=== PATIENT | female | born 1950 | race Caucasian/White ===

== ENCOUNTER 2021-08-02 15:37 | Emergency (ER) | payer MEDICARE, OTHER, SELFPAY ==
[2021-08-02 15:38] VITALS: BP 133/75; PULSE 63; RESP 16; TEMP 36.1; O2SAT 98; BMI 76.3
[2021-08-02 15:41] VITALS: BP 133/75; PULSE 63; RESP 16; TEMP 36.1; O2SAT 98
[2021-08-02 16:13] VITALS: O2SAT 96
[2021-08-02] MEDS: Ondansetron ODT 4 MG Tablet PO (17:34)
[2021-08-02 17:37] VITALS: PULSE 65; RESP 18; O2SAT 98
--- NOTE | 2021-08-02 18:15 | ED.VIS.DYS ---
HPI History of Present Illness Chief Complaint: Shortness of Breath Narrative Narrative: Patient presenting with mild shortness of breath. She is day 4 of COVID-19 symptoms. She states that she noted her pulse ox was 89- 90 at home. She did not feel significantly short of breath. She does express that she is had some nausea. She denies chest pain or palpitations. She denies abdominal pain. She has no urinary complaints. Patient states that she has been trying to get set up for monoclonal antibodies outpatient but this has not been ordered yet. Patient had a COVID-19 test that was positive at the now clinic on the . Symptom onset was the . [facility] Medical History Arthritis Back problem Benign neoplasm of right breast Breast lump Cataracts, bilateral Chronic headaches Gallstones Glaucoma Heart disease History of blood clots Hypertension Neuropathy UTI (urinary tract infection) Home Medications Daniela's wort 300 mg tablet 300 mg PO DAILY 07/12/21 [History Last Taken Unknown] aspirin 81 mg tablet,delayed release 81 mg PO DAILY 07/12/21 [History Last Taken Unknown] lecithin 1,200 mg capsule 1,200 mg PO DAILY 07/12/21 [History Last Taken Unknown] lisinopril 40 mg tablet 40 mg PO DAILY 07/12/21 [History Last Taken Unknown] nmodderqobgh-bvaquiev-hhagvm tablet 1 tab PO DAILY 07/12/21 [History Last Taken Unknown] phentermine 30 mg capsule 30 mg PO DAILY #30 cap 07/12/21 [Rx Last Taken Unknown] propranolol 10 mg tablet 10 mg PO TID 07/12/21 [History Last Taken Unknown] selenium 200 mcg tablet 200 mcg PO DAILY 07/12/21 [History Last Taken Unknown] vit C 250 mg-E 90 mg-zinc 40 mg-copper 1 jf-aszzfe-dtjjed chew tablet 1 tab PO QAM AND QPM 07/12/21 [History Last Taken Unknown] ondansetron 4 mg PO Q8H PRN PRN #14 tab 08/02/21 [Rx Last Taken Unknown] Allergy/AdvReac Type Severity Reaction Status Date / Time iodine Allergy Intermediate rash Verified 07/12/21 14:30 amoxicillin [From Augmentin] AdvReac Vomiting Verified 08/02/21 15:38 clavulanic acid AdvReac Vomiting Verified 08/02/21 15:38 [From Augmentin] Family History Father Angina at rest Hx of blood clots Cancer Myocardial infarction Sister Cancer Brother Thyroid disorder Severe allergy Surgical History H/O repair of right rotator cuff History of cholecystectomy History of phacoemulsification of cataract of both eyes with intraocular lens implantation History of total left knee replacement Social History Smoking Status: Never smoker alcohol intake: never substance use type: does not use what type of physical activity do you participate in: walking ROS ROS ED Constitutional Constitutional ED: Reports chills and fever(s) Eyes Eyes: Denies blurry vision or diplopia ENT ENT ED: Denies rhinorrhea or sore throat Cardiovascular Cardiovascular: Denies chest pain or palpitations Respiratory/Chest Respiratory/Chest: Reports cough and dyspnea Gastrointestinal Gastrointestinal: Denies abdominal pain, nausea or vomiting Genitourinary Genitourinary ED: Denies dysuria or hematuria Musculoskeletal Musculoskeletal: Reports myalgias; Denies arthralgias or neck pain Integumentary Denies Abrasions or rash Neurologic Neurologic: Reports headache(s); Denies paresthesias or weakness EXAM Physical Exam Const Vital Signs: 08/02/21 15:38 08/02/21 15:41 08/02/21 16:13 Temperature 96.9 F L 96.9 F L Temperature Source Temporal Temporal Pulse Rate 63 63 Respiratory Rate 16 16 Respiratory Effort Normal Non-Labored Respiratory Depth Normal Respiratory Pattern Normal Blood Pressure 133/75 H 133/75 H Blood Pressure Mean 94 94 Pulse Ox 98 98 Oxygen Delivery Method Room Air Room Air Room Air 08/02/21 17:37 Temperature Temperature Source Pulse Rate 65 Respiratory Rate 18 Respiratory Effort Respiratory Depth Respiratory Pattern Blood Pressure Blood Pressure Mean Pulse Ox 98 Oxygen Delivery Method Positive well nourished General Appearance ED: NAD; Negative for pallor HEENT Reports moist mucous membranes atraumatic Eyes PERRL and EOMs intact bilaterally General Eye ED: Negative for pale conjunctiva or scleral icterus Neck no lymphadenopathy and supple Resp normal respiratory effort and clear to auscultation bilaterally Cardio regular rate and regular rhythm Extremity normal to inspection General Extremety ED: Negative for edema or tenderness General Extremity: Negative for edema Neuro oriented x3 and CN's II-XII intact bilaterally Sensorium / Orientation: alert Motor Exam: strength 5/5 throughout Psych mental status grossly normal Skin General Skin Exam: Negative for jaundice or pallor Rashes: no rashes MDM MDM MDM Narrative Medical decision making narrative: Patient evaluated for low pulse ox. Her pulse ox here is 98%. I personally ambulated her in the room for about 45 seconds while she was giving her history to me and she never dropped below 98%. I believe her pulse ox may not be accurate. She did not appear dyspneic and states she is not even very short of breath when she is doing this. Based on this I do not believe she needs any blood work or imaging at this time. She does express that she like some nausea medicine for home. She is given Zofran. I did put in the order for monoclonal antibodies so that she can get set up for this. She is counseled to hydrate well at home. She is given return precautions. Impression: 1 COVID-19 Discharge Plan Triage Chief Complaint: Shortness of Breath ED Provider: Artem Lees Dx/Rx/DC Orders Instructions: Coronavirus Disease 2019 (COVID-19): Caring for Yourself or Others, ED - COVID Monoclonal AB Infusion ... Prescriptions: New ondansetron 4 mg tablet,disintegrating 4 mg PO Q8H PRN PRN (Reason: Nausea) Qty: 14 RF: 0 No Action propranolol 10 mg tablet 10 mg PO TID RF: 0 lisinopril 40 mg tablet 40 mg PO DAILY RF: 0 Daniela's wort 300 mg tablet 300 mg PO DAILY RF: 0 selenium 200 mcg tablet 200 mcg PO DAILY RF: 0 PreserVision AREDS-2 250-90-40-1 mg tablet,chewable 1 tab PO QAM AND QPM RF: 0 lecithin 1,200 mg capsule 1,200 mg PO DAILY RF: 0 aspirin 81 mg tablet,delayed release (DR/EC) 81 mg PO DAILY RF: 0 xhaltqzyogho-lxkvyjxt-nyrmhy Tablet 1 tab PO DAILY RF: 0 phentermine 30 mg capsule 30 mg PO DAILY Qty: 30 RF: 2 Primary Care Provider: Brian Martini Referrals: Brian Martini MD [Primary Care Provider] - Disposition Disposition: Home, Self Care Discharge Date/Time: 08/02/21 17:41
== END 2021-08-02 17:41 | disposition home or self-care (01) ==
PROVIDERS: Emergency Provider Student in an Organized Health Care Education/Training Program; PCP Family Medicine
DX: U07.1 COVID-19 (principal); I10 Essential (primary) hypertension; M19.90 Unspecified osteoarthritis, unspecified site; Z79.82 Long term (current) use of aspirin; Z79.899 Other long term (current) drug therapy
CPT/HCPCS: 87426; 99283

== ENCOUNTER 2021-08-05 14:28 | Outpatient (CLI) | payer MEDICARE, OTHER, SELFPAY ==
[2021-08-05 14:58] VITALS: BP 115/68; PULSE 68; RESP 16; TEMP 36.4; O2SAT 100; BMI 34.6
[2021-08-05] MEDS: 0.9% Saline Lock 10 ML Syringe IV (14:58)
[2021-08-05 15:37] VITALS: BP 124/77; PULSE 63; RESP 18; TEMP 36.6; O2SAT 98
[2021-08-05 16:27] VITALS: BP 124/64; PULSE 65; RESP 16; TEMP 36.6; O2SAT 98
== END 2021-08-05 23:59 | disposition home or self-care (01) ==
LOC: MS3OUT 14:28 → MS3 14:29
PROVIDERS: PCP Family Medicine; Referring Provider Student in an Organized Health Care Education/Training Program; Visit Provider Student in an Organized Health Care Education/Training Program
DX: U07.1 COVID-19 (principal)
CPT/HCPCS: J7050; M0243; A4216; Q0244

== ENCOUNTER 2021-09-23 09:36 | Outpatient (CLI) | payer MEDICARE, OTHER, SELFPAY ==
--- NOTE | 2021-09-23 09:47 | EKG12_ITS ---
Test Reason : PREOP Blood Pressure : / mmHG Vent. Rate : 066 BPM Atrial Rate : 066 BPM P-R Int : 178 ms QRS Dur : 080 ms QT Int : 404 ms P-R-T Axes : 044 017 056 degrees QTc Int : 423 ms Normal sinus rhythm Normal ECG Confirmed by ILEANA MONDRAGON, SANDOR ([id number]), editor continuity and script HARISH MALONEY ([id number]) on 09/24/2021 6:42:22 AM Referred By: Kristian Rose Confirmed By:SANDOR TEJEDA MD
[2021-09-23 11:02] LABS: Hematocrit 37.7 % (37-47); Hemoglobin 12.1 g/dL (12.0-15.0); Mean Corp Hgb Conc 32.1 g/dL (32-36); Mean Corpuscular Hgb 32.2 pg (27.0-32.0); Mean Corpuscular Volume 100.3 fL (81-99); Platelet Count 238 K/mm3 (150-450); RBC Distribution Width SD 47.9 fl (35.1-43.9); Red Blood Count 3.76 M/mm3 (4.2-5.4); White Blood Count 8.2 K/mm3 (4.4-11.0)
[2021-09-23 11:26] LABS: Hemoglobin A1c 5.9 % (3.8-5.6)
[2021-09-23 11:38] LABS: Anion Gap 5 (5-15); BUN 19 mg/dL (7-18); BUN/Creat Ratio 22.6 RATIO (10-20); Calcium,Total 8.9 mg/dL (8.5-10.1); Chloride 106 mmol/L (98-107); Creatinine, Serum 0.84 mg/dL (0.55-1.02); EST Glomerular Filtration Rate 70 mL/min (>60); Est Glom Filt Rate - Afr Amer 85 mL/min (>60); Glucose 105 mg/dL (74-106); Potassium 4.2 mmol/L (3.5-5.1); Sodium Level 138 mmol/L (136-145)
== END 2021-09-23 23:59 | disposition home or self-care (01) ==
LOC: PSN 09:40
PROVIDERS: PCP Family Medicine; Referring Provider Physician Assistant; Visit Provider Physician Assistant
DX: Z01.810 Encounter for preprocedural cardiovascular examination (principal); Z20.822 Contact with and (suspected) exposure to COVID-19; R73.09 Other abnormal glucose
CPT/HCPCS: 36415; 80048; 83036; 85027; 87426; 93005; C9803

== ENCOUNTER 2021-12-08 21:25 | Emergency (ER) | payer MEDICARE, OTHER, SELFPAY ==
[2021-12-08 21:26] VITALS: BP 156/106; PULSE 68; RESP 16; TEMP 37.1; O2SAT 98; BMI 42.2
--- NOTE | 2021-12-08 21:55 | RAD_ITS ---
STUDY: X-RAY - RIGHT SHOULDER REASON FOR EXAM: Female, 71 years old. PT. TRIPPED FELL OUTSIDE. LANDED RIGHT SHOULDER. RIGHT CONFUCIANISM HEMATOMA. PT. HAD ROTATOR CUFF 8WKS AGO. EMS STATES CREPITOUS IN RIGHT SHOULDER TECHNIQUE: 2 view(s) of the shoulder. COMPARISON: None. FINDINGS: Normal glenohumeral articulation. There is degenerative arthrosis of the acromioclavicular joint without inferior osseous spur formation. Normal acromion. Operative changes of the humeral head. Comminuted oblique fracture of the proximal humeral diaphysis with approximately one half shaft width displacement and medial apical angulation. The soft tissue structures are unremarkable. Normal visualized pulmonary apex. RAD/Shoulder min 2 Views IMPRESSION: Right proximal humerus fracture. Electronically Signed: Burt Sneed MD ([place]) at 22:10 EDT ,
--- NOTE | 2021-12-08 21:55 | RAD_ITS ---
STUDY: X-RAY - RIGHT HUMERUS REASON FOR EXAM: Female, 71 years old. FALL TECHNIQUE: 2 view(s) of the humerus. COMPARISON: None. FINDINGS: Comminuted oblique fracture of the proximal humeral diaphysis with approximately one half shaft width displacement and medial apical angulation. No additional fracture. Mild soft tissue swelling. RAD/Humerus min 2 Views IMPRESSION: Right proximal humerus fracture. Electronically Signed: Burt Sneed MD ([place]) at 22:11 EDT ,
--- NOTE | 2021-12-08 22:27 | CT_ITS ---
STUDY: CT BRAIN WITHOUT CONTRAST REASON FOR EXAM: Female, 71 years old. head injury RADIATION DOSAGE (If Supplied By Facility): CTDIvol = ( 44.99 ) mGy, DLP = ( 829.85 ) mGycm TECHNIQUE: Transaxial CT imaging of the brain was performed without administration of intravenous contrast material. Individualized dose optimization techniques were used for this CT. COMPARISON: No relevant priors. FINDINGS: Right frontal scalp soft tissue swelling. Normal calvarium. There is mild cerebral atrophy with widening of the extra-axial spaces and ventricular dilatation. Normal white matter tracts of the cerebral hemispheres. Normal basal ganglia and thalami. Normal brainstem. Normal cerebellum. There is no intracranial hemorrhage. There are no findings of an acute ischemic infarction. Normal visualized paranasal sinuses. CT/Brain/Head without Contrast IMPRESSION: 1. No acute intracranial hemorrhage or mass effect. 2. Right frontal scalp soft tissue swelling/contusion. Electronically Signed: Burt Sneed MD ([place]) at 23:02 EDT ,
[2021-12-08] MEDS: HYDROmorphone 1 MG/ML Syringe IV (22:29)
[2021-12-08] MEDS: Ondansetron 4 MG/2 ML Vial IV (22:29)
--- NOTE | 2021-12-08 22:43 | EX.ED.DYSGE1 ---
HPI History of Present Illness Chief Complaint: Fall Narrative Narrative: Patient is a 71-year-old female who is right-hand dominant. She states just prior to arrival she was walking to her driveway when she tripped and fell landing on her right side. She does states she struck her head but denies any loss of consciousness. She states she takes a baby aspirin but [place] any true blood thinner. She states her neighbors saw the event and were able to help her up and she was not on the ground for very long. She reports pain in her right arm/shoulder that worsens with any type of touch or motion. Therefore with concern for an underlying fracture to her right upper arm as well as the fact she had a head trauma she was brought in for evaluation [facility] Medical History Arthritis Back problem Benign neoplasm of right breast Breast lump Cataracts, bilateral Chronic headaches Gallstones Glaucoma Heart disease History of blood clots Hypertension Neuropathy UTI (urinary tract infection) Home Medications Annex's wort 300 mg tablet 300 mg PO DAILY 07/12/21 [History Last Taken Unknown] aspirin 81 mg tablet,delayed release 81 mg PO DAILY 07/12/21 [History Last Taken Unknown] lecithin 1,200 mg capsule 1,200 mg PO DAILY 07/12/21 [History Last Taken Unknown] lisinopril 40 mg tablet 40 mg PO DAILY 07/12/21 [History Last Taken Unknown] kvanvmjydtlt-izjydvkq-pmfehv tablet 1 tab PO DAILY 07/12/21 [History Last Taken Unknown] phentermine 30 mg capsule 30 mg PO DAILY #30 cap 07/12/21 [Rx Last Taken Unknown] propranolol 10 mg tablet 10 mg PO TID 07/12/21 [History Last Taken Unknown] selenium 200 mcg tablet 200 mcg PO DAILY 07/12/21 [History Last Taken Unknown] vit C 250 mg-E 90 mg-zinc 40 mg-copper 1 uw-nxxjvt-fnjdnv chew tablet 1 tab PO QAM AND QPM 07/12/21 [History Last Taken Unknown] ondansetron 4 mg PO Q8H PRN PRN #14 tab 08/02/21 [Rx Last Taken Unknown] oxycodone-acetaminophen [Percocet] 1 tab PO Q6H PRN 3 Days #12 tab 12/08/21 [Rx Last Taken Unknown] Allergy/AdvReac Type Severity Reaction Status Date / Time iodine Allergy Intermediate rash Verified 07/12/21 14:30 amoxicillin [From Augmentin] AdvReac Vomiting Verified 08/02/21 15:38 clavulanic acid AdvReac Vomiting Verified 08/02/21 15:38 [From Augmentin] Family History Father Angina at rest Hx of blood clots Cancer Myocardial infarction Sister Cancer Brother Thyroid disorder Severe allergy Surgical History H/O repair of right rotator cuff History of cholecystectomy History of phacoemulsification of cataract of both eyes with intraocular lens implantation History of total left knee replacement Social History Smoking Status: Never smoker alcohol intake: never substance use type: does not use what type of physical activity do you participate in: walking ROS ROS ED Constitutional Constitutional ED: Denies chills or fever(s) Eyes Eyes: Denies blurry vision or change in vision ENT ENT ED: Denies sore throat Cardiovascular Cardiovascular: Denies chest pain Respiratory/Chest Respiratory/Chest: Denies cough or dyspnea Gastrointestinal Gastrointestinal: Denies abdominal pain, diarrhea, nausea or vomiting Genitourinary Genitourinary ED: Denies dysuria Musculoskeletal Musculoskeletal: Reports arthralgias and other Details: Positive right shoulder pain ; Denies back pain, myalgias or neck pain Integumentary Reports Abrasions; Denies rash Neurologic Neurologic: Denies headache(s) or paresthesias Hematologic/Lymphatic Hematologic/Lymphatic: Denies easy bleeding or easy bruising EXAM Physical Exam Const Vital Signs: 12/08/21 21:26 12/08/21 21:32 12/08/21 23:41 Temperature 98.8 F Temperature Source Temporal Pulse Rate 68 71 Respiratory Rate 16 15 Respiratory Effort Normal Respiratory Depth Normal Respiratory Pattern Normal Blood Pressure 156/106 H 119/74 Blood Pressure Mean 122 Pulse Ox 98 94 Oxygen Delivery Method Room Air Room Air Positive well nourished and well developed General Appearance ED: well developed HEENT HEENT Narrative: Patient has an area of ecchymosis to the right frontal section of the forehead as well as a superficial abrasion around the left orbit. Otherwise no signs of depressed or basilar skull fracture. Eyes PERRL and EOMs intact bilaterally Eyes Narrative: No hyphema Neck supple Neck Narrative: No midline pain with palpation no bony deformity or step-off of the cervical spine. Patient is able to move her neck in all directions without pain. Chest Wall palpation of chest normal Resp normal respiratory effort and clear to auscultation bilaterally Cardio regular rate and regular rhythm GI normal to inspection, nondistended, normoactive bowel sounds, non-tender, non-distended and no masses Auscultation: normoactive bowel sounds Palpation: soft Back/Spine Back/Spine Narrative: No bony deformity or step-off of the thoracic or lumbar spine. No midline pain on palpation Extremity Extremity Narrative: Pelvis is stable there is no shortening or external rotation of either lower extremity. Patient has soft tissue swelling of the right upper arm with pain with palpation at this site and grinding noted with passive motion concerning for underlying fracture. The right upper extremity is neurovascularly intact; AIN/PIN are intact and normal. Active and passive range of motion is severely limited secondary to pain. The compartments are compressible and soft going against compartment syndrome. Remainder the exam is normal Neuro oriented x3 and CN's II-XII intact bilaterally Sensorium / Orientation: alert Psych mental status grossly normal Skin Skin Narrative: Area of ecchymosis and abrasion to the forehead/head as documented above MDM MDM MDM Narrative Medical decision making narrative: Patient reported a mechanical fall so I felt no need for cardiac or syncope work-up. With trauma to the head as well as the right arm/shoulder I elected perform a head CT as well as x-rays. The head CT revealed no acute skull fracture brain. X-rays of the right upper extremity showed a displaced proximal humerus fracture. However the fracture is closed and patient is neurovascularly intact with no signs of compartment syndrome. The case was discussed with orthopedics on-call and they recommend a simple sling at this time with outpatient follow-up. Patient was treated with Dilaudid in the ER and did report improvement of her pain. Therefore at this time as the exam shows a fracture but no signs of neurologic impingement or event and patient does not have any vascular compromise there is no need for further treatment and she can be discharged home with outpatient follow-up Radiography Diagnostic Testing: Clinical Impression(s) from Imaging Studies Humerus X-Ray 12/08/21 21:55 IMPRESSION: Right proximal humerus fracture. Electronically Signed: Burt Sneed MD ([place]) at 22:11 EDT , Shoulder X-Ray 12/08/21 21:55 IMPRESSION: Right proximal humerus fracture. Electronically Signed: Burt Sneed MD (Brooks) at 22:10 EDT , Brain CT 12/08/21 22:27 IMPRESSION: 1. No acute intracranial hemorrhage or mass effect. 2. Right frontal scalp soft tissue swelling/contusion. Electronically Signed: Burt Sneed MD (Brooks) at 23:02 EDT , X-ray of the right shoulder and right humerus as interpreted by the emergency medicine physician reveals a displaced proximal humerus fracture without shoulder dislocation Discharge Plan Triage Chief Complaint: Fall ED Provider: Otilio Cui Dx/Rx/DC Orders Clinical Impression: Closed fracture of proximal end of right humerus, Closed head injury, Accidental fall Instructions: ED Fracture, Upper Extremity, ED Head Injury (Adult) Prescriptions: New oxycodone-acetaminophen [Percocet] 5-325 mg tablet 1 tab PO Q6H PRN (Reason: pain) 3 Days Qty: 12 RF: 0 No Action propranolol 10 mg tablet 10 mg PO TID RF: 0 lisinopril 40 mg tablet 40 mg PO DAILY RF: 0 Annex's wort 300 mg tablet 300 mg PO DAILY RF: 0 selenium 200 mcg tablet 200 mcg PO DAILY RF: 0 PreserVision AREDS-2 250-90-40-1 mg tablet,chewable 1 tab PO QAM AND QPM RF: 0 lecithin 1,200 mg capsule 1,200 mg PO DAILY RF: 0 aspirin 81 mg tablet,delayed release (DR/EC) 81 mg PO DAILY RF: 0 xnwrdvwjxluc-twroxqif-pkjaxl Tablet 1 tab PO DAILY RF: 0 phentermine 30 mg capsule 30 mg PO DAILY Qty: 30 RF: 2 ondansetron 4 mg tablet,disintegrating 4 mg PO Q8H PRN PRN (Reason: Nausea) Qty: 14 RF: 0 Primary Care Provider: Brian Martini Referrals: Brian Martini MD [Primary Care Provider] - Efra Kenny DO [STAFF PHYSICIAN] - 3-5 Days Activity Restrictions/Additional Instructions: Please wear your sling for stabilization and follow-up with orthopedics in the next few days to discuss further treatment options. Please stop taking the Ultram/tramadol and use Percocet for improved pain control and return to the ER should you have any further concerns Disposition Disposition: Home, Self Care Discharge Date/Time: 12/09/21 00:35
[2021-12-08 23:41] VITALS: BP 119/74; PULSE 71; RESP 15; O2SAT 94
[2021-12-08] MEDS: HYDROmorphone 0.5 MG/0.5 ML SYRINGE IV (23:50)
--- NOTE | 2021-12-10 17:50 | CM.ED ---
ER RNWALTER DC F/u Call: ED Visit 12/08/2021 for Trip and Fall, + Rt Humerus Fx with sling and prescribed [place]. Called patient's listed cell phone number. 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 Patient states not doing great, has the sling on and facial bruising in which she has applied ice. States prescribed [place] does help with the pain. Has an appointment with the Ortho doctor tomorrow. No further voiced concerns at this time. RITIKA Beavers
== END 2021-12-09 00:35 | disposition home or self-care (01) ==
PROVIDERS: Emergency Provider Emergency Medicine; PCP Family Medicine; Visit Provider Emergency Medicine
DX: S42.291A Other displaced fracture of upper end of right humerus, initial encounter for closed fracture (principal); S00.83XA Contusion of other part of head, initial encounter; S00.212A Abrasion of left eyelid and periocular area, initial encounter; W01.10XA Fall on same level from slipping, tripping and stumbling with subsequent striking against unspecified object, initial encounter; Y93.01 Activity, walking, marching and hiking; Y99.8 Other external cause status; Y92.008 Other place in unspecified non-institutional (private) residence as the place of occurrence of the external cause; I11.9 Hypertensive heart disease without heart failure; M19.90 Unspecified osteoarthritis, unspecified site; Z79.82 Long term (current) use of aspirin; Z79.899 Other long term (current) drug therapy
CPT/HCPCS: 70450; 73030; 73060; 96374; 96375; 96376; 99284; J2405

== ENCOUNTER → 2021-12-11 | Outpatient (CLI) | payer MEDICARE, OTHER, SELFPAY | END | disposition home or self-care (01) | PROVIDERS: PCP Family Medicine; Referring Provider Student in an Organized Health Care Education/Training Program; Visit Provider Student in an Organized Health Care Education/Training Program | DX: Z01.811 Encounter for preprocedural respiratory examination (principal); Z01.818 Encounter for other preprocedural examination | CPT/HCPCS: 36415; 80048 ==

== ENCOUNTER 2021-12-18 19:31 | Observation (INO) | payer MEDICARE, OTHER, SELFPAY ==
--- NOTE | 2021-12-11 11:25 | RAD_ITS ---
STUDY: X-RAY CHEST REASON FOR EXAM: Female, 71 years old. PRE OP TECHNIQUE: PA and lateral views of the chest. COMPARISON: None. FINDINGS: There are interstitial fibrotic changes of the lungs. No airspace consolidation. There is no demonstrated pleural abnormality. Normal size heart. Normal mediastinum and tina. Normal visualized pulmonary arteries. There is atherosclerotic calcification of the aortic arch with tortuosity. There are diffuse degenerative changes of the visualized thoracic spine. Right proximal humerus fracture partially visualized. There is no demonstrated abnormality of the visualized soft tissue structures of the upper abdomen. RAD/Chest PA and Lateral IMPRESSION: No acute cardiopulmonary process. Right proximal humerus fracture partially visualized. Electronically Signed: Burt Sneed MD ([place]oks) at 17:05 EDT ,
[2021-12-11 12:16] LABS: Absolute Lymphocyte Count 2.29 X10^3/uL (0.83-4.51); Absolute Neutrophil Count 6.4 X10^3/uL (2.0-7.7); Basophil# 0.04 X10^3/uL; Basophil% 0.4 % (0-1); Hematocrit 34.2 % (37-47); Hemoglobin 10.7 g/dL (12.0-15.0); Lymphocyte # 2.29 X10^3/ul (0.83-4.51); Lymphocyte % 22.6 % (19-41); Mean Corp Hgb Conc 31.3 g/dL (32-36); Mean Corpuscular Hgb 31.6 pg (27.0-32.0); Mean Corpuscular Volume 100.9 fL (81-99); Mean Platelet Vol. 12.8 fl (6.2-12.0); Monocyte# 1.01 X10^3/uL; NRBC Flagged by Analyzer 0 % (0-5); Neutrophil # 6.41 X10^3/uL (2.7-7.7); Neutrophil % 63.3 % (47-70); Platelet Count 183 K/mm3 (150-450); RBC Distribution Width CV 13.3 % (11.6-14.6); RBC Distribution Width SD 49.5 fl (35.1-43.9); Red Blood Count 3.39 M/mm3 (4.2-5.4); White Blood Count 10.1 K/mm3 (4.4-11.0)
[2021-12-11 13:09] LABS: Anion Gap 6 (5-15); BUN 24 mg/dL (7-18); BUN/Creat Ratio 30.8 RATIO (10-20); Calcium,Total 8.9 mg/dL (8.5-10.1); Chloride 105 mmol/L (98-107); Creatinine, Serum 0.78 mg/dL (0.55-1.02); EST Glomerular Filtration Rate 77 mL/min (>60); Est Glom Filt Rate - Afr Amer 93 mL/min (>60); Glucose 116 mg/dL (74-106); Potassium 4.2 mmol/L (3.5-5.1); Sodium Level 136 mmol/L (136-145)
[2021-12-18] VITALS (21 sets, daily range): BP systolic 111–181; BP diastolic 69–149; PULSE 48–72; RESP 14–18; TEMP 35.5–36.7; O2SAT 92–100; BMI 39.6; BMI 33.6
[2021-12-18] MEDS: Lactated Ringers 1,000 ML 100 ML IV ×2 (12:10→22:21)
--- NOTE | 2021-12-18 12:13 | EKG12_ITS ---
Test Reason : PRE OP Blood Pressure : / mmHG Vent. Rate : 065 BPM Atrial Rate : 065 BPM P-R Int : 182 ms QRS Dur : 082 ms QT Int : 414 ms P-R-T Axes : 049 002 032 degrees QTc Int : 430 ms Normal sinus rhythm Normal ECG When compared with ECG of 23-SEP-2021 09:53, No significant change was found Confirmed by CHARITO MONDRAGON, ISAI ([id number]), research editor HARISH MALONEY ([id number]) on 12/23/2021 10:14:25 A M Referred By: GABRIELA Confirmed By:ZAIDA MCNEILL MD
[2021-12-18] MEDS: Cefazolin 2 GM in 0.9% Normal Saline 100 ML IV (13:15)
--- NOTE | 2021-12-18 13:50 | RAD_ITS ---
STUDY: INTRAOPERATIVE FLUOROSCOPY TECHNIQUE: The examination was performed with referring physician in attendance. Under fluoroscopic observation, fluoroscopic images were obtained. Radiologist was not present for the study. Radiologist did not perform the procedure. This dictation is for documentation of the radiation dosage only. There is no interpretation of the images. TOTAL NUMBER OF IMAGES: 1 COMPARISON: None RADIATION DOSE: .87 mGy FLUOROSCOPY TIME: 14.5 seconds REASON FOR EXAM: FX Female, 71 years old. FINDINGS: There is a metal sideplate transfixing the proximal femur. There are cortical screws holding the plate in place. RAD/Humerus min 2 Views IMPRESSION: Fluoroscopic assistance images were obtained. Dictation for documentation purposes only. Electronically Signed: Kishore Busch MD at 15:53 EDT ,
--- NOTE | 2021-12-18 15:43 | PCM.OPRPT ---
Report of Operation Description of Surgical Findings:: Preoperative diagnosis: Right displaced spiral proximal third humeral shaft fracture Postoperative diagnosis: Right displaced spiral proximal third humeral shaft fracture Procedure: Open reduction internal fixation right humeral shaft Surgeon: Efra Kenny DO Psychologist Clinical: Sarah José PA-C Anesthesia: General endotracheal Anesthesiologist: Dr. Kaur Complications: Infiltrated IV in the left antecubital fossa during anesthesia induction resulting in extravascular extravasation of 20 cc propofol solution, swelling noted, skin appearing benign postoperatively. Drains: None Estimated blood loss: 300 cc Urinary output: None cc IV fluids: 1200 cc crystalloid Specimens: None Surgical implants: [place] Axsos 10 hole proximal lateral humeral locking plate with three 3.5 mm cortical independent lag screws Surgical indications: This is a 71-year-old female seen in the outpatient setting after a mechanical fall onto her right upper extremity on 12/08/2021. She tripped and fell in her driveway. She was seen in the emergency department [facility] [place] on that day. X-rays revealed a right proximal humeral shaft fracture. She had some facial bruising as well, CT scan of her head was benign. Of note, patient had a right revision rotator cuff surgery performed by my partner Dr. Scott on 10/02/2021. She states she was progressing well with her physical therapy prior to the fall. Due to the amount of displacement, proximal third nature of the fracture with severe deforming forces and difficulty achieving reduction with fracture bracing, as well as her need for mobilization in the setting of recent rotator cuff surgery, surgical intervention was recommended in the form of right humerus open reduction internal fixation. Risks, benefits, alternatives to the procedure reviewed with patient at length and agreed to proceed. The risks included but were not limited to bleeding, infection, loss of life or limb, risk of anesthesia, persistent pain, malunion, nonunion, need for additional surgery, neurovascular injury, stiffness. Patient expressed understanding of these risks and wished to proceed with surgery. Surgical details: Patient arrived to [facility] [place] morning of surgery and was greeted by the same day surgery staff. Prior to her procedure, I greeted the patient in the preoperative holding area. Identified the patient by name, record number, and date of . Informed consent was confirmed. The operative extremity was marked. All questions were answered to patient satisfaction. Patient was also seen by anesthesia staff. At time of her procedure, patient was brought to the operative suite and positioned supine on a standard table with a beachchair attachment. General anesthesia was induced after all bony prominences were well-padded. The IV catheter in the left antecubital fossa did infiltrate with attempted induction resulting in 20 cc of propofol solution infiltrating into the soft tissues of the left elbow. This was examined pre and postop and appeared benign. Swelling had reduced following surgery. A new IV was placed. General anesthesia was successfully induced at this point. Endotracheal tube was placed. After adequate anesthesia and securing the tube, we prepared the patient to be positioned in the beachchair position. A well-padded wet process miller head was applied. The nonoperative extremity was placed in a well arm vazquez. She was then brought into the beachchair position after we confirmed an appropriate blood pressure. We then spun the bed 45 degrees. The operative extremity was then prepared. Then the butterfly wing of the bed was removed and a well-padded torso strap was applied to secure the patient to the bed. The upper extremity was now free. We then prepped and draped the right upper extremity in normal, sterile orthopedic fashion. We then performed a timeout with all parties in attendance in agreement with the side, site, and operation be performed. 2 g Ancef was administered prior to incision by anesthesia staff. No concerns were voiced and we elected to proceed. I first marked a standard deltopectoral incision just lateral to the coracoid process in line with the long axis of the humerus. Skin was sharply incised with 10 blade scalpel. I then dissected bluntly through the subcutaneous layers and found the fat stripe between the deltoid and pectoralis major. The cephalic vein was then identified and protected. It was retracted laterally with the deltoid. I then bluntly dissected underneath the deltoid with a Garvin elevator. This quickly identified the fracture site. The upper third of the pectoralis major was released due to its proximity the fracture and need for access to the fracture site. Fracture reduction forceps were utilized to reduce the deformity after debriding fracture hematoma. I achieved anatomic reduction with a combination of rotation and longitudinal traction. C-arm was brought in to confirm anatomic reduction. There is a small butterfly fragment near the calcar of the proximal humerus that was too small to achieve fixation and was left alone. I then placed 3 separate 3.5 mm cortical screws to act as lag screws in a lag by technique fashion by first over drilling the near cortex and under drilling the far cortex. These achieved excellent fixation. Clamp was removed and fracture appeared stable at this point. I then selected a 10 hole proximal humerus plate to achieve fixation proximal and distal to the fracture site to act as a neutralization plate. This was provisionally placed and secured with K wires. I then placed cortical screws proximal and distal to the fracture site to compress the plate to the bone. Plate placement was confirmed to be appropriate on x-ray. The plate was placed just anterior to the deltoid insertion distally and approximately 5 mm distal to the greater tuberosity. I did examine the rotator cuff repair, rotator cuff appeared to be intact after debriding some remaining subacromial bursa. I then placed locking screws in the proximal cluster of the plate, unicortically. I planned my trajectory of screws to avoid the bio composite anchor used for recent rotator cuff repair. Additional cortical screws were placed distal to the fracture site. The locking screws were finally tightened with a torque limiting screwdriver. Final fluoroscopic images were obtained demonstrated anatomically reduced spiral fracture. Wound was copiously irrigated with normal saline. Hemostasis was excellent at this point. I repaired the pectoralis major to the tendon and plate with a #2 FiberWire. Fascia was closed over the cephalic vein in a running fashion with a 0 Vicryl. Dermis was reapproximated buried 2-0 Vicryl suture. Skin was finally reapproximated with a 3?0 V-Loc suture and Dermabond. A sterile silver Mepilex dressing was then applied. The patient tolerated the procedure well. She was positioned back in the supine position extubated in the operative suite. She was placed in a simple sling. [facility] in stable condition. She will receive a postoperative interscalene block for postoperative analgesia in the PACU. Intraoperative medications: 2 g Ancef IV Sarah José PA-C was critical to the outcome of the case. During the course of the procedure the physician graduate assistant played a vital role. Her intimate knowledge of my steps in the procedure aided in safe and expedient completion of the procedure. The PA played a vital role in positioning particularly in obtaining the appropriate positioning. The PA was also vital in the retraction of soft tissues during the exposure and protecting vital structures. The PA was also vital and protecting soft tissues during times of hardware placement and fracture reduction she also played a vital role in closure with my direct supervision. Post Operative Plan: Weightbearing: Nonweightbearing right upper extremity, okay for pendulums. Range of motion of wrist elbow and hand as tolerated. Antibiotics: 2 g Ancef IV prior to incision DVT Prophylaxis: Aspirin 81 mg twice daily to start tomorrow Marrero: None Dressing: Maintain silver dressing x7 days. Okay to shower dressing on started on day 2 X-Rays: 2 weeks postop in the office Pain Medication: Oxycodone prescribed as an outpatient Follow-up: 2 weeks post-operatively with me in the office
--- NOTE | 2021-12-18 15:48 | DCINST_ITS ---
Discharge Instructions Follow Up Care Test Results: Test results from this visit will be discussed in further detail at your follow-up appointment, if applicable. Discharge Plan Admission Primary Reason for Your Visit: Right humerus surgical fixation Attending Provider: Efra Kenny Primary Care Provider: Brian Martini Instructions Additional Instructions / Restrictions: Follow preprinted instructions from your surgeon's office. Discharge Orders/Prescriptions Prescriptions: No Action propranolol 10 mg tablet 10 mg PO TID RF: 0 lisinopril 40 mg tablet 40 mg PO DAILY RF: 0 [place]'s wort 300 mg tablet 300 mg PO DAILY RF: 0 selenium 200 mcg tablet 200 mcg PO DAILY RF: 0 PreserVision AREDS-2 250-90-40-1 mg tablet,chewable 1 tab PO QAM AND QPM RF: 0 lecithin 1,200 mg capsule 1,200 mg PO DAILY RF: 0 aspirin 81 mg tablet,delayed release (DR/EC) 81 mg PO DAILY RF: 0 uuooraebaiqi-nuaodztw-whirqv Tablet 1 tab PO DAILY RF: 0 ondansetron 4 mg tablet,disintegrating 4 mg PO Q8H PRN PRN (Reason: Nausea) Qty: 14 RF: 0 oxycodone-acetaminophen [Percocet] 5-325 mg tablet 1 tab PO Q6H PRN (Reason: pain) 3 Days Qty: 12 RF: 0 Referrals / Follow Up: Brian Martini MD [Primary Care Provider] - Efra Kenny DO [STAFF PHYSICIAN] - Within 2 Weeks Disposition Discharge Orders: Discharge Patient (Routine); Ordered 12/18/21 Ordered By: Dr. Efra Kenny
--- NOTE | 2021-12-18 18:30 | RAD_ITS ---
STUDY: X-RAY CHEST REASON FOR EXAM: Female, 71 years old. SOB / SOA post op shortness of breath TECHNIQUE: XR Chest 1 View COMPARISON: 12.11.21 FINDINGS: There is no demonstrated pleural abnormality. There is a metal sideplate transfixing the right humerus. There are cortical screws holding the plate in place. Right humeral anchor noted. There is an elevated right hemidiaphragm. Normal size heart. Normal mediastinum and tina. Normal visualized pulmonary arteries. There is atherosclerotic calcification of the aortic arch with tortuosity. There are diffuse degenerative changes of the visualized thoracic spine. There is degenerative osteoarthritis of the bilateral shoulders. There is no demonstrated abnormality of the visualized soft tissue structures of the upper abdomen. RAD/Chest 1 View (Portable) IMPRESSION: There are no acute findings. Electronically Signed: Kishore Busch MD at 18:46 EDT ,
[2021-12-18] MEDS: Propranolol 10 MG Tablet PO (22:21)
[2021-12-18] MEDS: Acetaminophen 500 MG Tablet 1000 MG PO (22:21)
[2021-12-19 03:37] VITALS: BP 136/81; PULSE 68; RESP 16; TEMP 36.5; O2SAT 99
[2021-12-19 06:45] VITALS: BP 127/67; PULSE 74
[2021-12-19] MEDS: Propranolol 10 MG Tablet PO (06:46)
[2021-12-19] MEDS: Acetaminophen 500 MG Tablet 1000 MG PO (06:46)
--- NOTE | 2021-12-19 07:35 | PCM.DC.SUM ---
Providers Date of Admission: 12/18/21 Primary Care Physician: Dr. Brian Martini MD Reason For Visit: rt proximal humerus orif Diagnosis Discharge Diagnosis (1) Fracture of humeral shaft, right, closed: Status: Acute Code(s): S42.301A - Unspecified fracture of shaft of humerus, right arm, initial encounter for closed fracture Plan: POD#1 s/p right humerus open reduction internal fixation - Pain control -adequately controlled with oral oxycodone and Tylenol - DVT PPX -aspirin 81 mg twice daily, SCDs, early mobilization - Dyspnea improving as nerve block wears off. Oxygen saturation excellent overnight on room air. Patient comfortable with discharged home today, as am I. D/c home today. Oxycodone prescription provided as an outpatient. Follow-up in 2 weeks as previously planned. Medications at Discharge Home Medications Daniela's wort 300 mg tablet 300 mg PO DAILY 07/12/21 aspirin 81 mg tablet,delayed release 81 mg PO QHS 07/12/21 lecithin 1,200 mg capsule 1,200 mg PO DAILY 07/12/21 lisinopril 40 mg tablet 40 mg PO DAILY 07/12/21 fvsyiiuixvqc-gpzofeuz-akwerm tablet 1 tab PO DAILY 07/12/21 propranolol 10 mg tablet 10 mg PO TID 07/12/21 selenium 200 mcg tablet 200 mcg PO QHS 07/12/21 vit C 250 mg-E 90 mg-zinc 40 mg-copper 1 nv-athtnk-gzgieo chew tablet 1 tab PO QAM AND QPM 07/12/21 ondansetron 4 mg PO Q8H PRN PRN #14 tab 08/02/21 oxycodone-acetaminophen [Percocet] 1 tab PO Q6H PRN 3 Days #12 tab 12/08/21 Vitamin D3 DAILY 12/18/21 Hospital Course Summary of Care Provided Minutes Spent on Discharge: 15 Hospital Course: Patient underwent uncomplicated right humerus open reduction internal fixation 12/18/2021. She received an interscalene block postoperatively. After the block, patient noted some increased dyspnea. Chest x-ray was obtained and demonstrated no evidence of pneumothorax, but elevated hemidiaphragm was noted on the right. This is suggestive of a phrenic nerve palsy. She had excellent O2 saturation but had some subjective dyspnea. She was placed in observation overnight for further monitoring. As the nerve block wore off postoperative day #1, dyspnea improved. Her O2 saturation was excellent throughout the night on room air. She was able be safely discharged to home on postoperative day #1. Physical Exam Narrative General - A&Ox3, NAD. VSS/AF. Resp -nonlabored breathing, no intercostal retractions CV-pulses regular throughout extremities x4, brisk capillary refill. Right upper Extremity -sensation intact light touch and 5/5 in radial, ulnar, musculocutaneous, axillary, and median nerve distributions. Radial, ulnar pulses 2+. Compartments soft and compressible. BCR in finger tips. Incisional dressing C/D/I. Weight / BMI Weight Weight: 202 lb Body Mass Index (BMI) 33.6 ABG / Lab / Microbiology Data Result Diagrams: 12/11/21 10:58 12/11/21 10:58 Radiography Diagnostic Testing: Radiology Impression Humerus X-Ray 12/18/21 13:50 IMPRESSION: Fluoroscopic assistance images were obtained. Dictation for documentation purposes only. Electronically Signed: Kishore Busch MD at 15:53 EDT , Chest X-Ray 12/18/21 18:30 IMPRESSION: There are no acute findings. Electronically Signed: Kishore Busch MD at 18:46 EDT , Meaningful Use Info Meaningful Use Diagnoses (Choose all that apply): None applicable Discharge Plan Admission Admit Date/Time: 12/18/21 19:31 Primary Reason for Your Visit: Right humerus surgical fixation Attending Provider: Efra Kenny Primary Care Provider: Brian Martini Instructions Additional Instructions / Restrictions: Follow preprinted instructions from your surgeon's office. Discharge Orders/Prescriptions Prescriptions: No Action propranolol 10 mg tablet 10 mg PO TID RF: 0 lisinopril 40 mg tablet 40 mg PO DAILY RF: 0 [place]'s wort 300 mg tablet 300 mg PO DAILY RF: 0 selenium 200 mcg tablet 200 mcg PO QHS RF: 0 PreserVision AREDS-2 250-90-40-1 mg tablet,chewable 1 tab PO QAM AND QPM RF: 0 lecithin 1,200 mg capsule 1,200 mg PO DAILY RF: 0 aspirin 81 mg tablet,delayed release (DR/EC) 81 mg PO QHS RF: 0 bcnfyetqrrsd-ewubbnfe-rihzlj Tablet 1 tab PO DAILY RF: 0 ondansetron 4 mg tablet,disintegrating 4 mg PO Q8H PRN PRN (Reason: Nausea) Qty: 14 RF: 0 oxycodone-acetaminophen [Percocet] 5-325 mg tablet 1 tab PO Q6H PRN (Reason: pain) 3 Days Qty: 12 RF: 0 Vitamin D3 DAILY RF: 0 Referrals / Follow Up: Brian Martini MD [Primary Care Provider] - Efra Kenny DO [STAFF PHYSICIAN] - Within 2 Weeks Disposition Discharge Orders: Discharge Patient (Routine); Ordered 12/18/21 Ordered By: Dr. Efra Kenny
[2021-12-19 07:53] VITALS: O2SAT 94
[2021-12-19 09:00] VITALS: BP 116/60; PULSE 71; RESP 18; TEMP 36.5; O2SAT 95
[2021-12-19] MEDS: Lisinopril 40 MG Tablet PO (09:02)
[2021-12-19] MEDS: Aspirin E.C. 81 MG Tablet PO (09:02)
== END 2021-12-19 07:43 | disposition home or self-care (01) ==
LOC: SDC 21:12 → PCU 21:12
PROVIDERS: Admitting Provider Student in an Organized Health Care Education/Training Program; PCP Family Medicine; Visit Provider Student in an Organized Health Care Education/Training Program
PROC: (CPT 24515; principal; 2021-12-18 12:10)
DX: S42.341A Displaced spiral fracture of shaft of humerus, right arm, initial encounter for closed fracture (principal); R06.00 Dyspnea, unspecified; S00.83XA Contusion of other part of head, initial encounter; Y93.9 Activity, unspecified; Y99.9 Unspecified external cause status; W19.XXXA Unspecified fall, initial encounter; Y92.89 Other specified places as the place of occurrence of the external cause; Z79.899 Other long term (current) drug therapy; M19.90 Unspecified osteoarthritis, unspecified site; I10 Essential (primary) hypertension; E66.8 Other obesity; Z68.34 Body mass index [BMI] 34.0-34.9, adult; Z79.82 Long term (current) use of aspirin; Z86.16 Personal history of COVID-19
CPT/HCPCS: 24515; 01630; 64415; 36415; 71045; 71046; 73060; 76000; 80048; 85025; 93005; 96360; 96361; 99218; C1713; J7120; G0378; J0330; J2405

== ENCOUNTER → 2022-01-03 | Outpatient (CLI) | payer MEDICARE, OTHER, SELFPAY ==
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
== END | disposition home or self-care (01) ==
PROVIDERS: PCP Family Medicine; Referring Provider Student in an Organized Health Care Education/Training Program; Visit Provider Student in an Organized Health Care Education/Training Program
DX: S42.341A Displaced spiral fracture of shaft of humerus, right arm, initial encounter for closed fracture (principal); X58.XXXA Exposure to other specified factors, initial encounter
CPT/HCPCS: 73060

== ENCOUNTER 2023-09-10 09:13 | Emergency (ER) | payer MEDICARE, OTHER, SELFPAY ==
[2023-09-10 09:14] VITALS: BP 157/101; PULSE 58; RESP 16; TEMP 35.7; O2SAT 100; BMI 34.8
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
== END 2023-09-10 11:05 | disposition home or self-care (01) ==
PROVIDERS: Emergency Provider Emergency Medicine; PCP Family Medicine; Visit Provider Emergency Medicine
DX: S20.211A Contusion of right front wall of thorax, initial encounter (principal); S60.222A Contusion of left hand, initial encounter; S60.512A Abrasion of left hand, initial encounter; V49.40XA Driver injured in collision with unspecified motor vehicles in traffic accident, initial encounter; W22.11XA Striking against or struck by driver side automobile airbag, initial encounter; I10 Essential (primary) hypertension; E66.9 Obesity, unspecified; Z68.34 Body mass index [BMI] 34.0-34.9, adult; Z79.82 Long term (current) use of aspirin; Z86.16 Personal history of COVID-19; Z87.891 Personal history of nicotine dependence
CPT/HCPCS: 71101; 73130; 99282

== ENCOUNTER 2023-09-14 13:27 | Emergency (ER) | payer MEDICARE, OTHER, SELFPAY ==
[2023-09-14 13:28] VITALS: BP 156/84; PULSE 70; RESP 16; TEMP 35.8; O2SAT 96; BMI 34.9
[2023-09-14 14:24] VITALS: BP 148/71; PULSE 82; RESP 14; O2SAT 99
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
== END 2023-09-14 14:27 | disposition home or self-care (01) ==
LOC: ED 14:18
PROVIDERS: Emergency Provider Student in an Organized Health Care Education/Training Program; PCP Family Medicine; Visit Provider Student in an Organized Health Care Education/Training Program
DX: S20.211A Contusion of right front wall of thorax, initial encounter (principal); V87.2XXA Person injured in collision between car and pick-up truck or van (traffic), initial encounter; I10 Essential (primary) hypertension; Z79.82 Long term (current) use of aspirin; Z79.899 Other long term (current) drug therapy; Z86.16 Personal history of COVID-19; Z87.891 Personal history of nicotine dependence
CPT/HCPCS: 99282

== ENCOUNTER → 2024-05-05 | Outpatient (CLI) | payer MEDICARE, OTHER, SELFPAY ==
--- NOTE | 2024-05-05 15:40 | CT_ITS ---
STUDY: CT MAXILLOFACIAL SINUSES REASON FOR EXAM: Female, 74 years old. SINUSITIS RADIATION DOSAGE (If Supplied By Facility): CTDIvol = ( 33.06 ) mGy, DLP = ( 676.83 ) mGycm TECHNIQUE: The patient was scanned in a multi detector CT scanner. High resolution axial imaging was performed without the administration of intravenous contrast material. Sagittal and coronal images were reconstructed. Individualized dose optimization techniques were used for this CT. COMPARISON: None. FINDINGS: FRONTAL SINUSES: Normal aeration, without mucosal inflammatory disease. ETHMOIDAL SINUSES: Normal aeration, without mucosal inflammatory disease. MAXILLARY SINUSES: Normal aeration, without mucosal inflammatory disease. SPHENOIDAL SINUSES: Normal aeration, without mucosal inflammatory disease. There is patency of the bilateral maxillary infundibuli with normal uncinate processes, ethmoid bullae, and hiatus semilunaris. Normal bilateral middle turbinates. Normal bilateral inferior turbinates. There is a right sided nasal septal deviation, but without a nasal septal spur. There is patency of the bilateral nasal airways. The visualized osseous structures are normal. The visualized bilateral orbital contents are normal. CT/Sinus/Facial Bone IMPRESSION: Nasal septal deviation towards the right side of midline. No evidence of sinusitis. Electronically Signed: Timi Theodore MD at 14:35 EDT ,
== END | disposition home or self-care (01) ==
LOC: CT 15:38
PROVIDERS: PCP Family Medicine; Referring Provider Otolaryngology; Visit Provider Otolaryngology
DX: J32.8 Other chronic sinusitis (principal)
CPT/HCPCS: 70486

== ENCOUNTER 2025-01-07 10:52 | Emergency (ER) | payer MEDICARE, OTHER, SELFPAY ==
[2025-01-07 10:53] VITALS: BP 169/78; PULSE 97; RESP 15; TEMP 36.2; O2SAT 56; BMI 33.7
--- NOTE | 2025-01-07 11:29 | EKG12_ITS ---
Test Reason : Blood Pressure : */* mmHG Vent. Rate : 55 BPM Atrial Rate : 55 BPM P-R Int : 194 ms QRS Dur : 84 ms QT Int : 448 ms P-R-T Axes : 52 2 33 degrees QTcB Int : 428 ms Sinus bradycardia with Premature atrial complexes Otherwise normal ECG Confirmed by CHARITO MONDRAGON, ISAI ([id number]), website/blog editor HARISH MALONEY ([id number]) on 01/09/2025 6:15:55 AM Referred By: Confirmed By: ISAI MCNEILL MD
--- NOTE | 2025-01-07 11:29 | CT_ITS ---
PROCEDURE: STROKE BRAIN/HEAD WITHOUT CONT 01/07/2025 REASON FOR EXAM: NEURO DEFICIT, ACUTE, STROKE SUSPECTED TECHNIQUE: Head CT without intravenous contrast. Coronal and Sagittal reconstruction series were provided. One or more dose reduction techniques were used (e.g., Automated exposure control, adjustment of the mA and/or kV according to patient size, use of iterative reconstruction technique. COMPARISON: CT brain 12/08/2021 and 05/05/2024 FINDINGS: No acute intracranial hemorrhage, mass, mass effect, midline shift or pathologic extra-axial fluid collection. Mild parenchymal atrophy with commensurate increase in CSF containing spaces. Patchy white matter hypodensities, patient demographics favor chronic microvascular ischemic changes. Paranasal sinuses and mastoid air cells are clear. The calvarium is grossly intact. CT/STROKE Brain/Head without Cont IMPRESSION: No acute intracranial abnormality; no acute infarct, intracranial hemorrhage or extra-axial collection. Chronic microvascular ischemia and involutional changes. Reading Location: [facility]
--- NOTE | 2025-01-07 11:30 | CT_ITS ---
PROCEDURE: STROKE CTA HEAD AND NECK W/CON 01/07/2025 REASON FOR EXAM: NEURO DEFICIT, ACUTE, STROKE SUSPECTED TECHNIQUE: CTA imaging of the head and neck from the aortic arch to the skull vertex with out contrast and with intravenous contrast. Multiplanar and multisequence images were obtained. CONTRAST: Omnipaque 350 VOLUME: 100 mL One or more dose reduction techniques were used (e.g., Automated exposure control, adjustment of the mA and/or kV according to patient size, use of iterative reconstruction technique). COMPARISON: None . FINDINGS: Aortic Arch: Three-vessel arch branch anatomy. No significant atherosclerotic calcification or hemodynamically significant stenosis of the proximal brachiocephalic vessels Brachiocephalic and Subclavians: Unremarkable RIGHT Carotid: Right CCA: Mild calcified and soft plaque. Right ICA: Mild calcified and soft plaque. Maximum stenosis (NASCET): 0 % Right ECA: Unremarkable. LEFT Carotid: Left CCA: Unremarkable. Left ICA: Mild calcified and soft plaque. Maximum stenosis (NASCET): 0 % Left ECA: Unremarkable. Vertebrals: Left dominance. Arise from the subclavians. Both vertebrals form the basilar. 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 RIGHT Vertebral: Unremarkable. LEFT Vertebral: Unremarkable. Anatomy: Peck of Jimenez anatomy is normal. 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 No evidence of an AVM. Anterior cerebral arteries: Unremarkable: Middle cerebral arteries: Unremarkable. 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 Posterior cerebral arteries: Unremarkable. Other major branches of the posterior circulation: Unremarkable. Major venous structures: Unremarkable. Other findings: Neck: No lymphadenopathy. Lungs: Lung apices are clear. Bones: Bones are unremarkable. CT/STROKE CTA Head AND Neck W/Con IMPRESSION: Scattered atherosclerotic calcification, without evidence of acute occlusion, t hrombosis or dissection. 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 Reading Location: [facility]
[2025-01-07] MEDS: 0.9% Normal Saline (1000mL) 1,000 ML 999 ML IV (11:45)
[2025-01-07 12:04] LABS: Absolute Neutrophil Count 3.2 X10^3/uL (2.0-7.7); Basophil# 0.05 X10^3/uL; Basophil% 0.7 % (0-1); Eosinophil# 0.31 X10^3/uL; Eosinophils% 4.5 % (0-5); Hematocrit 42.3 % (37-47); Hemoglobin 13.9 g/dL (12.0-15.0); Mean Corp Hgb Conc 32.9 g/dL (32-36); Mean Corpuscular Hgb 32.3 pg (27.0-32.0); Mean Corpuscular Volume 98.4 fL (81-99); Mean Platelet Vol. 13.1 fl (6.2-12.0); Monocyte# 0.69 X10^3/uL; Monocyte% 10.1 % (0-10); NRBC Flagged by Analyzer 0 % (0-5); Neutrophil # 3.17 X10^3/uL (2.7-7.7); Neutrophil % 46.4 % (47-70); POSITIVE MORPHOLOGY YES; Platelet Count 217 K/mm3 (150-450); RBC Distribution Width CV 12.9 % (11.6-14.6); RBC Distribution Width SD 46.2 fl (35.1-43.9); White Blood Count 6.8 K/mm3 (4.4-11.0)
[2025-01-07 12:06] LABS: International Normalized Ratio 0.9; Prothrombin Time (Protime)PT. 12.7 SECONDS (11.7-14.9)
[2025-01-07 12:07] LABS: Partial Thromboplast Time 24.7 Seconds (24.1-36.2)
--- OUTSIDE RECORDS SUMMARY | 2025-01-07 12:10 | XMS RPT_ITS | CCD ---
Author Organization [facility] Care Team Providers Care Hearing Aid Specialist Name Role Phone Dr. Brian Martini Primary Care Provider Dr. Tristian Singh Attending Provider [phone] NITA Barcaly Referring Provider [phone] Brian Martini Referring Provider Miguel, Dr. Ahn Attending Provider [phone] Napoleon Martini MD Primary Care Provider Napoleon Martini MD Primary Care Provider Napoleon Martini MD Primary Care Provider Gilberto Ramirez Unavailable Unavailable Jonnathan PT, Melissa Unavailable [phone] Napoleon Martini MD Primary Care Provider NAPOLEON MARTINI Primary Care Unavailab INNA Trimble Referring Unavailable JOVON ZEE Referring Unavailable NAPOLEON MARTINI Primary Care Unavailab NAPOLEON Castro Primary Care Unavailab le PROVIDER, UNKNOWN Referring Unavailable NAPOLEON MARTINI Primary Care Unavailab INNA Trimble Attending Unavailable INNA EASON Admitting Unavailable SANJIV GALLOWAY Consulting Unavailable Jonnathan PTMelissa Unavailable [phone] Napoleon Powell Referring UnavailNapoleon Onofre Attending Unavailabl e Brian Martini Primary Care Unavailable Brian Martini Primary Care Unavailable Artem Lees Attending Unavailable Brian Martini Primary Care Unavailable Binh Norman Attending Unavailable Podlogar YARN MERCERIZER OPERATOR.Afia JERNIGAN Unavailable Gladis YARN MERCERIZER OPERATOR.TAPE MAKING MACHINE OPERATOR, Cathy Unavailable NAPOLEON MARTINI Primary Care Unavailab le GRATER, JAGDISH Referring Unavailable GOLIAS, MATHEW Attending Unavailable BURSLEY, CHRISTOPHER B Primary Care Unavailab le GRATER, JAGDISH Referring Unavailable GOLIAS, MATHEW Attending Unavailable RAMÍREZ, JOHNATHONER B Primary Care Unavailab le GRATER, JAGDISH Referring Unavailable GOLIAS, MATHEW Attending Unavailable TREVORLEY, MILANAOPHER B Primary Care Unavailab le BURSLEY, JOHNATHONER B Attending Unavailab le BURSLEY, JOHNATHONER B Primary Care Unavailab INNA Trimble Attending Unavailable NAPOLEON MARTINI B Referring Unavailab le BURSLEY, CHRISTJAQUELINEER B Primary Care Unavailab le BURSLEY, CHRISTOPHER B Referring Unavailab le BURSLEY, CHRISTOPHER B Primary Care Unavailab le HARPSTER, JOVON Referring Unavailable RAMÍREZ, MILANAOPHER B Primary Care Unavailab le HARPSTER, JOVON Attending Unavailable HARPSTER, JOVON Referring Unavailable BURSLEY, CHRISTOPHER B Primary Care Unavailab le BURSLEY, CHRISTOPHER B Primary Care Unavailab le BURSLEY, CHRISTOPHER B Primary Care Unavailab le GRATER, JAGDISH Referring Unavailable BURSLEY, CHRISTOPHER B Primary Care Unavailab le GRATER, JAGDISH Referring Unavailable GOLIAS, MATHEW Attending Unavailable BURSLEY, CHRISTOPHER B Primary Care Unavailab le GRATER, JAGDISH Referring Unavailable GOLIAS, MATHEW Attending Unavailable GRATER, JAGDISH Referring Unavailable GOLIAS, MATHEW Attending Unavailable RAMÍREZ, JOHNATHONER B Primary Care Unavailab le BURSLEY, CHRISTOPHER B Primary Care Unavailab le GRATER, JAGDISH Referring Unavailable GOLIAS, MATHEW Attending Unavailable Allergies Allergy Classification Reported Allergen(s) Allergy Type Date of Onset Reaction(s) Facility (6 sources) Amoxicillin Drug Allergy 08-02-2021 Vomiting [facility] (6 sources) Clavulanate Drug Allergy 08-02-2021 Vomiting [facility] (20 sources) Iodine; Translations: [IODINE] Drug Allergy 05-01-2015 Rash [facility] Work Phone: (20 sources) Amoxicillin / Clavulanate; Translations: [AMOXICILLIN-POT CLAVULANATE] Drug Allergy 05-02-2015 GI Upset [facility] (1 source) Amoxicillin Drug Allergy 09-10-2023 [facility] Repository (1 source) Clavulanate Drug Allergy 09-10-2023 [facility] Rep[facility] (1 source) Iodine Drug Allergy 09-10-2023 [facility] Repository Medications Current Medications Medication Drug Class(es) Dates Sig (Normalized) Sig (Original) acetaminophen 325 mg / oxyCODONE hydrochloride 5 mg oral tablet (7 sources) Opioid Agonist Start: 12-08-2021 take 1 tablet by mouth every six hours Oxycodone-Acetami nophen (Percocet) 5-325 mg tablet Active 1 TABLET PO EVERY 6 HOURS 12 3 September 14, 2023 sensor 200 actuat albuterol 0.09 mg/actuat dry powder inhaler (20 sources) beta2-Adrenergic Agonist Start: 11-11-2023 take 90 ug by inhalation every six hours as needed albuterol sulfate 90 mcg/actuation aebs Inhale 90 mcg as instructed every 6 hours as needed for wheezing/shortnes s of breath. dispense with spacer 1 Each 11/11/2023 Active Comment on above: Inhale 90 mcg as ins tructed every 6 hours as needed for wheezing/shortness of breath. dispense with spacer ascorbic acid 500 mg oral tablet (20 sources) Vitamin C Start: 11-17-2023 End: 12-01-2023 take 1 tablet by mouth twice daily at mealtime ascorbic acid, vitamin C, (VITAMIN C) 500 mg tablet Take 1 tablet by mouth two times a day with meals for 27 doses. 27 tablet 11/17/2023 Active take 1 tablet by mouth once neil y ascorbic acid (VITAMIN C ORAL) Take 1 tablet by mouth once daily. 0 Active ascorbic acid (V ITAMIN C ORAL) Take by mouth. 0 Active Comment on above: Take by mouth. Take 1 tablet by yazan th once daily. Take 1 tablet by yazan th two times a day with meals for 27 doses. aspirin 81 mg delayed release oral tablet (20 sources) Platelet Aggregation Inhibitor, Nonsteroidal Anti-inflammatory Drug Start: 11-17-2023 End: 12-15-2023 take 1 tablet by mouth twice daily aspirin, enteric coated (ASPIRIN, ENTERIC COATED) 81 mg EC tablet Take 1 tablet by mouth two times a day for 28 days. 56 tablet 11/17/2023 Active Start: 05-13-2023 take 1 tablet by yazan th once daily aspirin 81 mg chewable tablet Take 1 tablet by mouth once daily. 0 05/13/2023 Active Start: 07-12-2021 take 81 mg by mouth at bedtime Aspirin Active 81 MG PO AT BEDTIME July 12, 2021 12:00am Comment on above: Take 1 tablet by yazan th once daily. Take 1 tablet by yazan th two times a day for 28 days. atorvastatin 40 mg oral tablet (20 sources) HMG-CoA Reductase Inhibitor Start: 05-15-20 End: 07-04-20 24 take 1 tablet by mouth once daily at bedtime for hyperlipidemia atorvastatin (LIPITOR) 40 mg tablet Take 1 tablet by mouth daily at bedtime. For cholesterol. 90 tablet 2 10/08/2023 07/04/2024 Active Start: 08-02-2020 End: 06-05-2022 take 1 tablet by mouth once daily atorvastatin (LIPITOR) 20 mg tablet Indications: Hyperlipidemia, mixed Take 1 tablet by mouth once daily. 90 tablet 3 08/02/2020 06/05/2022 Discontinued Comment on above: Take 1 tablet by yazan th once daily. Take 1 tablet by yazan th daily at bedtime. For cholesterol. cetirizine hydrochloride 10 mg oral tablet (1 source) Histamine-1 Receptor Antagonist Start: End: take 1 tablet by mouth once daily cetirizine (ZYRTEC) 10 mg tablet Take 1 tablet by mouth once daily for 7 days. 7 tablet 0 01/01/2023 01/08/2023 Active Comment on above: Take 1 tablet by yazan th once daily for 7 days. cholecalciferol 0.05 mg oral tablet (7 sources) Vitamin D take 1 tablet by mouth once daily cholecalciferol (VITAMIN D-3) 50 mcg (2,000 unit) tablet Take 2,000 Units by mouth once daily. Active famotidine 20 mg oral tablet (1 source) Histamine-2 Receptor Antagonist Start: End: take 1 tablet by mouth twice daily famotidine (PEPCID) 20 mg tablet Take 1 tablet by mouth twice daily for 7 days. 14 tablet 0 01/01/2023 01/08/2023 Active Comment on above: Take 1 tablet by yazan th twice daily for 7 days. FLUoxetine 20 mg oral capsule (20 sources) Serotonin Reuptake Inhibitor Start: End: take 1 capsule by mouth once daily FLUoxetine (PROZAC) 20 mg capsule Indications: Anxiety with depression Take 1 capsule by mouth once daily. 90 capsule 1 06/07/2024 Active Comment on above: Take 1 capsule by [facility] once daily. fluticasone propionate 0.05 mg/actuat metered dose nasal spray (20 sources) Corticosteroid Start: 022 End: take 2 spray(s) by mouth once daily fluticasone (FLONASE) 50 mcg/actuation nasal spray Indications: Rhinorrhea Use 2 Sprays in each nostril once daily. Rinse mouth after use. 1 Each 1 10/08/2023 Active Start: 06-04-2021 End: 12-26-2021 take 2 spray(s) by mouth once daily fluticasone (FLONASE) 50 mcg/actuation nasal spray Indications: Rhinorrhea Use 2 Sprays in each nostril once daily. Rinse mouth after use. 1 Each 1 12/26/2021 Active Comment on above: Use 2 Sprays in each nostril once daily. Rinse mouth after use. lecithin 1200 mg oral capsule (20 sources) Start: 1 take 1200 mg by mouth once daily Lecithin Active 1200 MG PO DAILY July 12, 2021 12:00am give with meal/snack Comment on above: Take 1 capsule by [facility] once daily. lidocaine 0.05 mg/mg medicated patch (1 source) Antiarrhythmic, Amide Local Anesthetic Start: 4 apply 1 dose topically once daily Lidocaine (Lidoderm) 5 % adhesive patch,medicated Active 1 PATCH TOPICAL DAILY September 14, 2023 2:16pm leave on most painful area for up to 12 hrs lisinopril 40 mg oral tablet (20 sources) Angiotensin Converting Enzyme Inhibitor Start: 0 End: 5 take 1 tablet by mouth once daily lisinopril (ZESTRIL) 40 mg tablet Indications: Essential hypertension Take 1 tablet by mouth once daily. 90 tablet 1 12/08/2024 Active Comment on above: Take 1 tablet by yazan th once daily. Lysine (20 sources) Start: 4 take 1 tablet by mouth once daily as needed LYSINE ORAL Take 1 tablet by mouth once daily as needed (cold sore). Patient should start on November 18, 2023. 11/18/2023 Active Start: 11-18-2023 take 1 tablet by yazan th once daily as needed LYSINE ORAL Take 1 tablet by mouth once daily as needed (cold sore). Patient should start on November 18, 2023. 0 11/18/2023 Active Start: 11-18-2023 LYSINE ORAL Ta ke 1 tablet by mouth as needed (cold sore). Patient should start on November 18, 2023. 0 11/18/2023 Active LYSINE ORAL Take 1 tablet by mouth as needed. 0 Active LYSINE ORAL Take by mouth. 0 Active Comment on above: Take by mouth. Take 1 tablet by yazan th as needed. Take 1 tablet by yazan th as needed (cold sore). Patient should start on November 18, 2023. magnesium carb,citrate,oxide (MAGNESIUM COMPLEX ORAL) (20 sources) take 1 tablet by mouth once daily magnesium carb,citrate,oxide (MAGNESIUM COMPLEX ORAL) Take 1 tablet by mouth once daily. Active take 1 tablet by mouth once neil y magnesium carb,citrate,oxide (MAGNESIUM COMPLEX ORAL) Take 1 tablet by mouth once daily. 0 Active magnesium carb,c itrate,oxide (MAGNESIUM COMPLEX ORAL) Take by mouth. 0 Active Comment on above: Take by mouth. Take 1 tablet by yazan th once daily. montelukast 10 mg oral tablet (3 sources) Leukotriene Receptor Antagonist Start: 5 take 1 tablet by mouth once daily at bedtime montelukast (SINGULAIR) 10 mg tablet Indications: Cough variant asthma (HCC) Take 1 tablet by mouth daily at bedtime. 90 tablet 3 11/14/2024 Active Multivitamin-Mineral s-Lutein (6 sources) Start: 1 take 1 tablet by mouth once daily Multivitamin-Mineral s-Lutein Active 1 TABLET PO DAILY July 12, 2021 3:36pm Start: 07-12-2021 take 1 tablet by yazan th once daily Pinujsiyhrft-Spmpzsrx-Aaujjd Active 1 TA BLET PO DAILY July 12, 2021 12:00am mupirocin 0.02 mg/mg topical ointment (12 sources) RNA Synthetase Inhibitor Antibacterial Start: 11-11-2023 End: 11-15-2023 mupirocin (BACTROBAN) 2 % ointment Apply 1/2 inch of ointment with a Q-tip to both nostrils in the morning and afternoon for 5 consecutive days before surgery. Patient should start on November 11, 2023. 15 g 0 11/11/2023 11/15/2023 Active Start: 01-20-2022 End: 01-30-2022 mupirocin (BACTROBAN) 2 % oi ntment Apply to affected area three times daily for 10 days. 30 g 0 01/20/2022 01/30/2022 Active Comment on above: Apply to affected ar ea three times daily for 10 days. Apply 1/2 inch of oi ntment with a Q-tip to both nostrils in the morning and afternoon for 5 consecutive days before surgery. Patient should start on November 11, 2023. ondansetron 4 mg disintegrating oral tablet (6 sources) Serotonin-3 Receptor Antagonist Start: 1 take 4 mg by mouth every eight hours as needed Ondansetron Active 4 MG PO EVERY 8 HOURS NEEDED August 02, 2021 12:00am predniSONE 10 mg oral tablet (4 sources) Start: 3 End: 3 predniSONE (DELTASONE) 10 mg tablet Take 4 tabs daily x5 days, then 2 tabs daily for 5 days, then 1 tab daily for 5 days. 35 tablet 1 12/31/2022 01/15/2023 Active Start: 06-04-2021 End: 12-26-2021 take 1 tablet by mouth once daily predniSONE (DELTASONE) 20 mg tablet Indications: Eye swelling, right Take 1 tablet by mouth once daily. 5 tablet 0 06/04/2021 12/26/2021 Discontinued Comment on above: Take 1 tablet by yazan once daily. Take 4 tabs daily x5 days, then 2 tabs daily for 5 days, then 1 tab daily for 5 days. propranolol hydrochloride 10 mg oral tablet (20 sources) beta-Adrenergic Torri Start: 1 End: 5 take 1 tablet by mouth three times daily propranolol (INDERAL) 10 mg tablet Indications: Essential hypertension Take 1 tablet by mouth three times a day. 270 tablet 1 06/07/2024 Active Start: 08-02-2020 End: 06-04-2021 take 1 tablet by mouth three times daily propranolol (INDERAL) 10 mg tablet Indications: Essential hypertension Take 1 tablet by mouth three times daily. 270 tablet 3 08/02/2020 06/04/2021 Discontinued Comment on above: Take 1 tablet by yazan th three times daily. Take 1 tablet by yazan th three times a day. Selenium (6 sources) Start: 07-12-2021 take 200 ug by mouth at bedtime Selenium Active 200 MCG PO AT BEDTIME July 12, 2021 3:35pm Start: 07-12-2021 take 200 ug by mouth once neil y Selenium Active 200 MCG PO DAILY July 12, 2021 3:35pm Start: 07-12-2021 take 200 ug by mouth at bedtim e Selenium Active 200 MCG PO AT BEDTIME July 12, 2021 12:00am selenium 200 mcg tablet (20 sources) take 1 tablet by yazan th once daily selenium 200 mcg tablet Take 1 tablet by mouth once daily. Active take 1 tablet by mouth once neil y selenium 200 mcg tablet Take 1 tablet by mouth once daily. 0 Active Comment on above: Take 1 tablet by yazan th once daily. [place] Wort (6 sources) Start: 07-12-2021 take 300 mg by mouth once daily [place] Active 300 MG PO DAILY July 12, 2021 3:35pm Start: 07-12-2021 take 300 mg by mouth once neil y [place] Active 300 MG PO DAILY July 12, 2021 12:00am Vit C,Y-Rk-Rvkkj-Lutein-Zeax an (Preservision Areds-2) 250-90-40-1 mg tablet,chewable (6 sources) Start: 07-12-2021 Vit C,Z-Nv-Zdrgb-Lutein-Zeax an (Preservision Areds-2) 250-90-40-1 mg tablet,chewable Active 1 TABLET PO every day in the morning and in the evening July 12, 2021 3:36pm Start: 07-12-2021 Vit C,E-Zn-Wood Panel Inspector dh-Zmdfdt-Pcyhtw (Preservision Areds-2) 250-90-40-1 mg tablet,chewable Active 1 TABLET PO every day in the morning and in the evening July 12, 2021 12:00am vit C/E/Zn/coppr/lutein/zeax an (PRESERVISION AREDS-2 ORAL) (20 sources) take 1 tablet by mouth once daily vit C/E/Zn/coppr/lutein/zeaxan (PRESERVISION AREDS-2 ORAL) Take 1 tablet by mouth once daily. Active take 1 tablet by yazan th once daily vit C/E/Zn/coppr/lutein/zeaxan (PRESERVI LUIS AREDS-2 ORAL) Take 1 tablet by mouth once daily. 0 Active vit C/E/Zn/coppr /lutein/zeaxan (PRESERVISION AREDS-2 ORAL) Take by mouth once daily. 0 Active Comment on above: Take by mouth once d aily. Take 1 tablet by yazan th once daily. Vitamin D3 (4 sources) Start: 12-18-2021 Vitamin D3 Act gifty DAILY December 18, 2021 10:00pm Start: 12-18-2021 Vitamin D3 Act gifty DAILY December 17, 2021 11:00pm VITAMIN E ORAL (20 sources) Start: 11-18-2023 VITAMIN E ORAL Take 1,000 Int'l Units by mouth once daily. 11/18/2023 Active Start: 11-18-2023 VITAMIN E ORAL Take 1,000 Int'l Units by mouth once daily. 0 11/18/2023 Active Comment on above: Take 1,000 Int'l Uni ts by mouth once daily. Zinc (20 sources) take 1 tablet by yazan th once daily ZINC ORAL Take 1 tablet by mouth once daily. Takes during winter months Active take 1 tablet by mouth once neil y ZINC ORAL Take 1 tablet by mouth once daily. Takes during winter months 0 Active take 1 tablet by mouth once neil y ZINC ORAL Take 1 tablet by mouth once daily. 0 Active ZINC ORAL Take b y mouth. 0 Active Comment on above: Take by mouth. Take 1 tablet by yazan th once daily. Completed/Discontinued Medications Medication Drug Class(es) Dates Sig (Normalized) Sig (Original) acetaminophen 500 mg oral tablet (20 sources) Start: 11-17-2023 End: 2024 take 2 tablets by mouth every eight hours as needed acetaminophen (TYLENOL) 500 mg tablet Take 2 tablets by mouth every 8 hours as needed for pain. 90 tablet 11/17/2023 2024 Discontinued (Course of therapy completed) Comment on above: Take 2 tablets by mo uth every 8 hours as needed for pain. calcium carbonate/vitamin D2 (CALCIUM + VITAMIN D ORAL) (20 sources) End: 11-06-2023 calcium carbonate/vitamin D2 (CALCIUM + VITAMIN D ORAL) Take by mouth. 0 11/06/2023 Discontinued (Discontinued by Patient) calcium carbonat e/vitamin D2 (CALCIUM + VITAMIN D ORAL) Take by mouth. 0 Active Comment on above: Take by mouth. cholecalciferol, vitamin D3, (VITAMIN D3 ORAL) (20 sources) End: 11-06-2023 cholecalciferol, vitamin D3, (VITAMIN D3 ORAL) Take by mouth. 0 11/06/2023 Discontinued (Discontinued by Patient) cholecalciferol, vitamin D3, (VITAMIN D3 ORAL) Take by mouth. 0 Active Comment on above: Take by mouth. docusate sodium 100 mg oral capsule (19 sources) Start: 11-17-2023 End: 12-17-2023 take 1 capsule by mouth every twelve hours as needed docusate sodium (COLACE) 100 mg capsule Take 1 capsule by mouth two times a day as needed for constipation. 60 capsule 11/17/2023 12/17/2023 Comment on above: Take 1 capsule by mo uth two times a day as needed for constipation. doxycycline hyclate 100 mg oral capsule (20 sources) Tetracycline-clas s Drug Start: 11-17-2023 End: 12-01-2023 take 1 capsule by mouth every twelve hours in the morning, then take 6 capsules by mouth in the evening doxycycline hyclate (VIBRAMYCIN) 100 mg capsule Take 1 capsule by mouth every 12 hours at 6 am and 6 pm for 27 doses. 27 capsule 11/17/2023 12/01/2023 Start: 01-18-2022 End: 06-05-2022 doxycycline (VIBRA-TABS) 100 mg tablet Comment on above: Take 1 capsule by mo uth every 12 hours at 6 am and 6 pm for 27 doses. Magnesium (13 sources) End: 06-05-2022 MAGNESIUM ORAL Take by mouth. 0 06/05/2022 Discontinued MAGNESIUM ORAL T stevenson by mouth. 0 Active Comment on above: Take by mouth. meloxicam 15 mg oral tablet (16 sources) Nonsteroidal Anti-inflammatory Drug Start: 11-17-19 End: 12-01-19 take 1 tablet by mouth once daily meloxicam (MOBIC) 15 mg tablet Take 1 tablet by mouth once daily for 14 days. 14 tablet 11/17/2023 12/01/2023 Comment on above: Take 1 tablet by yazan once daily for 14 days. Multivitamin capsule (3 sources) End: 12-27-19 take 1 capsule by mouth once daily Multivitamin capsule Take 1 capsule by mouth once daily. 12/26/2021 Discontinued End: 12-26-2021 take 1 capsule by mouth once daily Multivitamin capsule Take 1 capsule by mouth once daily. 0 12/26/2021 Discontinued Comment on above: Take 1 capsule by mo [facility] once daily. naproxen 500 mg oral tablet (20 sources) Nonsteroidal Anti-inflammatory Drug Start: 02-01-20 End: 11-17-19 take 1 tablet by mouth every twelve hours as needed naproxen (NAPROSYN) 500 mg tablet Take 1 tablet by mouth twice daily as needed for pain. Take with food. 60 tablet 1 01/31/2021 11/17/2023 Discontinued Comment on above: Take 1 tablet by yazan twice daily as needed for pain. Take with food. oxyCODONE hydrochloride 5 mg oral tablet (19 sources) Opioid Agonist Start: 11-17-19 End: 11-24-19 take 1 tablet by mouth every six hours as needed oxyCODONE IR (ROXICODONE) 5 mg immediate release tablet Indications: S/P total knee arthroplasty, right Take 1-2 tablets by mouth every 6 hours as needed for pain for up to 7 days. 50 tablet 0 11/17/2023 11/20/2023 Discontinued End: 06-05-2022 take 1 tablet by mouth every six hours oxyCODONE IR (ROXICODONE) 10 mg tab Take 1-2 tablets by mouth every 6 hours. 0 06/05/2022 Discontinued Comment on above: Take 1-2 tablets by mouth every 6 hours. Take 1-2 tablets by mouth every 6 hours as needed for pain for up to 7 days. pantoprazole 40 mg delayed release oral tablet (20 sources) Proton Pump Inhibitor Start: End: take 1 tablet by mouth once daily in the morning pantoprazole DR (PROTONIX) 40 mg tablet Take 1 tablet by mouth every morning for 14 days. 14 tablet 11/17/2023 2024 Discontinued (Course of therapy completed) Comment on above: Take 1 tablet by yazan th every morning for 14 days. perflutren lipid microspheres 1.3 mL in NaCl (PF) 0.9% 10 mL injection (DEFINITY) (12 sources) Start: End: perflutren lipid microspheres 1.3 mL in NaCl (PF) 0.9% 10 mL injection (GamingTurfITY) phentermine hydrochloride 30 mg oral capsule (7 sources) Sympathomimetic Amine Anorectic Start: End: take 30 mg by mouth once daily 2 hour(s) after breakfast Phentermine Discontinued 30 MG PO DAILY July 12, 2021 12:00am July 17, 2021 10:01am must administer 2 hours after breakfast polyethylene glycol 3350 99176 mg powder for oral solution (13 sources) Osmotic Laxative Start: End: polyethylene glycol 3350 17 gram packet Take 1 Packet by mouth once daily as needed for constipation for up to 10 days. Dissolve dose in 4 - 8 ounces of liquid and take as directed. 10 Packet 0 11/17/2023 11/27/2023 Comment on above: Take 1 Packet by yazan once daily as needed for constipation for up to 10 days. Dissolve dose in 4 - 8 ounces of liquid and take as directed. 125 ml sodium chloride 9 mg/ml prefilled syringe (12 sources) Start: End: sodium chloride 0.9 % (flush) 10 mL (BD POSIFLUSH) DANIELA'S WORT ORAL (20 sources) End: DANIELA'S WORT ORAL Take by mouth. 11/06/2023 Discontinued (Discontinued by Patient) End: 11-06-2023 DANIELA'S WORT ORAL Take by mouth. 0 11/06/2023 Discontinued (Discontinued by Patient) DANIELA'S WORT ORAL Take by mouth. 0 Active Comment on above: Take by mouth. 24 hr tolterodine tartrate 4 mg extended release oral capsule (2 sources) Cholinergic Muscarinic Antagonist Start: 08-02-20 End: 06-04-20 take 1 capsule by mouth once daily tolterodine ER (DETROL LA) 4 mg 24 hr capsule Indications: Overactive bladder Take 1 capsule by mouth once daily. 90 capsule 3 08/02/2020 06/04/2021 Discontinued (Course of therapy completed) traMADol hydrochloride 50 mg oral tablet (12 sources) Opioid Agonist Start: 11-20-19 End: 11-27-19 take 1 tablet by mouth every six hours as needed for pain traMADol (ULTRAM) 50 mg tablet Indications: Status post right knee replacement Take 1 tablet by mouth every 6 hours as needed for pain for up to 7 days. 28 tablet 0 11/20/2023 11/27/2023 Start: 01-31-2022 End: 06-05-2022 take 1 tablet by mouth once daily traMADol (ULTRAM) 50 mg tablet Take 50 mg by mouth once daily. 0 01/31/2022 06/05/2022 Discontinued Comment on above: Take 50 mg by mouth once daily. Take 1 tablet by yazan th every 6 hours as needed for pain for up to 7 days. vit A/vit C/vit E/zinc/copper (OCUVITE PRESERVISION ORAL) (20 sources) End: 11-06-2023 vit A/vit C/vit E/zinc/copper (OCUVITE PRESERVISION ORAL) Take by mouth twice daily. 11/06/2023 Discontinued (Duplicate Entry) End: 11-06-2023 vit A/vit C/vit E/zinc/coppe r (OCUVITE PRESERVISION ORAL) Take by mouth twice daily. 0 11/06/2023 Discontinued (Duplicate Entry) vit A/vit C/vit E/zinc/copper (OCUVITE PRESERVISION ORAL) Take by mouth twice daily. 0 Active Comment on above: Take by mouth twice daily. Problems Active Problems Problem Classification Problem Date Documented Da te Episodic/Chronic Allergic reactions (1 source) Contact dermatitis due to poison sheela; Translations: [Allergic contact dermatitis due to plants, except food] Episodic Anxiety disorders (20 sources) Mixed anxiety and depressive disorder; Translations: [Other specified anxiety disorders] Chronic Asthma (1 source) Cough variant asthma; Translations: [Cough variant asthma] 11-14-2024 Chronic Blindness and vision defects (1 source) Reduced visual acuity; Translations: [Unspecified visual loss] 01-23-2024 Chronic Cardiac dysrhythmias (20 sources) Palpitations; Translations: [Palpitations] 11-06-2023 Episodic Chronic obstructive pulmonary disease and bronchiectasis (20 sources) Pulmonary emphysema; Translations: [Emphysema, unspecified] 11-06-2023 Chronic Chronic ulcer of skin (4 sources) Ulcer of toe; Translations: [Non-pressure chronic ulcer of other part of right foot limited to breakdown of skin] Chronic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 [facility] Comment on above: Order Comment: Cr castano Type: BLOOD SPECIMENOrdering Facility: [facility] Address: [address] [place] [address] Performed By: #### 2 731-8, 25066-5 ####[facility] LABCLIA [id number] [place] [address] [place] Creatinine and Glomerular filtration rate.predicted panel (S/P/Bld) 80 mL/min/1.73m??? Normal >=60 [facility] Comment on above: Order Comment: Cr castano Type: BLOOD SPECIMENOrdering Facility: [facility] Address: [address] [place] [address] Result Comment: Martha mated Glomerular Filtration Rate (eGFR) is calculated using the 2020 CKD-EPI creatinine equation. This equation utilizes serum creatinine, sex, and age as parameters. The creatinine assay has traceable calibration to isotope dilution-mass spectrometry. Refer to KDIGO guidelines for clinical interpretation. In patients with unstable renal function, e.g. those with acute kidney injury, the eGFR may not accurately reflect actual GFR. Performed By: #### 2 731-8, 79460-5 ####[facility] LABCLIA [id number] [place] [address] [place] Glucose [Mass/Vol] 124 mg/dL High 74-99 [facility] Comment on above: Order Comment: Cr castano Type: BLOOD SPECIMENOrdering Facility: [facility] Address: [address] [place] [address] Result Comment: The [place] Diabetes Association (ADA) provides guidance for cutoff values for fasting glucose and random glucose. The ADA defines fasting as no caloric intake for at least 8 hours. Fasting plasma glucose results between 100 to 125 mg/dL indicate increased risk for diabetes (prediabetes). Fasting plasma glucose results greater than or equal to 126 mg/dL meet the criteria for diagnosis of diabetes. In the absence of unequivocal hyperglycemia, results should be confirmed by repeat testing. In a patient with classic symptoms of hyperglycemia or hyperglycemic crisis, random plasma glucose results greater than or equal to 200 mg/dL meet the criteria for diagnosis of diabetes. Reference: Standards of Medical Care in Diabetes 2016, [place] [employer]. Diabetes Care. 2016.39(Suppl 1). Performed By: #### 2 731-8, 28645-5 ####[facility] LABCLIA [id number] [place] [address] [place] Potassium [Moles/Vol] 4.9 mmol/L Normal 3.7-5.1 [facility] Comment on above: Order Comment: Speci men Type: BLOOD SPECIMENOrdering Facility: [facility] Address: [address] [place] [address] Performed By: #### 2 731-8, 28803-0 ####[facility] LABCLIA [id number] [place] [address] [place] Protein [Mass/Vol] 6.8 g/dL Normal 6.3-8.0 [facility] Comment on above: Order Comment: Speci men Type: BLOOD SPECIMENOrdering Facility: [facility] Address: [address] [place] [address] Performed By: #### 2 731-8, 24273-7 ####[facility] LABCLIA [id number] [place] [address] [place] Sodium [Moles/Vol] 140 mmol/L Normal 136-144 [facility] Comment on above: Order Comment: Speci men Type: BLOOD SPECIMENOrdering Facility: [facility] Address: [address] [place] [address] Performed By: #### 2 731-8, 79919-7 ####[facility] LABCLIA [id number] [place] [id number] [place] Urea nitrogen [Mass/Vol] 18 mg/dL Normal 7-21 [facility] Comment on above: Order Comment: Speci men Type: BLOOD SPECIMENOrdering Facility: [facility] Address: [address] [place] [address] Performed By: #### 2 731-8, 22188-3 ####[facility] LABIA [id number] [place] [address] [place] PTH RELATED PEPTIDEon 2023 PTH RELATED PEPTIDE 3.4 pmol/L Normal 0.0-3.4 [facility] Comment on above: Order Comment: Speci men Type: BLOOD SPECIMENOrdering Facility: [facility] Address: [address] [place] [address] Result Comment: INTE RPRETIVE INFORMATION: Parathyroid Hormone-Related Peptide This test was developed and its performance characteristics determined by [employer]. It has not been cleared or approved by the [place] Food and Drug Administration. This test was performed in a CLIA certified laboratory and is intended for clinical purposes. Performed By: [facility] [employer] [address] [place] [address] [employer] Teacher: Nithin Garcia MD, PhD CLIA Number: [id number] Performed By: #### P THPEP ####[facility] [id number] [place] [address] PTH-Intact SerPl-ncon 02-01 Parathyrin.intact [Mass/Vol] 53 pg/mL Normal 15-65 [facility] Comment on above: Order Comment: Speci men Type: BLOOD SPECIMENOrdering Facility: [facility] Address: [address] [place] [address] Performed By: #### 2 731-8, 17412-6 ####[facility] LABIA [id number] [address] [place] Rhys 01-25-2024 CNPN Telephone [facility] SONNY BIGGS ([id number]) 1950 F Date Time Provider Department 01/25/24 NAPOLEON MARTINIPRODO During your visit today, we recorded the following information about you: Napoleon Martini MD 01/25/2024 10:08 AM Signed Unremarkable labs aside from borderline high calcium level and A1c in prediabetic range. Recommend low carb diet and to stop any calcium containing supplements at this time. Will recheck labs as ordered in 1 month. Mariana Martins LPN 01/25/2024 11:30 AM Signed Phoned patient and advised her of results and recommendations. Patient reports she has been utilizing Tums frequently over last month. ARIEL Toussaint Christopher B, MD 01/25/2024 11:36 AM Signed I would have her stop the Tums and f/u for labs as ordered. Martha Gomse OCCA 01/25/2024 11:51 AM Signed TC to patient who is informed of below. VERITO Christine Allergies As of Date: 01/25/2024 Noted Allergy Reaction AUGMENTIN (AMOXICILLIN-POT CLAVUL*05/02/2015 8 - GI Upset Comments: Vomiting IODINE 05/01/2015 2 - Rash Date Reviewed: 2024 Reviewed by: Mariana Martins LPN - Fully Assessed Reason for Visit: Results [95] Primary Visit Diagnosis:Hypercalcemia [E83.52] Order(s):COMPREHENSIVE METABOLIC PANEL [SQCMP] Order #: [id number] FUTURE CALCIUM, IONIZED [SQICA] Order #: [id number] FUTURE PTH INTACT [SQPTHI] Order #: [id number] FUTURE VITAMIN D 25 HYDROXY [SQVITD] Order #: [id number] FUTURE PTH RELATED PEPTIDE [SQPTHPEP] Order #: [id number] FUTURE Prescriptions as of 01/25/2024 - cholecalciferol (VITAMIN D-3) 50 mcg (2,000 unit) tablet Take 2,000 Units by mouth once daily. - VITAMIN E ORAL Take 1,000 Int'l Units by mouth once daily. - ascorbic acid, vitamin C, (VITAMIN C) 500 mg tablet Take 1 tablet by mouth two times a day with meals for 27 doses. - aspirin, enteric coated (ASPIRIN, ENTERIC COATED) 81 mg EC tablet Take 1 tablet by mouth two times a day for 28 days. - albuterol sulfate 90 mcg/actuation aebs Inhale 90 mcg as instructed every 6 hours as needed for wheezing/shortness of breath. dispense with spacer - Lecithin 1,200 mg cap Take 1 capsule by mouth once daily. - lisinopril (ZESTRIL) 40 mg tablet Take 1 tablet by mouth once daily. - propranolol (INDERAL) 10 mg tablet Take 1 tablet by mouth three times a day. - fluticasone (FLONASE) 50 mcg/actuation nasal spray Use 2 Sprays in each nostril once daily. Rinse mouth after use. - FLUoxetine (PROZAC) 20 mg capsule Take 1 capsule by mouth once daily. - ZINC ORAL Take 1 tablet by mouth once daily. Takes during winter months - magnesium carb,citrate,oxide (MAGNESIUM COMPLEX ORAL) Take 1 tablet by mouth once daily. - LYSINE ORAL Take 1 tablet by mouth once daily as needed (cold sore). Patient should start on November 18, 2023. - vit C/E/Zn/coppr/lutein/derrell mikal (PRESERVISION AREDS-2 ORAL) Take 1 tablet by mouth once daily. - selenium 200 mcg tablet Take 1 tablet by mouth once daily. Problem List As Of Date 01/25/2024 Noted Resolved Hypertension [I10] Obesity (BMI 30-39.9) [E66.9] GODWIN (obstructive sleep apnea) [G47.33] Overactive bladder [N32.81] Acute pain of right knee [M25.561] 03/04/2021 Chronic right-sided low back pain with right-si*03/04/2021 Hyperlipidemia [E78.5] History of DVT (deep vein thrombosis) [Z86.718] Coronary artery calcification seen on CT scan [* Emphysema of lung (HCC) [J43.9] Palpitations [R00.2] Anxiety with depression [F41.8] GERD (gastroesophageal reflux disease) [K21.9] S/P total knee arthroplasty, right [Z96.651] 11/17/2023 Osteoarthritis of right knee [M17.11] 12/07/2023 Encounter Status:Closed by MARIANA MARTINS on 01/25/24 Normal [facility] CBC W Auto Differential pane l (Bld)on 2024 Basophils (Bld) [#/Vol] 0.10 10*3/uL [facility] Basophils/100 WBC (Bld) 1.1 % [facility] Differential cell count method Nom (Bld) Auto [facility] Eosinophils (Bld) [#/Vol] 0.76 10*3/uL High [facility] Eosinophils/100 WBC (Bld) 8.0 % [facility] Erythrocyte distribution width (RBC) [Ratio] 13.1 % 11.5 - 15.0 % [facility] Hematocrit (Bld) [Volume fraction] 40.6 % 36.0 - 46.0 % [facility] Hemoglobin (Bld) [Mass/Vol] 12.6 g/dL 11.5 - 15.5 g/dL [facility] Immature granulocytes (Bld) [#/Vol] 0.04 10*3/uL [facility] Immature granulocytes/100 WBC (Bld) 0.4 % [facility] Interpretation and review of laboratory results Abnormal [facility] Lymphocytes (Bld) [#/Vol] 2.43 10*3/uL [facility] Lymphocytes/100 WBC (Bld) 25.7 % [facility] MCH (RBC) [Entitic mass] 31.2 pg 26.0 - 34.0 pg [facility] MCHC (RBC) [Mass/Vol] 31.0 g/dL 30.5 - 36.0 g/dL [facility] MCV (RBC) [Entitic vol] 100.5 fL High 80.0 - 100.0 fL [facility] Monocytes (Bld) [#/Vol] 0.77 10*3/uL [facility] Monocytes/100 WBC (Bld) 8.1 % [facility] Neutrophils (Bld) [#/Vol] 5.35 10*3/uL [facility] Neutrophils/100 WBC (Bld) 56.7 % [facility] Nucleated RBC (Bld) [#/Vol] [facility] Nucleated RBC/100 WBC (Bld) [Ratio] 0.0 % /100 WBC [facility] Platelet mean volume (Bld) [Entitic vol] 13.1 fL High 9.0 - 12.7 fL [facility] Platelets (Bld) [#/Vol] 243 10*3/uL [facility] RBC (Bld) [#/Vol] 4.04 10*6/uL 3.90 - 5.2 0 m/uL [facility] WBC (Bld) [#/Vol] 9.45 10*3/uL [facility] Basophils (Bld) [#/Vol] 0.10 10*3/uL Normal <0.11 [facility] Comment on above: Order Comment: Speci men Type: BLOOD SPECIMENOrdering Facility: [facility] Address: [address] [place] [address] Performed By: #### 5 7021-8 ####[facility] LABCLIA [id number] [place] [address] [place] Basophils/100 WBC (Bld) 1.1 % Normal [facility] Comment on above: Order Comment: Speci men Type: BLOOD SPECIMENOrdering Facility: [facility] Address: [address] [place] [address] Performed By: #### 5 7021-8 ####[facility] LABCLIA [id number] [place] [address] [place] Differential cell count method Nom (Bld) Auto Normal [facility] Comment on above: Order Comment: Speci men Type: BLOOD SPECIMENOrdering Facility: [facility] Address: [address] [place] [address] Performed By: #### 5 7021-8 ####[facility] LABCLIA [id number] [place] [address] [place] Eosinophils (Bld) [#/Vol] 0.76 10*3/uL High <0.46 [facility] Comment on above: Order Comment: Speci men Type: BLOOD SPECIMENOrdering Facility: [facility] Address: [address] [place] [address] Performed By: #### 5 7021-8 ####[facility] LABCLIA [id number] [place] [address] [place] Eosinophils/100 WBC (Bld) 8.0 % Normal [facility] Comment on above: Order Comment: Speci men Type: BLOOD SPECIMENOrdering Facility: [facility] Address: [address] [place] [address] Performed By: #### 5 7021-8 ####[facility] LABIA [id number] [place] [address] [place] Erythrocyte distribution width (RBC) [Ratio] 13.1 % Normal 11.5-15.0 [facility] Comment on above: Order Comment: Speci men Type: BLOOD SPECIMENOrdering Facility: [facility] Address: [address] [place] [address] Performed By: #### 5 7021-8 ####[facility] LABIA [id number] [place] [address] [place] Hematocrit (Bld) [Volume fraction] 40.6 % Normal 36.0-46.0 [facility] Comment on above: Order Comment: Speci men Type: BLOOD SPECIMENOrdering Facility: [facility] Address: [address] [place] [address] Performed By: #### 5 7021-8 ####[facility] LABIA [id number] [place] [address] [place] Hemoglobin (Bld) [Mass/Vol] 12.6 g/dL Normal 11.5-15.5 [facility] Comment on above: Order Comment: Speci men Type: BLOOD SPECIMENOrdering Facility: [facility] Address: [address] [place] [address] Performed By: #### 5 7021-8 ####[facility] LABIA [id number] [place] [address] [place] Immature granulocytes (Bld) [#/Vol] 0.04 10*3/uL Normal <0.10 [facility] Comment on above: Order Comment: Speci men Type: BLOOD SPECIMENOrdering Facility: [facility] Address: [address] [place] [address] Performed By: #### 5 7021-8 ####[facility] LABCLIA [id number] [place] [address] [place] Immature granulocytes/100 WBC (Bld) 0.4 % Normal [facility] Comment on above: Order Comment: Speci men Type: BLOOD SPECIMENOrdering Facility: [facility] Address: [address] [place] [address] Performed By: #### 5 7021-8 ####[facility] LABCLIA [id number] [place] [address] [place] Lymphocytes (Bld) [#/Vol] 2.43 10*3/uL Normal 1.00-4.00 [facility] Comment on above: Order Comment: Speci men Type: BLOOD SPECIMENOrdering Facility: [facility] Address: [address] [place] [address] Performed By: #### 5 7021-8 ####[facility] LABCLIA [id number] [place] [address] [place] Lymphocytes/100 WBC (Bld) 25.7 % Normal [facility] Comment on above: Order Comment: Speci men Type: BLOOD SPECIMENOrdering Facility: [facility] Address: [address] [place] [address] Performed By: #### 5 7021-8 ####[facility] LABCLIA [id number] [place] [address] [place] MCH (RBC) [Entitic mass] 31.2 pg Normal 26.0-34.0 [facility] Comment on above: Order Comment: Speci men Type: BLOOD SPECIMENOrdering Facility: [facility] Address: [address] [place] [address] Performed By: #### 5 7021-8 ####[facility] LABCLIA [id number] [place] [address] [place] MCHC (RBC) [Mass/Vol] 31.0 g/dL Normal 30.5-36.0 [facility] Comment on above: Order Comment: Speci men Type: BLOOD SPECIMENOrdering Facility: [facility] Address: [facility] [place] [address] Performed By: #### 5 7021-8 ####[facility] LABCLIA [id number] [place] [address] [place] MCV (RBC) [Entitic vol] 100.5 fL High 80.0-100.0 [facility] Comment on above: Order Comment: Speci men Type: BLOOD SPECIMENOrdering Facility: [facility] Address: [address] [place] [address] Performed By: #### 5 7021-8 ####[facility] LABIA [id number] [place] [address] [place] Monocytes (Bld) [#/Vol] 0.77 10*3/uL Normal <0.87 [facility] Comment on above: Order Comment: Speci men Type: BLOOD SPECIMENOrdering Facility: [facility] Address: [address] [place] [address] Performed By: #### 5 7021-8 ####[facility] LABIA [id number] [place] [address] [place] Monocytes/100 WBC (Bld) 8.1 % Normal [facility] Comment on above: Order Comment: Speci men Type: BLOOD SPECIMENOrdering Facility: [facility] Address: [address] [place] [address] Performed By: #### 5 7021-8 ####[facility] LABIA [id number] [place] [address] [place] Neutrophils (Bld) [#/Vol] 5.35 10*3/uL Normal 1.45-7.50 [facility] Comment on above: Order Comment: Speci men Type: BLOOD SPECIMENOrdering Facility: [facility] Address: [address] [place] [address] Performed By: #### 5 7021-8 ####[facility] LABCLIA [id number] [place] [address] [place] Neutrophils/100 WBC (Bld) 56.7 % Normal [facility] Comment on above: Order Comment: Speci men Type: BLOOD SPECIMENOrdering Facility: [facility] Address: [address] [place] [address] Performed By: #### 5 7021-8 ####[facility] LABCLIA [id number] [place] [address] [place] Nucleated RBC (Bld) [#/Vol] 10*3/uL Normal <0.01 [facility] Comment on above: Order Comment: Speci men Type: BLOOD SPECIMENOrdering Facility: [facility] Address: [address] [place] [address] Performed By: #### 5 7021-8 ####[facility] LABIA [id number] [place] [address] [place] Nucleated RBC/100 WBC (Bld) [Ratio] 0.0 /100 WBC Normal [facility] Comment on above: Order Comment: Speci men Type: BLOOD SPECIMENOrdering Facility: [facility] Address: [address] [place] [address] Performed By: #### 5 7021-8 ####[facility] LABIA [id number] [place] [address] [place] Platelet mean volume (Bld) [Entitic vol] 13.1 fL High 9.0-12.7 [facility] Comment on above: Order Comment: Speci men Type: BLOOD SPECIMENOrdering Facility: [facility] Address: [address] [place] [address] Performed By: #### 5 7021-8 ####[facility] LABIA [id number] [place] [address] [place] Platelets (Bld) [#/Vol] 243 10*3/uL Normal 150-400 [facility] Comment on above: Order Comment: Speci men Type: BLOOD SPECIMENOrdering Facility: [facility] Address: [address] [place] [address] Performed By: #### 5 7021-8 ####[facility] LABCLIA [id number] [place] [address] [place] RBC (Bld) [#/Vol] 4.04 10*6/uL Normal 3.90-5.20 [facility] Comment on above: Order Comment: Speci men Type: BLOOD SPECIMENOrdering Facility: [facility] Address: [address] [place] [address] Performed By: #### 5 7021-8 ####[facility] LABCLIA [id number] [place] [address] [place] WBC (Bld) [#/Vol] 9.45 10*3/uL Normal 3.70-11.00 [facility] Comment on above: Order Comment: Speci men Type: BLOOD SPECIMENOrdering Facility: [facility] Address: [address] [place] [address] Performed By: #### 5 7021-8 ####[facility] LABCLIA [id number] [place] [address] [place] CNOV[facility] SONNY BIGGS ([id number]) 1950 F Date Time Provider Department 01/22/24 10:00 AM NAPOLEON MARTINI FAMPWS During your visit today, we recorded the following information about you: Pulse Respiration Blood pressure Weight 68/minute 16/minute 124/72 94.7 kg Napoleon Martini MD 01/23/2024 10:00 AM Signed Sonny Acosta Dutch is a 74 year old female here for a Medicare wellness visit. Patient has been in good health without hospitalizations or ER visits. No recent falls. No concerns today. Depression screening negative today. Still grieving the loss of her about 9 months ago. Has good family support. Taking Prozac without side effects. Not wanting counseling. Patient had hearing testing with audiology in [place] 1 year ago. Discussed hearing aids, but was not ready yet. Thinks may be worsening and would like new referral. Refusing vaccines today. Medicare Health Risk Assessment General Health Very good Exercise: Minutes/Day 0 min Exercise: Days/Week 0 days Alcohol: Daily Use Never Alcohol: Drinks/Day Patient does not drink Alcohol: 6 or more drinks Never Feel off balance No Concerns: Teeth/Dentures No Concerns: Sexual function No Troubled by feelings None of the above Frequency: Eating healthy diet Several days ADLs requiring help None of the above Safety precautions in home/vehicle Yes Smoke, vape, chews tobacco No Difficulty hearing Yes Difficulty seeing Yes Current Providers Specialists: I have reviewed specialist-related care of the patient in the medical record. Current care team: Patient Care Team: Napoleon Martini MD as PCP - General (Family Medicine) Outside specialists seen: [facility] Dr. Matos, ortho Dr. Eason Medical/Family history review Reviewed and updated problem list, medical/surgical/family /social history, medications, and allergies. Opioid use review Opioid Medications (last 90 days) 11/17/2023 11/20/2023 11/27/2023 23:59 Opioid Medications hydromorphone HCl 0.2 mg, INTRAVENOUS, EVERY 3 HOURS NEEDED, Starting on Thu11/16/23 at 2022, Until Thu11/17/23 at 2121, breakthrough pain HIGH RISK MEDICATION Caution: Hydromorphone is 5 - 7 times MORE POTENT than morphine. For example: Hydromorphone 1mg IV = morphine 7mg IV -Discontinued (AUTO DC AT D) No sig oxycodone HCl 5-10 mg, ORAL, EVERY 4 HOURS NEEDED, Starting on Thu11/16/23 at 2022, Until Thu11/17/23 at 2121, Moderate Pain (4-6) - Enteral, Severe Pain (>/=7) - Enteral -Discontinued (AUTO DC AT D) No sig oxycodone HCl Admitted: Nov 15 - Nov 17, 2023 5-10 mg q 6 H PRN ORAL -Discontinued oxycodone HCl Admitted: Nov 15 - Nov 17, 2023 5-10 mg q 6 H PRN ORAL 5-10 mg q 6 H PRN ORAL-Discontinued tramadol HCl 50 mg q 6 H PRN ORAL -Rx End Details Outpatient prescription Hospital medication Anxiety/Depression screening (Lower risk for depression) MITCH-7 Score: 0. Recommendation: no further intervention at this time Cognitive screening Mini Cog Score: 4 Cognitive screening reviewed and No further action needed (score 3-5). Functional Observation Was the patient's Timed Up AND Go test unsteady or ? 12 seconds? No Advance Care Planning Surrogate decision maker and/or advance care plan documented FULL CODE Measurements BP 124/72 Pulse 68 Resp 16 Wt 208 lb 12.8 oz (94.7kg) SpO2 96% Vision Screening: Right: Left: Both: Assessment/Plan ASSESSMENT/PLAN: 1. Medicare annual wellness visit, subsequent - ICD9: V70.0, ICD10: Z00.00 (primary diagnosis) Medicare annual wellness visit, subsequent (Z00.) - Counseled on healthy diet and regular exercise - Fall avoidance information provided - Personalized prevention plan provided - Discussed need for and benefit of weight loss. BMI 34.75 kg/(m2) - COMPLETE BLOOD COUNT AND DIFFERENTIAL - COMPREHENSIVE METABOLIC PANEL - VITAMIN B12 2. Bilateral hearing loss, unspecified hearing loss type - ICD9: 389.9, ICD10: H91.93 Referral for repeat testing and to discuss hearing aids. - HEARING TEST/AUDIOGRAM 3. Essential hypertension - ICD9: 401.9, ICD10: I10 - Controlled - Continue current medications - Recommend home blood pressure monitoring, to bring results to next visit - Encouraged sodium restriction, DASH or Mediterranean diet - Recommend regular aerobic exercise 4. Anxiety with depression - ICD9: 300.4, ICD10: F41.8 Symptoms controlled with Prozac. Discussed she is still grieving the loss of her and that her down days and crying is normal process. Offered referral information for counseling which she is refusing today. Has good family support. Will monitor. 5. Hyperglycemia - ICD9: 790.29, ICD10: R73.9 Recheck - HEMOGLOBIN A1C 6. Decreased visual acuity - ICD9: 369.9, ICD10: H54.7 F/u with optho for repeat vision e (more content not included)... Normal [facility] Cobalamin (Vitamin B12) [Mas s/Vol]on 2024 Interpretation and review of laboratory results Normal [facility] Comprehensive metabolic 2000 panelon 2024 Albumin [Mass/Vol] 4.0 g/dL 3.9 - 4.9 g/dL [facility] ALP [Catalytic activity/Vol] 132 U/L High 34 - 123 U/L [facility] ALT [Catalytic activity/Vol] 17 U/L 7 - 38 U/L [facility] Anion gap [Moles/Vol] 12 mmol/L 8 - 15 mmol/L [facility] AST [Catalytic activity/Vol] 20 U/L 13 - 35 U/L [facility] Bilirubin [Mass/Vol] mg/dL Low 0.2 - 1 .3 mg/dL [facility] Calcium [Mass/Vol] 10.3 mg/dL High 8.5 - 10. 2 mg/dL [facility] Chloride [Moles/Vol] 105 mmol/L 98 - 10 7 mmol/L [facility] CO2 [Moles/Vol] 24 mmol/L 22 - 30 mmol/L [facility] Creatinine [Mass/Vol] 0.91 mg/dL 0.58 - 0.96 mg/dL [facility] GFR/1.73 sq M.predicted among non-blacks MDRD (S/P/Bld) [Vol rate/Area] 66 mL/min/{1.73_m2} - PINF [facility] Comment on above: Estimated Glomerular Filtration Rate (eGFR) is calculated using the 2020 CKD-EPI creatinine equation. This equation utilizes serum creatinine, sex, and age as parameters. The creatinine assay has traceable calibration to isotope dilution-mass spectrometry. Refer to KDIGO guidelines for clinical interpretation. In patients with unstable renal function, e.g. those with acute kidney injury, the eGFR may not accurately reflect actual GFR. Glucose [Mass/Vol] 114 mg/dL High 74 - 99 mg/dL [facility] Comment on above: The [place] Diabete s Association (ADA) provides guidance for cutoff values for fasting glucose and random glucose. The ADA defines fasting as no caloric intake for at least 8 hours. Fasting plasma glucose results between 100 to 125 mg/dL indicate increased risk for diabetes (prediabetes). Fasting plasma glucose results greater than or equal to 126 mg/dL meet the criteria for diagnosis of diabetes. In the absence of unequivocal hyperglycemia, results should be confirmed by repeat testing. In a patient with classic symptoms of hyperglycemia or hyperglycemic crisis, random plasma glucose results greater than or equal to 200 mg/dL meet the criteria for diagnosis of diabetes. Reference: Standards of Medical Care in Diabetes 2016, [place] Diabetes Association. Diabetes Care. 2016.39(Suppl 1). Interpretation and review of laboratory results Abnormal [facility] Potassium [Moles/Vol] 5.1 mmol/L 3.7 - 5.1 mmol/L [facility] Protein [Mass/Vol] 7.4 g/dL 6.3 - 8.0 g/dL [facility] Sodium [Moles/Vol] 141 mmol/L 136 - 144 mmol/L [facility] Urea nitrogen [Mass/Vol] 26 mg/dL High 7 - 21 mg/dL [facility] Albumin [Mass/Vol] 4.0 g/dL Normal 3.9-4.9 [facility] Comment on above: Order Comment: Maikeli men Type: BLOOD SPECIMEN Ordering Facility: [facility] Address: [address] [place] [address] Performed By: #### 2 4323-03, 2132-04 #### [facility] CLIA [id number] [address] [place] [address] [place] ALP [Catalytic activity/Vol] 132 U/L High 34-123 [facility] Comment on above: Order Comment: Speci men Type: BLOOD SPECIMEN Ordering Facility: [facility] Address: [address] [place] [address] Performed By: #### 2 4323, 2132-04 #### [facility] CLIA [id number] [address] [id number] [address] [place] ALT [Catalytic activity/Vol] 17 U/L Normal 7-38 [facility] Comment on above: Order Comment: Speci men Type: BLOOD SPECIMEN Ordering Facility: [facility] Address: [address] [place] [id number] Performed By: #### 2 432-8, 2132-04 #### [facility] CLIA [id number] [address] [place] [address] [place] Anion gap [Moles/Vol] 12 mmol/L Normal 8-15 [facility] Comment on above: Order Comment: Speci men Type: BLOOD SPECIMEN Ordering Facility: [facility] Address: [address] [place] [address] Performed By: #### 2 4328, 2132-04 #### [facility] CLIA [id number] [address] [place] [address] [place] AST [Catalytic activity/Vol] 20 U/L Normal 13-35 [facility] Comment on above: Order Comment: Speci men Type: BLOOD SPECIMEN Ordering Facility: [facility] Address: [address] [place] [id number] Performed By: #### 2 432-8, 2132-04 #### [facility] CLIA [id number] [address] [place] [address] [place] Bilirubin [Mass/Vol] mg/dL Low 0.2-1.3 [facility] Comment on above: Order Comment: Speci men Type: BLOOD SPECIMEN Ordering Facility: [facility] Address: [address] [place] [id number] Performed By: #### 2 4323-8, 2132-04 #### [facility] CLIA [id number] [address] [place] [address] [place] Calcium [Mass/Vol] 10.3 mg/dL High 8.5-10.2 [facility] Comment on above: Order Comment: Speci men Type: BLOOD SPECIMEN Ordering Facility: [facility] Address: [address] [place] [address] Performed By: #### 2 4323-8, 2132-04 #### [facility] CLIA [id number] [address] [place] [address] [place] Chloride [Moles/Vol] 105 mmol/L Normal 98-107 [facility] Comment on above: Order Comment: Speci men Type: BLOOD SPECIMEN Ordering Facility: [facility] Address: [address] [place] [address] Performed By: #### 2 4323-8, 2132-04 #### [facility] CLIA [id number] [address] [place] [address] [place] CO2 [Moles/Vol] 24 mmol/L Normal 22-30 [facility] Comment on above: Order Comment: Speci men Type: BLOOD SPECIMEN Ordering Facility: [facility] Address: [address] [place] [address] Performed By: #### 2 4323-8, 2132-04 #### [facility] CLIA [id number] [address] [place] [address] [place] Creatinine [Mass/Vol] 0.91 mg/dL Normal 0.58-0.96 [facility] Comment on above: Order Comment: Speci men Type: BLOOD SPECIMEN Ordering Facility: [facility] Address: [address] [place] [address] Performed By: #### 2 4323-8, 2132-04 #### [facility] CLIA [id number] [address] [place] [address] [place] Creatinine and Glomerular filtration rate.predicted panel (S/P/Bld) 66 mL/min/1.73m??? Normal >=60 [facility] Comment on above: Order Comment: Speci men Type: BLOOD SPECIMEN Ordering Facility: [facility] Address: [address] [place] [address] Result Comment: Martha mated Glomerular Filtration Rate (eGFR) is calculated using the 2020 CKD-EPI creatinine equation. This equation utilizes serum creatinine, sex, and age as parameters. The creatinine assay has traceable calibration to isotope dilution-mass spectrometry. Refer to KDIGO guidelines for clinical interpretation. In patients with unstable renal function, e.g. those with acute kidney injury, the eGFR may not accurately reflect actual GFR. Performed By: #### 2 432-8, 2132-04 #### [facility] CLIA [id number] [facility] [place] [address] [place] Glucose [Mass/Vol] 114 mg/dL High 74-99 [facility] Comment on above: Order Comment: Cr castano Type: BLOOD SPECIMEN Ordering Facility: [facility] Address: [address] [place] [address] Result Comment: The [place] Diabetes Association (ADA) provides guidance for cutoff values for fasting glucose and random glucose. The ADA defines fasting as no caloric intake for at least 8 hours. Fasting plasma glucose results between 100 to 125 mg/dL indicate increased risk for diabetes (prediabetes). Fasting plasma glucose results greater than or equal to 126 mg/dL meet the criteria for diagnosis of diabetes. In the absence of unequivocal hyperglycemia, results should be confirmed by repeat testing. In a patient with classic symptoms of hyperglycemia or hyperglycemic crisis, random plasma glucose results greater than or equal to 200 mg/dL meet the criteria for diagnosis of diabetes. Reference: Standards of Medical Care in Diabetes 2016, [place] Diabetes Association. Diabetes Care. 2016.39(Suppl 1). Performed By: #### 2 43210-08, 2132-04 #### [facility] CLIA [id number] [address] [place] [address] [place] Potassium [Moles/Vol] 5.1 mmol/L Normal 3.7-5.1 [facility] Comment on above: Order Comment: Cr castano Type: BLOOD SPECIMEN Ordering Facility: [facility] Address: [address] [place] [address] Performed By: #### 2 4328, 2132-04 #### [facility] CLIA [id number] [address] [place] [address] [place] Protein [Mass/Vol] 7.4 g/dL Normal 6.3-8.0 [facility] Comment on above: Order Comment: Speci men Type: BLOOD SPECIMEN Ordering Facility: [facility] Address: [address] [place] [address] Performed By: #### 2 4323-8, 2132-04 #### [facility] CLIA [id number] [address] [place] [address] [place] Sodium [Moles/Vol] 141 mmol/L Normal 136-144 [facility] Comment on above: Order Comment: Speci men Type: BLOOD SPECIMEN Ordering Facility: [facility] Address: [address] [place] [address] Performed By: #### 2 4323-8, 2132-04 #### [facility] CLIA [id number] [address] [place] [address] [place] Urea nitrogen [Mass/Vol] 26 mg/dL High 02-20 [facility] Comment on above: Order Comment: Maikeli men Type: BLOOD SPECIMEN Ordering Facility: [facility] Address: [address] [place] [address] Performed By: #### 2 4323-8, 2132-04 #### [facility] CLIA [id number] [address] [place] [address] [place] HbA1c (Bld)on 2024 Average glucose Estimated from glycated hemoglobin (Bld) [Mass/Vol] 123 mg/dL [facility] Comment on above: eAG: (Estimated aver age glucose) is a calculated value from HgbA1c and is surgical device sales representative of the average blood glucose level in the last 2-3 month period. HbA1c (Bld) [Mass fraction] 5.9 % High 4.3 - 5.6 % [facility] Comment on above: [place] Diabetes As sociation guidelines indicate that patients with HgbA1c in the range 5.7-6.4% are at increased risk for development of diabetes, and intervention by lifestyle modification may be beneficial. HgbA1c greater or equal to 6.5% is considered diagnostic of diabetes. Interpretation and review of laboratory results Abnormal [facility] Average glucose Estimated from glycated hemoglobin (Bld) [Mass/Vol] 123 mg/dL Normal [facility] Comment on above: Order Comment: Cr castano Type: BLOOD SPECIMENOrdering Facility: [facility] Address: [address] [place] [address] Result Comment: eAG: (Estimated average glucose) is a calculated value from HgbA1c and is surgical device sales representative of the average blood glucose level in the last 2-3 month period. Performed By: #### 5 5454-3 ####[facility] [id number] [place] [address] [place] HbA1c (Bld) [Mass fraction] 5.9 % High 4.3-5.6 [facility] Comment on above: Order Comment: Cr castano Type: BLOOD SPECIMENOrdering Facility: [facility] Address: [address] [place] [address] Result Comment: [place] Diabetes Association guidelines indicate that patients with HgbA1c in the range 5.7-6.4% are at increased risk for development of diabetes, and intervention by lifestyle modification may be beneficial. HgbA1c greater or equal to 6.5% is considered diagnostic of diabetes. Performed By: #### 5 5454-3 ####[facility] [id number] [place] [address] [place] VITAMIN B12on 2024 Cobalamin (Vitamin B12) [Mass/Vol] 548 pg/mL 232 - 1245 pg/mL [facility] Vit B12 SerPl-mCncon 01-21- 024 Cobalamin (Vitamin B12) [Mass/Vol] 548 pg/mL Normal 232-1245 [facility] Comment on above: Order Comment: Cr castano Type: BLOOD SPECIMEN Ordering Facility: [facility] Address: [address] [place] [address] Performed By: #### 2 4323-8, 2132-9 #### [facility] CLIA [id number] [facility] [place] [id number] [employer] [place] CNOVon 01-12-2024 CNOV Office Visit (ADONIS ) SONNY BIGGS ([id number]) 1950 F Date Time Provider Department 01/12/24 10:00 AM INNA EASON During your visit today, we recorded the following information about you: Inna Eason MD 01/12/2024 11:14 AM Signed Post-op Office Visit Sonny Biggs 73 year old January 12, 2024 11:14 AM History: Sonny Biggs Is now s/p RIGHT TKA. Post-operative course has been without complication. no readmission/complicatio ns Subjective: Patient reports no pain. Overall is doing well. off ambulatory aid off opioid pain medication Objective: Ambulates with slight limp Incision well-approximated, no drainage, normal rayne-incisional erythema ROM 0 - 120 Distally DP/PT palpable Distally S/S/SP/DP/T intact at baseline Distally DF/EHL/PF intact at baseline Negative kathy/calf tenderness Xrays: No new today Assessment and Plan: Sonny Biggs Is here for a second post-op appointment, overall doing well -continued ice, rest, and use of non-narcotic analgesia as needed -discussed home exercises -WBAT on operative extremity -continue ankle pumps and dvt ppx through 4 weeks -will see back at 1 year post-op for repeat exam and xrays--can see sooner if needed -discussed red flag symptoms of acutely increasing pain, new erythema, new swelling, drainage, shortness of breath Inna Eason MD Orthopaedic Surgery Allergies As of Date: 01/12/2024 Noted Allergy Reaction AUGMENTIN (AMOXICILLIN-POT CLAVUL*05/02/2015 8 - GI Upset Comments: Vomiting IODINE 05/01/2015 2 - Rash Date Reviewed: 01/12/2024 Reviewed by: Carol Whaley OCCA - Fully Assessed Reason for Visit: Post Op [174] Knee Replacement [363] Primary Visit Diagnosis:Status post right knee replacement [Z96.651] Prescriptions as of 01/12/2024 - VITAMIN E ORAL Take 1,000 Int'l Units by mouth once daily. - ascorbic acid, vitamin C, (VITAMIN C) 500 mg tablet Take 1 tablet by mouth two times a day with meals for 27 doses. - aspirin, enteric coated (ASPIRIN, ENTERIC COATED) 81 mg EC tablet Take 1 tablet by mouth two times a day for 28 days. - acetaminophen (TYLENOL) 500 mg tablet Take 2 tablets by mouth every 8 hours as needed for pain. - pantoprazole DR (PROTONIX) 40 mg tablet Take 1 tablet by mouth every morning for 14 days. - albuterol sulfate 90 mcg/actuation aebs Inhale 90 mcg as instructed every 6 hours as needed for wheezing/shortness of breath. dispense with spacer - Lecithin 1,200 mg cap Take 1 capsule by mouth once daily. - lisinopril (ZESTRIL) 40 mg tablet Take 1 tablet by mouth once daily. - propranolol (INDERAL) 10 mg tablet Take 1 tablet by mouth three times a day. - fluticasone (FLONASE) 50 mcg/actuation nasal spray Use 2 Sprays in each nostril once daily. Rinse mouth after use. - FLUoxetine (PROZAC) 20 mg capsule Take 1 capsule by mouth once daily. - ZINC ORAL Take 1 tablet by mouth once daily. - magnesium carb,citrate,oxide (MAGNESIUM COMPLEX ORAL) Take 1 tablet by mouth once daily. - LYSINE ORAL Take 1 tablet by mouth once daily as needed (cold sore). Patient should start on November 18, 2023. - vit C/E/Zn/coppr/lutein/derrell mikal (PRESERVISION AREDS-2 ORAL) Take 1 tablet by mouth once daily. - selenium 200 mcg tablet Take 1 tablet by mouth once daily. Problem List As Of Date 01/12/2024 Noted Resolved Hypertension [I10] Obesity (BMI 30-39.9) [E66.9] GODWIN (obstructive sleep apnea) [G47.33] Overactive bladder [N32.81] Acute pain of right knee [M25.561] 03/04/2021 Chronic right-sided low back pain with right-si*03/04/2021 Hyperlipidemia [E78.5] History of DVT (deep vein thrombosis) [Z86.718] Coronary artery calcification seen on CT scan [* Emphysema of lung (HCC) [J43.9] Palpitations [R00.2] Anxiety with depression [F41.8] GERD (gastroesophageal reflux disease) [K21.9] S/P total knee arthroplasty, right [Z96.651] 11/17/2023 Osteoarthritis of right knee [M17.11] 12/07/2023 Encounter Status:Closed by INNA EASON on 01/12/24 Normal [facility] [id number] 01-08-2024 [id number] HNO ID: [id number] Author: MATHEW HAYS PT Service: ? Author Type: Physical Therapist Type: [id number] Filed: 01/08/2024 15:29 Note Text: [facility] Rehabilitation and Sports Therapy Physical Therapy Plan of Care Certification Patient Name: Sonny Biggs : 1950 [facility] #: [id number] Date: 01/08/2024 To: Jagdish Cesar APRN.C* From Therapist: Mathew Hays PT RE: Patient Certification/ Recertification Your review, approval and electronic signature are required in order to comply with Payor: [employer] MEDICARE / Plan: [employer] MEDICARE PPO / Product Type: PPO / regulations. The identified Physical Therapy PLAN OF CARE for the patient is as follows: M25.561 Acute pain of right knee (primary encounter diagnosis) Z96.651 S/P total knee arthroplasty, right M17.11 Primary osteoarthritis of right knee PLAN OF CARE UPDATE: Assessment: Sonny Biggs demonstrates significant improvement in rising from a chair, standing, walking, and stair negotiation . She has progressed toward goals. Patient continues to present with impairments in ADL's, gait, independence in exercise, overall function, and strength that interfere with walking, stair negotiation, rising from a chair, squatting . Current prognosis is Excellent due to: current objective clinical presentation, good overall health status, positive past response to therapy, within-session changes, acuteness of condition, good support system/ coping skills. She will benefit from continued skilled therapy services to meet the updated goals for this plan of care as noted below. Updated: 01/08/24 Goals for Episode of Care: created on 12/07/23 through 02/01/24 Iron in home exercise program. - MET, will continue and progress to tolerance Patient will decrease pain to 0/10 at rest and with functional activities to allow patient to improve ambulation and transfers. - Mostly MET, will continue Patient will increase active ROM of R knee to WFL, symmetrical and pain-free to allow pt to to improve performance of ADLs and to improve gait mechanics / gait pattern . - MET, will monitor Patient will demonstrate increase in R LE strength to 5/5 during manual muscle testing in order to improve function for prior functional tasks. - Partially MET, will continue secondary to reported functional weakness. Perform rising, stairs, squatting and walking without pain. - Partially MET, will continue Normal gait. - MET, will monitor Reciprocal stair negotiation. - Partially MET, will continue, B rails required Patient Goals: Increase activity level and resume all prior activities without limitations. - Partially MET, will continue Patient Goals: Increase activity level and resume all prior activities without limitations. Planned Interventions, Frequency, and Duration: 1x/week, 4 weeks Total Number of Visits Planned: 4 Patient to be seen for Therapeutic exercise (81529), Neuromuscular re-education (34255), Manual therapy (14595), Therapeutic activities (16835), Self-senior living management (51993), Gait Training (26587), Patient/Family/Caregive r Education, Body Mechanics Training, General Conditioning, Functional training PLAN FOR NEXT VISIT: Continue with RLE strengthening. For further details regarding this patient refer to the Physical Therapy electronically documented visit dated 01/08/2024. Provider Attestation I have reviewed the treatment plan for Sonny Dave Lipscombchandrakant, [facility]# [id number] for the period of 01/08/24 -- 02/05/24, established on 01/08/2024. Signature certifies the need for therapy services. Normal [facility] CNTHERAPYon 01-08-2024 CNTHERAPY OT/PT/Speech Visit (PTWS) JUNIORCHRISTINESONNY Acosta ([id number]) 1950 F Date Time Provider Department 01/08/24 2:00 PM MATHEW HAYS PTWS Date Time Provider Department [place] 01/08/2024 2:00 PM [id number], BRENT PTWS Horacio Abraham Reason for Visit: PT Progress Note [1596] Primary Visit Diagnosis:Acute pain of right knee [M25.561] Other Visit Diagnoses:S/P total knee arthroplasty, right [Z96.651] Primary osteoarthritis of right knee [M17.11] Allergies As of Date: 01/08/2024 Noted Allergy Reaction AUGMENTIN (AMOXICILLIN-POT CLAVUL*05/02/2015 8 - GI Upset Comments: Vomiting IODINE 05/01/2015 2 - Rash Date Reviewed: 12/01/2023 Reviewed by: Lorena Dumas RN - Fully Assessed Prescriptions as of 01/08/2024 - VITAMIN E ORAL Take 1,000 Int'l Units by mouth once daily. - ascorbic acid, vitamin C, (VITAMIN C) 500 mg tablet Take 1 tablet by mouth two times a day with meals for 27 doses. - aspirin, enteric coated (ASPIRIN, ENTERIC COATED) 81 mg EC tablet Take 1 tablet by mouth two times a day for 28 days. - acetaminophen (TYLENOL) 500 mg tablet Take 2 tablets by mouth every 8 hours as needed for pain. - pantoprazole DR (PROTONIX) 40 mg tablet Take 1 tablet by mouth every morning for 14 days. - albuterol sulfate 90 mcg/actuation aebs Inhale 90 mcg as instructed every 6 hours as needed for wheezing/shortness of breath. dispense with spacer - Lecithin 1,200 mg cap Take 1 capsule by mouth once daily. - lisinopril (ZESTRIL) 40 mg tablet Take 1 tablet by mouth once daily. - propranolol (INDERAL) 10 mg tablet Take 1 tablet by mouth three times a day. - fluticasone (FLONASE) 50 mcg/actuation nasal spray Use 2 Sprays in each nostril once daily. Rinse mouth after use. - FLUoxetine (PROZAC) 20 mg capsule Take 1 capsule by mouth once daily. - ZINC ORAL Take 1 tablet by mouth once daily. - magnesium carb,citrate,oxide (MAGNESIUM COMPLEX ORAL) Take 1 tablet by mouth once daily. - LYSINE ORAL Take 1 tablet by mouth once daily as needed (cold sore). Patient should start on November 18, 2023. - vit C/E/Zn/coppr/lutein/derrell mikal (PRESERVISION AREDS-2 ORAL) Take 1 tablet by mouth once daily. - selenium 200 mcg tablet Take 1 tablet by mouth once daily. Normal [facility] CNTHERAPYon 01-04-2024 CNTHERAPY OT/PT/Speech Visit (PTWS) SONNY BIGGS ([id number]) 1950 F Date Time Provider Department 01/04/24 11:00 AM ESTELITA DAILY PTRODO Date Time Provider Department [place] 01/04/2024 11:00 AM [id number], MARIAH PTRODO [place] Reason for Visit: Physical Therapy [503] Primary Visit Diagnosis:Acute pain of right knee [M25.561] Other Visit Diagnoses:S/P total knee arthroplasty, right [Z96.651] Primary osteoarthritis of right knee [M17.11] Allergies As of Date: 01/04/2024 Noted Allergy Reaction AUGMENTIN (AMOXICILLIN-POT CLAVUL*05/02/2015 8 - GI Upset Comments: Vomiting IODINE 05/01/2015 2 - Rash Date Reviewed: 12/01/2023 Reviewed by: Lorena Dumas RN - Fully Assessed Prescriptions as of 01/04/2024 - VITAMIN E ORAL Take 1,000 Int'l Units by mouth once daily. - ascorbic acid, vitamin C, (VITAMIN C) 500 mg tablet Take 1 tablet by mouth two times a day with meals for 27 doses. - aspirin, enteric coated (ASPIRIN, ENTERIC COATED) 81 mg EC tablet Take 1 tablet by mouth two times a day for 28 days. - acetaminophen (TYLENOL) 500 mg tablet Take 2 tablets by mouth every 8 hours as needed for pain. - pantoprazole DR (PROTONIX) 40 mg tablet Take 1 tablet by mouth every morning for 14 days. - albuterol sulfate 90 mcg/actuation aebs Inhale 90 mcg as instructed every 6 hours as needed for wheezing/shortness of breath. dispense with spacer - Lecithin 1,200 mg cap Take 1 capsule by mouth once daily. - lisinopril (ZESTRIL) 40 mg tablet Take 1 tablet by mouth once daily. - propranolol (INDERAL) 10 mg tablet Take 1 tablet by mouth three times a day. - fluticasone (FLONASE) 50 mcg/actuation nasal spray Use 2 Sprays in each nostril once daily. Rinse mouth after use. - FLUoxetine (PROZAC) 20 mg capsule Take 1 capsule by mouth once daily. - ZINC ORAL Take 1 tablet by mouth once daily. - magnesium carb,citrate,oxide (MAGNESIUM COMPLEX ORAL) Take 1 tablet by mouth once daily. - LYSINE ORAL Take 1 tablet by mouth once daily as needed (cold sore). Patient should start on November 18, 2023. - vit C/E/Zn/coppr/lutein/derrell mikal (PRESERVISION AREDS-2 ORAL) Take 1 tablet by mouth once daily. - selenium 200 mcg tablet Take 1 tablet by mouth once daily. Normal [facility] CNTHERAPYon 12-31-2023 CNTHERAPY OT/PT/Speech Visit (PTWS) SONNY BIGGS ([id number]) 1950 F Date Time Provider Department 12/31/23 3:45 PM MATHEW HAYS PTWS Date Time Provider Department Center 12/31/2023 3:45 PM [id number], BRENT PTRODO [place] Reason for Visit: Physical Therapy [503] Primary Visit Diagnosis:Acute pain of right knee [M25.561] Other Visit Diagnoses:S/P total knee arthroplasty, right [Z96.651] Primary osteoarthritis of right knee [M17.11] Allergies As of Date: 12/31/2023 Noted Allergy Reaction AUGMENTIN (AMOXICILLIN-POT CLAVUL*05/02/2015 8 - GI Upset Comments: Vomiting IODINE 05/01/2015 2 - Rash Date Reviewed: 12/01/2023 Reviewed by: Lorena Dumas RN - Fully Assessed Prescriptions as of 12/31/2023 - VITAMIN E ORAL Take 1,000 Int'l Units by mouth once daily. - ascorbic acid, vitamin C, (VITAMIN C) 500 mg tablet Take 1 tablet by mouth two times a day with meals for 27 doses. - aspirin, enteric coated (ASPIRIN, ENTERIC COATED) 81 mg EC tablet Take 1 tablet by mouth two times a day for 28 days. - acetaminophen (TYLENOL) 500 mg tablet Take 2 tablets by mouth every 8 hours as needed for pain. - pantoprazole DR (PROTONIX) 40 mg tablet Take 1 tablet by mouth every morning for 14 days. - albuterol sulfate 90 mcg/actuation aebs Inhale 90 mcg as instructed every 6 hours as needed for wheezing/shortness of breath. dispense with spacer - Lecithin 1,200 mg cap Take 1 capsule by mouth once daily. - lisinopril (ZESTRIL) 40 mg tablet Take 1 tablet by mouth once daily. - propranolol (INDERAL) 10 mg tablet Take 1 tablet by mouth three times a day. - fluticasone (FLONASE) 50 mcg/actuation nasal spray Use 2 Sprays in each nostril once daily. Rinse mouth after use. - FLUoxetine (PROZAC) 20 mg capsule Take 1 capsule by mouth once daily. - ZINC ORAL Take 1 tablet by mouth once daily. - magnesium carb,citrate,oxide (MAGNESIUM COMPLEX ORAL) Take 1 tablet by mouth once daily. - LYSINE ORAL Take 1 tablet by mouth once daily as needed (cold sore). Patient should start on November 18, 2023. - vit C/E/Zn/coppr/lutein/derrell mikal (PRESERVISION AREDS-2 ORAL) Take 1 tablet by mouth once daily. - selenium 200 mcg tablet Take 1 tablet by mouth once daily. Normal [facility] CNTHERAPYon 12-22-2023 CNTHERAPY OT/PT/Speech Visit (PTWS) SONNY BIGGS ([id number]) 1950 F Date Time Provider Department 12/22/23 2:00 PM MATHEW HAYS PTRODO Date Time Provider Department [place] 12/22/2023 2:00 PM [id number], BRENT PTRODO [place] Reason for Visit: Physical Therapy [503] Primary Visit Diagnosis:Acute pain of right knee [M25.561] Other Visit Diagnoses:S/P total knee arthroplasty, right [Z96.651] Primary osteoarthritis of right knee [M17.11] Allergies As of Date: 12/22/2023 Noted Allergy Reaction AUGMENTIN (AMOXICILLIN-POT CLAVUL*05/02/2015 8 - GI Upset Comments: Vomiting IODINE 05/01/2015 2 - Rash Date Reviewed: 12/01/2023 Reviewed by: Lorena Dumas RN - Fully Assessed Prescriptions as of 12/22/2023 - VITAMIN E ORAL Take 1,000 Int'l Units by mouth once daily. - ascorbic acid, vitamin C, (VITAMIN C) 500 mg tablet Take 1 tablet by mouth two times a day with meals for 27 doses. - aspirin, enteric coated (ASPIRIN, ENTERIC COATED) 81 mg EC tablet Take 1 tablet by mouth two times a day for 28 days. - acetaminophen (TYLENOL) 500 mg tablet Take 2 tablets by mouth every 8 hours as needed for pain. - pantoprazole DR (PROTONIX) 40 mg tablet Take 1 tablet by mouth every morning for 14 days. - albuterol sulfate 90 mcg/actuation aebs Inhale 90 mcg as instructed every 6 hours as needed for wheezing/shortness of breath. dispense with spacer - Lecithin 1,200 mg cap Take 1 capsule by mouth once daily. - lisinopril (ZESTRIL) 40 mg tablet Take 1 tablet by mouth once daily. - propranolol (INDERAL) 10 mg tablet Take 1 tablet by mouth three times a day. - fluticasone (FLONASE) 50 mcg/actuation nasal spray Use 2 Sprays in each nostril once daily. Rinse mouth after use. - FLUoxetine (PROZAC) 20 mg capsule Take 1 capsule by mouth once daily. - ZINC ORAL Take 1 tablet by mouth once daily. - magnesium carb,citrate,oxide (MAGNESIUM COMPLEX ORAL) Take 1 tablet by mouth once daily. - LYSINE ORAL Take 1 tablet by mouth once daily as needed (cold sore). Patient should start on November 18, 2023. - vit C/E/Zn/coppr/lutein/derrell mikal (PRESERVISION AREDS-2 ORAL) Take 1 tablet by mouth once daily. - selenium 200 mcg tablet Take 1 tablet by mouth once daily. Normal [facility] CNTHERAPYon 12-18-2023 CNTHERAPY OT/PT/Speech Visit (PTWS) SONNY BIGGS ([id number]) 1950 F Date Time Provider Department 12/18/23 10:30 AM MATHEW HAYS PTWS Date Time Provider Department [place] 12/18/2023 10:30 AM [id number], BRENT PTWS Horacio [place] Reason for Visit: Physical Therapy [503] Primary Visit Diagnosis:Acute pain of right knee [M25.561] Other Visit Diagnoses:S/P total knee arthroplasty, right [Z96.651] Primary osteoarthritis of right knee [M17.11] Allergies As of Date: 12/18/2023 Noted Allergy Reaction AUGMENTIN (AMOXICILLIN-POT CLAVUL*05/02/2015 8 - GI Upset Comments: Vomiting IODINE 05/01/2015 2 - Rash Date Reviewed: 12/01/2023 Reviewed by: Lorena Dumas RN - Fully Assessed Prescriptions as of 12/18/2023 - VITAMIN E ORAL Take 1,000 Int'l Units by mouth once daily. - ascorbic acid, vitamin C, (VITAMIN C) 500 mg tablet Take 1 tablet by mouth two times a day with meals for 27 doses. - aspirin, enteric coated (ASPIRIN, ENTERIC COATED) 81 mg EC tablet Take 1 tablet by mouth two times a day for 28 days. - acetaminophen (TYLENOL) 500 mg tablet Take 2 tablets by mouth every 8 hours as needed for pain. - pantoprazole DR (PROTONIX) 40 mg tablet Take 1 tablet by mouth every morning for 14 days. - albuterol sulfate 90 mcg/actuation aebs Inhale 90 mcg as instructed every 6 hours as needed for wheezing/shortness of breath. dispense with spacer - Lecithin 1,200 mg cap Take 1 capsule by mouth once daily. - lisinopril (ZESTRIL) 40 mg tablet Take 1 tablet by mouth once daily. - propranolol (INDERAL) 10 mg tablet Take 1 tablet by mouth three times a day. - fluticasone (FLONASE) 50 mcg/actuation nasal spray Use 2 Sprays in each nostril once daily. Rinse mouth after use. - FLUoxetine (PROZAC) 20 mg capsule Take 1 capsule by mouth once daily. - ZINC ORAL Take 1 tablet by mouth once daily. - magnesium carb,citrate,oxide (MAGNESIUM COMPLEX ORAL) Take 1 tablet by mouth once daily. - LYSINE ORAL Take 1 tablet by mouth once daily as needed (cold sore). Patient should start on November 18, 2023. - vit C/E/Zn/coppr/lutein/derrell mikal (PRESERVISION AREDS-2 ORAL) Take 1 tablet by mouth once daily. - selenium 200 mcg tablet Take 1 tablet by mouth once daily. Normal [facility] CNTHERAPYon 12-16-2023 CNTHERAPY OT/PT/Speech Visit (PTWS) SONNY BIGGS ([id number]) 1950 F Date Time Provider Department 12/16/23 6:15 PM MATHEW HAYS PTRODO Date Time Provider Department Center 12/16/2023 6:15 PM [id number], BRENT PTRODO [place] Reason for Visit: Physical Therapy [503] Primary Visit Diagnosis:Acute pain of right knee [M25.561] Other Visit Diagnoses:S/P total knee arthroplasty, right [Z96.651] Primary osteoarthritis of right knee [M17.11] Allergies As of Date: 12/16/2023 Noted Allergy Reaction AUGMENTIN (AMOXICILLIN-POT CLAVUL*05/02/2015 8 - GI Upset Comments: Vomiting IODINE 05/01/2015 2 - Rash Date Reviewed: 12/01/2023 Reviewed by: Lorena Dumas RN - Fully Assessed Prescriptions as of 12/16/2023 - VITAMIN E ORAL Take 1,000 Int'l Units by mouth once daily. - ascorbic acid, vitamin C, (VITAMIN C) 500 mg tablet Take 1 tablet by mouth two times a day with meals for 27 doses. - aspirin, enteric coated (ASPIRIN, ENTERIC COATED) 81 mg EC tablet Take 1 tablet by mouth two times a day for 28 days. - acetaminophen (TYLENOL) 500 mg tablet Take 2 tablets by mouth every 8 hours as needed for pain. - docusate sodium (COLACE) 100 mg capsule Take 1 capsule by mouth two times a day as needed for constipation. - pantoprazole DR (PROTONIX) 40 mg tablet Take 1 tablet by mouth every morning for 14 days. - albuterol sulfate 90 mcg/actuation aebs Inhale 90 mcg as instructed every 6 hours as needed for wheezing/shortness of breath. dispense with spacer - Lecithin 1,200 mg cap Take 1 capsule by mouth once daily. - lisinopril (ZESTRIL) 40 mg tablet Take 1 tablet by mouth once daily. - propranolol (INDERAL) 10 mg tablet Take 1 tablet by mouth three times a day. - fluticasone (FLONASE) 50 mcg/actuation nasal spray Use 2 Sprays in each nostril once daily. Rinse mouth after use. - FLUoxetine (PROZAC) 20 mg capsule Take 1 capsule by mouth once daily. - ZINC ORAL Take 1 tablet by mouth once daily. - magnesium carb,citrate,oxide (MAGNESIUM COMPLEX ORAL) Take 1 tablet by mouth once daily. - LYSINE ORAL Take 1 tablet by mouth once daily as needed (cold sore). Patient should start on November 18, 2023. - vit C/E/Zn/coppr/lutein/derrell mikal (PRESERVISION AREDS-2 ORAL) Take 1 tablet by mouth once daily. - selenium 200 mcg tablet Take 1 tablet by mouth once daily. Normal [facility] CNTHERAPYon 12-09-2023 CNTHERAPY OT/PT/Speech Visit (PTWS) SONNY BIGGS ([id number]) 1950 F Date Time Provider Department 12/09/23 10:00 AM MATHEW HAYS PTRODO Date Time Provider Department [place] 12/09/2023 10:00 AM [id number], BRENT PTRODO [place] Reason for Visit: Physical Therapy [503] Primary Visit Diagnosis:Acute pain of right knee [M25.561] Other Visit Diagnoses:S/P total knee arthroplasty, right [Z96.651] Primary osteoarthritis of right knee [M17.11] Allergies As of Date: 12/09/2023 Noted Allergy Reaction AUGMENTIN (AMOXICILLIN-POT CLAVUL*05/02/2015 8 - GI Upset Comments: Vomiting IODINE 05/01/2015 2 - Rash Date Reviewed: 12/01/2023 Reviewed by: Lorena Dumas RN - Fully Assessed Prescriptions as of 12/09/2023 - VITAMIN E ORAL Take 1,000 Int'l Units by mouth once daily. - ascorbic acid, vitamin C, (VITAMIN C) 500 mg tablet Take 1 tablet by mouth two times a day with meals for 27 doses. - aspirin, enteric coated (ASPIRIN, ENTERIC COATED) 81 mg EC tablet Take 1 tablet by mouth two times a day for 28 days. - acetaminophen (TYLENOL) 500 mg tablet Take 2 tablets by mouth every 8 hours as needed for pain. - docusate sodium (COLACE) 100 mg capsule Take 1 capsule by mouth two times a day as needed for constipation. - pantoprazole DR (PROTONIX) 40 mg tablet Take 1 tablet by mouth every morning for 14 days. - albuterol sulfate 90 mcg/actuation aebs Inhale 90 mcg as instructed every 6 hours as needed for wheezing/shortness of breath. dispense with spacer - Lecithin 1,200 mg cap Take 1 capsule by mouth once daily. - lisinopril (ZESTRIL) 40 mg tablet Take 1 tablet by mouth once daily. - propranolol (INDERAL) 10 mg tablet Take 1 tablet by mouth three times a day. - fluticasone (FLONASE) 50 mcg/actuation nasal spray Use 2 Sprays in each nostril once daily. Rinse mouth after use. - FLUoxetine (PROZAC) 20 mg capsule Take 1 capsule by mouth once daily. - ZINC ORAL Take 1 tablet by mouth once daily. - magnesium carb,citrate,oxide (MAGNESIUM COMPLEX ORAL) Take 1 tablet by mouth once daily. - LYSINE ORAL Take 1 tablet by mouth once daily as needed (cold sore). Patient should start on November 18, 2023. - vit C/E/Zn/coppr/lutein/derrell mikal (PRESERVISION AREDS-2 ORAL) Take 1 tablet by mouth once daily. - selenium 200 mcg tablet Take 1 tablet by mouth once daily. Normal [facility] [id number] 12-07-2023 [id number] HNO ID: [id number] Author: MATHEW HAYS PT Service: ? Author Type: Physical Therapist Type: [id number] Filed: 12/07/2023 23:19 Note Text: [facility] Rehabilitation [facility] Sports Therapy Physical Therapy Plan of Care Certification Patient Name: Sonny Biggs : 1950 [facility] #: [id number] Date: 12/07/2023 To: Jagdish Cesar APRN.C* From Therapist: Mathew Hays PT RE: Patient Certification/ Recertification Your review, approval and electronic signature are required in order to comply with Payor: [facility] MEDICARE / Plan: [employer] MEDICARE PPO / Product Type: PPO / regulations. The identified Physical Therapy PLAN OF CARE for the patient is as follows: M17.11 Primary osteoarthritis of right knee PLAN OF CARE: Assessment: Sonny Biggs presents with diagnosis of s/p R TKA that interferes with walking, stair negotiation, rising from a chair, squatting. She presents with impairments in ADL's, balance, coordination, gait, independence in exercise, overall function, range of motion, soft tissue healing, strength, symptom management, and tissue tenderness. PROMIS? (Patient-Reported Outcomes Measurement Information System) scores were reviewed and identified as a rehabilitation concern. Prognosis for therapy is Excellent due to: current objective clinical presentation, good overall health status, positive past response to therapy, within-session changes, acuteness of condition, good support system/ coping skills. She will benefit from skilled therapy services to meet the goals established for this plan of care as noted below. Goals for Episode of Care: created on 12/07/23 through 02/01/24 Iron in home exercise program. Patient will decrease pain to 0/10 at rest and with functional activities to allow patient to improve ambulation and transfers. Patient will increase active ROM of R knee to WFL, symmetrical and pain-free to allow pt to to improve performance of ADLs and to improve gait mechanics / gait pattern . Patient will demonstrate increase in R LE strength to 5/5 during manual muscle testing in order to improve function for prior functional tasks. Perform rising, stairs, squatting and walking without pain. Normal gait. Reciprocal stair negotiation. Patient Goals: Increase activity level and resume all prior activities without limitations. Planned Interventions, Frequency, and Duration: Current Frequency: 2x/week Duration: 8 weeks Total Number of Visits Planned: 16 Planned Treatment Interventions: Therapeutic exercise (70939), Neuromuscular re-education (79570), Manual therapy (59779), Therapeutic activities (14883), Self-senior living management (15474), Gait Training (12123), Patient/Family/Caregive r Education, Body Mechanics Training, General Conditioning, Functional training PLAN FOR NEXT VISIT: Review, correct and progress HEP to tolerance. Begin comprehensive therex to address R knee/LE ROM and strengt. MCC goal is to return to prior functional level without limitations. Gait training. Patient demonstrates good understanding of plan of care and treatment. The above goals and plan of care were discussed and agreed upon by patient/family. For further details regarding this patient refer to the Physical Therapy electronically documented visit dated 12/07/2023. Provider Attestation I have reviewed the treatment plan for Sonny Acosta Julianchristine, [facility]# [id number] for the period of 12/07/23 -- 02/01/24, established on 12/07/2023. Signature certifies the need for therapy services. Normal [facility] CNTHERAPYon 12-07-2023 CNTHERAPY OT/PT/Speech Visit (PTWS) SONNY BIGGS ([id number]) 1950 F Date Time Provider Department 12/07/23 3:45 PM MATHEW HAYS PTRODO Date Time Provider Department Center 12/07/2023 3:45 PM [id number], BRENT PTWS [facility] Reason for Visit: PT Eval [747] Visit Diagnosis:Primary osteoarthritis of right knee [M17.11] Allergies As of Date: 12/07/2023 Noted Allergy Reaction AUGMENTIN (AMOXICILLIN-POT CLAVUL*05/02/2015 8 - GI Upset Comments: Vomiting IODINE 05/01/2015 2 - Rash Date Reviewed: 12/01/2023 Reviewed by: Lorena Dumas, RN - Fully Assessed Prescriptions as of 12/07/2023 - VITAMIN E ORAL Take 1,000 Int'l Units by mouth once daily. - ascorbic acid, vitamin C, (VITAMIN C) 500 mg tablet Take 1 tablet by mouth two times a day with meals for 27 doses. - aspirin, enteric coated (ASPIRIN, ENTERIC COATED) 81 mg EC tablet Take 1 tablet by mouth two times a day for 28 days. - acetaminophen (TYLENOL) 500 mg tablet Take 2 tablets by mouth every 8 hours as needed for pain. - docusate sodium (COLACE) 100 mg capsule Take 1 capsule by mouth two times a day as needed for constipation. - pantoprazole DR (PROTONIX) 40 mg tablet Take 1 tablet by mouth every morning for 14 days. - albuterol sulfate 90 mcg/actuation aebs Inhale 90 mcg as instructed every 6 hours as needed for wheezing/shortness of breath. dispense with spacer - Lecithin 1,200 mg cap Take 1 capsule by mouth once daily. - lisinopril (ZESTRIL) 40 mg tablet Take 1 tablet by mouth once daily. - propranolol (INDERAL) 10 mg tablet Take 1 tablet by mouth three times a day. - fluticasone (FLONASE) 50 mcg/actuation nasal spray Use 2 Sprays in each nostril once daily. Rinse mouth after use. - FLUoxetine (PROZAC) 20 mg capsule Take 1 capsule by mouth once daily. - ZINC ORAL Take 1 tablet by mouth once daily. - magnesium carb,citrate,oxide (MAGNESIUM COMPLEX ORAL) Take 1 tablet by mouth once daily. - LYSINE ORAL Take 1 tablet by mouth once daily as needed (cold sore). Patient should start on November 18, 2023. - vit C/E/Zn/coppr/lutein/derrell mikal (PRESERVISION AREDS-2 ORAL) Take 1 tablet by mouth once daily. - selenium 200 mcg tablet Take 1 tablet by mouth once daily. Stringed Instrument Assembler: Therapy (PT/OT/Speech/Resp) ID: [id number] 12/07/2023 4:36 PM Author: MATHEW HAYS Signed by MATHEW HAYS PT on 12/07/2023 at 4:36 PM Document text: Program_ID:[id number] Access Code: [email or web address] URL: [email or web address] Date: 12-07-2023 Prepared By: Mathew Hays Program Notes Exercises - Supine Ankle Pumps - 2 x daily - 7 x weekly - 2 sets - 10 reps - Supine Heel Slide - 2 x daily - 7 x weekly - 2 sets - 10 reps - Long Sitting Quad Set with Towel Roll Under Heel - 2 x daily - 7 x weekly - 2 sets - 10 reps - Straight Leg Raise - 2 x daily - 7 x weekly - 2 sets - 10 reps Normal [facility] THERAPY NTon 12-07-2023 THERAPY NT HNO ID: [id number] Author: MATHEW HAYS, PT Service: ? Author Type: Physical Therapist Type: Therapy (PT/OT/Speech/Resp) Filed: 12/07/2023 16:36 Note Text: Program_ID:[id number] Access Code: [email or web address] URL: [email or web address] Date: 12-07-2023 Prepared By: Mathew Hays Program Notes Exercises - Supine Ankle Pumps - 2 x daily - 7 x weekly - 2 sets - 10 reps - Supine Heel Slide - 2 x daily - 7 x weekly - 2 sets - 10 reps - Long Sitting Quad Set with Towel Roll Under Heel - 2 x daily - 7 x weekly - 2 sets - 10 reps - Straight Leg Raise - 2 x daily - 7 x weekly - 2 sets - 10 reps Normal [facility] XR Knee AP and Lateral and M erchantson 12-04-2023 IMPRESSION: Interval TKA without radiographic complication Reed Man: VANESA Transcribe Date/Time: Dec 04 2023 9:59A Dictated by : GAURI MURPHY MD This examination was interpreted and the report reviewed and electronically signed by: GAURI MURPHY MD on Dec 04 2023 9:59AM EST [facility] * * *Final Report* * * DATE OF EXAM: Dec 01 2023 11:52AM MDO 5209 - XR KNEE 3V AP/LAT/MERCHANT RT / PROCEDURE REASON: multiple diagnoses * * * * Physician Interpretation * * * * PROCEDURE: Right knee INDICATION: Chronic pain of right knee TECHNIQUE: XR KNEE 3V AP/LAT/MERCHANT RT COMPARISON: 08/13/2023 FINDINGS: There is a new total knee arthroplasty in satisfactory position without evidence for loosening. No periprosthetic fracture or soft tissue emphysema. Left TKA is evident. [facility] Provider, Danii Gaitan - 12/04/2023 * * *Final Report* * * DATE OF EXAM: Dec 01 2023 11:52AM MDO 5209 - XR KNEE 3V AP/LAT/MERCHANT RT / PROCEDURE REASON: multiple diagnoses * * * * Physician Interpretation * * * * PROCEDURE: Right knee INDICATION: Chronic pain of right knee TECHNIQUE: XR KNEE 3V AP/LAT/MERCHANT RT COMPARISON: 08/13/2023 FINDINGS: There is a new total knee arthroplasty in satisfactory position without evidence for loosening. No periprosthetic fracture or soft tissue emphysema. Left TKA is evident. IMPRESSION IMPRESSION: Interval TKA without radiographic complication Reed Man: VANESA Transcribe Date/Time: Dec 04 2023 9:59A Dictated by : GAURI MURPHY MD This examination was interpreted and the report reviewed and electronically signed by: GAURI MURPHY MD on Dec 04 2023 9:59AM EST [facility] XR Knee AP and Lateral and M erchantsOrdered By: [facility] Provider on 12-04-2023 [facility] CNNURSEon 12-01-2023 CNNURSE Nurse Visit (ORMDNA) SONNY BIGGS ([id number]) 1950 F Date Time Provider Department 12/01/23 1:00 PM LORENA DUMAS During your visit today, we recorded the following information about you: Lorena Dumas RN 12/01/2023 1:07 PM Signed Post-op Office Visit Sonny Biggs 73 year old December 01, 2023 12:12 PM Surgery Date: 11/16/23 History: Sonny Biggs is now 2 weeks out from Right TKA. Post-operative course has been without complication. No readmission/complicatio ns Subjective: Patient reports 3/10 pain. Overall is doing well. Walker and cane as ambulatory aid Taking opioid pain medication only as needed. Objective: Ambulates with a walker and cane, may transition to to ambulatory aid Incision well-approximated, no drainage, normal rayne-incisional erythema ROM 0 - 115 Distally DP/PT palpable Distally S/S/SP/DP/T intact at baseline Distally DF/EHL/PF intact at baseline Negative kathy/calf tenderness Xrays: Well-positioned total knee replacement in appropriate alignment with no evidence of loosening Assessment and Plan: Sonny Biggs Is here for a first post-op appointment, overall doing well -continued ice, rest, and use of non-narcotic analgesia as needed -wean off ambulatory aids -discussed home exercises and therapy -WBAT on operative extremity -continue ankle pumps and dvt ppx through 4 weeks -discussed driving requirement: 4 weeks post-op, off narcotic pain medication, adequate brake time -will see back at 6 week appointment for clinical exam -discussed red flag symptoms of acutely increasing pain, new erythema, new swelling, drainage, shortness of breath Lorena Dumas RN Orthopaedic Surgery Allergies As of Date: 12/01/2023 Noted Allergy Reaction AUGMENTIN (AMOXICILLIN-POT CLAVUL*05/02/2015 8 - GI Upset Comments: Vomiting IODINE 05/01/2015 2 - Rash Date Reviewed: 12/01/2023 Reviewed by: Lorena Dumas RN - Fully Assessed Reason for Visit: Post Op [174] Knee Replacement [363] Primary Visit Diagnosis:Status post right knee replacement [Z96.651] Prescriptions as of 12/01/2023 - VITAMIN E ORAL Take 1,000 Int'l Units by mouth once daily. - ascorbic acid, vitamin C, (VITAMIN C) 500 mg tablet Take 1 tablet by mouth two times a day with meals for 27 doses. - aspirin, enteric coated (ASPIRIN, ENTERIC COATED) 81 mg EC tablet Take 1 tablet by mouth two times a day for 28 days. - acetaminophen (TYLENOL) 500 mg tablet Take 2 tablets by mouth every 8 hours as needed for pain. - docusate sodium (COLACE) 100 mg capsule Take 1 capsule by mouth two times a day as needed for constipation. - doxycycline hyclate (VIBRAMYCIN) 100 mg capsule Take 1 capsule by mouth every 12 hours at 6 am and 6 pm for 27 doses. - meloxicam (MOBIC) 15 mg tablet Take 1 tablet by mouth once daily for 14 days. - pantoprazole DR (PROTONIX) 40 mg tablet Take 1 tablet by mouth every morning for 14 days. - albuterol sulfate 90 mcg/actuation aebs Inhale 90 mcg as instructed every 6 hours as needed for wheezing/shortness of breath. dispense with spacer - Lecithin 1,200 mg cap Take 1 capsule by mouth once daily. - lisinopril (ZESTRIL) 40 mg tablet Take 1 tablet by mouth once daily. - propranolol (INDERAL) 10 mg tablet Take 1 tablet by mouth three times a day. - fluticasone (FLONASE) 50 mcg/actuation nasal spray Use 2 Sprays in each nostril once daily. Rinse mouth after use. - FLUoxetine (PROZAC) 20 mg capsule Take 1 capsule by mouth once daily. - ZINC ORAL Take 1 tablet by mouth once daily. - magnesium carb,citrate,oxide (MAGNESIUM COMPLEX ORAL) Take 1 tablet by mouth once daily. - LYSINE ORAL Take 1 tablet by mouth once daily as needed (cold sore). Patient should start on November 18, 2023. - vit C/E/Zn/coppr/lutein/derrell mikal (PRESERVISION AREDS-2 ORAL) Take 1 tablet by mouth once daily. - selenium 200 mcg tablet Take 1 tablet by mouth once daily. Problem List As Of Date 12/01/2023 Noted Resolved Hypertension [I10] Obesity (BMI 30-39.9) [E66.9] GODWIN (obstructive sleep apnea) [G47.33] Overactive bladder [N32.81] Acute pain of right knee [M25.561] 03/04/2021 11/06/2023 Chronic right-sided low back pain with right-si*03/04/2021 Hyperlipidemia [E78.5] History of DVT (deep vein thrombosis) [Z86.718] Coronary artery calcification seen on CT scan [* Emphysema of lung (HCC) [J43.9] Palpitations [R00.2] Anxiety with depression [F41.8] GERD (gastroesophageal reflux disease) [K21.9] S/P total knee arthroplasty, right [Z96.651] 11/17/2023 Disposition: Return in about 5 weeks (around 01/05/2024). Follow-up and Disposition History for Encounter Date Provider Department Center 12/01/2023 [id number], EMILY R [facility] Encounter Status:Closed by LORENA DUMAS on 12/01/23 [facility] XR KNEE 3V AP/LAT/MERCHANT R Ton 12-01-2023 XR KNEE 3V AP/LAT/MERCHANT RT * * *Final Report* * * DATE OF EXAM: Dec 01 2023 11:52AM FREDY 5209 - XR KNEE 3V AP/LAT/MERCHANT RT / PROCEDURE REASON: multiple diagnoses * * * * Physician Interpretation * * * * PROCEDURE: Right knee INDICATION: Chronic pain of right knee TECHNIQUE: XR KNEE 3V AP/LAT/MERCHANT RT COMPARISON: 08/13/2023 FINDINGS: There is a new total knee arthroplasty in satisfactory position without evidence for loosening. No periprosthetic fracture or soft tissue emphysema. Left TKA is evident. IMPRESSION: Interval TKA without radiographic complication Reed Man: VANESA Transcribe Date/Time: Dec 04 2023 9:59A Dictated by : GAURI MURPHY MD This examination was interpreted and the report reviewed and electronically signed by: GAURI MURPHY MD on Dec 04 2023 9:59AM EST [id number] [facility] XR Knee AP and Lateral and M erchantson 12-01-2023 [facility]iology [facility]ative[facility] Tele[facility] (HCSIND) SONNY BIGGS ([id number]) 1950 F Date Time Provider Department 11/25/23 NEHAL WELLINGTON HCSIND During your visit today, we recorded the following information about you: Nehal Wellington PTA 11/25/2023 8:30 AM Signed I would like to get patients OP PT set up for her. Can you please enter those orders? Thanks Cruz Pfeiffer PA-C 11/25/2023 8:52 AM Signed There are PT and OT orders in [facility]. NITA Stroud Robert S, PA-C 11/25/2023 8:52 AM Signed Addended by: CRUZ PFEIFFER on: 11/25/2023 08:52 AM Modules accepted: Orders Allergies As of Date: 11/25/2023 Noted Allergy Reaction AUGMENTIN (AMOXICILLIN-POT CLAVUL*05/02/2015 8 - GI Upset Comments: Vomiting IODINE 05/01/2015 2 - Rash Date Reviewed: 11/23/2023 Reviewed by: Nehal Wellington PTA - Fully Assessed Reason for Visit: Home Care [4073] Cmt: OP PT orders Primary Visit Diagnosis:Aftercare following right knee joint replacement surgery [Z47.1, Z96.651] Other Visit Diagnosis:Abnormality of gait [R26.9] Order(s):CONSULT TO GREEN MARKETER [722325] Order #: [id number]: 1 FUTURE Prescriptions as of 11/25/2023 - traMADol (ULTRAM) 50 mg tablet Take 1 tablet by mouth every 6 hours as needed for pain for up to 7 days. - VITAMIN E ORAL Take 1,000 Int'l Units by mouth once daily. - ascorbic acid, vitamin C, (VITAMIN C) 500 mg tablet Take 1 tablet by mouth two times a day with meals for 27 doses. - aspirin, enteric coated (ASPIRIN, ENTERIC COATED) 81 mg EC tablet Take 1 tablet by mouth two times a day for 28 days. - acetaminophen (TYLENOL) 500 mg tablet Take 2 tablets by mouth every 8 hours as needed for pain. - docusate sodium (COLACE) 100 mg capsule Take 1 capsule by mouth two times a day as needed for constipation. - doxycycline hyclate (VIBRAMYCIN) 100 mg capsule Take 1 capsule by mouth every 12 hours at 6 am and 6 pm for 27 doses. - meloxicam (MOBIC) 15 mg tablet Take 1 tablet by mouth once daily for 14 days. - pantoprazole DR (PROTONIX) 40 mg tablet Take 1 tablet by mouth every morning for 14 days. - polyethylene glycol 3350 17 gram packet Take 1 Packet by mouth once daily as needed for constipation for up to 10 days. Dissolve dose in 4 - 8 ounces of liquid and take as directed. - albuterol sulfate 90 mcg/actuation aebs Inhale 90 mcg as instructed every 6 hours as needed for wheezing/shortness of breath. dispense with spacer - Lecithin 1,200 mg cap Take 1 capsule by mouth once daily. - lisinopril (ZESTRIL) 40 mg tablet Take 1 tablet by mouth once daily. - propranolol (INDERAL) 10 mg tablet Take 1 tablet by mouth three times a day. - fluticasone (FLONASE) 50 mcg/actuation nasal spray Use 2 Sprays in each nostril once daily. Rinse mouth after use. - FLUoxetine (PROZAC) 20 mg capsule Take 1 capsule by mouth once daily. - ZINC ORAL Take 1 tablet by mouth once daily. - magnesium carb,citrate,oxide (MAGNESIUM COMPLEX ORAL) Take 1 tablet by mouth once daily. - LYSINE ORAL Take 1 tablet by mouth as needed (cold sore). Patient should start on November 18, 2023. - vit C/E/Zn/coppr/lutein/derrell mikal (PRESERVISION AREDS-2 ORAL) Take 1 tablet by mouth once daily. - selenium 200 mcg tablet Take 1 tablet by mouth once daily. Problem List As Of Date 11/25/2023 Noted Resolved Hypertension [I10] Obesity (BMI 30-39.9) [E66.9] GODWIN (obstructive sleep apnea) [G47.33] Overactive bladder [N32.81] Acute pain of right knee [M25.561] 03/04/2021 11/06/2023 Chronic right-sided low back pain with right-si*03/04/2021 Hyperlipidemia [E78.5] History of DVT (deep vein thrombosis) [Z86.718] Coronary artery calcification seen on CT scan [* Emphysema of lung (HCC) [J43.9] Palpitations [R00.2] Anxiety with depression [F41.8] GERD (gastroesophageal reflux disease) [K21.9] S/P total knee arthroplasty, right [Z96.651] 11/17/2023 Encounter Status:Closed by NEHAL WELLINGTON on 11/25/23 [facility] CNPMonika 11-24-2023 CNPN Telephone (HCSIND) SONNY BIGGS ([id number]) 1950 F Date Time Provider Department 11/24/23 NEHAL WELLINGTON HCSIND During your visit today, we recorded the following information about you: Nehal Wellington PTA 11/24/2023 8:23 AM Signed Removed wound vac and placed silver dressing on right knee on 11/23/23. Picture obtained and uploaded to chart. No concerns at this time. Allergies As of Date: 11/24/2023 Noted Allergy Reaction AUGMENTIN (AMOXICILLIN-POT CLAVUL*05/02/2015 8 - GI Upset Comments: Vomiting IODINE 05/01/2015 2 - Rash Date Reviewed: 11/23/2023 Reviewed by: Nehal Wellington PTA - Fully Assessed Reason for Visit: Home Care [4073] Cmt: Wound vac removal Prescriptions as of 11/24/2023 - traMADol (ULTRAM) 50 mg tablet Take 1 tablet by mouth every 6 hours as needed for pain for up to 7 days. - VITAMIN E ORAL Take 1,000 Int'l Units by mouth once daily. - ascorbic acid, vitamin C, (VITAMIN C) 500 mg tablet Take 1 tablet by mouth two times a day with meals for 27 doses. - aspirin, enteric coated (ASPIRIN, ENTERIC COATED) 81 mg EC tablet Take 1 tablet by mouth two times a day for 28 days. - acetaminophen (TYLENOL) 500 mg tablet Take 2 tablets by mouth every 8 hours as needed for pain. - docusate sodium (COLACE) 100 mg capsule Take 1 capsule by mouth two times a day as needed for constipation. - doxycycline hyclate (VIBRAMYCIN) 100 mg capsule Take 1 capsule by mouth every 12 hours at 6 am and 6 pm for 27 doses. - meloxicam (MOBIC) 15 mg tablet Take 1 tablet by mouth once daily for 14 days. - pantoprazole DR (PROTONIX) 40 mg tablet Take 1 tablet by mouth every morning for 14 days. - polyethylene glycol 3350 17 gram packet Take 1 Packet by mouth once daily as needed for constipation for up to 10 days. Dissolve dose in 4 - 8 ounces of liquid and take as directed. - albuterol sulfate 90 mcg/actuation aebs Inhale 90 mcg as instructed every 6 hours as needed for wheezing/shortness of breath. dispense with spacer - Lecithin 1,200 mg cap Take 1 capsule by mouth once daily. - lisinopril (ZESTRIL) 40 mg tablet Take 1 tablet by mouth once daily. - propranolol (INDERAL) 10 mg tablet Take 1 tablet by mouth three times a day. - fluticasone (FLONASE) 50 mcg/actuation nasal spray Use 2 Sprays in each nostril once daily. Rinse mouth after use. - FLUoxetine (PROZAC) 20 mg capsule Take 1 capsule by mouth once daily. - ZINC ORAL Take 1 tablet by mouth once daily. - magnesium carb,citrate,oxide (MAGNESIUM COMPLEX ORAL) Take 1 tablet by mouth once daily. - LYSINE ORAL Take 1 tablet by mouth as needed (cold sore). Patient should start on November 18, 2023. - vit C/E/Zn/coppr/lutein/derrell mikal (PRESERVISION AREDS-2 ORAL) Take 1 tablet by mouth once daily. - selenium 200 mcg tablet Take 1 tablet by mouth once daily. Problem List As Of Date 11/24/2023 Noted Resolved Hypertension [I10] Obesity (BMI 30-39.9) [E66.9] GODWIN (obstructive sleep apnea) [G47.33] Overactive bladder [N32.81] Acute pain of right knee [M25.561] 03/04/2021 11/06/2023 Chronic right-sided low back pain with right-si*03/04/2021 Hyperlipidemia [E78.5] History of DVT (deep vein thrombosis) [Z86.718] Coronary artery calcification seen on CT scan [* Emphysema of lung (HCC) [J43.9] Palpitations [R00.2] Anxiety with depression [F41.8] GERD (gastroesophageal reflux disease) [K21.9] S/P total knee arthroplasty, right [Z96.651] 11/17/2023 Encounter Status:Closed by NEHAL WELLINGTON on 11/24/23 [facility] Rhys 11-19-2023 CNPN Telephone (ORMDNA) SONNY BIGGS ([id number]) 1950 F Date Time Provider Department 11/19/23 INNA EASON During your visit today, we recorded the following information about you: Samantha Avalos, RN 11/19/2023 11:39 AM Signed Spoke with Damari, pts daughter Oxycodone is making mom crazy Her pain level is 5/10 with the tylenol but it does wear off sooner than 8 hours Asking if Tramadol could be called in instead (pt has had before and tolerated well) Also, PT called PCP for interaction between vitamin c and doxy and Dr Martini told pt to hold vitamin C Advised , per Lorena RN, ok to continue both meds as directed by Dr Eason Please call back if Tramadol is approved Confirmed Jagdish Layton APRN.TAPE MAKING MACHINE OPERATOR 11/20/2023 12:27 PM Signed Tramadol e-scripted. Jagdish Cesar APRN.TAPE MAKING MACHINE OPERATOR November 20, 2023 12:27 PM Allergies As of Date: 11/19/2023 Noted Allergy Reaction AUGMENTIN (AMOXICILLIN-POT CLAVUL*05/02/2015 8 - GI Upset Comments: Vomiting IODINE 05/01/2015 2 - Rash Date Reviewed: 11/16/2023 Reviewed by: Mady Powers RN - Fully Assessed Reason for Visit: Medication Problem [65] Primary Visit Diagnosis:Status post right knee replacement [Z96.651] Order(s):traMADol (ULTRAM) 50 mg tabletTake 1 tablet by mouth every 6 hours as needed for pain for up to 7 days.Disp: 28 tabletRfl: 0 Prescriptions as of 11/20/2023 - traMADol (ULTRAM) 50 mg tablet Take 1 tablet by mouth every 6 hours as needed for pain for up to 7 days. - VITAMIN E ORAL Take 1,000 Int'l Units by mouth once daily. - ascorbic acid, vitamin C, (VITAMIN C) 500 mg tablet Take 1 tablet by mouth two times a day with meals for 27 doses. - aspirin, enteric coated (ASPIRIN, ENTERIC COATED) 81 mg EC tablet Take 1 tablet by mouth two times a day for 28 days. - acetaminophen (TYLENOL) 500 mg tablet Take 2 tablets by mouth every 8 hours as needed for pain. - docusate sodium (COLACE) 100 mg capsule Take 1 capsule by mouth two times a day as needed for constipation. - doxycycline hyclate (VIBRAMYCIN) 100 mg capsule Take 1 capsule by mouth every 12 hours at 6 am and 6 pm for 27 doses. - meloxicam (MOBIC) 15 mg tablet Take 1 tablet by mouth once daily for 14 days. - pantoprazole DR (PROTONIX) 40 mg tablet Take 1 tablet by mouth every morning for 14 days. - polyethylene glycol 3350 17 gram packet Take 1 Packet by mouth once daily as needed for constipation for up to 10 days. Dissolve dose in 4 - 8 ounces of liquid and take as directed. - albuterol sulfate 90 mcg/actuation aebs Inhale 90 mcg as instructed every 6 hours as needed for wheezing/shortness of breath. dispense with spacer - Lecithin 1,200 mg cap Take 1 capsule by mouth once daily. - lisinopril (ZESTRIL) 40 mg tablet Take 1 tablet by mouth once daily. - propranolol (INDERAL) 10 mg tablet Take 1 tablet by mouth three times a day. - fluticasone (FLONASE) 50 mcg/actuation nasal spray Use 2 Sprays in each nostril once daily. Rinse mouth after use. - FLUoxetine (PROZAC) 20 mg capsule Take 1 capsule by mouth once daily. - ZINC ORAL Take 1 tablet by mouth once daily. - magnesium carb,citrate,oxide (MAGNESIUM COMPLEX ORAL) Take 1 tablet by mouth once daily. - LYSINE ORAL Take 1 tablet by mouth as needed (cold sore). Patient should start on November 18, 2023. - vit C/E/Zn/coppr/lutein/derrell mikal (PRESERVISION AREDS-2 ORAL) Take 1 tablet by mouth once daily. - selenium 200 mcg tablet Take 1 tablet by mouth once daily. Problem List As Of Date 11/19/2023 Noted Resolved Hypertension [I10] Obesity (BMI 30-39.9) [E66.9] GODWIN (obstructive sleep apnea) [G47.33] Overactive bladder [N32.81] Acute pain of right knee [M25.561] 03/04/2021 11/06/2023 Chronic right-sided low back pain with right-si*03/04/2021 Hyperlipidemia [E78.5] History of DVT (deep vein thrombosis) [Z86.718] Coronary artery calcification seen on CT scan [* Emphysema of lung (HCC) [J43.9] Palpitations [R00.2] Anxiety with depression [F41.8] GERD (gastroesophageal reflux disease) [K21.9] S/P total knee arthroplasty, right [Z96.651] 11/17/2023 Prescriptions ordered this encounter Disp Refills Start End TRAMADOL 50 MG TABLET 28 t* 0 11/20/2023 11/27/2023 Cmt: Discontinuing oxycodone due to side effects Route: ORAL Sig: Take 1 tablet by mouth every 6 hours as needed for pain for up to 7 days. Medications Discontinued During This Encounter Prescriptions - oxyCODONE IR (ROXICODONE) 5 mg immediate release tablet (Discontinued) Take 1-2 tablets by mouth every 6 hours as needed for pain for up to 7 days. Encounter Status:Closed by JAGDISH CESAR on 11/20/23 Normal [facility] Basic metabolic 2000 panelon 11-17-2023 Anion gap [Moles/Vol] 10 mmol/L Normal 9-18 [facility] Comment on above: Order Comment: Speci men Type: BLOOD SPECIMENOrdering Facility: [facility] Address: [address] [place] [address] Performed By: #### 2 4321-2 ####LAMBERT LABORATORYCLIA [id number] [place] [address] [place] Calcium [Mass/Vol] 9.1 mg/dL Normal 8.5-10.2 [facility] Comment on above: Order Comment: Speci men Type: BLOOD SPECIMENOrdering Facility: [facility] Address: [address] [place] [address] Performed By: #### 2 4321-2 ####LAMBERT LABORATORYCLIA [id number] [place] [address] [place] Chloride [Moles/Vol] 102 mmol/L Normal 97-105 [facility] Comment on above: Order Comment: Speci men Type: BLOOD SPECIMENOrdering Facility: [facility] Address: [address] [place] [address] Performed By: #### 2 4321-2 ####LAMBERT LABORATORYCLIA [id number] [address] [place] CO2 [Moles/Vol] 25 mmol/L Normal 22-30 [facility] Comment on above: Order Comment: Speci men Type: BLOOD SPECIMENOrdering Facility: [facility] Address: [address] [place] [address] Performed By: #### 2 4321-2 ####LAMBERT LABORATORYCLIA [id number] [address] [place] Creatinine [Mass/Vol] 0.67 mg/dL Normal 0.58-0.96 [facility] Comment on above: Order Comment: Speci men Type: BLOOD SPECIMENOrdering Facility: [facility] Address: [address] [place] [address] Performed By: #### 2 4321-2 ####LAMBERT LABORATORYCLIA [id number] [address] Creatinine and Glomerular filtration rate.predicted panel (S/P/Bld) 91 mL/min/1.73m??? Normal >=60 [facility] Comment on above: Order Comment: Speci men Type: BLOOD SPECIMENOrdering Facility: [facility] Address: [address] [place] [address] Result Comment: Martha mated Glomerular Filtration Rate (eGFR) is calculated using the 2020 CKD-EPI creatinine equation. This equation utilizes serum creatinine, sex, and age as parameters. The creatinine assay has traceable calibration to isotope dilution-mass spectrometry. Refer to KDIGO guidelines for clinical interpretation. In patients with unstable renal function, e.g. those with acute kidney injury, the eGFR may not accurately reflect actual GFR. Performed By: #### 2 4321-2 ####VICTOR LABORATORYCLIA [id number] [place] [address] [place] Glucose [Mass/Vol] 152 mg/dL High 74-99 [facility] Comment on above: Order Comment: Cr men Type: BLOOD SPECIMENOrdering Facility: [facility] Address: [address] [place] [address] Result Comment: The [place] Diabetes Association (ADA) provides guidance for cutoff values for fasting glucose and random glucose. The ADA defines fasting as no caloric intake for at least 8 hours. Fasting plasma glucose results between 100 to 125 mg/dL indicate increased risk for diabetes (prediabetes). Fasting plasma glucose results greater than or equal to 126 mg/dL meet the criteria for diagnosis of diabetes. In the absence of unequivocal hyperglycemia, results should be confirmed by repeat testing. In a patient with classic symptoms of hyperglycemia or hyperglycemic crisis, random plasma glucose results greater than or equal to 200 mg/dL meet the criteria for diagnosis of diabetes. Reference: Standards of Medical Care in Diabetes 2016, [place] [employer]. Diabetes Care. 2016.39(Suppl 1). Performed By: #### 2 4321-2 ####VICTOR LABORATORYCLIA [id number] [place] [id number] [place] Potassium [Moles/Vol] 4.9 mmol/L Normal 3.7-5.1 [facility] Comment on above: Order Comment: Maikeli men Type: BLOOD SPECIMENOrdering Facility: [facility] Address: [address] [place] [id number] Performed By: #### 2 4321-2 ####VICTOR LABORATORYCLIA [id number] [place] [id number] [place] Sodium [Moles/Vol] 137 mmol/L Normal 136-144 [facility] Comment on above: Order Comment: Speci men Type: BLOOD SPECIMENOrdering Facility: [facility] Address: [address] [place], [place] [address] Performed By: #### 2 4321-2 ####LAMBERT LABORATORYCLIA [id number] [address] Urea nitrogen [Mass/Vol] 16 mg/dL Normal 7-21 [facility] Comment on above: Order Comment: Speci men Type: BLOOD SPECIMENOrdering Facility: [facility] Address: [address] [place] [address] Performed By: #### 2 4321-2 ####VICTOR LABORATORYCLIA [id number] [address] CASE MANAGEMon 11-17-2023 CASE MANAGEM HNO ID: [id number] Author: ALISIA CAMARENA RN Service: ? Author Type: Registered Nurse Type: Care Mgt Progress Note Filed: 11/17/2023 14:59 Note Text: CARE MANAGEMENT DISCHARGE NOTE SERVICE DATE: November 17, 2023 SERVICE TIME: 2:57 PM Admission Date: 11/16/2023 LOS: 0 days Discharge Arrangement Discharge Arrangement: Home with Home Health Services Arranged Provider Name: [facility] Caregiver Assessment Caregiver is ready, willing and able to meet the patient's needs as recommended by the inter-professional team: Yes Name of Caregiver: family assist with [facility] Transportation Arrangements Transportation Arrangements: Car Date of Trip: 11/17/23 Destination: Home Handoff Communication: Handoff to: Primary Care Physician Primary Care Physician Name/Phone: Napoleon Martini MD - [phone] Additional Information: Orders received for patient to discharge home with [facility]. [facility] is able to accept. Patient agreeable to discharge plan. Family to transport home. Bedside RN updated. Discharge Time Out Yes Bedside RN present No Does pt have transport home? Yes Did pt use bedside pharmacy? No Discharge Information Row Name Admission (Current) from 11/16/[address] [facility] Start of Care -- 24-48 hours after discharge SIGNATURE: Alisia Camarena RN PATIENT NAME: Sonny Biggs DATE: November 17, 2023 TIME: 2:57 PM CONTACT #: [phone] [facility] CASE MGT INIT Claudia 2023 CASE MGT INIT KARTHIKEYAN HNO ID: [id number] Author: ALISIA CAMARENA RN Service: ? Author Type: Registered Nurse Type: Care Mgt Initial Assessment Filed: 11/17/2023 09:29 Note Text: CARE MANAGEMENT: ASSESSMENT AND DISCHARGE PLAN SERVICE DATE: November 17, 2023 SERVICE TIME: 9:28 AM PCP: Napoleon Martini MD Primary Contact: Extended Emergency Contact Information Primary Emergency Contact: JalilMala Address: [address] [place] [address] Mobile Relation: Daughter Admission Status: Extended Recovery Insurance Provider: [employer] MEDICARE PPO Discharge Planning requested by: Per Department Practice Potential Transition Plans Home Care Advance Directives Current Advance Directive: Health Care Power of Business Intern;Living Will In Chart: No Current Living Arrangements and Support Lives with: Type of Residence: Private Residence (House) Does the patient have to climb stairs at home?: Yes;stairs outside the home;stairs within the home Support: Children How do you manage to accomplish the following: Independent: Ambulation;Transportati on to appointments/community; Bathe/Shower;Dress;Meal s/Meal Prep;Going to the bathroom;Medication Management Current Services/Equipment Current Post-Acute Service(s): None Discharge Planning Patient Goal(s): Be able to go home, General wellness [place] Choice Explained: [place] Given: Yes Level of Care Discussed: Home Care (Patient agreeable to [facility]) Are you interested in bedside delivery of your medications? No Discharge Planning Participant(s): Patient Patient/Family Comments: Caregiver Assessment: Caregiver is ready, willing and able to meet the patient's needs as recommended by the inter-professional team: No Caregiver needed Transport at Discharge: Transportation Arrangements: Car Needs Prior to Discharge: Needs Prior to Discharge: To Be Determined;OT/PT Evaluation Post-Acute Discharge Plan: EMR reviewed. Patient is 73 years old s/p robotic assisted right total knee arthroplasty. Patient is from home and IPTA. No DME. PT/OT pending. Referral to [facility]. Patient will have discharge transportation. CM will follow. SIGNATURE: Alisia Camarena RN PATIENT NAME: Sonny Biggs DATE: November 17, 2023 TIME: 9:27 AM CONTACT #: [phone] Normal [facility] CBC panel Auto (Bld)on 11-16 Erythrocyte distribution width (RBC) [Ratio] 12.5 % Normal 11.5-15.0 [facility] Comment on above: Order Comment: Speci men Type: BLOOD SPECIMENOrdering Facility: [facility] Address: [address] [place] [address] Performed By: #### 5 8410-2 ####[facility] LABORATORYCLIA [id number] [address] Hematocrit (Bld) [Volume fraction] 39.2 % Normal 36.0-46.0 [facility] Comment on above: Order Comment: Speci men Type: BLOOD SPECIMENOrdering Facility: [facility] Address: [address] [place] [address] Performed By: #### 5 8410-2 ####L[facility] LABORATORYCLIA [id number] [address] [place] Hemoglobin (Bld) [Mass/Vol] 12.5 g/dL Normal 11.5-15.5 [facility] Comment on above: Order Comment: Speci men Type: BLOOD SPECIMENOrdering Facility: [facility] Address: [address] [place] [address] Performed By: #### 5 8410-2 ####L[facility] LABORATORYCLIA [id number] [address] MCH (RBC) [Entitic mass] 31.3 pg Normal 26.0-34.0 [facility] Comment on above: Order Comment: Speci men Type: BLOOD SPECIMENOrdering Facility: [facility] Address: [address] [place] [address] Performed By: #### 5 8410-2 ####LAMB[facility] LABORATORYCLIA [id number] [address] [place] MCHC (RBC) [Mass/Vol] 31.9 g/dL Normal 30.5-36.0 [facility] Comment on above: Order Comment: Speci men Type: BLOOD SPECIMENOrdering Facility: [facility] Address: [address] [place] [address] Performed By: #### 5 8410-2 ####LAMBERT LABORATORYCLIA [id number] [place] [address] [place] MCV (RBC) [Entitic vol] 98.2 fL Normal 80.0-100.0 [facility] Comment on above: Order Comment: Speci men Type: BLOOD SPECIMENOrdering Facility: [facility] Address: [address] [place] [address] Performed By: #### 5 8410-2 ####LAMB[facility] LABORATORYCLIA [id number] [address] [place] Nucleated RBC (Bld) [#/Vol] 10*3/uL Normal <0.01 [facility] Comment on above: Order Comment: Speci men Type: BLOOD SPECIMENOrdering Facility: [facility] Address: [address] [place] [address] Performed By: #### 5 8410-2 ####LAMBERT LABORATORYCLIA [id number] [address] [place] Platelet mean volume (Bld) [Entitic vol] 12.6 fL Normal 9.0-12.7 [facility] Comment on above: Order Comment: Speci men Type: BLOOD SPECIMENOrdering Facility: [facility] Address: [address] [place] [address] Performed By: #### 5 8410-2 ####LAMBERT LABORATORYCLIA [id number] [place] [address] [place] Platelets (Bld) [#/Vol] 201 10*3/uL Normal 150-400 [facility] Comment on above: Order Comment: Speci men Type: BLOOD SPECIMENOrdering Facility: [facility] Address: [address] [place] [address] Performed By: #### 5 8410-2 ####LAMBERT LABORATORYCLIA [id number] [place] [address] [place] RBC (Bld) [#/Vol] 3.99 10*6/uL Normal 3.90-5.20 [place] Comment on above: Order Comment: Cr castano Type: BLOOD SPECIMENOrdering Facility: [facility] Address: [address] [place] [address] Performed By: #### 5 8410-2 ####[facility] LABORATORYCLIA [id number] [address] [place] [facility] WBC (Bld) [#/Vol] 13.97 10*3/uL High 3.70-11.00 [facility] Comment on above: Order Comment: Cr eyad Type: BLOOD SPECIMENOrdering Facility: [facility] Address: [address] [place] [address] Performed By: #### 5 8410-2 ####[facility] LABORATORYCLIA [id number] [address] CNCOon 11-17-2023 CNCO Letter Text Normal [facility] CNDSon 11-17-2023 CNDS HNO ID: [id number] Author: INNA EASON MD Service: Orthopaedic Surgery Author Type: Physician Public Information Specialist Type: Discharge Summary Filed: 11/20/2023 13:24 Note Text: Attestation signed by Inna Eason MD at 11/20/2023 1:24 PM I agree with the above discharge summary. Reviewed, authenticated, and electronically signed by Inna Eason MD DISCHARGE SUMMARY PATIENT NAME: Sonny Biggs ADMISSION DATE: 11/16/2023 DISCHARGE DATE: 11/17/2023 PATIENT DISCHARGE SUMMARY C O N F I D E N T I A L I N F O R M A T I O N The following is a brief overview of your hospitalization. Some of the information contained on this summary may be confidential. This information should be kept in your records and should be shared with your regular doctor. These instructions explain what you or your care consultant need to do to continue your care at home or at another healthcare facility Please go over these instructions with your nurse and care consultant. If you are not sure about something, please ask. Highest Readmission Risk Score: 14 The 30 day readmissions risk score is derived from an internally validated risk model which evaluates patient level characteristics, utilization history, medication orders and lab results up until the day of discharge. Patients with a score of 40 or above are considered highest risk for readmission. Specific patient level drivers will be listed at the bottom of the summary. The 30 day readmissions risk score is derived from an internally validated risk model which evaluates patient level characteristics, utilization history, medication orders and lab results up until the day of discharge. Patients with a score of 40 or above are considered highest risk for readmission. Where I Will be Going after Discharge: Home with Home Health My Condition at Discharge: Stable PRINCIPAL DIAGNOSIS: (Reason after study for this admission): Procedure(s): ROBOTIC ASSISTED TOTAL KNEE ARTHROPLASTY OTHER DIAGNOSES: Patient Active Hospital Problem List: S/P total knee arthroplasty, right (11/17/2023) OPERATIONS PERFORMED: Procedure(s): ROBOTIC ASSISTED TOTAL KNEE ARTHROPLASTY My Doctors and Medical Team: My Main Hospital Doctor: Inna Araya MD PHYSICAL EXAM: See daily progress note Vitals: BP 136/72 Pulse 62 Temp 36.3 ?C (97.3 ?F) (Oral) Resp 16 Ht 165.1 cm (5' 5) Wt 100.6 kg (221 lb 12.5 oz) SpO2 97% BMI 36.91 kg/m? SUMMARY OF WHAT HAPPENED WHILE PATIENT WAS IN THE HOSPITAL: The patient was followed by Dr. Eason in clinic for right knee osteoarthritis. It was determined the patient would benefit from right total knee arthroplasty. The procedure, its risks, benefits, and potential complications were discussed in detail prior to surgery. The patient conveyed understanding of all topics and consented to surgery. The patient was admitted to the hospital. Underwent an elective right total knee arthroplasty on 11/16/[address] Eason. The patient tolerated the procedure well and was returned to the Post Anesthesia Care Unit in stable condition. Vital signs per PACU protocol. VTE risk assessment performed. O2 therapy monitored by Respiratory Therapy to include incentive spirometry, ADL, wound and support per physician order set postop protocol. PT and OT to evaluate and treat. IV antibiotics, antiemetics, aspirin for DVT prophylaxis and pain medication were given. The patient progressed with physical therapy. Lab values and vital signs were monitored and remained stable. The incision remained clean, dry and intact. Thigh and calf are not swollen. No signs of DVT or infection. The patient progressed with physical therapy towards goal of safety and independence. Patient was determined safe for discharge to home with home health care on 11/17/2023. TREATMENT / WOUND CARE: If you have any concerns about your wound, please contact the office. Keep wound and incision area clean and dry. You are being sent from the hospital with an incisional wound VAC. This means that the incision has been closed, and a negative pressure suction device has been placed on top of the incision in order to aid with wound healing. This dressing can be taken off 7 days and the entire apparatus, including the suction device, can be thrown away. It is a disposable device, and the battery shuts down after 7 days. It does not need to be saved once it is removed. After the negative pressure suction device is removed, the wound should then be covered with an aquacel or silverlon dressing and be kept on for another 7 days and then thrown away. If then the wound is completely dry, it may be left (more content not included)... Normal [facility] THERAPY NTon 11-17-2023 THERAPY NT HNO ID: [id number] Author: CIERRA RUIZ PT Service: Physical Therapy Author Type: Physical Therapist Type: Therapy (PT/OT/Speech/Resp) Filed: 11/17/2023 15:27 Note Text: Attestation signed by Ana Bundy PT at 11/17/2023 3:33 PM I attest that I was providing supervision of this student and was readily available for questions and concerns. I reviewed and agree with the documentation corresponding to this therapy visit. SIGNATURE: Ana Bundy, PT DATE: November 17, 2023 TIME: 3:33 PM Summary: PT treatment Physical Therapy Treatment Summary SERVICE DATE: 11/17/2023 SERVICE TIME: 1402 to 1446 ROOM: [id number] PT 6 Clicks Score: 20 Total Joint Replacement Discharge Readiness: Cleared from Physical Therapy DISCHARGE RECOMMENDATIONS Home PT Recommended Discharge Disposition Comments: for progression of R TKA functional mobility, ambulation and balance Recommended Discharge Equipment: No equipment needs anticipated ASSESSMENT Response to Therapy Interventions: Good Participation in Activities, Improved Tolerance for Activity, On-Track to Achieve Discharge Goals, Needs Frequent Redirection or Reinstruction, Pain, Requires Additional Time to Complete Activities Pt CGA to SBA with activities, pt progressed with stair negotiation and car transfer. good participation in activities with no adverse effects, follow cues appropriately and safe for discharge home with home PT. PRECAUTIONS Bed/Chair Alarm, Weight Bearing Restrictions AROM only Right Lower Extremity Weight Bearing Status: WBAT CURRENT HOSPITAL COURSE s/p ROBOTIC ASSISTED TOTAL KNEE ARTHROPLASTY (Right: Knee) Relevant Past Medical History: HTN, obesity, emphysema, GERD, anxiety with depression, L TKA, hx DVT, PAD, R ORIF humerus fracture, R breast lumpectomy HOME LIVING Patient Lives With: Self/Alone Assistance Available: PRN (daughter to stay tonight) Entry To Home: With Rail, Stairs Number Of Stairs Into Home: 4 Number Of Stairs To Bed/Bath: first floor Tub/Shower Type: walk in shower with shower chair, and hand held shower Laundry: main level Equipment Owned: Hand Held Shower, Shower Chair, Commode- Raised, Walker- Standard, Cane, Rollator PRIOR FUNCTIONAL LEVEL Within Functional Limits Pt independent with ADLs/IADLs, + driving, sleeps in flat bed, no use of AD priorly, denies any falls within past 6 months. Will have family members that live nearby available to assist PRN. SUBJECTIVE Pt agreeable to PT, ok per nursing to treat THERAPY DIAGNOSIS Difficulty walking-musculoskeletal TREATMENT INTERVENTIONS Therapeutic Activity (62605), Gait Training (09465) Timed Code Treatment (minutes): 40 Skilled Treatment Time (minutes): 40 TRAINING AND EDUCATION PROVIDED Advanced Balance Activities, Anatomy and Impact on Deficits, Assistive Device Use, Benefits of In-Hospital Mobility, Discharge Planning, Disease Specific Education, Edema Management, Energy Conservation, Equipment, Exercise Program, Expected Functional Level, Gait Pattern, Reduction of Deviations, Handout Issued, Modalities, Patient Exercise/Therapy Program Support Needs, Positioning, Precautions/Restriction s, Role of Physical Therapy, Sitting Balance, Standing Balance, Transfers, Stair Navigation THERAPEUTIC SKILLS USED Activity Dosing, Cues for Sequencing/Proper Technique for Activity, Cuing Tactile, Cuing Verbal, Cuing Visual, Physical Assist, Postural Alignment Correction FUNCTIONAL STATUS Bed Mobility Supine To Sit: Stand By Assistance, Additional Information HOB flat, no use of rails, towards R side, increased time to complete Sit to Supine: Stand By Assistance, Additional Information HOB flat, no use of rails, pt able to assist RLE with UE to supine, increase time to complete Scooting: Stand By Assistance, Additional Information forward scooting at EOB, pt able to use bridging technique with LLE to scoot towards HOB Transfers Sit To Stand: Contact Guard Assistance, Additional Information reinforcement of cueing for proper hand placement with good follow through, x4 trials Stand To Sit: Contact Guard Assistance, Additional Information cues for safe approach to surface, proper hand placement and controlled descent to sit, noted poor eccentric control 2/4 trials Bed to Chair Gait Contact Guard Assistance, Additional Information step to pattern with AD, reinforcement of proper sequencing with AD, pt required increased time with turns Gait Device: Wheeled Walker General Deviations/Observations : Olga decreased, Lateral sway increased, Step length decreased Gait Dista (more content not included)... [facility] THERAPY NT HNO ID: [id number] Author: MARKUS LO OTR/Lesa Service: Occupational Therapy Author Type: Occupational Therapist Type: Therapy (PT/OT/Speech/Resp) Filed: 11/17/2023 10:59 Note Text: Summary: OT Evaluation Occupational Therapy Evaluation Summary SERVICE DATE: 11/17/2023 SERVICE TIME: 5393 to 7428 ROOM: [id number] OT 6 Clicks Score: 21 Total Joint Replacement Discharge Readiness: Cleared from Occupational Therapy DISCHARGE RECOMMENDATIONS Home OT Recommended Discharge Disposition Comments: with 24 hr assist initially for optimal safety due to drowsiness. Anticipated Discharge Needs: Physical Assist at Home Physical Assist at Home for: Transfers, Ambulation, Cleaning, Laundry, Meals, Medication Management, Safety, Self Care Supervision at Home due to: (for initial optimal safety) ASSESSMENT Response to Therapy Interventions: Good Participation in Activities, Needs Frequent Redirection or Reinstruction, Pain, Requires Additional Time to Complete Activities Pt willing to participate in all tasks. Patient drowsy throughout session (medication effects?). Anticipate pt is at CGA/Shira for functional mobility and LB self cares. PRECAUTIONS Bed/Chair Alarm, Lines/Tubes/Drains, Weight Bearing Restrictions, Total Knee Replacement AROM only Right Lower Extremity Weight Bearing Status: WBAT CURRENT HOSPITAL COURSE s/p ROBOTIC ASSISTED TOTAL KNEE ARTHROPLASTY (Right: Knee) Relevant Past Medical History: HTN, obesity, emphysema, GERD, anxiety with depression, L TKA, hx DVT, PAD, R ORIF humerus fracture, R breast lumpectomy HOME LIVING Patient Lives With: Self/Alone Assistance Available: PRN (daughter to stay tonight) Entry To Home: With Rail, Stairs Number Of Stairs Into Home: 4 Number Of Stairs To Bed/Bath: first floor Tub/Shower Type: walk in shower with shower chair, and hand held shower Laundry: main level Equipment Owned: Hand Held Shower, Shower Chair, Commode- Raised, Walker- Standard, Cane, Rollator PRIOR FUNCTIONAL LEVEL Within Functional Limits Pt independent with ADLs/IADLs, + driving, sleeps in flat bed, no use of AD priorly, denies any falls within past 6 months. Will have family members that live nearby available to assist PRN. Baseline Cognition: Oriented to self, Oriented to place, Oriented to time, Oriented to situation SUBJECTIVE Hopefully I can walk the stairs normally after this COGNITION Orientation Deficits: (AO x4, forgetful at times) Responsiveness: Drowsy THERAPY DIAGNOSIS Decreased activities of daily living (ADL) TREATMENT INTERVENTIONS Evaluation, Therapeutic Activity (36224), Self Alf Management (97383) Timed Code Treatment (minutes): 40 Skilled Treatment Time (minutes): 55 TRAINING AND EDUCATION PROVIDED Activity Adaptation/Compensatory Strategies, Adaptive Equipment/DME, Assistive Device Use, Bed Mobility, Benefits of In-Hospital Mobility, Discharge Planning, Grooming Tasks, Functional Mobility Involving ADLs, Identification of Systems of Support, Insight into Deficits, Lower Extremity Bathing, Lower Extremity Dressing, IADLs/Home Management, Pain Management, Positioning, Precautions/Restriction s, Role of Occupational Therapy, Sitting Balance to Improve Iron with ADLs/Self-Care, Standing Balance to Improve Iron with ADLs/Self-Care, Safety/Judgment, Transfer - Sit to Stand, Transfer - Shower, Transfer - Toilet/Commode THERAPEUTIC SKILLS USED Assessment of Tolerance Including Vitals Response to Activity, Cues for Sequencing/Proper Technique for Activity, Cuing Tactile, Cuing Verbal, Cuing Visual, Management of Critical Lines, Tubes and/or Drains, Physical Assist, Therapeutic Use of Self FUNCTIONAL STATUS Activities of Daily Living Assist Level Additional Information Feeding Independent Grooming Stand By Assistance Bathing Upper Body Stand By Assistance Bathing Lower Body Minimal Assistance Dressing Upper Body Stand By Assistance Dressing Lower Body Minimal Assistance, Additional Information pt able to don underwear seated edge of chair, safety during standing. Anticipate assist required with socks/shoes. Toileting Contact Guard Assistance Mobility Assist Level Additional Information Bed Mobility Sit To Supine: Contact Guard Assistance Sit to Stand Stand By Assistance Stand to Sit Stand By Assistance Bed to Chair Toilet/Commode Shower Functional Mobility Contact Guard Assistance Functional Mobility Device: Wheeled Walker GOALS Patient will demonstrate progress with self-care, cognitive and/or coping needs identified to allow safe discharge to home with available support and/or physical assistance. Progress Toward Goals: Progressing as expected Rehab Potential: Good PLAN OT Frequency: One Addit (more content not included)... Normal [facility] THERAPY NT HNO ID: [id number] Author: CIERRA RUIZ, PT Service: Physical Therapy Author Type: Physical Therapist Type: Therapy (PT/OT/Speech/Resp) Filed: 11/17/2023 09:41 Note Text: Attestation signed by Ana Bundy, PT at 11/17/2023 10:57 AM I attest that I was present, not working on other tasks, and directing the student during this visit. I reviewed and agree with the documentation corresponding to this therapy visit. SIGNATURE: Ana Bundy, PT DATE: November 17, 2023 TIME: 10:57 AM Summary: PT Evaluation Physical Therapy Evaluation Summary SERVICE DATE: 11/17/2023 SERVICE TIME: 729 to 826 ROOM: [id number] PT 6 Clicks Score: 19 Total Joint Replacement Discharge Readiness: Pending Physical Therapy Clearance DISCHARGE RECOMMENDATIONS Home PT Recommended Discharge Disposition Comments: for progression of R TKA functional mobility, ambulation and balance Recommended Discharge Equipment: Wheeled Walker ASSESSMENT Response to Therapy Interventions: Good Participation in Activities, Improved Tolerance for Activity, On-Track to Achieve Discharge Goals, Needs Frequent Redirection or Reinstruction, Pain, Requires Additional Time to Complete Activities Pt mostly CGA with activites, AANDOx3, good participation in activities with no adverse effects and vitals within safe limits. Pt required increased time to complete tasks and appropriately follows cues. Will provide follow up session to progress stairs as appropriate, recommending home PT pending second session. PRECAUTIONS Bed/Chair Alarm, Lines/Tubes/Drains, Weight Bearing Restrictions, Total Knee Replacement AROM only Right Lower Extremity Weight Bearing Status: WBAT CURRENT HOSPITAL COURSE s/p ROBOTIC ASSISTED TOTAL KNEE ARTHROPLASTY (Right: Knee) Relevant Past Medical History: HTN, obesity, emphysema, GERD, anxiety with depression, L TKA, hx DVT, PAD, R ORIF humerus fracture, R breast lumpectomy HOME LIVING Patient Lives With: Self/Alone Assistance Available: PRN (family) Entry To Home: With Rail, Stairs Number Of Stairs Into Home: 4 Number Of Stairs To Bed/Bath: first floor Tub/Shower Type: walk in Laundry: main floor Equipment Owned: Hand Held Shower, Shower Chair, Commode- Raised, Walker- Standard, Cane, Rollator PRIOR FUNCTIONAL LEVEL Within Functional Limits Pt independent with ADLs/IADLs, + driving, sleeps in flat bed, no use of AD priorly, denies any falls within past 6 months. Will have family members that live nearby available to assist PRN. SUBJECTIVE Pt agreeable to PT, ok per nursing to treat THERAPY DIAGNOSIS Difficulty walking-musculoskeletal TREATMENT INTERVENTIONS Evaluation, Gait Training (29651), Therapeutic Activity (04052) Exercise Ankle Pumps (number of reps): BLE x10 Quad Sets (number of reps): BLE x10 Glut Sets (number of reps): BLE x10 Heel Slides (number of reps): RLE x10, AROM Exercise: Pt instructed on parameters and performance of anti-embolic exercises. Timed Code Treatment (minutes): 30 Skilled Treatment Time (minutes): 45 TRAINING AND EDUCATION PROVIDED Advanced Balance Activities, Anatomy and Impact on Deficits, Assistive Device Use, Bed Mobility, Benefits of In-Hospital Mobility, Discharge Planning, Disease Specific Education, Equipment, Exercise Program, Expected Functional Level, Falls Prevention, Gait Pattern, Reduction of Deviations, Patient Exercise/Therapy Program Support Needs, Positioning, Precautions/Restriction s, Role of Physical Therapy, Sitting Balance, Standing Balance, Transfers, Treatment Protocol THERAPEUTIC SKILLS USED Activity Dosing, Assessment of Tolerance Including Vitals Response to Activity, Cues for Sequencing/Proper Technique for Activity, Cuing Tactile, Cuing Verbal, Cuing Visual, Physical Assist, Postural Alignment Correction FUNCTIONAL STATUS Bed Mobility Supine To Sit: Contact Guard Assistance, Additional Information HOB flat, no use of rails, assist with trunk safety, increased time to complete towards R side. Sit to Supine: Additional Information OOB in chair at end of session, nursing notified Scooting: Stand By Assistance, Additional Information forward scooting at EOB Transfers Sit To Stand: Contact Guard Assistance, Additional Information bed height to simmulate home, visual demonstration provided with cues for proper hand placment, x3 trials. Performed lateral weight shifting in standing x10. Stand To Sit: Contact Guard Assistance, Additional Information cues for safe approach to surface, proper hand placement, RLE placement and controlled descent to sit. Noted poor ecc (more content not included)... [facility] ANES POSTPROC EVALon 024 ANES POSTPROC EVAL HNO ID: [id number] Author: EZRA JOAQUIN MD Service: Anesthesiology Author Type: Anesthesiologist Type: Anesthesia Postprocedure Evaluation Filed: 11/16/2023 17:54 Note Text: POST ANESTHESIA EVALUATION NOTE : 1950 Procedure Summary Date: 11/16/23 Room / Location: [place] [address] / [facility] Anesthesia Start: 1313 Anesthesia Stop: 1610 Procedure: ROBOTIC ASSISTED TOTAL KNEE ARTHROPLASTY (Right: Knee) Diagnosis: Primary osteoarthritis of right knee Chronic pain of right knee (Primary osteoarthritis of right knee [M17.11]) (Chronic pain of right knee [M25.561, G89.29]) Surgeons: Inna Eason MD Responsible Provider: Ezra Joaquin MD Anesthesia Type: general, regional ASA Status: 3 Anesthesia Type: general, regional Airway Type: LMA Last Vitals Vitals Value Taken Time BP 171/82 11/16/23 1745 Temp 36.4 ?C (97.5 ?F) 11/16/23 1606 Pulse 72 11/16/23 1753 Resp 7 11/16/23 1753 SpO2 93 % 11/16/23 1753 Vitals shown include unfiled device data. Post Anesthesia Patient Status Patient Evaluation: PACU. PACU/ICU Patient Condition: stable. Anticipated Disposition: inpatient floor planned admission. Neurological Status: aware and responsive. Pulmonary Status: breathing comfortably on room air Airway Control: returned to baseline unsupported. Cardiovascular Status: stable. Pain Management: clinically adequate - multimodal analgesia pain management approach Postoperative Hydration: acceptable. Intraoperative Events: no significant anesthesia events Post Operative Nausea/Vomiting Status: no significant post operative nausea or vomiting Recommendation: continue current plan of care and further care per PACU/ICU/floor team. Anesthesia Observations No Documentation SIGNATURE: Ezra Joaquin MD PATIENT NAME: Sonny Biggs DATE: November 16, 2023 TIME: 5:54 PM CSN: [id number] [facility] ANES PRE-OPon 11-16-2023 ANES PRE-OP HNO ID: [id number] Author: EZRA JOAQUIN MD Service: Anesthesiology Author Type: Anesthesiologist Type: Anesthesia Preprocedure Evaluation Filed: 11/16/2023 13:10 Note Text: ANESTHESIOLOGY DAY OF SURGERY NOTE : 1950 Procedure Information Date/Time: 11/16/23 1420 Procedure: ROBOTIC ASSISTED TOTAL KNEE ARTHROPLASTY (Right: Knee) Location: [facility] / [facility] Surgeons: Inna Eason MD Estimated body mass index is 35.04 kg/m? as calculated from the following: Height as of 11/06/23: 165.1 cm (5' 5). Weight as of 11/11/23: 95.5 kg (210 lb 8.6 oz). Most recent hematocrit and potassium results: Hematocrit 40.2 11/06/2023 Potassium 4.6 11/06/2023 Relevant Problems ANESTHESIA (+) GODWIN (obstructive sleep apnea) CARDIO (+) Coronary artery calcification seen on CT scan (+) Hypertension GI (+) GERD (gastroesophageal reflux disease) NEURO-PSYCH (+) History of DVT (deep vein thrombosis) PULMONARY (+) Emphysema of lung (HCC) (+) GODWIN (obstructive sleep apnea) I - PHYSICAL EVALUATION AIRWAY Patient intubated: No. Tracheostomy tube not present Mallampati: II. TM distance: >3 FB. Neck ROM: full ROM without neurological symptoms. Mouth opening: adequate. Short neck: no. Thick neck: no DENTAL Dental findings: teeth intact. Additional exam findings: no II - ANESTHESIA PLAN ASA Score: 3 Anesthetic Plan: general and regional Airway type: LMA The patient is not a current smoker. NPO Status: adequate Anesthetic plan additional comments: Previous back surgery and hardware; reports intermittant numbness in hands B/L due to cervical or shoulder problems . Beta Torri Monitoring Plan Monitoring plan: Standard ASA. Post Procedure Analgesic Plan Postoperative analgesic plan: parenteral or oral opioids and multimodal analgesia. Informed Consent Anesthetic risks, benefits, alternatives, personnel and consent discussed: yes. Patient / Responsible Libertarian agrees to proceed: yes Patient / Surrogate agrees to blood products: yes DNR status not reviewed with patient and/or family prior to surgery. Significant changes in the patient condition since the History and Physical, not otherwise documented in primary service progress note: no. Potential Anesthesia issues that may suggest increased risk of complications or contraindication to planned procedure: none. No vitals data found for the desired time range. Facility-Administered Medications as of 11/16/2023 Medication Dose Route Frequency - lidocaine (PF) 10 mg/mL (1 %) 1-2 mg injection (XYLOCAINE) 0.1-0.2 mL INTRADERMAL PRN - lactated ringers iv infusion 5-30 mL/hr INTRAVENOUS CONTINUOUS - NaCl 0.9% iv flush bag 20 mL INTRAVENOUS PRN - ceFAZolin iv piggyback 2 g in D5W (iso-osmotic) 100 mL (ANCEF) 2 g INTRAVENOUS Pre-Op Once - tranexamic acid 1,000 mg in NaCl 0.9% 100 mL (CYKLOKAPRON) 1,000 mg INTRAVENOUS Pre-Op Once - tranexamic acid 1,000 mg in NaCl 0.9% 100 mL (CYKLOKAPRON) 1,000 mg INTRAVENOUS ONCE - acetaminophen 1,000 mg tab(s) (TYLENOL) 1,000 mg ORAL Pre-Op Once - lactated ringers iv infusion 30 mL/hr INTRAVENOUS CONTINUOUS - celecoxib 200 mg cap(s) (CeleBREX) 200 mg ORAL Pre-Op Once - scopolamine 1 mg over 3 days 1 Patch (TRANSDERM-SCOP) 1 Patch TRANSDERMAL ONCE Outpatient Medications as of 11/16/2023 Medication Sig - ZINC ORAL Take 1 tablet by mouth once daily. - magnesium carb,citrate,oxide (MAGNESIUM COMPLEX ORAL) Take 1 tablet by mouth once daily. - LYSINE ORAL Take 1 tablet by mouth as needed. - vit C/E/Zn/coppr/lutein/derrell mikal (PRESERVISION AREDS-2 ORAL) Take 1 tablet by mouth once daily. - selenium 200 mcg tablet Take 1 tablet by mouth once daily. - naproxen (NAPROSYN) 500 mg tablet Take 1 tablet by mouth twice daily as needed for pain. Take with food. - ascorbic acid (VITAMIN C ORAL) Take 1 tablet by mouth once daily. (Patient not taking: Reported on 11/11/2023) - aspirin 81 mg chewable tablet Take 1 tablet by mouth once daily. (Patient not taking: Reported on 11/11/2023) I have interviewed and examined the patient. I have reviewed the medical record and/or the pre-anesthesia evaluation, pertinent labs, and test results. This contains updated information obtained within 48 hours of Surgery/Procedure. SIGNATURE: Ezra Joaquin MD PATIENT NAME: Sonny Biggs DATE: November 16, 2023 TIME: 12:22 PM CSN: [id number] [facility] CONSULTon 11-16-2023 CONSULT HNO ID: [id number] Author: SANJIV GALLOWAY MD Service: General Internal Medicine Author Type: Physician Type: Consults Filed: 11/23/2023 12:51 Note Text: [facility]- Consultation SONNY BIGGS : 1950 AGE: 73 SEX: F ACCTNUM: [id number] [facility] [place]: OR LOCATION: [facility] ATTENDING PHYSICIAN: INNA EASON DATE OF SERVICE: 11/16/2023 TIME OF SERVICE: 05:25 PM REASON FOR CONSULTATION: Postop medical management. HISTORY: This is a 73-year-old female whose significant medical history includes osteoarthritis, hypertension, hyperlipidemia, provoked deep vein thrombosis after last knee replacement, coronary arteries calcification on CT, obstructive sleep apnea, intolerance to the CPAP, emphysema of the lung, anxiety/depression, GERD, overactive bladder, obesity, and palpitation. Patient underwent elective right total knee arthroplasty under general anesthesia. Patient had an uneventful intraoperative course. Estimated blood loss 250 mL. During initial evaluation, patient was alert and somewhat sleepy, however, answering questions appropriately. No nausea. No shortness of breath, palpitation. Continued to have numbness of the lower extremities. PAST MEDICAL HISTORY: As mentioned above. PAST SURGICAL HISTORY: Includes breast lumpectomy, cholecystectomy, cataract surgery, laminectomy, right humerus fracture surgery, rotator cuff repair. FAMILY HISTORY: Father had a cancer. SOCIAL HISTORY: Smoked 1 pack for 49 years, quit in 1960. She does not drink alcohol. MEDICATIONS: Her current home medication list reviewed. ALLERGIES: She is allergic to iodine causes a rash and also Augmentin causes vomiting. REVIEW OF SYSTEMS: HEENT/Neck: Patient denies any history of glaucoma. No TIA, CVA, seizure disorder. No history of chronic cough, wheezing. Does have a history of COPD and obstructive sleep apnea, intolerance to the CPAP. No history of coronary artery disease, congestive heart failure, cardiac arrhythmia, history of hypertension, hyperlipidemia, and history of GERD. GI/: No melenic stool. Claims good appetite. Regular bowel movement. No hepatitis, colitis, and does have urinary incontinence. No CKD, renal calculi. No recent urinary tract infection. Endocrine: No history of diabetes, hypothyroidism. History of provoked deep vein thrombosis, history of anxiety/depression. PHYSICAL EXAM: General: Elderly female. Alert. HEENT: Oral mucosa dry. Sclerae anicteric. Neck: No thyromegaly appreciated. No carotid bruit. No lymphadenopathy of the neck. Lungs: Clear to auscultation bilaterally. Cardiovascular: S1, S2. Regular rhythm. No murmur, gallop, or rub appreciated. Abdomen: Soft, obese, nontender, nondistended. Bowel sounds present. No mass felt. Lower Extremities: No ankle edema noted. IMPRESSION: Assessment/Plan: 1. Osteoarthritis, status post right total knee arthroplasty. Deep venous thrombosis prophylaxis as ordered by Dr. Eason. 2. Hypertension. Continue Zestril. 3. Anxiety/depression. Continue Prozac. 4. Hyperlipidemia. Continue statins. 5. Obstructive sleep apnea, nonadherent with the CPAP. 6. Peripheral neuropathy, etiology not clear. 7. She also takes Inderal for the blood pressure. 8. Hold other medication for now. Thank you very much for kind referral. Continue to follow her while she is in the hospital. Sanjiv Galloway M.D. Internal Medicine EVIN:[id number] /[id number] [facility] NURSING PROGon 11-16-2023 NURSING PROG HNO ID: [id number] Author: CINDY REBOLLAR RN Service: Nursing Author Type: Registered Nurse Type: Nursing Progress Note Filed: 11/16/2023 14:10 Note Text: Dr. Joaquin at bedside for Right adductor nerve block. RN at bedside, pt monitored throughout, BP 140/77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 mm[Hg] Mathew Golias PT Work Phone: [facility] 12-07-2023 15:00-0400 Heart rate 79 /min Mathew Golias PT Work Phone: [facility] 12-07-2023 15:00-0400 Systolic blood pressure 135 mm[Hg] Mathew Golias PT Work Phone: [facility] 11-30-2023 14:43-0400 Body temperature 98.6 [degF] Melissa MoyBaires PT Work Phone: [facility] 11-30-2023 14:43-0400 Diastolic blood pressure 78 mm[Hg] Melissa HalesRichard PT Work Phone: [facility] 11-30-2023 14:43-0400 Heart rate 81 /min Melissa De Santiago PT Work Phone: [facility] 11-30-2023 14:43-0400 Respiratory rate 16 /min Melissa De Santiago PT Work Phone: [facility] 11-30-2023 14:43-0400 SaO2% (BldA) [Mass fraction] 97 % Melissa De Santiago PT Work Phone: [facility] 11-30-2023 14:43-0400 Systolic blood pressure 128 mm[Hg] Melissa De Santiago PT Work Phone: [facility] 11-27-2023 16:00-0400 Body temperature 98.1 [degF] Nehal Molly REPRODUCTION SPECIALIST Work Phone: [facility] 11-27-2023 16:00-0400 Diastolic blood pressure 86 mm[Hg] Nehal Molly REPRODUCTION SPECIALIST Work Phone: [facility] 11-27-2023 16:00-0400 Heart rate 62 /min Nehal Molly REPRODUCTION SPECIALIST Work Phone: [facility] 11-27-2023 16:00-0400 Respiratory rate 18 /min Nehal Molly REPRODUCTION SPECIALIST Work Phone: [facility] 11-27-2023 16:00-0400 SaO2% (BldA) [Mass fraction] 99 % Nehal Molly REPRODUCTION SPECIALIST Work Phone: [facility] 11-27-2023 16:00-0400 Systolic blood pressure 128 mm[Hg] Nehal Molly REPRODUCTION SPECIALIST Work Phone: [facility] 11-25-2023 11:44-0400 Body temperature 98.4 [degF] Nehal Molly REPRODUCTION SPECIALIST Work Phone: [facility] 11-25-2023 11:44-0400 Diastolic blood pressure 84 mm[Hg] Nehal Molly REPRODUCTION SPECIALIST Work Phone: [facility] 11-25-2023 11:44-0400 Heart rate 70 /min Nehal Molly REPRODUCTION SPECIALIST Work Phone: [facility] 11-25-2023 11:44-0400 Respiratory rate 18 /min Nehal Molly REPRODUCTION SPECIALIST Work Phone: [facility] 11-25-2023 11:44-0400 SaO2% (BldA) [Mass fraction] 97 % Nehal Molly REPRODUCTION SPECIALIST Work Phone: [facility] 11-25-2023 11:44-0400 Systolic blood pressure 130 mm[Hg] Nehal Molly REPRODUCTION SPECIALIST Work Phone: [facility] 11-23-2023 14:03-0400 Body temperature 98.2 [degF] Nehal Molly REPRODUCTION SPECIALIST Work Phone: [facility] 11-23-2023 14:03-0400 Diastolic blood pressure 72 mm[Hg] Nehal Molly REPRODUCTION SPECIALIST Work Phone: [facility] 11-23-2023 14:03-0400 Heart rate 76 /min Nehal Molly REPRODUCTION SPECIALIST Work Phone: [facility] 11-23-2023 14:03-0400 Respiratory rate 18 /min Nehal Molly REPRODUCTION SPECIALIST Work Phone: [facility] 11-23-2023 14:03-0400 SaO2% (BldA) [Mass fraction] 96 % Nehal Molly REPRODUCTION SPECIALIST Work Phone: [facility] 11-23-2023 14:03-0400 Systolic blood pressure 126 mm[Hg] Nehal Molly REPRODUCTION SPECIALIST Work Phone: [facility] 11-21-2023 09:34-0400 Body temperature 97.59 [degF] Nehal Molly REPRODUCTION SPECIALIST Work Phone: [facility] 11-21-2023 09:34-0400 Diastolic blood pressure 82 mm[Hg] Nehal Molly REPRODUCTION SPECIALIST Work Phone: [facility] 11-21-2023 09:34-0400 Heart rate 64 /min Nehal Molly REPRODUCTION SPECIALIST Work Phone: [facility] 11-21-2023 09:34-0400 Respiratory rate 18 /min Nehal Molly REPRODUCTION SPECIALIST Work Phone: [facility] 11-21-2023 09:34-0400 SaO2% (BldA) [Mass fraction] 97 % Nehal Molly REPRODUCTION SPECIALIST Work Phone: [facility] 11-21-2023 09:34-0400 Systolic blood pressure 122 mm[Hg] Nehal Molly REPRODUCTION SPECIALIST Work Phone: [facility] 11-20-2023 16:26-0400 Body temperature 98.2 [degF] Melissa De Santiago PT Work Phone: [facility] 11-20-2023 16:26-0400 Diastolic blood pressure 80 mm[Hg] Melissa De Santiago PT Work Phone: [facility] 11-20-2023 16:26-0400 Heart rate 77 /min Melissa De Santiago PT Work Phone: [facility] 11-20-2023 16:26-0400 Respiratory rate 18 /min Melissa De Santiago PT Work Phone: [facility] 11-20-2023 16:26-0400 SaO2% (BldA) [Mass fraction] 97 % Melissa De Santiago PT Work Phone: [facility] 11-20-2023 16:26-0400 Systolic blood pressure 150 mm[Hg] Melissa De Santiago PT Work Phone: [facility] 11-18-2023 15:46-0400 Diastolic blood pressure 72 mm[Hg] Alexander Falcon PT Work Phone: [facility] 11-18-2023 15:46-0400 Heart rate 60 /min Alexander Licking PT Work Phone: [facility] 11-18-2023 15:46-0400 Respiratory rate 18 /min Alexander Licking PT Work Phone: [facility] 11-18-2023 15:46-0400 SaO2% (BldA) [Mass fraction] 96 % Alexander Licking PT Work Phone: [facility] 11-18-2023 15:46-0400 Systolic blood pressure 118 mm[Hg] Alexander Licking PT Work Phone: [facility] 11-18-2023 14:49-0400 Body height 165.1 cm Alexander Licking PT Work Phone: [facility] 11-18-2023 14:49-0400 Body temperature 98.4 [degF] Alexander Licking PT Work Phone: [facility] 11-18-2023 14:49-0400 Body weight 97.52 kg Alexander Licking PT Work Phone: [facility] 11-11-2023 09:20-0400 Body weight 95.5 kg Jovon Zee APRN.TAPE MAKING MACHINE OPERATOR Work Phone: [facility] 11-11-2023 09:20-0400 Diastolic blood pressure 77 mm[Hg] Jovon Zee YARN MERCERIZER OPERATOR.TAPE MAKING MACHINE OPERATOR Work Phone: [facility] 11-11-2023 09:20-0400 Heart rate 62 /min Jovon Zee YARN MERCERIZER OPERATOR.TAPE MAKING MACHINE OPERATOR Work Phone: [facility] 11-11-2023 09:20-0400 SaO2% (BldA) [Mass fraction] 97 % Jovon Zee YARN MERCERIZER OPERATOR.TAPE MAKING MACHINE OPERATOR Work Phone: [facility] 11-11-2023 09:20-0400 Systolic blood pressure 123 mm[Hg] Jovon Zee YARN MERCERIZER OPERATOR.TAPE MAKING MACHINE OPERATOR Work Phone: [facility] 11-06-2023 11:08-0400 Body height 165.1 cm Pacc 1 Work Phone: [facility] 11-06-2023 11:08-0400 Body temperature 97 [degF] Pacc 1 Work Phone: [facility] 11-06-2023 11:08-0400 Body weight 94.8 kg Pacc 1 Work Phone: [facility] 11-06-2023 11:08-0400 Diastolic blood pressure 84 mm[Hg] Pacc 1 Work Phone: [facility] 11-06-2023 11:08-0400 Heart rate 70 /min Pacc 1 Work Phone: [facility] 11-06-2023 11:08-0400 Respiratory rate 14 /min Pacc 1 Work Phone: [facility] 11-06-2023 11:08-0400 SaO2% (BldA) [Mass fraction] 97 % Pacc 1 Work Phone: [facility] [facility] 11-06-2023 11:08-0400 Systolic blood pressure 132 mm[Hg] Pacc 1 Work Phone: [facility] 09-14-2023 14:24-0500 Diastolic blood pressure 71 mm[Hg] [facility] 09-14-2023 14:24-0500 Heart rate 82 /min [facility] 09-14-2023 14:24-0500 Respiratory rate 14 /min [facility] 09-14-2023 14:24-0500 SaO2% (BldA) [Mass fraction] 99 % [facility] 09-14-2023 14:24-0500 Systolic blood pressure 148 mm[Hg] [facility] 09-14-2023 13:28-0500 Body height 165.1 cm [facility] 09-14-2023 13:28-0500 Body mass index (BMI) [Ratio] 34.9 kg/m2 [facility] 09-14-2023 13:28-0500 Body temperature 96.4 [degF] [facility] 09-14-2023 13:28-0500 Body weight 95.43 kg [facility] 09-10-2023 09:14-0500 Body height 165.1 cm [facility] 09-10-2023 09:14-0500 Body mass index (BMI) [Ratio] 34.8 kg/m2 [facility] 09-10-2023 09:14-0500 Body temperature 96.3 [degF] [facility] 09-10-2023 09:14-0500 Body weight 94.9 kg [facility] 09-10-2023 09:14-0500 Diastolic blood pressure 101 mm[Hg] [facility] 09-10-2023 09:14-0500 Heart rate 58 /min [facility] 09-10-2023 09:14-0500 Respiratory rate 16 /min [facility] 09-10-2023 09:14-0500 SaO2% (BldA) [Mass fraction] 100 % [facility] 09-10-2023 09:14-0500 Systolic blood pressure 157 mm[Hg] [facility] 06-10-2023 10:56-0500 Body weight 93.08 kg Afia Podlogar YARN MERCERIZER OPERATOR.TAPE MAKING MACHINE OPERATOR Work Phone: [facility] 06-10-2023 10:56-0500 Diastolic blood pressure 68 mm[Hg] Afia Podlogar YARN MERCERIZER OPERATOR.TAPE MAKING MACHINE OPERATOR Work Phone: [facility] 06-10-2023 10:56-0500 Heart rate 71 /min Afia Podlogar YARN MERCERIZER OPERATOR.TAPE MAKING MACHINE OPERATOR Work Phone: [facility] 06-10-2023 10:56-0500 Respiratory rate 16 /min Afia Podlogar YARN MERCERIZER OPERATOR.TAPE MAKING MACHINE OPERATOR Work Phone: [facility] 06-10-2023 10:56-0500 SaO2% (BldA) [Mass fraction] 96 % Afia Podlogar YARN MERCERIZER OPERATOR.TAPE MAKING MACHINE OPERATOR Work Phone: [facility] 06-10-2023 10:56-0500 Systolic blood pressure 120 mm[Hg] Afia Podlogar YARN MERCERIZER OPERATOR.TAPE MAKING MACHINE OPERATOR Work Phone: [facility] 05-13-2023 09:50-0400 Body height 165.1 cm Napoleon Martini MD Work Phone: [facility] 05-13-2023 09:50-0400 Body weight 92.53 kg Napoleon Martini MD Work Phone: [facility] 05-13-2023 09:50-0400 Diastolic blood pressure 80 mm[Hg] Napoleon Martini MD Work Phone: [facility] 05-13-2023 09:50-0400 Heart rate 64 /min Napoleon Martini MD Work Phone: [facility] 05-13-2023 09:50-0400 Respiratory rate 16 /min Napoleon Martini MD Work Phone: [facility] 05-13-2023 09:50-0400 Systolic blood pressure 132 mm[Hg] Napoleon Martini MD Work Phone: [facility] 01-01-2023 17:12-0400 Body temperature 97.59 [degF] Krislyn Aberegg PA Work Phone: [facility] 01-01-2023 17:12-0400 Body weight 92.63 kg Krislyn Aberegg PA Work Phone: [facility] 01-01-2023 17:12-0400 Diastolic blood pressure 82 mm[Hg] Krislyn Aberegg PA Work Phone: [facility] 01-01-2023 17:12-0400 Heart rate 63 /min Krislyn Aberegg PA Work Phone: [facility] 01-01-2023 17:12-0400 Respiratory rate 18 /min Krislyn Aberegg PA Work Phone: [facility] 01-01-2023 17:12-0400 SaO2% (BldA) [Mass fraction] 96 % Krislyn Aberegg PA Work Phone: [facility] 01-01-2023 17:12-0400 Systolic blood pressure 142 mm[Hg] Liv WARD Work Phone: [facility] 12-31-2022 16:13-0400 Body weight 92.99 kg Napoleon Martini MD Work Phone: [facility] 12-31-2022 16:13-0400 Diastolic blood pressure 66 mm[Hg] Napoleon Martini MD Work Phone: [facility] 12-31-2022 16:13-0400 Heart rate 76 /min Napoleon Martini MD Work Phone: [facility] 12-31-2022 16:13-0400 Respiratory rate 20 /min Napoleon Martini MD Work Phone: [facility] 12-31-2022 16:13-0400 Systolic blood pressure 104 mm[Hg] Napoleon Martini MD Work Phone: [facility] 11-12-2022 13:27-0400 Body weight 94.08 kg Afia Podlogar YARN MERCERIZER OPERATOR.TAPE MAKING MACHINE OPERATOR Work Phone: [facility] 11-12-2022 13:27-0400 Diastolic blood pressure 64 mm[Hg] Afia Podlogar YARN MERCERIZER OPERATOR.TAPE MAKING MACHINE OPERATOR Work Phone: [facility] 11-12-2022 13:27-0400 Heart rate 73 /min Afia Podlogar YARN MERCERIZER OPERATOR.TAPE MAKING MACHINE OPERATOR Work Phone: [facility] 11-12-2022 13:27-0400 Respiratory rate 18 /min Afia Podlogar YARN MERCERIZER OPERATOR.TAPE MAKING MACHINE OPERATOR Work Phone: [facility] 11-12-2022 13:27-0400 SaO2% (BldA) [Mass fraction] 97 % Afia Podlogar YARN MERCERIZER OPERATOR.TAPE MAKING MACHINE OPERATOR Work Phone: [facility] 11-12-2022 13:27-0400 Systolic blood pressure 106 mm[Hg] Afia Podlogar YARN MERCERIZER OPERATOR.TAPE MAKING MACHINE OPERATOR Work Phone: [facility] 10-28-2022 14:58-0400 Body weight 92.53 kg Juani Fallon YARN MERCERIZER OPERATOR.TAPE MAKING MACHINE OPERATOR Work Phone: [facility] 10-28-2022 14:58-0400 Diastolic blood pressure 63 mm[Hg] Juani Fallon APRN.TAPE MAKING MACHINE OPERATOR Work Phone: [facility] 10-28-2022 14:58-0400 Heart rate 60 /min Juani Fallon APRN.TAPE MAKING MACHINE OPERATOR Work Phone: [facility] 10-28-2022 14:58-0400 SaO2% (BldA) [Mass fraction] 98 % Juani Fallon APRN.TAPE MAKING MACHINE OPERATOR Work Phone: [facility] 10-28-2022 14:58-0400 Systolic blood pressure 127 mm[Hg] Juani Fallon APRN.TAPE MAKING MACHINE OPERATOR Work Phone: [facility] 10-13-2022 13:36-0400 Body height 162.6 cm Napoleon Martini MD Work Phone: [facility] 10-13-2022 13:36-0400 Body weight 93.8 kg Napoleon Martini MD Work Phone: [facility] 10-13-2022 13:36-0400 Diastolic blood pressure 70 mm[Hg] Napoleon Martini MD Work Phone: [facility] 10-13-2022 13:36-0400 Heart rate 67 /min Napoleon Maritni MD Work Phone: [facility] 10-13-2022 13:36-0400 Respiratory rate 16 /min Napoleon Martini MD Work Phone: [facility] 10-13-2022 13:36-0400 SaO2% (BldA) [Mass fraction] 98 % Napoleon Martini MD Work Phone: [facility] 10-13-2022 13:36-0400 Systolic blood pressure 122 mm[Hg] Napoleon Martini MD Work Phone: [facility] 09-08-2022 08:36-0500 Body temperature 98.4 [degF] Afia Lama APRN.TAPE MAKING MACHINE OPERATOR Work Phone: [facility] 09-08-2022 08:36-0500 Body weight 91.9 kg Afia Podlogar YARN MERCERIZER OPERATOR.TAPE MAKING MACHINE OPERATOR Work Phone: [facility] 09-08-2022 08:36-0500 Diastolic blood pressure 74 mm[Hg] Afia Podlogar YARN MERCERIZER OPERATOR.TAPE MAKING MACHINE OPERATOR Work Phone: [facility] 09-08-2022 08:36-0500 Heart rate 69 /min Afia Podlogar YARN MERCERIZER OPERATOR.TAPE MAKING MACHINE OPERATOR Work Phone: [facility] 09-08-2022 08:36-0500 Respiratory rate 18 /min Afia Podlogar YARN MERCERIZER OPERATOR.TAPE MAKING MACHINE OPERATOR Work Phone: [facility] 09-08-2022 08:36-0500 SaO2% (BldA) [Mass fraction] 95 % Afia Podlogar YARN MERCERIZER OPERATOR.TAPE MAKING MACHINE OPERATOR Work Phone: [facility] 09-08-2022 08:36-0500 Systolic blood pressure 118 mm[Hg] Afia Podlogar YARN MERCERIZER OPERATOR.TAPE MAKING MACHINE OPERATOR Work Phone: [facility] 06-05-2022 13:51-0400 Body weight 91.63 kg Cathy Griffith YARN MERCERIZER OPERATOR.TAPE MAKING MACHINE OPERATOR Work Phone: [facility] 06-05-2022 13:51-0400 Diastolic blood pressure 76 mm[Hg] Cathy Griffith YARN MERCERIZER OPERATOR.TAPE MAKING MACHINE OPERATOR Work Phone: [facility] 06-05-2022 13:51-0400 Heart rate 76 /min Cathy Griffith YARN MERCERIZER OPERATOR.TAPE MAKING MACHINE OPERATOR Work Phone: [facility] 06-05-2022 13:51-0400 Respiratory rate 14 /min Cathy Griffith YARN MERCERIZER OPERATOR.TAPE MAKING MACHINE OPERATOR Work Phone: [facility] 06-05-2022 13:51-0400 Systolic blood pressure 134 mm[Hg] Cathy Griffith YARN MERCERIZER OPERATOR.TAPE MAKING MACHINE OPERATOR Work Phone: [facility] 01-20-2022 11:17-0400 Body temperature 97.9 [degF] Napoleon Martini MD Work Phone: [facility] 01-20-2022 11:17-0400 Body weight 90.72 kg Napoleon Martini MD Work Phone: [facility] 01-20-2022 11:17-0400 Diastolic blood pressure 72 mm[Hg] Napoleon Martini MD Work Phone: [facility] 01-20-2022 11:17-0400 Heart rate 79 /min Napoleon Martini MD Work Phone: [facility] 01-20-2022 11:17-0400 SaO2% (BldA) [Mass fraction] 98 % Napoleon Martini MD Work Phone: [facility] 01-20-2022 11:17-0400 Systolic blood pressure 140 mm[Hg] Napoleon Martini MD Work Phone: [facility] 12-26-2021 08:39-0400 Body weight 91.35 kg Napoleon Martini MD Work Phone: [facility] 12-26-2021 08:39-0400 Diastolic blood pressure 62 mm[Hg] Napoleon Martini MD Work Phone: [facility] 12-26-2021 08:39-0400 Heart rate 64 /min Napoleon Martini MD Work Phone: [facility] 12-26-2021 08:39-0400 Respiratory rate 16 /min Napoleon Martini MD Work Phone: [facility] 12-26-2021 08:39-0400 SaO2% (BldA) [Mass fraction] 98 % Napoleon Martini MD Work Phone: [facility] 12-26-2021 08:39-0400 Systolic blood pressure 110 mm[Hg] Napoleon Martini MD Work Phone: [facility] 12-19-2021 09:00-0400 Body temperature 97.7 [degF] Dr. Brian Martini Work Phone: [facility] Work Phone: 12-19-2021 09:00-0400 Diastolic blood pressure 60 mm[Hg] Dr. Brian Martini Work Phone: [facility] Work Phone: 12-19-2021 09:00-0400 Heart rate 71 /min Dr. Brian Martini Work Phone: [facility] Work Phone: 12-19-2021 09:00-0400 Respiratory rate 18 /min Dr. Brian Martini Work Phone: [facility] Work Phone: 12-19-2021 09:00-0400 SaO2% (BldA) [Mass fraction] 95 % Dr. Brian Martini Work Phone: [facility] Work Phone: 12-19-2021 09:00-0400 Systolic blood pressure 116 mm[Hg] Dr. Brian Martini Work Phone: [facility] Work Phone: 12-18-2021 21:18-0400 Body height 165.[address] Brian Martini Work Phone: [facility] Work Phone: 12-18-2021 21:18-0400 Body mass index (BMI) [Ratio] 33.6 kg/m2 Dr. Brian Martini Work Phone: [facility] Work Phone: 12-18-2021 21:18-0400 Body weight 91.[address] Brian Martini Work Phone: [facility] Work Phone: 12-08-2021 23:41-0400 Diastolic blood pressure 74 mm[Hg] Dr. Brian Martini Work Phone: [facility] Work Phone: 12-08-2021 23:41-0400 Heart rate 71 /min Dr. Brian Martini Work Phone: [facility] Work Phone: 12-08-2021 23:41-0400 Respiratory rate 15 /min Dr. Brian Martini Work Phone: [facility] Work Phone: 12-08-2021 23:41-0400 SaO2% (BldA) [Mass fraction] 94 % Dr. Brian Martini Work Phone: [facility] Work Phone: 12-08-2021 23:41-0400 Systolic blood pressure 119 mm[Hg] Dr. Brian Martini Work Phone: [facility] Work Phone: 12-08-2021 21:26-0400 Body height 152.[address] Brian Martini Work Phone: [facility] Work Phone: 12-08-2021 21:26-0400 Body mass index (BMI) [Ratio] 42.2 kg/m2 Dr. Brian Martini Work Phone: [facility] Work Phone: 12-08-2021 21:26-0400 Body temperature 98.8 [degF] Dr. Brian Martini Work Phone: [facility] Work Phone: 12-08-2021 21:26-0400 Body weight 98.[address] Brian Martini Work Phone: [facility] Work Phone: Encounters Encounter Date Encounter Type Care Provider Facility Start: 12-07-2024 End: 12-08-2024 Refill Napoleon Martini MD Work Phone: [facility] [place] Comment on above: Refill Request Start: 11-14-2024 End: 11-14-2024 Patient encounter procedure Jovon Zee YARN MERCERIZER OPERATOR.TAPE MAKING MACHINE OPERATOR Work Phone: Pulmonary Medicine Comment on above: Lung nodule (Primary Dx); Encounter for screening for lung cancer; Former cigarette smoker; Cough variant asthma (HCC) Start: 11-14-2024 End: 11-14-[address] [facility] Facility:[facility] Start: 11-14-2024 End: 11-14-2024 Subsequent hospital visit by physician [facility] (I-Stat) Work Phone: Cat Scan Comment on above: Former cigarette smo ker [Z87.891] Start: 06-07-2024 End: 06-07-2024 Refill Napoleon Martini MD Work Phone: [facility] Comment on above: Refill Request Start: 05-05-2024 End: 05-05-2024 [facility] Start: 02-29-2024 Telephone encounter Brian Martini MD Work Phone: [facility] Start: 02-23-2024 End: 02-23-2024 ambulatory NAPOLEON MARTINI Facility:[facility] Start: 01-25-2024 Telephone encounter Brian Martini MD Work Phone: [facility] Comment on above: Results Start: 2024 End: 2024 ambulatory NAPOLEON MARTINI Facility:[facility] Start: 2024 End: 2024 Patient encounter procedure Napoleon Martini MD Work Phone: [facility] Comment on above: Medicare annual well ness visit, subsequent (Primary Dx); Bilateral hearing loss, unspecified hearing loss type; Essential hypertension; Anxiety with depression; Hyperglycemia; Decreased visual acuity Start: 01-12-2024 End: 01-12-2024 ambulatory NAPOLEON MARTINI Facility:[facility] Start: 01-12-2024 End: 01-12-2024 Patient encounter procedure Inna Eason MD Work Phone: Orthopaedics Comment on above: Status post right kn ee replacement (Primary Dx) Start: 01-08-2024 End: 01-08-2024 ambulatory Mathew Hays PT Work Phone: [facility] Comment on above: Acute pain of right knee (Primary Dx); S/P total knee arthroplasty, right; Primary osteoarthritis of right knee Start: 01-04-2024 End: 01-04-2024 ambulatory Estelita Daily REPRODUCTION SPECIALIST Work Phone: [facility] Comment on above: Acute pain of right knee (Primary Dx); S/P total knee arthroplasty, right; Primary osteoarthritis of right knee Start: 12-31-2023 End: 12-31-2023 ambulatory Mathew Golias PT Work Phone: [facility] Comment on above: Acute pain of right knee (Primary Dx); S/P total knee arthroplasty, right; Primary osteoarthritis of right knee Start: 12-22-2023 End: 12-22-2023 ambulatory Mathew Golias PT Work Phone: [facility] Comment on above: Acute pain of right knee (Primary Dx); S/P total knee arthroplasty, right; Primary osteoarthritis of right knee Start: 12-18-2023 End: 12-18-2023 ambulatory Mathew Golias PT Work Phone: [facility] Comment on above: Acute pain of right knee (Primary Dx); S/P total knee arthroplasty, right; Primary osteoarthritis of right knee Start: 12-16-2023 End: 12-16-2023 ambulatory Mathew Golias PT Work Phone: [facility] Comment on above: Acute pain of right knee (Primary Dx); S/P total knee arthroplasty, right; Primary osteoarthritis of right knee Start: 12-09-2023 End: 12-09-2023 ambulatory Mathew Golias PT Work Phone: [facility] Comment on above: Acute pain of right knee (Primary Dx); S/P total knee arthroplasty, right; Primary osteoarthritis of right knee Start: 12-07-2023 End: 12-07-2023 ambulatory Mathew Golias PT Work Phone: [facility] Comment on above: Primary osteoarthrit is of right knee Start: 12-01-2023 End: 12-01-2023 ambulatory NAPOLEON Herrera RAMÍREZ Facility:[facility] Start: 12-01-2023 End: 12-01-2023 Nursing evaluation of patient and report Lorena Dumas RN Orthopaedics Comment on above: Status post right kn ee replacement (Primary Dx) Start: 12-01-2023 End: 12-01-2023 Subsequent hospital visit by physician [facility] Work Phone: Radiology Comment on above: Chronic pain of righ t knee [M25.561, G89.29] Start: 11-30-2023 End: 11-30-2023 Home visit Melissa De Santiago PT Work Phone: [facility] Comment on above: PT AGENCY DC W VISIT Start: 11-27-2023 End: 11-27-2023 Home visit Nehal Wellington REPRODUCTION SPECIALIST Work Phone: [facility] Comment on above: REPRODUCTION SPECIALIST ROUTINE Start: 11-25-2023 Telephone encounter Nehal Hunter on REPRODUCTION SPECIALIST Work Phone: [facility] Comment on above: Home Care (OP PT ord ers ) Start: 11-25-2023 End: 11-25-2023 Home visit Nehal Pembertonion REPRODUCTION SPECIALIST Work Phone: [facility] Comment on above: REPRODUCTION SPECIALIST ROUTINE Start: 11-24-2023 Telephone encounter Nehal Hunter on REPRODUCTION SPECIALIST Work Phone: [facility] Comment on above: Home Care (Wound vac removal) Start: 11-23-2023 End: 11-23-2023 Home visit Nehalmanav Wellington REPRODUCTION SPECIALIST Work Phone: [facility] Comment on above: REPRODUCTION SPECIALIST ROUTINE Start: 11-21-2023 End: 11-21-2023 Home visit Nehalmanav Pembertonion REPRODUCTION SPECIALIST Work Phone: [facility] Comment on above: REPRODUCTION SPECIALIST ROUTINE Start: 11-20-2023 End: 11-20-2023 Home visit Melissa De Santiago PT Work Phone: [facility] Comment on above: PT ROUTINE Start: 11-19-2023 Telephone encounter Inna corona MD Work Phone: Orthopaedics Comment on above: Medication Problem Start: 11-19-2023 End: 11-19-2023 Home visit Tiffani Castaneda RN Work Phone: [facility] Comment on above: CARE COORDINATION Start: 11-18-2023 End: 11-18-2023 Home visit Alexander Falcon PT Work Phone: [facility] Comment on above: PT SOC Start: 11-18-2023 Telephone encounter Alexander Mistry ll PT Work Phone: [facility] Comment on above: Home Care (PT SOC, m ed clarifications requested) Start: 11-17-2023 Telephone encounter Alexander Side ll PT Work Phone: [facility] Comment on above: Home Care (PT confir mation) Home Care (Confirmat ion Call) Start: 11-16-2023 End: 11-17-2023 ambulatory NAPOLEON MARTINI Facility:[facility] Start: 11-11-2023 Telephone encounter Jovon barron APRN.TAPE MAKING MACHINE OPERATOR Work Phone: Pulmonary Medicine Comment on above: Results Start: 11-11-2023 ambulatory JOVON ZEE Facili ty:[facility] Start: 11-11-2023 End: 11-11-2023 Patient encounter procedure Jovon Zee APRN.TAPE MAKING MACHINE OPERATOR Work Phone: Pulmonary Medicine Comment on above: Lung nodule (Primary Dx); Encounter for screening for lung cancer; Former cigarette smoker Start: 11-11-2023 End: 11-11-2023 Subsequent hospital visit by physician [facility] Radiology Comment on above: Former cigarette smo ker [Z87.891] Start: 11-06-2023 End: 11-06-2023 Admission to establishment Pacc [facility] 1 Work Phone: [facility] Start: 11-06-2023 End: 11-06-2023 ambulatory Pacc Horacio 1 Work Phone: Pre Anesthesia Comment on above: Preoperative examina tion (Primary Dx); Primary hypertension; GODWIN (obstructive sleep apnea); Hyperlipidemia, unspecified hyperlipidemia type; History of DVT (deep vein thrombosis); Coronary artery calcification seen on CT scan; Pulmonary emphysema, unspecified emphysema type (HCC); Palpitations; Anxiety with depression; Gastroesophageal reflux disease, unspecified whether esophagitis present; Overactive bladder; Obesity (BMI 30-39.9) Start: 11-06-2023 End: 11-06-2023 Preprocedural examination done [place] [id number] Work Phone: [facility] Work Phone: Start: 11-04-2023 Refill Cathy edwards APRN.TAPE MAKING MACHINE OPERATOR Work Phone: [facility] Comment on above: Refill Request Start: 10-27-2023 Telephone encounter Inna corona MD Work Phone: [address] Comment on above: Pre-Op Teaching Start: 10-26-2023 ambulatory NAPOLEON MARTINI Facility:[facility] Start: 10-26-2023 End: 10-26-2023 Subsequent hospital visit by physician [facility]iology Comment on above: Chronic pain of righ t knee [M25.561, G89.29] Start: 10-08-2023 Telephone encounter Brian Martini MD Work Phone: [facility] Comment on above: Medication Request Refill Request Start: 09-30-2023 Telephone encounter Inna corona MD Work Phone: Orthopaedics Comment on above: Appointment (R/S CT Scan) Start: 09-23-2023 Orders Only Jovon lynn YARN MERCERIZER OPERATOR.TAPE MAKING MACHINE OPERATOR Work Phone: Pulmonary Medicine Comment on above: Former cigarette smo ker (Primary Dx) Start: 09-14-2023 End: 09-14-2023 Emergency department patient visit [facility] Work Phone: Start: 09-14-2023 End: 09-14-2023 Patient encounter procedure France Bear APRN.TAPE MAKING MACHINE OPERATOR Work Phone: [facility] Comment on above: Breast pain (Primary Dx) Start: 09-11-2023 Orders Only Inna Acosta Work Phone: Orthopaedics Comment on above: Primary osteoarthrit is of right knee (Primary Dx); Chronic pain of right knee Start: 09-10-2023 End: 09-10-2023 Emergency department patient visit [facility] Work Phone: Start: 06-26-2023 ambulatory Luann Chavez [facility] Comment on above: [facility] ([facility]) Start: 06-10-2023 End: 06-10-2023 Patient encounter procedure Afia Lama APRN.CNP Work Phone: [facility] [place] Comment on above: Left upper arm pain (Primary Dx); Numbness and tingling in both hands Start: 05-15-2023 Telephone encounter Brian Martini MD Work Phone: [facility] Comment on above: Results Start: 05-13-2023 End: 05-13-2023 Patient encounter procedure Napoleon Martini MD Work Phone: [facility] Comment on above: PAD (peripheral scottie ry disease) (HCC) (Primary Dx); Essential hypertension; Anxiety with depression; Hyperlipidemia, mixed; GODWIN (obstructive sleep apnea); Obesity (BMI 30-39.9) Start: 02-18-2023 Refill Napoleon Martini MD Work Phone: [facility] Comment on above: Refill Request Start: 01-01-2023 End: 01-01-2023 Patient encounter procedure Liv WARD Work Phone: [facility] Comment on above: Rash (Primary Dx) Start: 01-01-2023 Telephone encounter Brian Martini MD Work Phone: [facility] Comment on above: Patient Update (POSS IBLE ALLERGIC REACTION) Start: 12-31-2022 End: 12-31-2022 Patient encounter procedure Napoleon Martini MD Work Phone: [facility] [place] Comment on above: Poison sheela dermatiti s (Primary Dx); Anxiety with depression Start: 11-24-2022 Refill Napoleon Martini MD Work Phone: [facility] [place] Comment on above: Refill Request Start: 11-12-2022 End: 11-12-2022 Patient encounter procedure Afia Lama APRN.TAPE MAKING MACHINE OPERATOR Work Phone: [facility] [place] Comment on above: Anxiety with depress ion Start: 10-28-2022 End: 10-28-2022 Subsequent hospital visit by physician [facility] Comment on above: Encounter for screen ing for malignant neoplasm of lung in current smoker with 30 pack year history or greater [Z12.2, F17.200] Start: 10-28-2022 End: 10-28-2022 Patient encounter procedure Juani Fallon APRN.TAPE MAKING MACHINE OPERATOR Work Phone: Pulmonary Medicine Comment on above: Encounter for screen ing for malignant neoplasm of lung (Primary Dx); Lung nodules; Former cigarette smoker Start: 10-13-2022 End: 10-13-2022 Patient encounter procedure Napoleon Martini MD Work Phone: [facility] [place] Comment on above: Medicare annual well ness visit, subsequent (Primary Dx); Bilateral hearing loss, unspecified hearing loss type; Anxiety with depression; 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) Start: 09-23-2022 ambulatory Luann Chavez MA [facility] Comment on above: [facility] ([facility] [place] [facility]) Start: 09-09-2022 Telephone encounter Afia desouza APRN.TAPE MAKING MACHINE OPERATOR Work Phone: [facility] [place] Comment on above: Results Start: 09-08-2022 End: 09-08-2022 Patient encounter procedure Afia Lama APRN.TAPE MAKING MACHINE OPERATOR Work Phone: [facility] [place] Comment on above: Symptoms of upper re spiratory infection (URI) (Primary Dx); Primary hypertension Start: 08-27-2022 Orders Only Selene Louis APRN.TAPE MAKING MACHINE OPERATOR Work Phone: Pulmonary Medicine Comment on above: Encounter for screen ing for malignant neoplasm of lung in current smoker with 30 pack year history or greater (Primary Dx); Lung nodules; Smoker Start: 06-23-2022 End: 06-23-2022 Patient encounter procedure Afia Lama APRN.TAPE MAKING MACHINE OPERATOR Work Phone: [facility] [place] Comment on above: Need for shingles va ccine (Primary Dx); Need for vaccination Start: 06-10-2022 Telephone encounter Cathy rodas APRN.TAPE MAKING MACHINE OPERATOR Work Phone: [facility] [place] Comment on above: Results Start: 06-06-2022 Documentation procedure Mammog zen Coordinator [facility] Start: 06-06-2022 Letter encounter Mammography Coordinator [facility] Department Start: 06-06-2022 Telephone encounter Cathy rodas APRN.TAPE MAKING MACHINE OPERATOR Work Phone: [facility] [place] Comment on above: Results Start: 06-06-2022 End: 06-06-2022 Subsequent hospital visit by physician Screen Mammo [facility] Comment on above: Encounter for screen ing mammogram for breast cancer [Z12.31] Start: 06-05-2022 End: 06-05-2022 Patient encounter procedure Cathy Griffith APRN.TAPE MAKING MACHINE OPERATOR Work Phone: [facility] [place] Comment on above: Encounter for screen ing mammogram for breast cancer (Primary Dx); Encounter for screening for malignant neoplasm of colon; Essential hypertension; Hyperlipidemia, mixed Start: 06-04-2022 Refill Napoleon Martini MD Work Phone: [facility] [place] Comment on above: Refill Request Start: 04-24-2022 Refill Napoleon Martini MD Work Phone: [facility] [place] Comment on above: Refill Request Start: 02-11-2022 End: 02-11-2022 Patient encounter procedure Luan Lincoln Work Phone: Podiatry Comment on above: Ulcer of toe of righ t foot, limited to breakdown of skin (HCC) (Primary Dx) Start: 02-06-2022 Refill Napoleon Martini MD Work Phone: [facility] Comment on above: Refill Request; Refi ll Request Start: 01-29-2022 End: 01-29-2022 Patient encounter procedure Luan Latonia Work Phone: Podiatry Comment on above: Ulcer of toe of righ t foot, limited to breakdown of skin (HCC) (Primary Dx) Start: 01-23-2022 Telephone encounter Brian Martini MD Work Phone: [facility] Comment on above: Results Start: 01-21-2022 End: 01-21-2022 Patient encounter procedure Luan Latonia Work Phone: Podiatry Comment on above: Ulcer of toe of righ t foot, limited to breakdown of skin (HCC) (Primary Dx); Wound of right foot Start: 01-20-2022 End: 01-20-2022 Orders Only Napoleon Martini MD Work Phone: Radiology Comment on above: Wound of right foot (Primary Dx) Wound of right foot (Primary Dx); Foreign body in right foot, initial encounter; Need for vaccination Wound of right foot [S91.301A] Appointment Start: 01-03-2022 End: 01-03-[address] Brian Martini Work Phone: [facility]-Radiology, [facility] Start: 12-26-2021 End: 12-26-2021 Patient encounter procedure Napoleon Martini MD Work Phone: [facility] Comment on above: Other closed displac ed fracture of proximal end of right humerus with routine healing, subsequent encounter (Primary Dx); At high risk for falls; Rhinorrhea Start: 12-18-2021 End: 12-19-2021 Evaluation and management of inpatient Dr. Brian Martini Work Phone: [facility]-Progressive Care Unit Start: 12-11-2021 End: 12-11-[address] Brian Martini Work Phone: [facility]-Laboratory Start: 12-08-2021 End: 12-09-2021 Emergency department patient visit Dr. Brian Martini Work Phone: [facility]-Emergency Department Start: 10-18-2021 End: 10-18-[address] Brian Martini Work Phone: [facility] Start: 09-23-2021 End: 09-23-[address] Brian Martini Work Phone: [facility]-Pulmonary Services/Neurology Start: 09-23-2021 Non-patient / Non-visit Dr. Lamont Martini Work Phone: [facility] Start: 03-04-2021 End: 03-04-2021 Subsequent hospital visit by physician [facility] Work Phone: Radiology Comment on above: Other chest pain [R0 7.89] Start: 01-31-2021 End: 01-31-2021 Subsequent hospital visit by physician [facility] Work Phone: Radiology Comment on above: Chronic pain of both shoulders [M25.511, G89.29, M25.512] Procedures Date Procedure Procedure Detail Performing Clinician Start: 12-01-2023 Radiologic examinati on knee 3 views Jagdish Cesar APRN.TAPE MAKING MACHINE OPERATOR Work Phone: Start: 11-11-2023 CT LUNG SCREEN JANE Zee APRN.TAPE MAKING MACHINE OPERATOR Work Phone: Start: 11-06-2023 Ecg routine ecg w/le ast 12 lds i&r only [facility] Provider Start: 10-26-2023 Ct lower extremity w /o contrast material Inna Eason MD Work Phone: Start: 09-10-2023 Plain x-ray of hand Start: 09-10-2023 X-ray of chest posteroanterior view Start: 08-15-2023 Lipid 1996 panel - S sal or Plasma Inna Eason MD Work Phone: Start: 05-13-2023 Lipid 1996 panel - S sal or Plasma Napoleon Martini MD Work Phone: Start: 11-12-2022 Urnls dip stick/tabl et rgnt auto w/o microscopy Afia Podlogdolores YARN MERCERIZER OPERATOR.TAPE MAKING MACHINE OPERATOR Work Phone: Start: 06-06-2022 End: 06-06-2022 Mammography Cathy Gladis YARN MERCERIZER OPERATOR.TAPE MAKING MACHINE OPERATOR Work Phone: Start: 01-21-2022 Cul bact xcpt urine blood/stool aerobic isol Luan Lincoln Work Phone: Start: 01-20-2022 Us lmtd joint/oth no nvasc xtr strux r-t w/img Napoleon Martini MD Work Phone: Start: 01-03-2022 Plain x-ray of humerus Dr. Brian Martini Work Phone: Start: 12-26-2021 Lipid 1996 panel - S sal or Plasma Napoleon Martini MD Work Phone: Start: 12-18-2021 Plain chest X-ray Dr. Ananya Martini Work Phone: Start: 12-18-2021 Fluoroscopic guidance Dave Martini Work Phone: Start: 12-18-2021 Plain x-ray of humerus Dr. Brian Martini Work Phone: Start: 12-18-2021 Open reduction of fr acture of humerus with internal fixation Dr. Brian Martini Work Phone: Start: 12-11-2021 Plain chest X-ray Dr. Ananya Martini Work Phone: Start: 12-08-2021 CT of head without contrast Dr. Brian Martini Work Phone: Start: 12-08-2021 Plain x-ray of humerus Dr. Brian Martini Work Phone: Start: 12-08-2021 Plain X-ray of shoulder Dr. Brian Martini Work Phone: Start: 09-23-2021 SARS-CoV-2 Antigen (Rapid) Dr. Brian Martini Work Phone: Start: 06-11-2021 Mammography Brian Martini MD Work Phone: Start: 06-04-2021 Adult depression scr eening assessment Napoleon Martini MD Work Phone: Start: 03-04-2021 Radiologic exam ches t 2 views Napoleon Martini MD Work Phone: Start: 03-04-2021 Radiologic exam knee complete 4/more views Napoleon Martini MD Work Phone: Start: 01-31-2021 Radex shoulder compl ete minimum 2 views Napoleon Martini MD Work Phone: Plan of Treatment Date Care Activity Detail Author Start: 01-21-2032 Urine microalbumin profile [facility] Start: 08-15-2028 Lipid panel Lipid Screening [facility] Start: 05-13-2028 Lipid 1996 panel - S sal or Plasma Lipid Screening [facility] Start: 02-22-2027 [facility] Start: 01-21-2027 [facility] Start: 12-26-2026 Lipid 1996 panel - S sal or Plasma Lipid Screening [facility] Start: 12-26-2026 LIPID SCREEN LIPID SCREEN [facility] Start: 11-16-2026 Diabetes Screening Diabetes [facility] Start: 11-05-2026 Diabetes Screening Diabetes Screenin g [facility] Start: 09-01-2026 Diabetes Screening Diabetes Screenin g [facility] Start: 05-13-2026 Diabetes Screening Diabetes Screenin [facility] Start: 11-16-2025 End: 11-16-2025 Patient encounter procedure Cat Scan Comment on above: yearly LDCT yearly LCS Start: 11-14-2025 Screening for malign ant neoplasm of lung Lung Cancer Screening [facility] Start: 08-02-2025 LIPID SCREEN LIPID SCREEN [facility] Start: 06-16-2025 COLOGUARD (FIT-DNA) COLOGUARD (FIT-D NA) [facility] Start: 06-16-2025 COLORECTAL CANCER SCREENING COLORECTAL CANCER SCREENING [facility] Start: 06-16-2025 Screening for malign ant neoplasm of colon [facility] Start: 06-05-2025 DIABETES SCREEN DIABETES SCREEN [facility] Start: 06-05-2025 Diabetes Screening Diabetes Screenin g [facility] Start: 04-03-2025 Influenza vaccination Influenz a Vaccine (Season Ended) [facility] Start: 01-21-2025 Annual PCP Team Director Of Physical Security aaron Disease Visit Annual PCP Team Chronic Disease Visit [facility] Start: 01-21-2025 BP Controlled (<130/80) BP Controlle d (<130/80) [facility] Start: 01-21-2025 Covid-19 Vaccine () Covid-19 Vaccine () [facility] Comment on above: Postponed from 04/03 (Declined at this time) Start: 01-21-2025 Pneumococcal Vaccine : 50+ (1 of 2 - PCV) Pneumococcal Vaccine: 50+ (1 of 2 - PCV) [facility] Comment on above: Postponed from 01/21 (Declined at this time) Start: 01-21-2025 Pneumococcal Vaccine : 65+ (1 of 2 - PCV) Pneumococcal Vaccine: 65+ (1 of 2 - PCV) [facility] Comment on above: Postponed from 01/21 (Declined at this time) Start: 01-21-2025 RSV Vaccine (1 - 1-d ose 60+ series) RSV Vaccine (1 - 1-dose 60+ series) [facility] Comment on above: Postponed from 01/21 (Declined at this time) Start: 01-21-2025 RSV Vaccine (1 - 1-d ose 75+ series) RSV Vaccine (1 - 1-dose 75+ series) [facility] Comment on above: Postponed from 01/21 (Declined at this time) Start: 01-21-2025 Spirometry Spirometry [facility] Comment on above: Postponed from 01/21 (Declined at this time) Start: 01-07-2025 End: 01-07-2025 Patient encounter procedure 01/07/2025 10:00 AM EDT Office Visit [facility] [place] [address] [facility] [place] [id number] Napoleon Martini MD [address] [place], [place] [id number] wellness [facility] [place] Comment on above: wellness Start: 11-29-2024 BP Controlled (<130/80) BP Controlle d (<130/80) [facility] Start: 11-22-2024 BP Controlled (<130/80) BP Controlle d (<130/80) [facility] Start: 11-17-2024 BP Controlled (<130/80) BP Controlle d (<130/80) [facility] Start: 11-14-2024 End: 11-14-2024 Patient encounter procedure Cat Scan Comment on above: Former cigarette smo ker [Z87.891] Start: 11-10-2024 BP Controlled (<130/80) BP Controlle d (<130/80) [facility] Start: 11-10-2024 Screening for malign ant neoplasm of lung Lung Cancer Screening [facility] Start: 08-15-2024 Hepatitis B surface antibody level LDL Cholesterol [facility] Start: 08-03-2024 Advance Directive Discussion Advance Directive Discussion [facility] Start: 07-22-2024 End: 07-22-2024 Patient encounter procedure 07/22/2024 12:00 PM EST Office Visit Family [place] [address] [place], [place] [id number] PodAfia zeng APRN.TAPE MAKING MACHINE OPERATOR [address] [place] [address] 6 month follow up Family [facility] [place] Comment on above: 6 month follow up Start: 06-10-2024 Annual PCP Team Director Of Physical Security aaron Disease Visit Annual PCP Team Chronic Disease Visit [facility] Start: 06-10-2024 BP Controlled (<130/80) BP Controlle d (<130/80) [facility] Start: 06-10-2024 End: 06-10-2024 Patient encounter procedure 06/10/2024 1:00 PM EST Office Visit Audiology [address] [address] Sanam Lopez, AUD [address] [place] [address] Bilateral hearing loss, unspecified hearing loss type [H91.93] Audiology Comment on above: Bilateral hearing lo ss, unspecified hearing loss type [H91.93] Start: 05-13-2024 Annual PCP Team Director Of Physical Security aaron Disease Visit Annual PCP Team Chronic Disease Visit [facility] Start: 04-05-2024 End: 04-05-2024 Patient encounter procedure 04/05/2024 12:30 PM EDT Office Visit Audiology [address] [address] Vee Sanchez, AUD [address] [place] [address] Bilateral hearing loss, unspecified hearing loss type [H91.93] Audiology Comment on above: Bilateral hearing lo ss, unspecified hearing loss type [H91.93] Start: 04-03-2024 Covid-19 Vaccine ( season) Covid-19 Vaccine ( season) [facility] Start: 04-03-2024 Covid-19 Vaccine ( season) Covid-19 Vaccine ( season) [facility] Start: 04-03-2024 Influenza vaccination [facility] Start: 02-02-2024 End: 02-02-2024 ambulatory 02/02/2024 2:00 PM EDT OT/PT/Speech Visit [facility] [address] [place], [place] [id number] Mathew Hays, PT [address] [place], [place] [id number] M17.11 (ICD-10-CM) - Primary osteoarthritis of right knee [facility] Comment on above: M17.11 (ICD-10-CM) - Primary osteoarthritis of right knee Start: 02-01-2024 DIABETES SCREEN DIABETES SCREEN [facility] Start: 01-31-2024 Influenza vaccination Influenza Vacc ine (#1) [facility] Comment on above: Postponed from 04/03 (Declined at this time) Start: 01-26-2024 End: 01-26-2024 ambulatory 01/26/2024 2:00 PM EDT OT/PT/Speech Visit [facility] [address] [place] [address] Mathew Hays, PT [address] [place] [address] M17.11 (ICD-10-CM) - Primary osteoarthritis of right knee [facility] Comment on above: M17.11 (ICD-10-CM) - Primary osteoarthritis of right knee Start: 01-25-2024 End: 04-25-2024 25-hydroxyvitamin D3 [Mass/volume] in Serum or Plasma VITAMIN D 25 HYDROXY Lab Routine Hypercalcemia Expected: 01/25/2024, Expires: 04/25/2024 [facility] Comment on above: Expected: 01/25/2024 , Expires: 04/25/2024 Start: 01-25-2024 End: 04-25-2024 Calcium.ionized [Moles/volume] in Blood CALCIUM, IONIZED Lab Routine Hypercalcemia Expected: 01/25/2024, Expires: 04/25/2024 [facility] Comment on above: Expected: 01/25/2024 , Expires: 04/25/2024 Start: 01-25-2024 End: 04-25-2024 Comprehensive metabolic 2000 panel - Serum or Plasma COMPREHENSIVE METABOLIC PANEL Lab Routine Hypercalcemia Expected: 01/25/2024, Expires: 04/25/2024 [facility] Work Phone: Comment on above: Expected: 01/25/2024 , Expires: 04/25/2024 Start: 01-25-2024 End: 04-25-2024 Parathyrin related protein [Moles/volume] in Serum or Plasma PTH RELATED PEPTIDE Lab Routine Hypercalcemia Expected: 01/25/2024, Expires: 04/25/2024 [facility] Comment on above: Expected: 01/25/2024 , Expires: 04/25/2024 Start: 01-25-2024 End: 04-25-2024 Parathyrin.intact [Mass/volume] in Serum or Plasma PTH INTACT Lab Routine Hypercalcemia Expected: 01/25/2024, Expires: 04/25/2024 [facility] Comment on above: Expected: 01/25/2024 , Expires: 04/25/2024 Start: 2024 End: 2024 Patient encounter procedure 2024 10:00 AM EDT Office Visit [facility] [place] [address] [place] [address] Napoleon Martini MD [address] [place] [address] medicare wellness [facility] [place] Comment on above: medicare wellness Start: 01-19-2024 End: 01-19-2024 ambulatory 01/19/2024 2:00 PM EDT OT/PT/Speech Visit [facility] [address] [place] [address] Mathew Hays, PT [address] [place] [address] M17.11 (ICD-10-CM) - Primary osteoarthritis of right knee [facility] Comment on above: M17.11 (ICD-10-CM) - Primary osteoarthritis of right knee Start: 01-12-2024 End: 01-12-2024 ambulatory 01/12/2024 2:00 PM EDT OT/PT/Speech Visit [facility] [address] [place] [address] GolGuerda flemingnt, PT [address] [place] [address] M17.11 (ICD-10-CM) - Primary osteoarthritis of right knee [facility] Comment on above: M17.11 (ICD-10-CM) - Primary osteoarthritis of right knee Start: 01-12-2024 End: 01-12-2024 Patient encounter procedure 01/12/2024 10:00 AM EDT Office Visit Orthopaedics [address] [address] Inna Eason MD [address] [address] s/p R TKA 11/15 Orthopaedics Comment on above: s/p R TKA 11/15 Start: 01-08-2024 End: 01-08-2024 ambulatory 01/08/2024 2:00 PM EDT OT/PT/Speech Visit [facility] [address] [place] [address] Mathew Hays, PT [address] [place] [address] RT TKR [facility] 11/30 [facility] Comment on above: RT TKR [facility] DC 11/30 Start: 01-04-2024 End: 01-04-2024 ambulatory 01/04/2024 11:00 AM EDT OT/PT/Speech Visit [facility] [address] [place] [address] Estelita Daily, REPRODUCTION SPECIALIST [address] [place] [address] RT TKR [facility] [place] 11/30 [facility] Comment on above: RT TKR [facility] DC 11/30 Start: 01-01-2024 ANNUAL PCP TEAM SOLAR ELECTRIC PRACTITIONER AARON DISEASE VISIT ANNUAL PCP TEAM CHRONIC DISEASE VISIT [facility] Start: 01-01-2024 BP CONTROLLED (<130/80) BP CONTROLLE D (<130/80) [facility] Start: 12-31-2023 End: 12-31-2023 ambulatory 12/31/2023 3:45 PM EDT OT/PT/Speech Visit [facility] [address] [place] [address] Mathew Hays, PT [address] [place] [address] RT TKR [facility] DC 11/30 [facility] Comment on above: RT TKR C DC 11/30 Start: 12-24-2023 End: 12-24-2023 ambulatory 12/24/2023 11:00 AM EDT OT/PT/Speech Visit [facility] [address] [place] [address] Keith Estelita, REPRODUCTION SPECIALIST [address] [place] [address] RT TKR C DC 11/30 [facility] Comment on above: RT TKR C DC 11/30 Start: 12-22-2023 End: 12-22-2023 ambulatory 12/22/2023 2:00 PM EDT OT/PT/Speech Visit [facility] [address] [place] [address] Mathew Hays, PT [address] [place] [address] RT TKR [facility] DC 11/30 [facility] Comment on above: RT TKR C DC 11/30 Start: 12-18-2023 End: 12-18-2023 ambulatory 12/18/2023 10:30 AM EDT OT/PT/Speech Visit [facility] [address] [place] [address] Guerda Haysnt, PT [address] [place] [address] RT TKR [facility] DC 11/30 [facility] Comment on above: RT TKR C DC 11/30 Start: 12-16-2023 End: 12-16-2023 ambulatory 12/16/2023 6:15 PM EDT OT/PT/Speech Visit [facility] [address] [place] [address] Mathew Hays, PT [address] [place] [address] RT TKR [facility] DC 11/30 [facility] Comment on above: RT TKR [facility] DC 11/30 Start: 12-09-2023 End: 12-09-2023 ambulatory 12/09/2023 10:00 AM EDT OT/PT/Speech Visit [facility] [address] [place] [address] Mathew Hays, PT [address] [place] [address] RT TKR [facility] DC 11/30 [facility] Comment on above: RT TKR [facility] DC 11/30 Start: 12-07-2023 End: 12-07-2023 ambulatory 12/07/2023 3:45 PM EDT OT/PT/Speech Visit [facility] [address] [place] [address] Mathew Hays, PT [address] [place] [address] RT TKR [facility] DC 11/30 [facility] Comment on above: RT TKR [facility] DC 11/30 Start: 12-07-2023 End: 12-07-2023 Patient encounter procedure 12/07/2023 10:20 AM EDT Office Visit Family [facility] [place] [address] [place] [address] Napoleon Martini MD [address] [facility] [place] [address] medicare wellness [facility] [place] Comment on above: medicare wellness Start: 12-01-2023 End: 12-01-2023 Nursing evaluation of patient and report 12/01/2023 1:00 PM EDT Nurse Visit Orthopaedics [address] [address] Lorena Dumas RN S/P R TKA 11-16-2023 Orthopaedics Comment on above: S/P R TKA 11-16-2023 Start: 11-30-2023 End: 11-30-2023 Patient encounter procedure [facility] Comment on above: [id number] TKR- dressi ng removal 11/29 Start: 11-27-2023 End: 11-27-2023 Home visit [facility] Comment on above: [id number] TKR- NOMNC Start: 11-25-2023 End: 11-25-2023 Home visit [facility] Comment on above: [id number] [place] [id number] TKR- Needs OP set up 11:30-12:30 Start: 11-13-2023 ANNUAL PCP TEAM SOLAR ELECTRIC PRACTITIONER AARON DISEASE VISIT ANNUAL PCP TEAM CHRONIC DISEASE VISIT [facility] Start: 11-13-2023 BP CONTROLLED (<130/80) BP CONTROLLE D (<130/80) [facility] Start: 11-06-2023 End: 02-05-2024 Bacteria identified in Urine by Culture [facility] Work Phone: Comment on above: Expected: 11/06/2023 , Expires: 02/05/2024 Start: 11-06-2023 End: 02-05-2024 Ferritin [Mass/volume] in Serum or Plasma [facility] Work Phone: Comment on above: Expected: 11/06/2023 , Expires: 02/05/2024 Start: 11-06-2023 End: 02-05-2024 Iron and Iron binding capacity panel - Serum or Plasma [facility] Work Phone: Comment on above: Expected: 11/06/2023 , Expires: 02/05/2024 Start: 11-06-2023 End: 02-05-2024 Urinalysis complete panel - Urine [facility] Work Phone: Comment on above: Expected: 11/06/2023 , Expires: 02/05/2024 Start: 10-29-2023 BP CONTROLLED (<130/80) BP CONTROLLE D (<130/80) [facility] Start: 03-28-2024 Influenza vaccination LUNG CANCER SC REENING [facility] Start: 10-29-2023 Screening for malign ant neoplasm of lung Lung Cancer Screening [facility] Start: 10-14-2023 ANNUAL PCP TEAM SOLAR ELECTRIC PRACTITIONER AARON DISEASE VISIT ANNUAL PCP TEAM CHRONIC DISEASE VISIT [facility] Start: 10-14-2023 BP CONTROLLED (<130/80) BP CONTROLLE D (<130/80) [facility] Start: 10-14-2023 COVID-19 VACCINE (#1) COVID-19 VACCI NE (#1) [facility] Comment on above: Postponed from 07/23 (Declined at this time) Start: 10-14-2023 Pneumococcal Vaccine : 65+ (1 - PCV) Pneumococcal Vaccine: 65+ (1 - PCV) [facility] Comment on above: Postponed from 01/21 (Declined at this time) Start: 10-14-2023 Pneumococcal Vaccine : 65+ (1 of 1 - PCV) Pneumococcal Vaccine: 65+ (1 of 1 - PCV) [facility] Comment on above: Postponed from 01/21 (Declined at this time) Start: 10-14-2023 PNEUMOCOCCAL: 65+ (1 - PCV) PNEUMOCOCCAL: 65+ (1 - PCV) [facility] Comment on above: Postponed from 01/21 (Declined at this time) Start: 09-14-2023 [facility] Start: 09-10-2023 [facility] Start: 09-08-2023 ANNUAL PCP TEAM SOLAR ELECTRIC PRACTITIONER AARON DISEASE VISIT ANNUAL PCP TEAM CHRONIC DISEASE VISIT [facility] Start: 09-08-2023 BP CONTROLLED (<130/80) BP CONTROLLE D (<130/80) [facility] Start: 08-15-2023 End: 10-15-2023 Comprehensive metabolic 2000 panel - Serum or Plasma COMP METABOLIC PANEL Lab Routine Hyperlipidemia, mixed Expected: 08/15/2023, Expires: 10/15/2023 [facility] Work Phone: Comment on above: Expected: 08/15/2023 , Expires: 10/15/2023 Start: 08-15-2023 End: 10-15-2023 LIPID PANEL, NONFASTING LIPID PANEL, NONFASTING Lab Routine Hyperlipidemia, mixed Expected: 08/15/2023, Expires: 10/15/2023 [facility] Work Phone: Comment on above: Expected: 08/15/2023 , Expires: 10/15/2023 Start: 08-03-2023 Advance Directive Discussion Advance Directive Discussion [facility] Start: 08-03-2023 Behavioral Health Screening Behavioral Health Screening [facility] Start: 08-03-2023 Depression Assessment Depression Ass essment [facility] Start: 06-23-2023 ANNUAL PCP TEAM SOLAR ELECTRIC PRACTITIONER AARON DISEASE VISIT ANNUAL PCP TEAM CHRONIC DISEASE VISIT [facility] Start: 06-06-2023 Mammography MAMMOGRAM [facility] Start: 06-05-2023 ANNUAL PCP TEAM SOLAR ELECTRIC PRACTITIONER AARON DISEASE VISIT ANNUAL PCP TEAM CHRONIC DISEASE VISIT [facility] Start: 05-13-2023 End: 07-13-2023 Comprehensive metabolic 2000 panel - Serum or Plasma [facility] Work Phone: Comment on above: Expected: 05/13/2023 , Expires: 07/13/2023 Start: 05-13-2023 End: 07-13-2023 Lipid 1996 panel - Serum or Plasma [facility] Work Phone: Comment on above: Expected: 05/13/2023 , Expires: 07/13/2023 Start: 04-03-2023 Covid-19 Vaccine ( season) Covid-19 Vaccine ( season) [facility] Start: 04-03-2023 Influenza vaccination C [facility] Start: 01-30-2023 Influenza vaccination INFLUENZA (#1) [facility] Comment on above: Postponed from 04/03 (Declined at this time) Start: 01-20-2023 ANNUAL PCP TEAM SOLAR ELECTRIC PRACTITIONER AARON DISEASE VISIT ANNUAL PCP TEAM CHRONIC DISEASE VISIT [facility] Start: 12-26-2022 ANNUAL PCP TEAM SOLAR ELECTRIC PRACTITIONER AARON DISEASE VISIT ANNUAL PCP TEAM CHRONIC DISEASE VISIT [facility] Start: 12-26-2022 BP CONTROLLED (<130/80) BP CONTROLLE D (<130/80) [facility] Start: 09-18-2022 Influenza vaccination LUNG CANCER SC CIRILONING [facility] Start: 09-08-2022 End: 09-22-2022 Influenza virus A and B RNA and SARS-CoV-2 (COVID-19) N gene panel - Respiratory specimen by EMILY with probe detection COVID WITH FLUA+B, ROUTINE Microbiology Routine Symptoms of upper respiratory infection (URI) Expected: 09/08/2022, Expires: 09/22/2022 [facility] Work Phone: Comment on above: Expected: 09/08/2022 , Expires: 09/22/2022 Start: 08-18-2022 SHINGRIX VACCINE (2 of 2) SHINGRIX VACCINE (2 of 2) [facility] Start: 08-03-2022 ADVANCE DIRECTIVE DISCUSSION ADVANCE DIRECTIVE DISCUSSION [facility] Start: 08-03-2022 DEPRESSION ASSESSMENT DEPRESSION ASS ESSMENT [facility] Start: 06-11-2022 Mammography MAMMOGRAM [facility] Start: 06-05-2022 End: 08-05-2022 CBC W Auto Differential panel - Blood [facility] Work Phone: Comment on above: Expected: 06/05/2022 , Expires: 08/05/2022 Start: 06-05-2022 End: 08-05-2022 Comprehensive metabolic 2000 panel - Serum or Plasma [facility] Work Phone: Comment on above: Expected: 06/05/2022 , Expires: 08/05/2022 Start: 06-04-2022 Adult depression screening assessment DEPRESSION SCREENING [facility] Start: 04-03-2022 Influenza vaccination C [facility] Start: 01-20-2022 End: 03-22-2022 Bacteria identified in Wound by Culture [facility] Work Phone: Comment on above: Expected: 01/20/2022 , Expires: 03/22/2022 Start: 12-18-2021 Anes arthrs humeral h/n strnclav & shoulder nos ANESTH SURGERY OF SHOULDER [facility] Work Phone: Start: 12-18-2021 Injection aa&/strd brachial plexus NJX AA&/STRD BRACH PLEXUS [facility] Work Phone: Start: 12-18-2021 Optx humeral shft fx w/plate/screws w/wocerclage TREAT HUMERUS FRACTURE [facility] Work Phone: Start: 08-09-2021 COLORECTAL CANCER SCREENING COLORECTAL CANCER SCREENING [facility] Start: 08-09-2021 FECAL OCCULT BLOOD FECAL OCCULT BLOO D [facility] Start: 08-09-2021 Screening for malign ant neoplasm of colon Fecal Occult Blood [facility] Start: 08-03-2021 ADVANCE DIRECTIVE DISCUSSION ADVANCE DIRECTIVE DISCUSSION [facility] Start: 08-03-2021 DEPRESSION ASSESSMENT DEPRESSION ASS ESSMENT [facility] Start: 01-21-2013 Pneumococcal Vaccine : 65+ (1 of 1 - PCV) Pneumococcal Vaccine: 65+ (1 of 1 - PCV) [facility] Start: 01-21-2013 PNEUMOCOCCAL: 65+ (1 - PCV) PNEUMOCOCCAL: 65+ (1 - PCV) [facility] Start: 2008 RSV Vaccine (1 - 1-d ose 60+ series) RSV Vaccine (1 - 1-dose 60+ series) [facility] Start: 01-21-1998 SHINGRIX VACCINE (1 of 2) SHINGRIX VACCINE (1 of 2) [facility] Start: 01-21-1993 COLOGUARD (FIT-DNA) COLOGUARD (FIT-D NA) [facility] Start: 01-21-1993 Colonoscopy COLONOSCOPY [facility] Start: 01-21-[address] COLONOGRAPHY [facility] Start: 01-21-1993 Screening for malign ant neoplasm of colon [facility] Start: 01-21-1993 SIGMOIDOSCOPY SIGMOIDOSCOPY [facility] Start: 01-21-1978 Zoledronic acid therapy Alpha- 1 Antitrypsin Deficiency Screening [facility] Start: 01-21-1967 Urine microalbumin profile DTAP,TDAP,TD (1 - Tdap) [facility] Start: 01-21-1966 BP CONTROLLED (<130/80) BP CONTROLLE D (<130/80) [facility] Start: 01-21-1966 Spirometry Spirometry [facility] Start: 01-21-1954 Pneumococcal Vaccine : 65+ (1 of 2 - PCV) Pneumococcal Vaccine: 65+ (1 of 2 - PCV) [facility] Start: 01-21-1953 COVID-19 VACCINE (#1) COVID-19 VACCI NE (#1) [facility] Start: 1948 COVID-19 VACCINE (#1) COVID-19 VACCI NE (#1) [facility] Bacteria identified in Wound by Culture WOUND CULTURE AND GRAM STAIN Microbiology Routine Wound of right foot Ulcer of toe of right foot, limited to breakdown of skin (HCC) 01/21/2022 11:47 AM EDT [facility] Work Phone: COLOGUARD COLOGUARD Lab Ro utine Encounter for screening for malignant neoplasm of colon Ordered: 06/05/2022 [facility] Work Phone: Comment on above: Ordered: 06/05/2022 End: 10-22-2024 CT Chest for screening WO contrast CT LUNG SCREEN WO IVCON Radiology Routine Former cigarette smoker 1 Occurrences starting 09/23/2023 until 10/22/2024 [facility] Work Phone: Comment on above: 1 Occurrences starti ng 09/23/2023 until 10/22/2024 End: 12-10-2024 CT Chest for screening WO contrast CT LUNG SCREEN WO IVCON Radiology Routine Former cigarette smoker 1 Occurrences starting 11/11/2023 until 12/10/2024 [facility] Work Phone: Comment on above: 1 Occurrences starti ng 11/11/2023 until 12/10/2024 End: 12-14-2025 CT Chest for screening WO contrast CT LUNG SCREEN WO IVCON Radiology Routine Encounter for screening for lung cancer Former cigarette smoker 1 Occurrences starting 11/14/2024 until 12/14/2025 [facility] Work Phone: Comment on above: 1 Occurrences starti ng 11/14/2024 until 12/14/2025 CT Chest for screeni ng WO contrast CT LUNG SCREEN WO IVCON Radiology Routine Former cigarette smoker 11/14/2024 10:11 AM EDT [facility] Work Phone: End: 03-26-2023 CT LUNG SCREEN WO IVCON CT LUNG SCREEN WO IVCON Radiology Routine Encounter for screening for malignant neoplasm of lung in current smoker with 30 pack year history or greater Lung nodules Smoker 1 Occurrences starting 08/27/2022 until 03/26/2023 [facility] Work Phone: Comment on above: 1 Occurrences starti ng 08/27/2022 until 03/26/2023 End: 10-28-2022 CT LUNG SCREEN WO IVCON [facility] Work Phone: Comment on above: Ordered: 10/28/2022 1 Occurrences starti ng 10/28/2022 until 10/28/2022 ECG COMPLETE [facility] Work Phone: Comment on above: Ordered: 11/06/2023 End: 2025 HEARING TEST/AUDIOGRAM HEARING TEST/AUDIOGRAM Audiology Routine Bilateral hearing loss, unspecified hearing loss type 1 Occurrences starting 2024 until 2025 [facility] Work Phone: Comment on above: 1 Occurrences starti ng 2024 until 2025 Patient Education [facility] Work Phone: Patient referral [facility] Work Phone: End: 05-13-2024 PVR ANK PRESS [facility] PVR ANK PRESS [facility] Vascular Lab Routine PAD (peripheral artery disease) (HCC) 1 Occurrences starting 05/13/2023 until 05/13/2024 [facility] Work Phone: Comment on above: 1 Occurrences starti ng 05/13/2023 until 05/13/2024 End: 07-05-2023 Screening mammography bi 2-view breast inc cad RENE SCREENING Radiology Routine Encounter for screening mammogram for breast cancer 1 Occurrences starting 06/05/2022 until 07/05/2023 [facility] Work Phone: Comment on above: 1 Occurrences starti ng 06/05/2022 until 07/05/2023 End: 02-19-2023 US FOREIGN BODY RT US FOREIGN BODY RT Radiology Routine Wound of right foot 1 Occurrences starting 01/20/2022 until 02/19/2023 [facility] Work Phone: Comment on above: 1 Occurrences starti ng 01/20/2022 until 02/19/2023 [facility] Immunizations Immunization Date Immunization Notes Care Provider Fa [facility] 10-13-2022 zoster vaccine recombinant Napoleon Martini MD Work Phone: [facility] 06-23-2022 zoster vaccine recombinant Afia Lama YARN MERCERIZER [employer]PERATORTIARRA Work Phone: [facility] 01-20-2022 tetanus toxoid, redu denzel diphtheria toxoid, and acellular pertussis vaccine, adsorbed Napoleon Martini MD Work Phone: [facility] Payers Date Payer Category Payer Department [facility] ( and others) [id number] 2023 Self-pay [id number] 2022 Government (not [facility] or Medicaid) [employer] [id number] 2022 Medicare (Managed Care) FORMERLY [facility] MEDICARE PPO [id number] 2022 [employer] ( and others) [id number] 2022 Unknown [id number] 2013 Medicare MEDICARE MEDICAR E A AND B [id number] 2013-Present [phone] [address] [address] [place] [address] Medicare [id number] 2013 Medicare [id number] 1981 Unknown FOR LIFE [id number] 1981-Present [phone] [address] [place] [address] Indemnity [id number] 1981 Unknown [id number] Medicare [id number] Unknown [id number] Unknown [id number] Unknown [id number] Unknown [id number] Social History Date Type Detail Facility Start: 12-08-2021 End: 09-14-2023 Tobacco smoking status NVIS Unknown if ever smoked [facility] Start: 1950 Sex Assigned At Female [facility] Start: 05-01-2015 End: 11-14-2024 Tobacco smoking status NHIS Ex-smoker [facility] Work Phone: Start: 08-03-1960 End: 04-04-2010 History of tobacco use Current smoker [facility] Work Phone: Start: 08-03-1960 End: 04-04-2010 History of tobacco use Cigarette Smoker [facility] Work Phone: Start: 05-01-2015 End: 12-25-2022 Cigarettes smoked current (pack per day) - Reported 1 [facility] Start: 05-01-2015 End: 11-14-2024 Tobacco use and exposure Smokeless tobacco non-user [facility] Work Phone: Start: 01-31-2021 End: 12-26-2021 Alcohol intake Current drinker of alcohol (finding) [facility] Start: 05-21-2020 End: 02-25-2022 History SDOH Alcohol Frequency 2 [facility] Start: 05-21-2020 End: 02-25-2022 History SDOH Alcohol Std Drinks 1 [facility] Start: 09-13-2020 End: 09-08-2022 Tobacco Comment start age: 11 [facility] Start: 01-01-2021 End: 02-11-2022 Exposure to SARS-CoV-2 (event) Not sure [facility] Start: 02-25-2022 History SDOH Social Connections Phone 5 [facility] Start: 02-25-2022 History SDOH Social Connections Evangel[employer] 3 [facility] Start: 02-25-2022 History SDOH Physical Activity DPW 0 [facility] Start: 02-24-2022 End: 12-25-2022 Social connection and isolation panel [facility] Do you belong to any clubs or organizations such as yazidi groups, unions, fraternal or athletic groups, or school groups? No [facility] Are you now , , , , never or living with a partner? [facility] How often to you hav e a drink containing alcohol? Never [facility] Average Number of Drinks Not on file [facility] Do you feel stress - tense, restless, nervous, or anxious, or unable to sleep at night because your mind is troubled all the time - these days [OSQ] Only a little [facility] (I/We) worried wheth er (my/our) food would run out before (I/we) got money to buy more. Never true [facility] Start: 09-11-2020 Gender identity Identifies as female gender (finding) [facility] Start: 09-11-2020 Sexual orientation Heterosexual (finding) [facility] Start: 11-11-2023 End: 11-14-2024 Alcohol intake Ex-drinker (finding) [facility] Are you now , , , , never or living with a partner? [facility] How often to you hav e a drink containing alcohol? Monthly or less [facility] How many standard dr inks containing alcohol do you have on a typical day? 1 or 2 [facility] Medical Equipment Procedure Code Equipment Code Equipment Origin al Text Equipment Identifier Dates ORIF, fracture, humerus ([id number]) [id number] FDA Start: 12-18-2021 ORIF, fracture, humerus ([id number]) [id number] FDA Start: 12-18-2021 ORIF, fracture, humerus ([id number]) [id number] FDA Start: 12-18-2021 ORIF, fracture, humerus ([id number]) [id number] FDA Start: 12-18-2021 ORIF, fracture, humerus ([id number]) ()[id number] FDA Start: 12-18-2021 ORIF, fracture, humerus ([id number]) ()[id number] FDA Start: 12-18-2021 ORIF, fracture, humerus ([id number]) ()[id number] FDA Start: 12-18-2021 ORIF, fracture, humerus ([id number]) ()[id number] FDA Start: 12-18-2021 ORIF, fracture, humerus ([id number]) ()[id number] FDA Start: 12-18-2021 ORIF, fracture, humerus ([id number]) ()[id number] FDA Start: 12-18-2021 ORIF, fracture, humerus ([id number]) ()[id number] FDA Start: 12-18-2021 Cement Simplex P Bone Radiopaque Full Dose Sterile - [id number] Start: 11-16-2023 Cement Simplex P Bone Radiopaque Full Dose Sterile - [id number] Start: 11-16-2023 Component Triath kamari 4 Femoral Cruciate Retain Cemented Knee Right - [id number] Start: 11-16-2023 Insert Triathlon 3 9mm Tibial Bearing Condylar Stabilize Sterile Knee - [id number] Start: 11-16-2023 Component Triath kamari 32mm 10mm Patellar Asymmetric Knee - [id number] Start: 11-16-2023 Baseplate Triath kamari 3 Tibial Primary Cement Knee - [id number] Start: 11-16-2023 Goals Date Patient Goal Desired Activity /State Personal health goal Functional Status Date Assessment Result Facility 11-17-2023 Are you deaf, or do you have serious difficulty hearing No 11/17/2023 4:53 PM Arlene Figueredo RN No [facility] 11-17-2023 Are you blind, or do you have serious difficulty seeing, even when wearing glasses No 11/17/2023 4:52 PM Arlene Figueredo RN No [facility] 11-17-2023 Do you have serious difficulty walking or climbing stairs No 11/17/2023 4:52 PM Arlene Figueredo RN No [facility] 11-17-2023 Do you have difficul ty dressing or bathing No 11/17/2023 4:52 PM Arlene Figueredo RN No [facility] 11-17-2023 Because of a physica l, mental, or emotional condition, do you have difficulty doing errands alone such as visiting a physician's office or shopping No 11/17/2023 4:52 PM EDT Arlene Murphy RN No [facility] 12-19-2021 Functional status Patient Activity Chair [facility] Work Phone: 12-18-2021 Functional status Activity Abili ty With Assist of 1 [facility] Work Phone: Mental Status Date Assessment Result Facility 09-14-2023 Cognitive function Voice/Name [facility] Work Phone: 12-19-2021 Cognitive function Voice/Name [facility] Work Phone: Clinical Notes 01-31-2021 to 12-07-2024 Telephone Encounter - Luanne Block - 12/07/2024 3:02 PM EDTTelephone Encounter - Luanne Block - 12/07/2024 3:02 PM EDTPatient InstructionsPatient InstructionsPatient Instructions Note Date & Type Note Facility 12-07-2024 Miscellaneous Notes .Prescription Refill Information The patient has been identified by name and date of : Yes Caregiver verified no other encounters exist for this prescription request: Yes Caregiver confirmed with patient/requestor that no other refills are due, in the near future, with this provider at this time: Yes The last office visit in the department: 2024 Does the patient have a future office visit with this provider/department: Yes Requested Prescriptions Pending Prescriptions Disp Refills lisinopril (ZESTRIL) 40 mg tablet 90 tablet 1 Sig: Take 1 tablet by mouth once daily. Please send to [facility] on file Luanne Block December 07, 2024 3:02 PM documented in this encounter [facility] 12-07-2024 Telephone encounter Note .Prescription Refill Information The patient has been identified by name and date of : Yes Caregiver verified no other encounters exist for this prescription request: Yes Caregiver confirmed with patient/requestor that no other refills are due, in the near future, with this provider at this time: Yes The last office visit in the department: 2024 Does the patient have a future office visit with this provider/department: Yes Requested Prescriptions Pending Prescriptions Disp Refills lisinopril (ZESTRIL) 40 mg tablet 90 tablet 1 Sig: Take 1 tablet by mouth once daily. Please send to [facility] on file Luanne Block December 07, 2024 3:02 PM [facility] 11-14-2024 Instructions Jovon Zee APRN.CNP - 11/14/2024 10:32 AM EDT Lung nodule/s: all previously seen nodule/s have not changed in size or characteristic/resolved and there are no new nodules of concern. Please return in one year for the following 2 visits on the same day: Annual low-dose CT chest Lung cancer screening Provider visit. This recommendation is subject to change pending the final report from radiology. I will notify you of the final radiology report recommendations when available by Simbiosist message, letter, or phone call. We will also notify your referring provider/PCP of the results and recommendations. If you didn t schedule this before you left the office or need to reschedule, you can call in to schedule it anytime: [facility] [place] [phone] [facility] [phone] All other [facility] locations [phone] Feel free to reach out for any questions or concerns, Jovon Zee APRN.CNP Lung Cancer Screening [phone] documented in this encounter [facility] 11-14-2024 Note HNO ID: [id number] Author: JOVON ZEE APRN.CNP Service: ? Author Type: Nurse Practitioner Type: Progress Notes Filed: 11/14/2024 14:39 Note Text: LUNG SCREENING ANNUAL VISIT PRIMARY CARE PHYSICIAN: Napoleon Martini MD PULMONARY PROVIDER: none Results will be communicated via letter or electronic record if applicable. Visit Delivery: In Person Patient Visit Type: established Current or Ex-smoker? Ex Exam Type: annual LDCT Number of Pack Years: 49.7 Current smoker (=0) or Number of Years since Quit: 14 The patient's smoking history is similar to prior year shared decision visit. The reason for the discrepancy is NA Chief Complaint: Established patient in lung cancer screening program here for annual follow-up. Impression / Recommendations Sonny Biggs presents for annual lung cancer screening annual exam and nodule evaluation. Plan: Indeterminate pulmonary nodules: Previously identified nodules appear stable and no new nodules of concern were seen on the exam. Low dose CT Scan to be repeated in one year. Plan subject to change pending final radiology report and recommendations. Nature of the lung nodule(s) and the options for further evaluation discussed in detail with patient. Sonny Biggs expressed understanding and is in agreement with plan. 2. Encounter for screening for malignant neoplasm of respiratory organs I have determined that the patient is eligible for continued low dose CT screening based on age, absence of signs or symptoms of lung cancer, smoking history and total pack years. The patient was counseled on the importance of adherence to annual LDCT lung cancer screening, impact of comorbidities and ability or willingness to undergo diagnosis and treatment. The patient understands and feels comfortable with it: Yes. 3. Nicotine Dependence The patient was counseled on the importance of maintaining cigarette smoking abstinence - The patient is committed to remaining abstinent from tobacco. 4. Cough variant asthma (HCC) Patient has increased cough with allergies like perfumes and seasonally. Elevated eosinophils noted. Pt has not had PFT. Will trial singulair. If no improvement in symptoms she may discontinue using it. She is on anti histamines as needed. Taking cough syrup nightly due to the cough. - montelukast (SINGULAIR) 10 mg tablet; Take 1 tablet by mouth daily at bedtime. Dispense: 90 tablet; Refill: 3 Jovon Zee APRN.[facility] November 14, 2024 10:26 AM History of Present Illness: Sonny Biggs is a 74 year old female who is presenting today for annual lung cancer screening LDCT and nodule surveillance/management. Patient has right fissural lung nodule found on previous lung cancer screening LDCT. Last LDCT was performed on 11/11/2023 and was LUNG RADS Category 2. Previous potentially significant incidental findings on imaging: None. Patient is a former smoker with a 49.7 pack year history. Patient quit smoking 14 years ago at age 60 . Patient will continue to be eligible for lung cancer screening until age 75. The patient does not have any symptoms or signs of lung cancer. Patient denies SOB with their daily activity. No wheezing or dyspnea. Patient denies feeling of chest tightness/congestion in the chest. Patient does not have a new or concerning cough, and denies hemoptysis. Patient does have a chronic daily cough-dry, associated with allergies. Denies regular or recent fevers/chills. Patient does not have any significant unintentional weight loss. Patient denies having any respiratory infections or COVID-19 in the past few months. Does not use any maintenance inhaler for COPD. Has albuterol and uses it rarely. Right sided postnasal drainage. Modified Medical Research [place] Dyspnea Scale (MMRC) I only get breathless with strenous exercise 0 Last 12 Encounter Wt Readings: Date: Wt: 11/14/2024 93 kg (205 lb) 2024 94.7 kg (208 lb 12.8 oz) 11/18/2023 97.5 kg (215 lb) 11/11/2023 95.5 kg (210 lb 8.6 oz) 11/06/2023 94.8 kg (209 lb) 09/11/2023 100.6 kg (221 lb 12.5 oz) 06/10/2023 93.1 kg (205 lb 3.2 oz) 05/13/2023 92.5 kg (204 lb) 01/01/2023 92.6 kg (204 lb 3.2 oz) 12/31/2022 93 kg (205 lb) 11/12/2022 94.1 kg (207 lb 6.4 oz) 10/28/2022 92.5 kg (204 lb) Social History Tobacco Use: Types: Cigarettes Past Medical History: PAST MEDICAL HISTORY Diagnosis Date Anxiety with depression Bilateral hearing loss Emphysema of lung (HCC) GERD (gastroesophageal reflux disease) History of DVT (deep vein thrombosis) Humerus fracture 12/08/2021 right Hyperlipidemia Hypertension Obesity (BMI 30-39.9) GODWIN (obstructive sleep apnea) Overactive bladder PAD (peripheral artery disease) 06/06/2023 abnormal toe brachial index Prediabetes 09/02/2023 Tear (more content not included)... [facility] 11-14-2024 History of Presen t illness Narrative Images from the original note were not included. LUNG SCREENING ANNUAL VISIT PRIMARY CARE PHYSICIAN: Napoleon Martini MD PULMONARY PROVIDER: none Results will be communicated via letter or electronic record if applicable. Visit Delivery: In Person Patient Visit Type: established Current or Ex-smoker? Ex Exam Type: annual LDCT Number of Pack Years: 49.7 Current smoker (=0) or Number of Years since Quit: 14 The patient's smoking history is similar to prior year shared decision visit. The reason for the discrepancy is NA Chief Complaint: Established patient in lung cancer screening program here for annual follow-up. Impression / Recommendations Sonny Biggs presents for annual lung cancer screening annual exam and nodule evaluation. Plan: Indeterminate pulmonary nodules: Previously identified nodules appear stable and no new nodules of concern were seen on the exam. Low dose CT Scan to be repeated in one year. Plan subject to change pending final radiology report and recommendations. Nature of the lung nodule(s) and the options for further evaluation discussed in detail with patient. Sonny Biggs expressed understanding and is in agreement with plan. 2. Encounter for screening for malignant neoplasm of respiratory organs I have determined that the patient is eligible for continued low dose CT screening based on age, absence of signs or symptoms of lung cancer, smoking history and total pack years. The patient was counseled on the importance of adherence to annual LDCT lung cancer screening, impact of comorbidities and ability or willingness to undergo diagnosis and treatment. The patient understands and feels comfortable with it: Yes. 3. Nicotine Dependence The patient was counseled on the importance of maintaining cigarette smoking abstinence - The patient is committed to remaining abstinent from tobacco. 4. Cough variant asthma (HCC) Patient has increased cough with allergies like perfumes and seasonally. Elevated eosinophils noted. Pt has not had PFT. Will trial singulair. If no improvement in symptoms she may discontinue using it. She is on anti histamines as needed. Taking cough syrup nightly due to the cough. - montelukast (SINGULAIR) 10 mg tablet; Take 1 tablet by mouth daily at bedtime. Dispense: 90 tablet; Refill: 3 Jovon Zee APRN.[facility] November 14, 2024 10:26 AM History of Present Illness: Sonny Biggs is a 74 year old female who is presenting today for annual lung cancer screening LDCT and nodule surveillance/management. Patient has right fissural lung nodule found on previous lung cancer screening LDCT. Last LDCT was performed on 11/11/2023 and was LUNG RADS Category 2. Previous potentially significant incidental findings on imaging: None. Patient is a former smoker with a 49.7 pack year history. Patient quit smoking 14 years ago at age 60 . Patient will continue to be eligible for lung cancer screening until age 75. The patient does not have any symptoms or signs of lung cancer. Patient denies SOB with their daily activity. No wheezing or dyspnea. Patient denies feeling of chest tightness/congestion in the chest. Patient does not have a new or concerning cough, and denies hemoptysis. Patient does have a chronic daily cough-dry, associated with allergies. Denies regular or recent fevers/chills. Patient does not have any significant unintentional weight loss. Patient denies having any respiratory infections or COVID-19 in the past few months. Does not use any maintenance inhaler for COPD. Has albuterol and uses it rarely. Right sided postnasal drainage. Modified Medical Research [place] Dyspnea Scale (MMRC) I only get breathless with strenous exercise 0 Last 12 Encounter Wt Readings: Date: Wt: 11/14/2024 93 kg (205 lb) 2024 94.7 kg (208 lb 12.8 oz) 11/18/2023 97.5 kg (215 lb) 11/11/2023 95.5 kg (210 lb 8.6 oz) 11/06/2023 94.8 kg (209 lb) 09/11/2023 100.6 kg (221 lb 12.5 oz) 06/10/2023 93.1 kg (205 lb 3.2 oz) 05/13/2023 92.5 kg (204 lb) 01/01/2023 92.6 kg (204 lb 3.2 oz) 12/31/2022 93 kg (205 lb) 11/12/2022 94.1 kg (207 lb 6.4 oz) 10/28/2022 92.5 kg (204 lb) Social History Tobacco Use: Types: Cigarettes Past Medical History: PAST MEDICAL HISTORY Diagnosis Date Anxiety with depression Bilateral hearing loss Emphysema of lung (HCC) GERD (gastroesophageal reflux disease) History of DVT (deep vein thrombosis) Humerus fracture 12/08/2021 right Hyperlipidemia Hypertension Obesity (BMI 30-39.9) GODWIN (obstructive sleep apnea) Overactive bladder PAD (peripheral artery disease) 06/06/2023 abnormal toe brachial index Prediabetes 09/02/2023 Tear of right rotator cuff Family Hx: FAMILY HISTORY Problem Relation Age of Onset Accidental Mother 39 MVA Cancer Father other (throat cancer) Father other (bone cancer) Sister Diabetes Maternal Grandmother Anesthesia Problems No Family History Surgical Hx: PAST SURGICAL HISTORY Procedure Laterality Date ARTHRP KNE CONDYLE&PLATU MEDIAL&LAT COMPARTMENTS Left 2016 BREAST LUMPECTOMY HX Right x2, benign CATARACT EXTRACTION HX Bilateral CHOLECYSTECTOMY lap vinayak PAST SURGICAL HISTORY OF Bilateral multifocal lenses PAST SURGICAL HISTORY OF 2015 laminectomy and possible microdiscectomy-in [place] PAST SURGICAL HISTORY OF Right 12/18/2021 ORIF of uncomplicated open right humerus fracture ROTATOR CUFF REPAIR Right TOTAL KNEE REPLACEMENT Right 11/16/2023 TUBAL LIGATION Allergies: ALLERGIES Allergen Reactions Augmentin [Amoxicil* GI Upset Vomiting Iodine Rash Review Of Systems: See HPI for ROS All of the remainder systems were reviewed and negative. PHYSICAL EXAMINATION: BP 126/82 Pulse 60 Resp 17 Wt 205 lb (93.0kg) SpO2 99% General appearance: well appearing, in no acute distress, and alert Skin: skin color, texture, turgor normal, no rashes or lesions Neck: Supple, no adenopathy; thyroid symmetric, normal size Respiratory: lungs clear to auscultation no wheezing or rhonchi Cardiovascular: Negative. RRR without murmur, gallop, or rubs. No ectopy Musculoskeletal: Extremities normal. No deformities, edema, or skin discoloration. Good capillary refill. Neuro: Oriented X 3 Data Review I have visually reviewed imaging and testing below CT imaging done today was reviewed and analyzed independently and compared to prior CT chest imaging by practitioner and awaiting radiology review. All previously noted lung nodules are stable. No new nodules noted. Imaging * * *Final Report* * * DATE OF EXAM: Nov 11 2023 10:03AM [facility] [place] [facility] - CT LUNG SCREEN WO IVCON / PROCEDURE REASON: Z87.891-Former cigarette smoker * * * * Physician Interpretation * * * * EXAMINATION: CHEST CT WITHOUT CONTRAST (LOW-DOSE CT LUNG CANCER SCREENING PROTOCOL) CLINICAL HISTORY: Lung cancer LDCT screening ? absence of signs or symptoms of lung cancer. Personal history of nicotine dependence. Subsequent (annual) Technique: Spiral CT acquisition of the chest from the thoracic inlet to the upper abdomen without contrast. MQ: [id number]_6 Patient characteristics: * Bzkm-wn-Fkerg: 1950; Age at exam: 73 years * Gender: Female * Lung Disease: Asymptomatic (no signs or symptoms of lung disease) * Number of Pack Years: 49 * Current smoker (=0) or Number of Years since Quit: 13 * Ordering provider and NPI: JOVON ZEE [id number] * Interpreting radiologist and NPI: Ezequiel [id number] Exam acquisition parameters: * Exam Date: 11/11/2023 10:03 AM * Site: [facility] * * CT System Special Officer Automat: [email or web address] * CT System Model: Fare Motion * Tube Current-Time (mA-sec): 100 * Peak Voltage (kV): 120V * Scan Time (sec): 4.70 * Scan Volume (z-length, cm): 32.40 * Pitch: 0.984 * Slice Thickness (mm): 1.25 * CT Dose-Length Product: 150 mGy*cm * CT Dose Index: 4.19mGy * CT Dose Reduction Method: Automated exposure control(AEC) and iterative recon COMPARISON: 10/28/2022 RESULT: Are nodules present? Yes, 1-5 nodules, stable Nodule 1: This Perifissural nodule is located in the Right Lower Lobe on slice number 258 with an average diameter of 6.8 mm (9.6 mm x 3.9 mm). Nodule 2: This Calcified nodule is located in the Right Lower Lobe on slice number 340 with an average diameter of 7.7 mm (10.7 mm x 4.6 mm). Nodule 3: This Calcified nodule is located in the Right Upper Lobe on slice number 205 with an average diameter of 4.1 mm (4.1 mm x 4.1 mm). Other lung nodule comments: No new lung nodule has developed Other findings: Trivial centrilobular emphysema with minimal bronchial wall thickening. Mild bronchial wall thickening. Mild biapical pleural-parenchymal thickening/scarring, stable in appearance. Mild subsegmental atelectasis within the inferior lingula and left lower lobe. Calcifications within the right hilar lymph nodes consistent with prior granulomatous disease exposure. No enlarging thoracic lymph nodes. The thoracic aorta is normal in caliber. Main pulmonary artery is normal in caliber. However, the RIGHT and LEFT pulmonary arteries are borderline ectatic. This can be seen in the setting of pulmonary hypertension. Mild degenerative disc and endplate changes present within the thoracic spine. Multiple healing fractures of right-sided ribs, new since the prior exam. Coarse calcifications within the left breast, unchanged. Low-attenuation focus at the hepatic dome (295) too small to adequately characterize but most likely a small hepatic cyst. Status post cholecystectomy. Scattered colonic diverticuli. No acute abnormality in the imaged upper abdomen. Mild height loss of few thoracic vertebral bodies. Emphysema: Trivial (<5%), Centrilobular, Upper lobe Coronary Artery Calcifications: Circumflex Mild; Left Anterior Descending Mild; Right Coronary Minimum Last CT Chest - Impression Only No resulted procedures found. Last XR Chest - Impression Only XR CHEST 2V FRONTAL/LAT Exam End: 03/04/2021 1:00 PM (Final result) Impression: IMPRESSION: Stable chest. No acute cardiopulmonary process. Reed Man: VANESA Transcribe Date/Time: Mar 04 2021 3:29P ... Pulmonary Function Testing: No textual results found for the specified procedure(s). documented in this encounter [facility] 11-14-2024 History of Presen t illness Narrative Radiology Service Progress Note PATIENT NAME: Sonny Biggs DATE OF SERVICE: November 14, 2024 TIME: 3:07 PM PATIENT IDENTITY VERIFICATION COMPLETED USING TWO (2) IDENTIFIERS: Name and Date of confirmed by patient verbally. FALL SCREENING: Has the patient had 2 falls in the last year or 1 fall with injury or currently using an Ambulatory Assistive Device (Walker, Cane, Wheelchair, Crutches, etc.)? No PATIENT GENDER DATA: Assigned female at . status: : No status: NO. PATIENT RELEVANT IMPLANT DATA REVIEWED: Yes PATIENT PRESENTS WITH AN IMPLANTABLE OR ATTACHED FIELD TECH: No RADIOLOGY DEPARTMENT: CT; Exam(s) Completed: Lung Screening PERIPHERAL IV DATA: Not applicable SIGNED BY: RT Erika(Elizabeth) November 14, 2024 3:07 PM documented in this encounter [facility] 11-14-2024 Note HNO ID: [id number] Author: JEANIE VILLARREAL RT(Elizabeth) Service: ? Author Type: Chief Lending Officer Type: Progress Notes Filed: 11/14/2024 15:08 Note Text: Radiology Service Progress Note PATIENT NAME: Sonny Biggs DATE OF SERVICE: November 14, 2024 TIME: 3:07 PM PATIENT IDENTITY VERIFICATION COMPLETED USING TWO (2) IDENTIFIERS: Name and Date of confirmed by patient verbally. FALL SCREENING: Has the patient had 2 falls in the last year or 1 fall with injury or currently using an Ambulatory Assistive Device (Walker, Cane, Wheelchair, Crutches, etc.)? No PATIENT GENDER DATA: Assigned female at . status: : No status: NO. PATIENT RELEVANT IMPLANT DATA REVIEWED: Yes PATIENT PRESENTS WITH AN IMPLANTABLE OR ATTACHED FIELD TECH: No RADIOLOGY DEPARTMENT: CT; Exam(s) Completed: Lung Screening PERIPHERAL IV DATA: Not applicable SIGNED BY: RT Erika(R) November 14, 2024 3:07 PM [facility] 06-07-2024 Telephone encounter Note Prescription Refill Information The patient has been identified by name and date of : Yes Caregiver verified no other encounters exist for this prescription request: Yes Caregiver confirmed with patient/requestor that no other refills are due, in the near future, with this provider at this time: Yes The last office visit in the department: 01/22/24 Does the patient have a future office visit with this provider/department: Yes 07/04/24 Requested Prescriptions Pending Prescriptions Disp Refills FLUoxetine (PROZAC) 20 mg capsule 90 capsule 1 Sig: Take 1 capsule by mouth once daily. lisinopril (ZESTRIL) 40 mg tablet 90 tablet 1 Sig: Take 1 tablet by mouth once daily. propranolol (INDERAL) 10 mg tablet 270 tablet 1 Sig: Take 1 tablet by mouth three times a day. Yvonne Mayers LPN June 07, 2024 12:42 PM [facility] 06-07-2024 Miscellaneous Notes Prescription Refill Information The patient has been identified by name and date of : Yes Caregiver verified no other encounters exist for this prescription request: Yes Caregiver confirmed with patient/requestor that no other refills are due, in the near future, with this provider at this time: Yes The last office visit in the department: 01/22/24 Does the patient have a future office visit with this provider/department: Yes 07/04/24 Requested Prescriptions Pending Prescriptions Disp Refills FLUoxetine (PROZAC) 20 mg capsule 90 capsule 1 Sig: Take 1 capsule by mouth once daily. lisinopril (ZESTRIL) 40 mg tablet 90 tablet 1 Sig: Take 1 tablet by mouth once daily. propranolol (INDERAL) 10 mg tablet 270 tablet 1 Sig: Take 1 tablet by mouth three times a day. Yvonne Mayers LPN June 07, 2024 12:42 PM documented in this encounter [facility] 02-29-2024 Telephone encounter Note Octavianhart message sent to pt notifying her of results and recommendation below from Provider. Labs seen by pt on mychart. Zari Leon MA [facility] 02-29-2024 Miscellaneous Notes Mychart message sent to pt notifying her of results and recommendation below from Provider. Labs seen by pt on mychart. Zari Leon MA ----- Message from Napoleon Martini MD sent at 02/29/2024 8:19 AM EDT ----- Repeat workup for high calcium level is normal. No further workup needed at this time. documented in this encounter [facility] 02-29-2024 Telephone encounter Note ----- Message from Napoleon Martini MD sent at 02/29/2024 8:19 AM EDT ----- Repeat workup for high calcium level is normal. No further workup needed at this time. [facility] 01-25-2024 Telephone encounter Note TC to patient who is informed of below. VERITO Christine [facility] 01-25-2024 Miscellaneous Notes TC to patient who is informed of below. VERITO Christine I would have her stop the Tums and f/u for labs as ordered. Phoned patient and advised her of results and recommendations. Patient reports she has been utilizing Tums frequently over last month. Mariana Martins LPN Unremarkable labs aside from borderline high calcium level and A1c in prediabetic range. Recommend low carb diet and to stop any calcium containing supplements at this time. Will recheck labs as ordered in 1 month. documented in this encounter [facility] 01-25-2024 Telephone encounter Note I would have her stop the Tums and f/u for labs as ordered. [facility] 01-25-2024 Telephone encounter Note Phoned patient and advised her of results and recommendations. Patient reports she has been utilizing Tums frequently over last month. Mariana Martins LPN [facility] 01-25-2024 Telephone encounter Note Unremarkable labs aside from borderline high calcium level and A1c in prediabetic range. Recommend low carb diet and to stop any calcium containing supplements at this time. Will recheck labs as ordered in 1 month. [facility] 2024 Instructions Mariana Martins LPN - 2024 10:14 AM EDT Screening schedule The following prevention plan is recommended: Pneumococcal Vaccine: 65+(1 of 2 - PCV) Never done Spirometry Never done BP Controlled (<130/80) Never done RSV Vaccine(1 - 1-dose 60+ series) Never done Covid-19 Vaccine(2022- season) Never done Advance Directive Discussion Never done WHAT YOU CAN DO TO PREVENT FALLS Many falls can be prevented. By making some changes, you can lower your chances of falling. Four things YOU can do to prevent falls for you* and your caregiver 1. Begin a regular exercise program Exercise is one of the most important ways to lower your chances of falling. It makes you stronger and helps you feel better. Exercises that improve balance and coordination (like Mauricio Chi) are the most helpful. Lack of exercise leads to weakness and increases your chances of falling. Ask your doctor or health care provider about the best type of exercise program for you. 2. Have your health care provider review your medicines Have your doctor or pharmacist review all the medicines you take, even [id number] medicines. As you get older, the way medicines work in your body can change. Some medicines, or combinations of medicines, can make you sleepy or dizzy and can cause you to fall. 3. Have your vision checked Have your eyes checked by an eye doctor at least once a year. You may be wearing the wrong glasses or have a condition like glaucoma or cataracts that limits your vision. Poor vision can increase your chances of falling. 4. Make your home safer About half of all falls happen at home. To make your home safer: Remove things you can trip over (like papers, books, clothes, and shoes) from stairs and places where you walk. Remove small throw rugs or use double-sided tape to keep the rugs from slipping. Keep items you use often in cabinets you can reach easily without using a step stool. Have grab bars put in next to your toilet and in the tub or shower. Use non-slip mats in the bathtub and on shower floors. Improve the lighting in your home. As you get older, you need brighter lights to see well. Hang light-weight curtains or shades to reduce glare. Have handrails and lights put in on all staircases. Wear shoes both inside and outside the house. Avoid going barefoot or wearing slippers. For more information, contact: Centers for Disease Control and Prevention www.cdc.gov/injury * This information may not apply if you have certain medical conditions. documented in this encounter [facility] 2024 Note HNO ID: [id number] Author: NAPOLEON MARTINI MD Service: ? Author Type: Physician Type: Progress Notes Filed: 01/23/2024 10:00 Note Text: Sonny Biggs is a 74 year old female here for a Medicare wellness visit. Patient has been in good health without hospitalizations or ER visits. No recent falls. No concerns today. Depression screening negative today. Still grieving the loss of her about 9 months ago. Has good family support. Taking Prozac without side effects. Not wanting counseling. Patient had hearing testing with audiology in [place] 1 year ago. Discussed hearing aids, but was not ready yet. Thinks may be worsening and would like new referral. Refusing vaccines today. Medicare Health Risk Assessment General Health Very good Exercise: Minutes/Day 0 min Exercise: Days/Week 0 days Alcohol: Daily Use Never Alcohol: Drinks/Day Patient does not drink Alcohol: 6 or more drinks Never Feel off balance No Concerns: Teeth/Dentures No Concerns: Sexual function No Troubled by feelings None of the above Frequency: Eating healthy diet Several days ADLs requiring help None of the above Safety precautions in home/vehicle Yes Smoke, vape, chews tobacco No Difficulty hearing Yes Difficulty seeing Yes Current Providers Specialists: I have reviewed specialist-related care of the patient in the medical record. Current care team: Patient Care Team: Napoleon Martini MD as PCP - General (Family Medicine) Outside specialists seen: [facility] [place] Dr. Matos, ortho Dr. Eason Medical/Family history review Reviewed and updated problem list, medical/surgical/family/social history, medications, and allergies. Opioid use review Opioid Medications (last 90 days) 11/17/2023 11/20/2023 11/27/2023 23:59 Opioid Medications hydromorphone HCl 0.2 mg, INTRAVENOUS, EVERY 3 HOURS NEEDED, Starting on Thu11/16/23 at 2022, Until Thu11/17/23 at 2121, breakthrough pain HIGH RISK MEDICATION Caution: Hydromorphone is 5 - 7 times MORE POTENT than morphine. For example: Hydromorphone 1mg IV = morphine 7mg IV -Discontinued (AUTO DC AT D) No sig oxycodone HCl 5-10 mg, ORAL, EVERY 4 HOURS NEEDED, Starting on 11/16/23 at 2022, Until Tu11/17/23 at 2121, Moderate Pain (4-6) - Enteral, Severe Pain (>/=7) - Enteral -Discontinued (AUTO DC AT D) No sig oxycodone HCl Admitted: Nov 15 - Nov 17, 2023 5-10 mg q 6 H PRN ORAL -Discontinued oxycodone HCl Admitted: Nov 15 - Nov 17, 2023 5-10 mg q 6 H PRN ORAL 5-10 mg q 6 H PRN ORAL-Discontinued tramadol HCl 50 mg q 6 H PRN ORAL -Rx End Details Outpatient prescription Hospital medication Anxiety/Depression screening (Lower risk for depression) MITCH-7 Score: 0. Recommendation: no further intervention at this time Cognitive screening Mini Cog Score: 4 Cognitive screening reviewed and No further action needed (score 3-5). Functional Observation Was the patient's Timed Up AND Go test unsteady or ? 12 seconds? No Advance Care Planning Surrogate decision maker and/or advance care plan documented FULL CODE Measurements BP 124/72 Pulse 68 Resp 16 Wt 208 lb 12.8 oz (94.7kg) SpO2 96% Vision Screening: Right: 20/50 Left: 20/ 40 Both: 20/25 Assessment/Plan ASSESSMENT/PLAN: 1. Medicare annual wellness visit, subsequent - ICD9: V70.0, ICD10: Z00.00 (primary diagnosis) Medicare annual wellness visit, subsequent (Z) - Counseled on healthy diet and regular exercise - Fall avoidance information provided - Personalized prevention plan provided - Discussed need for and benefit of weight loss. BMI 34.75 kg/(m2) - COMPLETE BLOOD COUNT AND DIFFERENTIAL - COMPREHENSIVE METABOLIC PANEL - VITAMIN B12 2. Bilateral hearing loss, unspecified hearing loss type - ICD9: 389.9, ICD10: H91.93 Referral for repeat testing and to discuss hearing aids. - HEARING TEST/AUDIOGRAM 3. Essential hypertension - ICD9: 401.9, ICD10: I10 - Controlled - Continue current medications - Recommend home blood pressure monitoring, to bring results to next visit - Encouraged sodium restriction, DASH or Mediterranean diet - Recommend regular aerobic exercise 4. Anxiety with depression - ICD9: 300.4, ICD10: F41.8 Symptoms controlled with Prozac. Discussed she is still grieving the loss of her and that her down days and crying is normal process. Offered referral information for counseling which she is refusing today. Has good family support. Will monitor. 5. Hyperglycemia - ICD9: 790.29, ICD10: R73.9 Recheck - HEMOGLOBIN A1C 6. Decreased visual acuity - ICD9: 369.9, ICD10: H54.7 F/u with optho for repeat vision exam and glasses rx update. Napoleon Martini MD [facility] 2024 History of Presen t illness Narrative Images from the original note were not included. Sonny Biggs is a 74 year old female here for a Medicare wellness visit. Patient has been in good health without hospitalizations or ER visits. No recent falls. No concerns today. Depression screening negative today. Still grieving the loss of her about 9 months ago. Has good family support. Taking Prozac without side effects. Not wanting counseling. Patient had hearing testing with audiology in [place] 1 year ago. Discussed hearing aids, but was not ready yet. Thinks may be worsening and would like new referral. Refusing vaccines today. Medicare Health Risk Assessment General Health Very good Exercise: Minutes/Day 0 min Exercise: Days/Week 0 days Alcohol: Daily Use Never Alcohol: Drinks/Day Patient does not drink Alcohol: 6 or more drinks Never Feel off balance No Concerns: Teeth/Dentures No Concerns: Sexual function No Troubled by feelings None of the above Frequency: Eating healthy diet Several days ADLs requiring help None of the above Safety precautions in home/vehicle Yes Smoke, vape, chews tobacco No Difficulty hearing Yes Difficulty seeing Yes Current Providers Specialists: I have reviewed specialist-related care of the patient in the medical record. Current care team: Patient Care Team: Napoleon Martini MD as PCP - General (Family Medicine) Outside specialists seen: [facility] Dr. Matos, ortho Dr. Eason Medical/Family history review Reviewed and updated problem list, medical/surgical/family/social history, medications, and allergies. Opioid use review Opioid Medications (last 90 days) 11/17/2023 11/20/2023 11/27/2023 23:59 Opioid Medications hydromorphone HCl 0.2 mg, INTRAVENOUS, EVERY 3 HOURS NEEDED, Starting on Thu11/16/23 at 2022, Until Thu11/17/23 at 2121, breakthrough pain HIGH RISK MEDICATION Caution: Hydromorphone is 5 - 7 times MORE POTENT than morphine. For example: Hydromorphone 1mg IV = morphine 7mg IV -Discontinued (AUTO DC AT D) No sig oxycodone HCl 5-10 mg, ORAL, EVERY 4 HOURS NEEDED, Starting on Thu11/16/23 at 2022, Until Thu11/17/23 at 2121, Moderate Pain (4-6) - Enteral, Severe Pain (>/=7) - Enteral -Discontinued (AUTO DC AT D) No sig oxycodone HCl Admitted: Nov 15 - Nov 17, 2023 5-10 mg q 6 H PRN ORAL -Discontinued oxycodone HCl Admitted: Nov 15 - Nov 17, 2023 5-10 mg q 6 H PRN ORAL 5-10 mg q 6 H PRN ORAL-Discontinued tramadol HCl 50 mg q 6 H PRN ORAL -Rx End Details Outpatient prescription Hospital medication Anxiety/Depression screening (Lower risk for depression) MITCH-7 Score: 0. Recommendation: no further intervention at this time Cognitive screening Mini Cog Score: 4 Cognitive screening reviewed and No further action needed (score 3-5). Functional Observation Was the patient's Timed Up & Go test unsteady or ? 12 seconds? No Advance Care Planning Surrogate decision maker and/or advance care plan documented FULL CODE Measurements BP 124/72 Pulse 68 Resp 16 Wt 208 lb 12.8 oz (94.7kg) SpO2 96% Vision Screening: Right: 2050 Left: 20/ 40 Both: Assessment/Plan ASSESSMENT/PLAN: 1. Medicare annual wellness visit, subsequent - ICD9: V70.0, ICD10: Z00.00 (primary diagnosis) Medicare annual wellness visit, subsequent (Z00.00) - Counseled on healthy diet and regular exercise - Fall avoidance information provided - Personalized prevention plan provided - Discussed need for and benefit of weight loss. BMI 34.75 kg/(m^2) - COMPLETE BLOOD COUNT AND DIFFERENTIAL - COMPREHENSIVE METABOLIC PANEL - VITAMIN B12 2. Bilateral hearing loss, unspecified hearing loss type - ICD9: 389.9, ICD10: H91.93 Referral for repeat testing and to discuss hearing aids. - HEARING TEST/AUDIOGRAM 3. Essential hypertension - ICD9: 401.9, ICD10: I10 - Controlled - Continue current medications - Recommend home blood pressure monitoring, to bring results to next visit - Encouraged sodium restriction, DASH or Mediterranean diet - Recommend regular aerobic exercise 4. Anxiety with depression - ICD9: 300.4, ICD10: F41.8 Symptoms controlled with Prozac. Discussed she is still grieving the loss of her and that her down days and crying is normal process. Offered referral information for counseling which she is refusing today. Has good family support. Will monitor. 5. Hyperglycemia - ICD9: 790.29, ICD10: R73.9 Recheck - HEMOGLOBIN A1C 6. Decreased visual acuity - ICD9: 369.9, ICD10: H54.7 F/u with optho for repeat vision exam and glasses rx update. Napoleon Martini MD documented in this encounter [facility] 01-12-2024 Note HNO ID: [id number] Author: INNA EASON MD Service: ? Author Type: Physician Type: Progress Notes Filed: 01/12/2024 11:14 Note Text: Post-op Office Visit Sonny Biggs 73 year old January 12, 2024 11:14 AM History: Sonny Biggs Is now s/p RIGHT TKA. Post-operative course has been without complication. no readmission/complications Subjective: Patient reports no pain. Overall is doing well. off ambulatory aid off opioid pain medication Objective: Ambulates with slight limp Incision well-approximated, no drainage, normal rayne-incisional erythema ROM 0 - 120 Distally DP/PT palpable Distally S/S/SP/DP/T intact at baseline Distally DF/EHL/PF intact at baseline Negative kathy/calf tenderness Xrays: No new today Assessment and Plan: Sonny Biggs Is here for a second post-op appointment, overall doing well -continued ice, rest, and use of non-narcotic analgesia as needed -discussed home exercises -WBAT on operative extremity -continue ankle pumps and dvt ppx through 4 weeks -will see back at 1 year post-op for repeat exam and xrays--can see sooner if needed -discussed red flag symptoms of acutely increasing pain, new erythema, new swelling, drainage, shortness of breath Inna Easno MD Orthopaedic Surgery [facility] 01-12-2024 History of Presen t illness Narrative Post-op Office Visit Sonny Biggs 73 year old January 12, 2024 11:14 AM History: Sonny Biggs Is now s/p RIGHT TKA. Post-operative course has been without complication. no readmission/complications Subjective: Patient reports no pain. Overall is doing well. off ambulatory aid off opioid pain medication Objective: Ambulates with slight limp Incision well-approximated, no drainage, normal rayne-incisional erythema ROM 0 - 120 Distally DP/PT palpable Distally S/S/SP/DP/T intact at baseline Distally DF/EHL/PF intact at baseline Negative kathy/calf tenderness Xrays: No new today Assessment and Plan: Sonny Biggs Is here for a second post-op appointment, overall doing well -continued ice, rest, and use of non-narcotic analgesia as needed -discussed home exercises -WBAT on operative extremity -continue ankle pumps and dvt ppx through 4 weeks -will see back at 1 year post-op for repeat exam and xrays--can see sooner if needed -discussed red flag symptoms of acutely increasing pain, new erythema, new swelling, drainage, shortness of breath Inna Eaosn MD Orthopaedic Surgery documented in this encounter [facility] 01-08-2024 Note HNO ID: [id number] Author: MATHEW HAYS PT Service: ? Author Type: Physical Therapist Type: Progress Notes Filed: 01/08/2024 15:29 Note Text: Episode Visit Count: 8 Therapist That Will Accept/Oversee The Plan Of Care: Mathew Hays PT Start of Care Date: 12/07/23 Onset Date: 12/06/13 Plan of Care Certification Date: 01/08/24 Next Certification Due Date: 02/05/24 Patient Identified by Name and Date of : Yes REHABILITATION AND SPORTS THERAPY PHYSICAL THERAPY PROGRESS REPORT PLAN OF CARE UPDATE: Assessment: Sonny Biggs demonstrates significant improvement in rising from a chair, standing, walking, and stair negotiation . She has progressed toward goals. Patient continues to present with impairments in ADL's, gait, independence in exercise, overall function, and strength that interfere with walking, stair negotiation, rising from a chair, squatting . Current prognosis is Excellent due to: current objective clinical presentation, good overall health status, positive past response to therapy, within-session changes, acuteness of condition, good support system/ coping skills. She will benefit from continued skilled therapy services to meet the updated goals for this plan of care as noted below. Updated: 01/08/24 Goals for Episode of Care: created on 12/07/23 through 02/01/24 Iron in home exercise program. - MET, will continue and progress to tolerance Patient will decrease pain to 0/10 at rest and with functional activities to allow patient to improve ambulation and transfers. - Mostly MET, will continue Patient will increase active ROM of R knee to WFL, symmetrical and pain-free to allow pt to to improve performance of ADLs and to improve gait mechanics / gait pattern . - MET, will monitor Patient will demonstrate increase in R LE strength to 5/5 during manual muscle testing in order to improve function for prior functional tasks. - Partially MET, will continue secondary to reported functional weakness. Perform rising, stairs, squatting and walking without pain. - Partially MET, will continue Normal gait. - MET, will monitor Reciprocal stair negotiation. - Partially MET, will continue, B rails required Patient Goals: Increase activity level and resume all prior activities without limitations. - Partially MET, will continue Patient Goals: Increase activity level and resume all prior activities without limitations. Planned Interventions, Frequency, and Duration: 1x/week, 4 weeks Total Number of Visits Planned: 4 Patient to be seen for Therapeutic exercise (01969), Neuromuscular re-education (05958), Manual therapy (04981), Therapeutic activities (47384), Self-senior living management (39141), Gait Training (08894), Patient/Family/Caregiver Education, Body Mechanics Training, General Conditioning, Functional training PLAN FOR NEXT VISIT: Continue with RLE strengthening. SUBJECTIVE: Pt reports continued progressive improvements. She reports that pain is nearly abolished. She reports discomfort but no pain. She also denies any significant functional limitations except for stepping up. She states, I am feeling more stable. She reports compliance with HEP 2x day most days. She reports that she is walking more and doing better with step ups. She rates her overall recovery at 80-85% of her PFL. Patient Goals: Increase activity level and resume all prior activities without limitations. Functional Limitations: walking, stair negotiation, rising from a chair, squatting Prior Level of Function: Independent without limitations Pain: Pain Pain Level: 0 Pain Location: Knee - Right Description: (no pain to start today) Frequency: Intermittent Post Treatment Pain Post Treatment Pain Level: Better Post Treatment Pain Location: Knee - Right Post Treatment Symptoms: Tired but no pain PROMIS Scales 01/03/2024 12/06/2023 Higher is Better Phys Func - Score 45 (within normal limits) 24 (severe dysfunction) Phys Func - Percentile 31 0 Self-Eff Symptom - Score 44 (Average) 49 (Average) Self-Eff Symptom - Percentile 27 46 T-scores: mean of general population = 50. 5 points is clinically meaningfully difference Percentiles provide an indication of how the patient's score ranks in relation to the general population. Higher percentile rankings indicate better function/quality of life. 50th percentile is the average of the general population and indicates half of respondents had a worse score. OBJECTIVE MEASURES WITH LEVEL OF FUNCTION: LE AROM R Knee Extension: 0 Degrees R Knee Flexion: 127 Degrees Functional Strength Functional Strength: Pt reports that her R LE feels weak on stairs, with curb steps and with prolonged walking. Gait Gait Observation: Pt gait is normal at this time Stairs: Pt is able to ascend and descend a full flight wiht B rails reciprocally. This is labored though and improvement is expected after strength inc (more content not included)... [facility] 01-08-2024 History of Presen t illness Narrative Images from the original note were not included. Episode Visit Count: 8 Therapist That Will Accept/Oversee The Plan Of Care: Mathew Hays PT Start of Care Date: 12/07/23 Onset Date: 12/06/13 Plan of Care Certification Date: 01/08/24 Next Certification Due Date: 02/05/24 Patient Identified by Name and Date of : Yes REHABILITATION AND SPORTS THERAPY PHYSICAL THERAPY PROGRESS REPORT PLAN OF CARE UPDATE: Assessment: Sonny Biggs demonstrates significant improvement in rising from a chair, standing, walking, and stair negotiation . She has progressed toward goals. Patient continues to present with impairments in ADL's, gait, independence in exercise, overall function, and strength that interfere with walking, stair negotiation, rising from a chair, squatting . Current prognosis is Excellent due to: current objective clinical presentation, good overall health status, positive past response to therapy, within-session changes, acuteness of condition, good support system/ coping skills. She will benefit from continued skilled therapy services to meet the updated goals for this plan of care as noted below. Updated: 01/08/24 Goals for Episode of Care: created on 12/07/23 through 02/01/24 Iron in home exercise program. - MET, will continue and progress to tolerance Patient will decrease pain to 0/10 at rest and with functional activities to allow patient to improve ambulation and transfers. - Mostly MET, will continue Patient will increase active ROM of R knee to WFL, symmetrical and pain-free to allow pt to to improve performance of ADLs and to improve gait mechanics / gait pattern . - MET, will monitor Patient will demonstrate increase in R LE strength to 5/5 during manual muscle testing in order to improve function for prior functional tasks. - Partially MET, will continue secondary to reported functional weakness. Perform rising, stairs, squatting and walking without pain. - Partially MET, will continue Normal gait. - MET, will monitor Reciprocal stair negotiation. - Partially MET, will continue, B rails required Patient Goals: Increase activity level and resume all prior activities without limitations. - Partially MET, will continue Patient Goals: Increase activity level and resume all prior activities without limitations. Planned Interventions, Frequency, and Duration: 1x/week, 4 weeks Total Number of Visits Planned: 4 Patient to be seen for Therapeutic exercise (87601), Neuromuscular re-education (06108), Manual therapy (44846), Therapeutic activities (88811), Self-senior living management (57038), Gait Training (22779), Patient/Family/Caregiver Education, Body Mechanics Training, General Conditioning, Functional training PLAN FOR NEXT VISIT: Continue with RLE strengthening. SUBJECTIVE: Pt reports continued progressive improvements. She reports that pain is nearly abolished. She reports discomfort but no pain. She also denies any significant functional limitations except for stepping up. She states, I am feeling more stable. She reports compliance with HEP 2x day most days. She reports that she is walking more and doing better with step ups. She rates her overall recovery at 80-85% of her PFL. Patient Goals: Increase activity level and resume all prior activities without limitations. Functional Limitations: walking, stair negotiation, rising from a chair, squatting Prior Level of Function: Independent without limitations Pain: Pain Pain Level: 0 Pain Location: Knee - Right Description: (no pain to start today) Frequency: Intermittent Post Treatment Pain Post Treatment Pain Level: Better Post Treatment Pain Location: Knee - Right Post Treatment Symptoms: Tired but no pain PROMIS Scales 01/03/2024 12/06/2023 Higher is Better Phys Func - Score 45 (within normal limits) 24 (severe dysfunction) Phys Func - Percentile 31 0 Self-Eff Symptom - Score 44 (Average) 49 (Average) Self-Eff Symptom - Percentile 27 46 T-scores: mean of general population = 50. 5 points is clinically meaningfully difference Percentiles provide an indication of how the patient's score ranks in relation to the general population. Higher percentile rankings indicate better function/quality of life. 50th percentile is the average of the general population and indicates half of respondents had a worse score. OBJECTIVE MEASURES WITH LEVEL OF FUNCTION: LE AROM R Knee Extension: 0 Degrees R Knee Flexion: 127 Degrees Functional Strength Functional Strength: Pt reports that her R LE feels weak on stairs, with curb steps and with prolonged walking. Gait Gait Observation: Pt gait is normal at this time Stairs: Pt is able to ascend and descend a full flight wiht B rails reciprocally. This is labored though and improvement is expected after strength increases TREATMENT: Therapeutic Exercise: 1: [employer] StepOne seat #12 x6 minutes (Pt provided an update on her condition and plan of care reviewed. Recommendations) 2: supine quad sets with ankle propped to facilitate quad activation and knee ext ROM 3x10 3: supine gravity stretch for ext with heel propped and 4# weight on anterior R knee x3 minutes 4: supine heel slides to facilitate flexion ROM 3x10 with green strap 5: supine gravity stretch for flexion with 4# weight on ankle therapist arm behind distal R thigh and in front of distal L thigh. 6: repeated sit to stand from chair 2x10 without UE assist 7: R forward step ups on 7 step(2 green) in // bars 2x10 8: R lateral step ups on 7 step(2 green) in // bars 2x10 9: purple t-band R TKE 3x10 in front of mirror for feedback Skilled Intervention: Patient was educated in proper exercise technique and purpose for exercises. Skilled judgment was used in selection of appropriate interventions. Correct performance of therapeutic exercises was facilitated with verbal, visual, and tactile cuing. Patient education as noted. Gait Trainin: Gait training done without cane to try to fully normalize. Stair training reviewed as she negotiated steps (full flight) with B rail and no device with reciprocal pattern. Stair training and assessment Skilled Intervention: Facilitated proper gait cycle with the use of verbal and visual cues for correction of gait deviations identified in the objective section above. Education provided to patient regarding the proper sequence for stair negotiation. Billing Therapeutic Exercise Treatment Minutes: 36 Gait Training Treatment Minutes: 10 Skilled Treatment Time Minutes (timed and untimed codes): 46 Total Session Time (minutes): 46 Session Start Time : 1402 Session Stop Time : 1448 Mathew Hays PT documented in this encounter [facility] 01-04-2024 Note HNO ID: [id number] Author: MATHEW HAYS PT Service: ? Author Type: Physical Therapist Type: Progress Notes Filed: 01/04/2024 12:36 Note Text: Episode Visit Count: 7 Therapist That Will Accept/Oversee The Plan Of Care: Mathew Hays PT Start of Care Date: 12/07/23 Onset Date: 12/06/13 Plan of Care Certification Date: 12/07/23 Next Certification Due Date: 02/01/24 Patient Identified by Name and Date of : Yes REHABILITATION AND SPORTS THERAPY PHYSICAL THERAPY TREATMENT NOTE ASSESSMENT: Sonny Biggs tolerated the session with fatigue. She demonstrated improvements in R knee extension AROM. The patient will continue to benefit from ongoing skilled physical therapy to progress toward set goals. PLAN FOR NEXT VISIT: Continue with RLE strengthening. SUBJECTIVE: Pt reports that her back isn't too bad today. took some Aleve. Pt states that her knee is doing good, a little stiffness and tenderness. Pain: Pain Pain Location: Knee - Right (medial joint line) Description: (tender) Frequency: Intermittent Post Treatment Pain Post Treatment Pain Level: 0 Post Treatment Pain Location: Knee - Right OBJECTIVE MEASURES WITH LEVEL OF FUNCTION: LE AROM R Knee Extension: 0 Degrees R Knee Flexion: 124 Degrees TREATMENT: Therapeutic Exercise: 1: [employer] StepOne seat #12 x6 minutes (Pt provided an update on her condition and plan of care reviewed. Recommendations) 2: blue t-band R TKE 2x10 in front of mirror for feedback 3: R lateral step ups on 6 step in // bars 2x10 4: R forward step ups on 6 step in // bars 2x10 5: supine heel slides to facilitate flexion ROM 2x10 with green strap 6: Squats at // bars 2x10 7: Supine quad sets 2x10 8: supine R SLR 2x10 with 3# ankle weight 9: L sidelying R hip clam shells 2x10 with 3# weight 10: supine R SKTC 3x30 seconds to start 11: seated R LAQ with 3# weight 2x10 Skilled Intervention: Patient was educated in proper exercise technique and purpose for exercises. Skilled judgment was used in selection of appropriate interventions. Correct performance of therapeutic exercises was facilitated with verbal and visual cuing. Billing Therapeutic Exercise Treatment Minutes: 42 Skilled Treatment Time Minutes (timed and untimed codes): 42 Total Session Time (minutes): 42 Session Start Time : 1058 Session Stop Time : 1140 Estelita Daily, REPRODUCTION SPECIALIST Mathew Hays PT [facility] 01-04-2024 History of Presen t illness Narrative Episode Visit Count: 7 Therapist That Will Accept/Oversee The Plan Of Care: Mathew Hays PT Start of Care Date: 12/07/23 Onset Date: 12/06/13 Plan of Care Certification Date: 12/07/23 Next Certification Due Date: 02/01/24 Patient Identified by Name and Date of : Yes REHABILITATION AND SPORTS THERAPY PHYSICAL THERAPY TREATMENT NOTE ASSESSMENT: Sonny Biggs tolerated the session with fatigue. She demonstrated improvements in R knee extension AROM. The patient will continue to benefit from ongoing skilled physical therapy to progress toward set goals. PLAN FOR NEXT VISIT: Continue with RLE strengthening. SUBJECTIVE: Pt reports that her back isn't too bad today. took some Aleve. Pt states that her knee is doing good, a little stiffness and tenderness. Pain: Pain Pain Location: Knee - Right (medial joint line) Description: (tender) Frequency: Intermittent Post Treatment Pain Post Treatment Pain Level: 0 Post Treatment Pain Location: Knee - Right OBJECTIVE MEASURES WITH LEVEL OF FUNCTION: LE AROM R Knee Extension: 0 Degrees R Knee Flexion: 124 Degrees TREATMENT: Therapeutic Exercise: 1: [employer] StepOne seat #12 x6 minutes (Pt provided an update on her condition and plan of care reviewed. Recommendations) 2: blue t-band R TKE 2x10 in front of mirror for feedback 3: R lateral step ups on 6 step in // bars 2x10 4: R forward step ups on 6 step in // bars 2x10 5: supine heel slides to facilitate flexion ROM 2x10 with green strap 6: Squats at // bars 2x10 7: Supine quad sets 2x10 8: supine R SLR 2x10 with 3# ankle weight 9: L sidelying R hip clam shells 2x10 with 3# weight 10: supine R SKTC 3x30 seconds to start 11: seated R LAQ with 3# weight 2x10 Skilled Intervention: Patient was educated in proper exercise technique and purpose for exercises. Skilled judgment was used in selection of appropriate interventions. Correct performance of therapeutic exercises was facilitated with verbal and visual cuing. Billing Therapeutic Exercise Treatment Minutes: 42 Skilled Treatment Time Minutes (timed and untimed codes): 42 Total Session Time (minutes): 42 Session Start Time : 1058 Session Stop Time : 1140 LIBERTAD Hackett PT documented in this encounter [facility] 12-31-2023 Note HNO ID: [id number] Author: MATHEW HAYS PT Service: ? Author Type: Physical Therapist Type: Progress Notes Filed: 12/31/2023 17:35 Note Text: Episode Visit Count: 6 Therapist That Will Accept/Oversee The Plan Of Care: Mathew Hays PT Start of Care Date: 12/07/23 Onset Date: 12/06/13 Plan of Care Certification Date: 12/07/23 Next Certification Due Date: 02/01/24 Patient Identified by Name and Date of : Yes REHABILITATION AND SPORTS THERAPY PHYSICAL THERAPY TREATMENT NOTE ASSESSMENT: Sonny Biggs tolerated the session with decreased symptoms. She demonstrated improvements in ROM, gait and activity tolerance. The patient will continue to benefit from ongoing skilled physical therapy to progress toward set goals. PLAN FOR NEXT VISIT: Review, correct and progress HEP to tolerance. Continue comprehensive therex to address R knee/LE ROM and strength. MCC goal is to return to prior functional level without limitations. Gait training prn. SUBJECTIVE: Pt reports that overall she is getting progressively better. She reports that she is feeling stronger and walking better. She reports little to no use of cane because she has not needed it as much. Pt reports that she had 7 guests at her house for 5 days and this exhausting but not painful. One of the guests was 18 months old and she spent the entire time chasing him around. She reports that the pain at posterior lateral R knee is significantly improved since last session. Her chief complaint at this time is medial joint line pain. Pain: Pain Pain Level: 2 Pain Location: Knee - Right (medial joint line) Description: Pressure (tender) Frequency: Intermittent Post Treatment Pain Post Treatment Pain Level: 1 Post Treatment Pain Location: Knee - Right Post Treatment Pain Description: (better) Post Treatment Symptoms: After session and as she was leaving, pt reported feeling better with pain decreased. OBJECTIVE MEASURES WITH LEVEL OF FUNCTION: LE AROM R LE AROM: supine R Knee Extension: -2 Degrees R Knee Flexion: 124 Degrees Gait Gait Observation: Pt arrives with cane and has nearly normal gait. Without the cane she antalgic pattern but not unsteady pattern. TREATMENT: Therapeutic Exercise: 1: [employer] StepOne seat #12 x6 minutes (Pt provided an update on her condition and plan of care reviewed. Recommendations) 2: supine ankle pumps reviewed for HEP and continuation encouraged. 3: supine quad sets with ankle propped to facilitate quad activation and knee ext ROM 3x10 4: supine heel slides to facilitate flexion ROM 2x10 with green strap 5: supine R SLR 2x10 with 3# ankle weight 6: L sidelying R hip abduction with 3# weight 2x10 7: L sidelying R hip clam shells 2x10 with 3# weight 8: seated R LAQ with 3# weight 2x10 9: repeated sit to stand from chair 2x10 (intermittent use of UE assist but improved) 10: R forward step ups on 6 step in // bars 2x10 11: R lateral step ups on 6 step in // bars 2x10 12: supine R SKTC 3x30 seconds to start 13: blue t-band R TKE 2x10 in front of mirror for feedback Skilled Intervention: Patient was educated in proper exercise technique and purpose for exercises. Skilled judgment was used in selection of appropriate interventions. Correct performance of therapeutic exercises was facilitated with verbal, visual, and tactile cuing. Patient education as noted. Gait Trainin: Gait training done with and without cane to try to fully normalize. She was advised to continue using cane. She does not need the cane but the quality of her gait is much improved with the cane. Skilled Intervention: Facilitated proper gait cycle with the use of verbal and visual cues for correction of gait deviations identified in the objective section above. Skilled judgment used to assess proper use of assistive device. Billing Therapeutic Exercise Treatment Minutes: 51 Gait Training Treatment Minutes: 5 Skilled Treatment Time Minutes (timed and untimed codes): 56 Total Session Time (minutes): 56 Session Start Time : 1550 Session Stop Time : 1646 Mathew Hays PT [facility] 12-31-2023 History of Presen t illness Narrative Episode Visit Count: 6 Therapist That Will Accept/Oversee The Plan Of Care: Mathew Hays PT Start of Care Date: 12/07/23 Onset Date: 12/06/13 Plan of Care Certification Date: 12/07/23 Next Certification Due Date: 02/01/24 Patient Identified by Name and Date of : Yes REHABILITATION AND SPORTS THERAPY PHYSICAL THERAPY TREATMENT NOTE ASSESSMENT: Sonny Biggs tolerated the session with decreased symptoms. She demonstrated improvements in ROM, gait and activity tolerance. The patient will continue to benefit from ongoing skilled physical therapy to progress toward set goals. PLAN FOR NEXT VISIT: Review, correct and progress HEP to tolerance. Continue comprehensive therex to address R knee/LE ROM and strength. MCC goal is to return to prior functional level without limitations. Gait training prn. SUBJECTIVE: Pt reports that overall she is getting progressively better. She reports that she is feeling stronger and walking better. She reports little to no use of cane because she has not needed it as much. Pt reports that she had 7 guests at her house for 5 days and this exhausting but not painful. One of the guests was 18 months old and she spent the entire time chasing him around. She reports that the pain at posterior lateral R knee is significantly improved since last session. Her chief complaint at this time is medial joint line pain. Pain: Pain Pain Level: 2 Pain Location: Knee - Right (medial joint line) Description: Pressure (tender) Frequency: Intermittent Post Treatment Pain Post Treatment Pain Level: 1 Post Treatment Pain Location: Knee - Right Post Treatment Pain Description: (better) Post Treatment Symptoms: After session and as she was leaving, pt reported feeling better with pain decreased. OBJECTIVE MEASURES WITH LEVEL OF FUNCTION: LE AROM R LE AROM: supine R Knee Extension: -2 Degrees R Knee Flexion: 124 Degrees Gait Gait Observation: Pt arrives with cane and has nearly normal gait. Without the cane she antalgic pattern but not unsteady pattern. TREATMENT: Therapeutic Exercise: 1: [employer] StepOne seat #12 x6 minutes (Pt provided an update on her condition and plan of care reviewed. Recommendations) 2: supine ankle pumps reviewed for HEP and continuation encouraged. 3: supine quad sets with ankle propped to facilitate quad activation and knee ext ROM 3x10 4: supine heel slides to facilitate flexion ROM 2x10 with green strap 5: supine R SLR 2x10 with 3# ankle weight 6: L sidelying R hip abduction with 3# weight 2x10 7: L sidelying R hip clam shells 2x10 with 3# weight 8: seated R LAQ with 3# weight 2x10 9: repeated sit to stand from chair 2x10 (intermittent use of UE assist but improved) 10: R forward step ups on 6 step in // bars 2x10 11: R lateral step ups on 6 step in // bars 2x10 12: supine R SKTC 3x30 seconds to start 13: blue t-band R TKE 2x10 in front of mirror for feedback Skilled Intervention: Patient was educated in proper exercise technique and purpose for exercises. Skilled judgment was used in selection of appropriate interventions. Correct performance of therapeutic exercises was facilitated with verbal, visual, and tactile cuing. Patient education as noted. Gait Trainin: Gait training done with and without cane to try to fully normalize. She was advised to continue using cane. She does not need the cane but the quality of her gait is much improved with the cane. Skilled Intervention: Facilitated proper gait cycle with the use of verbal and visual cues for correction of gait deviations identified in the objective section above. Skilled judgment used to assess proper use of assistive device. Billing Therapeutic Exercise Treatment Minutes: 51 Gait Training Treatment Minutes: 5 Skilled Treatment Time Minutes (timed and untimed codes): 56 Total Session Time (minutes): 56 Session Start Time : 1550 Session Stop Time : 1646 Mathew Hays PT documented in this encounter [facility] 12-22-2023 Note HNO ID: [id number] Author: MATHEW HAYS PT Service: ? Author Type: Physical Therapist Type: Progress Notes Filed: 12/22/2023 14:58 Note Text: Episode Visit Count: 5 Therapist That Will Accept/Oversee The Plan Of Care: Mathew Hays PT Start of Care Date: 12/07/23 Onset Date: 12/06/13 Plan of Care Certification Date: 12/07/23 Next Certification Due Date: 02/01/24 Patient Identified by Name and Date of : Yes REHABILITATION AND SPORTS THERAPY PHYSICAL THERAPY TREATMENT NOTE ASSESSMENT: Sonny Biggs tolerated the session with fatigue, decreased symptoms, expected muscle soreness, and no issues. She demonstrated improvements in ROM, gait and exercise tolerance. The patient will continue to benefit from ongoing skilled physical therapy to progress toward set goals. PLAN FOR NEXT VISIT: Review, correct and progress HEP to tolerance. Continue comprehensive therex to address R knee/LE ROM and strength. MCC goal is to return to prior functional level without limitations. Gait training prn. SUBJECTIVE: Pt reports that overall she is feeling better. Specifically she reports being very active yesterday and tolerated this well. She reports feeling stronger and more confident yesterday. She does report feeling a pop in posterior lateral L knee this morning during HEP completion. She reports that this caused soreness and the sensation that something sprung loose. Currently she denies any increased pain or problems that are the result of the incident this morning. She reports that she is walking more and more without cane at home. Pain: Pain Pain Level: 2 Pain Location: Knee - Right (posterior lateral aspect) Frequency: Intermittent Post Treatment Pain Post Treatment Pain Level: 0 Post Treatment Pain Location: Knee - Right Post Treatment Pain Description: (no increased pain after session) Post Treatment Symptoms: After session, pt reported that her pain was abolished after therex completion. OBJECTIVE MEASURES WITH LEVEL OF FUNCTION: LE AROM R LE AROM: supine R Knee Extension: -3 Degrees R Knee Flexion: 122 Degrees Gait Gait Observation: Pt arrives with cane but reports that she is using this progressively less at home. Gait is normalizing with iimproving step symmetry and heel to toe pattern. TREATMENT: Therapeutic Exercise: 1: [employer] StepOne seat #12 x6 minutes (Pt provided an update on her condition and plan of care reviewed. Recommendations) 2: supine ankle pumps reviewed for HEP and continuation encouraged. 3: supine quad sets with ankle propped to facilitate quad activation and knee ext ROM 3x10 4: supine heel slides to facilitate flexion ROM 2x10 with green strap 5: supine R SLR 2x12 with 1.5# ankle weight 6: L sidelying R hip abduction with 1.5# weight 2x12 7: L sidelying R hip clam shells 2x12 with 1.5# weight 8: seated R LAQ with 2# weight 2x15 9: repeated sit to stand from chair 3x10 10: R forward step ups on 4 step in // bars 2x12 11: R lateral step ups on 4 step in // bars 2x12 12: supine R SKTC 3x30 seconds to start 13: green t-band R TKE 3x10 in front of mirror for feedback Skilled Intervention: Patient was educated in proper exercise technique and purpose for exercises. Skilled judgment was used in selection of appropriate interventions. Correct performance of therapeutic exercises was facilitated with verbal, visual, and tactile cuing. Patient education as noted. Gait Trainin: Gait training was done with cane with verbal cues and demonstration. Pt was encouraged to continue with heel to toe pattern and symmetrical step lengths. Skilled Intervention: Facilitated proper gait cycle with the use of verbal and visual cues for correction of gait deviations identified in the objective section above. Skilled judgment used to assess selection and proper use of assistive device. Billing Therapeutic Exercise Treatment Minutes: 40 Gait Training Treatment Minutes: 5 Skilled Treatment Time Minutes (timed and untimed codes): 45 Total Session Time (minutes): 45 Session Start Time : 1400 Session Stop Time : 1445 Mathew Hays PT [facility] 05-21-2024 History of Presen t illness Narrative Episode Visit Count: 5 Therapist That Will Accept/Oversee The Plan Of Care: Mathew Hays PT Start of Care Date: 12/07/23 Onset Date: 12/06/13 Plan of Care Certification Date: 12/07/23 Next Certification Due Date: 02/01/24 Patient Identified by Name and Date of : Yes REHABILITATION AND SPORTS THERAPY PHYSICAL THERAPY TREATMENT NOTE ASSESSMENT: Sonny Biggs tolerated the session with fatigue, decreased symptoms, expected muscle soreness, and no issues. She demonstrated improvements in ROM, gait and exercise tolerance. The patient will continue to benefit from ongoing skilled physical therapy to progress toward set goals. PLAN FOR NEXT VISIT: Review, correct and progress HEP to tolerance. Continue comprehensive therex to address R knee/LE ROM and strength. 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 Gait training prn. SUBJECTIVE: Pt reports that overall she is feeling better. Specifically she reports being very active yesterday and tolerated this well. She reports feeling stronger and more confident yesterday. She does report feeling a pop in posterior lateral L knee this morning during HEP completion. She reports that this caused soreness and the sensation that something sprung loose. Currently she denies any increased pain or problems that are the result of the incident this morning. She reports that she is walking more and more without cane at home. Pain: Pain Pain Level: 2 Pain Location: Knee - Right (posterior lateral aspect) Frequency: Intermittent Post Treatment Pain Post Treatment Pain Level: 0 Post Treatment Pain Location: Knee - Right Post Treatment Pain Description: (no increased pain after session) Post Treatment Symptoms: After session, pt reported that her pain was abolished after therex completion. OBJECTIVE MEASURES WITH LEVEL OF FUNCTION: LE AROM R LE AROM: supine R Knee Extension: -3 Degrees R Knee Flexion: 122 Degrees Gait Gait Observation: Pt arrives with cane but reports that she is using this progressively less at home. Gait is normalizing with iimproving step symmetry and heel to toe pattern. TREATMENT: Therapeutic Exercise: 1: [employer] StepOne seat #12 x6 minutes (Pt provided an update on her condition and plan of care reviewed. Recommendations) 2: supine ankle pumps reviewed for HEP and continuation encouraged. 3: supine quad sets with ankle propped to facilitate quad activation and knee ext ROM 3x10 4: supine heel slides to facilitate flexion ROM 2x10 with green strap 5: supine R SLR 2x12 with 1.5# ankle weight 6: L sidelying R hip abduction with 1.5# weight 2x12 7: L sidelying R hip clam shells 2x12 with 1.5# weight 8: seated R LAQ with 2# weight 2x15 9: repeated sit to stand from chair 3x10 10: R forward step ups on 4 step in // bars 2x12 11: R lateral step ups on 4 step in // bars 2x12 12: supine R SKTC 3x30 seconds to start 13: green t-band R TKE 3x10 in front of mirror for feedback Skilled Intervention: Patient was educated in proper exercise technique and purpose for exercises. Skilled judgment was used in selection of appropriate interventions. Correct performance of therapeutic exercises was facilitated with verbal, visual, and tactile cuing. Patient education as noted. Gait Trainin: Gait training was done with cane with verbal cues and demonstration. Pt was encouraged to continue with heel to toe pattern and symmetrical step lengths. Skilled Intervention: Facilitated proper gait cycle with the use of verbal and visual cues for correction of gait deviations identified in the objective section above. Skilled judgment used to assess selection and proper use of assistive device. Billing Therapeutic Exercise Treatment Minutes: 40 Gait Training Treatment Minutes: 5 Skilled Treatment Time Minutes (timed and untimed codes): 45 Total Session Time (minutes): 45 Session Start Time : 1400 Session Stop Time : 1445 Mathew Hays PT documented in this encounter [facility] 12-18-2023 Note HNO ID: [id number] Author: MATHEW HAYS PT Service: ? Author Type: Physical Therapist Type: Progress Notes Filed: 12/18/2023 12:33 Note Text: Episode Visit Count: 4 Therapist That Will Accept/Oversee The Plan Of Care: Mathew Hays PT Start of Care Date: 12/07/23 Onset Date: 12/06/13 Plan of Care Certification Date: 12/07/23 Next Certification Due Date: 02/01/24 Patient Identified by Name and Date of : Yes REHABILITATION AND SPORTS THERAPY PHYSICAL THERAPY TREATMENT NOTE ASSESSMENT: Sonny Dave Lipscombchandrakant tolerated the session with fatigue, decreased symptoms, expected muscle soreness, and no issues. She demonstrated improvements in ROM, gait and exercise tolerance. The patient will continue to benefit from ongoing skilled physical therapy to progress toward set goals. PLAN FOR NEXT VISIT: Review, correct and progress HEP to tolerance. Continue comprehensive therex to address R knee/LE ROM and strength. 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 Gait training prn. SUBJECTIVE: Pt reports that overall she is getting progressively better. She reports considerable pain and soreness following last session but that this eased. She reports doing a lot of walking yesterday at [place] and tolerated this better than expected. She also reports that she did not need pain medication to sleep through the night. She reports compliance with HEP and that radicular symptoms in posterior lateral R knee are becoming less. Pain: Pain Pain Level: 3 Pain Location: Knee - Right Description: (very little) Frequency: Intermittent Post Treatment Pain Post Treatment Pain Level: 0 Post Treatment Pain Location: Knee - Right Post Treatment Pain Description: (better) Post Treatment Symptoms: After session pt reported considerable fatigue but she denied any increase in pain. She actually reported a decrease in pain to 0/10 as she was leaving. OBJECTIVE MEASURES WITH LEVEL OF FUNCTION: LE AROM R LE AROM: supine R Knee Extension: -4 Degrees R Knee Flexion: 120 Degrees DVT Screening/Testing Screening/Testing: Rose Marie Cravenn's Sign: Right Negative, Left Negative Gait Gait Observation: Pt arrives with new cane with improving quality of gait. TREATMENT: Therapeutic Exercise: 1: [employer] StepOne seat #12 x6 minutes (Pt provided an update on her condition and plan of care reviewed. Recommendations) 2: supine ankle pumps reviewed for HEP 3: supine quad sets to facilitate quad activation and knee ext ROM 2x10 4: supine heel slides to facilitate flexion ROM 2x10 with green strap 5: supine R SLR 2x12 with 1.5# ankle weight 6: L sidelying R hip abduction with 1.5# weight 2x12 7: L sidelying R hip clam shells 2x12 with 1.5# weight 8: seated R LAQ with 1.5# weight 2x15 9: repeated sit to stand from chair 3x10 12: supine R SKTC 3x30 seconds to start Skilled Intervention: Patient was educated in proper exercise technique and purpose for exercises. Skilled judgment was used in selection of appropriate interventions. Correct performance of therapeutic exercises was facilitated with verbal, visual, and tactile cuing. Patient education as noted. Gait Trainin: Gait training was done with cane with verbal cues and demonstration. Pt was encouraged to continue with heel to toe pattern. Cane options were discussed and recommendations made. Her new cane was asseessed and her use of this also assessed with recommendations made. Skilled Intervention: Facilitated proper gait cycle with the use of verbal and visual cues for correction of gait deviations identified in the objective section above. Skilled judgment used to assess selection, proper sizing, and proper use of assistive device. Billing Therapeutic Exercise Treatment Minutes: 35 Gait Training Treatment Minutes: 5 Skilled Treatment Time Minutes (timed and untimed codes): 40 Total Session Time (minutes): 40 Session Start Time : 1040 Session Stop Time : 1120 Mathew Hays PT [facility] 12-18-2023 History of Presen t illness Narrative Episode Visit Count: 4 Therapist That Will Accept/Oversee The Plan Of Care: Mathew Hays PT Start of Care Date: 12/07/23 Onset Date: 12/06/13 Plan of Care Certification Date: 12/07/23 Next Certification Due Date: 02/01/24 Patient Identified by Name and Date of : Yes REHABILITATION AND SPORTS THERAPY PHYSICAL THERAPY TREATMENT NOTE ASSESSMENT: Sonny Biggs tolerated the session with fatigue, decreased symptoms, expected muscle soreness, and no issues. She demonstrated improvements in ROM, gait and exercise tolerance. The patient will continue to benefit from ongoing skilled physical therapy to progress toward set goals. PLAN FOR NEXT VISIT: Review, correct and progress HEP to tolerance. Continue comprehensive therex to address R knee/LE ROM and strength. MCC goal is to return to prior functional level without limitations. Gait training prn. SUBJECTIVE: Pt reports that overall she is getting progressively better. She reports considerable pain and soreness following last session but that this eased. She reports doing a lot of walking yesterday at [place] and tolerated this better than expected. She also reports that she did not need pain medication to sleep through the night. She reports compliance with HEP and that radicular symptoms in posterior lateral R knee are becoming less. Pain: Pain Pain Level: 3 Pain Location: Knee - Right Description: (very little) Frequency: Intermittent Post Treatment Pain Post Treatment Pain Level: 0 Post Treatment Pain Location: Knee - Right Post Treatment Pain Description: (better) Post Treatment Symptoms: After session pt reported considerable fatigue but she denied any increase in pain. She actually reported a decrease in pain to 0/10 as she was leaving. OBJECTIVE MEASURES WITH LEVEL OF FUNCTION: LE AROM R LE AROM: supine R Knee Extension: -4 Degrees R Knee Flexion: 120 Degrees DVT Screening/Testing Screening/Testing: Homans Kathy's Sign: Right Negative, Left Negative Gait Gait Observation: Pt arrives with new cane with improving quality of gait. TREATMENT: Therapeutic Exercise: 1: [employer] StepOne seat #12 x6 minutes (Pt provided an update on her condition and plan of care reviewed. Recommendations) 2: supine ankle pumps reviewed for HEP 3: supine quad sets to facilitate quad activation and knee ext ROM 2x10 4: supine heel slides to facilitate flexion ROM 2x10 with green strap 5: supine R SLR 2x12 with 1.5# ankle weight 6: L sidelying R hip abduction with 1.5# weight 2x12 7: L sidelying R hip clam shells 2x12 with 1.5# weight 8: seated R LAQ with 1.5# weight 2x15 9: repeated sit to stand from chair 3x10 12: supine R SKTC 3x30 seconds to start Skilled Intervention: Patient was educated in proper exercise technique and purpose for exercises. Skilled judgment was used in selection of appropriate interventions. Correct performance of therapeutic exercises was facilitated with verbal, visual, and tactile cuing. Patient education as noted. Gait Trainin: Gait training was done with cane with verbal cues and demonstration. Pt was encouraged to continue with heel to toe pattern. Cane options were discussed and recommendations made. Her new cane was asseessed and her use of this also assessed with recommendations made. Skilled Intervention: Facilitated proper gait cycle with the use of verbal and visual cues for correction of gait deviations identified in the objective section above. Skilled judgment used to assess selection, proper sizing, and proper use of assistive device. Billing Therapeutic Exercise Treatment Minutes: 35 Gait Training Treatment Minutes: 5 Skilled Treatment Time Minutes (timed and untimed codes): 40 Total Session Time (minutes): 40 Session Start Time : 1040 Session Stop Time : 1120 Mathew Hays PT documented in this encounter [facility] 12-16-2023 Note HNO ID: [id number] Author: MATHEW HAYS PT Service: ? Author Type: Physical Therapist Type: Progress Notes Filed: 12/16/2023 19:11 Note Text: Episode Visit Count: 3 Therapist That Will Accept/Oversee The Plan Of Care: Mathew Hays PT Start of Care Date: 12/07/23 Onset Date: 12/06/13 Plan of Care Certification Date: 12/07/23 Next Certification Due Date: 02/01/24 Patient Identified by Name and Date of : Yes REHABILITATION AND SPORTS THERAPY PHYSICAL THERAPY TREATMENT NOTE ASSESSMENT: Sonny Biggs tolerated the session with fatigue, decreased symptoms, and expected muscle soreness. She demonstrated improvements in gait, ROM and exercise tolerance. The patient will continue to benefit from ongoing skilled physical therapy to progress toward set goals. PLAN FOR NEXT VISIT: Review, correct and progress HEP to tolerance. Continue comprehensive therex to address R knee/LE ROM and strength. 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 Gait training prn. SUBJECTIVE: Pt reports that her R knee is getting progressively better and that she is getting progressively more confident in her ability to walk. She reports progressively less use of FWW at home. She reports compliance with HEP 2x day. She reports that radicular symptoms in R LE persist, especially posterior lateral corner of R knee. Pain: Pain Pain Level: 0 Pain Location: Knee - Right Description: (no pain in R knee to start today.) Frequency: Intermittent Post Treatment Pain Post Treatment Pain Level: Better Post Treatment Pain Location: Knee - Right Post Treatment Symptoms: As pt was leaving, she reported feeling better and that the therex loosened things up. OBJECTIVE MEASURES WITH LEVEL OF FUNCTION: LE AROM R LE AROM: supine R Knee Extension: -5 Degrees R Knee Flexion: 118 Degrees DVT Screening/Testing Screening/Testing: Homamichael Kathy's Sign: Right Negative, Left Negative Gait Gait Observation: Pt arrives with cane with nearly normalized pattern that is only intermittently lacking heel to toe. Step asymmetry is also improved.with only intermittent short L step length. TREATMENT: Therapeutic Exercise: 1: [employer] StepOne seat #12 x6 minutes (Pt provided an update on her condition and plan of care reviewed. Pt was educated on the etiology of lumbar radicular symptoms. A model of the spine was used to clarify education.) 2: supine ankle pumps 2x20 3: supine quad sets with heel propped to facilitate quad activation and knee ext ROM 2x10 4: supine heel slides to facilitate flexion ROM 2x10 with green strap 5: supine R SLR 2x10 with 1.5# ankle weight 6: L sidelying R hip abduction without weight 2x10 7: L sidelying R hip clam shells 2x10 without weight 8: seated R LAQ with 1.5# weight 2x10 9: repeated sit to stand from chair 2x10 10: R forward step ups on 4 step in // bars 2x10 11: R lateral step ups on 4 step in // bars 2x10 12: supine R SKTC 3x30 seconds Skilled Intervention: Patient was educated in proper exercise technique and purpose for exercises. Skilled judgment was used in selection of appropriate interventions. Correct performance of therapeutic exercises was facilitated with verbal, visual, and tactile cuing. Patient education as noted. Gait Trainin: Gait training was done with cane with verbal cues and demonstration. Pt was encouraged to continue with heel to toe pattern. Cane options were discussed and recommendations made. Skilled Intervention: Facilitated proper gait cycle with the use of verbal and visual cues for correction of gait deviations identified in the objective section above. Skilled judgment used to assess selection, proper sizing, and proper use of assistive device. Billing Therapeutic Exercise Treatment Minutes: 43 Gait Training Treatment Minutes: 5 Skilled Treatment Time Minutes (timed and untimed codes): 48 Total Session Time (minutes): 48 Session Start Time : 1813 Session Stop Time : 1901 Mathew Hays PT [facility] 12-16-2023 History of Presen t illness Narrative Episode Visit Count: 3 Therapist That Will Accept/Oversee The Plan Of Care: Mathew Hays PT Start of Care Date: 12/07/23 Onset Date: 12/06/13 Plan of Care Certification Date: 12/07/23 Next Certification Due Date: 02/01/24 Patient Identified by Name and Date of : Yes REHABILITATION AND SPORTS THERAPY PHYSICAL THERAPY TREATMENT NOTE ASSESSMENT: Sonny Biggs tolerated the session with fatigue, decreased symptoms, and expected muscle soreness. She demonstrated improvements in gait, ROM and exercise tolerance. The patient will continue to benefit from ongoing skilled physical therapy to progress toward set goals. PLAN FOR NEXT VISIT: Review, correct and progress HEP to tolerance. Continue comprehensive therex to address R knee/LE ROM and strength. 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 Gait training prn. SUBJECTIVE: Pt reports that her R knee is getting progressively better and that she is getting progressively more confident in her ability to walk. She reports progressively less use of FWW at home. She reports compliance with HEP 2x day. She reports that radicular symptoms in R LE persist, especially posterior lateral corner of R knee. Pain: Pain Pain Level: 0 Pain Location: Knee - Right Description: (no pain in R knee to start today.) Frequency: Intermittent Post Treatment Pain Post Treatment Pain Level: Better Post Treatment Pain Location: Knee - Right Post Treatment Symptoms: As pt was leaving, she reported feeling better and that the therex loosened things up. OBJECTIVE MEASURES WITH LEVEL OF FUNCTION: LE AROM R LE AROM: supine R Knee Extension: -5 Degrees R Knee Flexion: 118 Degrees DVT Screening/Testing Screening/Testing: Rose Marie Cravenn's Sign: Right Negative, Left Negative Gait Gait Observation: Pt arrives with cane with nearly normalized pattern that is only intermittently lacking heel to toe. Step asymmetry is also improved.with only intermittent short L step length. TREATMENT: Therapeutic Exercise: 1: [employer] StepOne seat #12 x6 minutes (Pt provided an update on her condition and plan of care reviewed. Pt was educated on the etiology of lumbar radicular symptoms. A model of the spine was used to clarify education.) 2: supine ankle pumps 2x20 3: supine quad sets with heel propped to facilitate quad activation and knee ext ROM 2x10 4: supine heel slides to facilitate flexion ROM 2x10 with green strap 5: supine R SLR 2x10 with 1.5# ankle weight 6: L sidelying R hip abduction without weight 2x10 7: L sidelying R hip clam shells 2x10 without weight 8: seated R LAQ with 1.5# weight 2x10 9: repeated sit to stand from chair 2x10 10: R forward step ups on 4 step in // bars 2x10 11: R lateral step ups on 4 step in // bars 2x10 12: supine R SKTC 3x30 seconds Skilled Intervention: Patient was educated in proper exercise technique and purpose for exercises. Skilled judgment was used in selection of appropriate interventions. Correct performance of therapeutic exercises was facilitated with verbal, visual, and tactile cuing. Patient education as noted. Gait Trainin: Gait training was done with cane with verbal cues and demonstration. Pt was encouraged to continue with heel to toe pattern. Cane options were discussed and recommendations made. Skilled Intervention: Facilitated proper gait cycle with the use of verbal and visual cues for correction of gait deviations identified in the objective section above. Skilled judgment used to assess selection, proper sizing, and proper use of assistive device. Billing Therapeutic Exercise Treatment Minutes: 43 Gait Training Treatment Minutes: 5 Skilled Treatment Time Minutes (timed and untimed codes): 48 Total Session Time (minutes): 48 Session Start Time : 1813 Session Stop Time : 1901 Mathew Hays PT documented in this encounter [facility] 12-09-2023 Note HNO ID: [id number] Author: MATHEW HAYS PT Service: ? Author Type: Physical Therapist Type: Progress Notes Filed: 12/09/2023 15:50 Note Text: Episode Visit Count: 2 Therapist That Will Accept/Oversee The Plan Of Care: Mathew Hays PT Start of Care Date: 12/07/23 Onset Date: 12/06/13 Plan of Care Certification Date: 12/07/23 Next Certification Due Date: 02/01/24 Patient Identified by Name and Date of : Yes REHABILITATION AND SPORTS THERAPY PHYSICAL THERAPY TREATMENT NOTE ASSESSMENT: Sonny Biggs tolerated the session with fatigue, decreased symptoms, and no issues. She demonstrated improvements in ROM, gait and exercise tolerance. The patient will continue to benefit from ongoing skilled physical therapy to progress toward set goals. PLAN FOR NEXT VISIT: Review, correct and progress HEP to tolerance. Continue comprehensive therex to address R knee/LE ROM and strength. MCC goal is to return to prior functional level without limitations. Gait training prn. SUBJECTIVE: Pt reports that since last session, she is better in some ways and worse in some ways. She reports that the pain at posterior lateral R knee and wraps around to front of wilson is worse since evaluation. She feels that the R knee itself is improving. She reports compliance with HEP 2x day. She reports that she has gone back to using the FWW because of the increased radicular pain at posterior lateral R knee. Pt reports that medial L calf is much less tender today than Thursday. Pain: Pain Pain Level: 5 Pain Location: Knee - Right (posterior lateral R knee and proximal lower leg) Description: Aching Frequency: Continuous Post Treatment Pain Post Treatment Pain Level: Better Post Treatment Pain Location: Knee - Right Post Treatment Symptoms: After session pt reported that her posterior lateral R knee pain was noticeably less. OBJECTIVE MEASURES WITH LEVEL OF FUNCTION: Knee Observations R Knee Palpation Tenderness: (much less tenderness at medial calf) LE AROM R LE AROM: supine after stretching R Knee Extension: -3 Degrees R Knee Flexion: 114 Degrees Special Tests - Hip and Spine Hip and Spine Special Tests: SLR Test SLR Test: Right Positive (R SLR reproduced her familiar pain at posterior lateral R knee) DVT Screening/Testing Screening/Testing: Rose Marie Cravenn's Sign: Right Negative, Left Negative (medial R calf is matrix drier tender but much less than it was 12/07/23 and still no redness, heat or swelling.) Gait Gait Observation: Pt arrives with FWW with normal gait pattern TREATMENT: Therapeutic Exercise: 1: [employer] StepOne seat #12 x6 minutes (Pt provided an update on her condition and plan of care reviewed.) 2: supine ankle pumps 2x20 3: supine quad sets with heel propped to facilitate quad activation and knee ext ROM 2x10 4: supine heel slides to facilitate flexion ROM 2x10 5: supine R SLR 2x10 6: supine gravity stretch for R knee extension x2 minutes with 3# weight 7: supine gravity stretch for R knee flexion without weight x3 minutes (therapist arm behind distal R thigh and in front of distal L thigh) 8: R heel slides with assistance of green strap 2x10 9: L sidelying R hip abd SLR 2x10 Skilled Intervention: Patient was educated in proper exercise technique and purpose for exercises. Skilled judgment was used in selection of appropriate interventions. Correct performance of therapeutic exercises was facilitated with verbal, visual, and tactile cuing. Patient education as noted. Gait Trainin: Gait training was done with FWW with verbal cues and demonstration. Pt was educated on proper transfer technique sit to stand and stand to sit. Proper hand placement was emphasized for both directions. Walker height raised one notch. Skilled Intervention: Facilitated proper gait cycle with the use of verbal and visual cues for correction of gait deviations identified in the objective section above. Skilled judgment used to assess selection, proper sizing, and proper use of assistive device. Billing Therapeutic Exercise Treatment Minutes: 40 Gait Training Treatment Minutes: 5 Skilled Treatment Time Minutes (timed and untimed codes): 45 Total Session Time (minutes): 45 Session Start Time : 1000 Session Stop Time : 1045 Mathew Hays PT [facility] 12-09-2023 History of Presen t illness Narrative Episode Visit Count: 2 Therapist That Will Accept/Oversee The Plan Of Care: Mathew Hays PT Start of Care Date: 12/07/23 Onset Date: 12/06/13 Plan of Care Certification Date: 12/07/23 Next Certification Due Date: 02/01/24 Patient Identified by Name and Date of : Yes REHABILITATION AND SPORTS THERAPY PHYSICAL THERAPY TREATMENT NOTE ASSESSMENT: Sonny Biggs tolerated the session with fatigue, decreased symptoms, and no issues. She demonstrated improvements in ROM, gait and exercise tolerance. The patient will continue to benefit from ongoing skilled physical therapy to progress toward set goals. PLAN FOR NEXT VISIT: Review, correct and progress HEP to tolerance. Continue comprehensive therex to address R knee/LE ROM and strength. MCC goal is to return to prior functional level without limitations. Gait training prn. SUBJECTIVE: Pt reports that since last session, she is better in some ways and worse in some ways. She reports that the pain at posterior lateral R knee and wraps around to front of wilson is worse since evaluation. She feels that the R knee itself is improving. She reports compliance with HEP 2x day. She reports that she has gone back to using the FWW because of the increased radicular pain at posterior lateral R knee. Pt reports that medial L calf is much less tender today than Thursday. Pain: Pain Pain Level: 5 Pain Location: Knee - Right (posterior lateral R knee and proximal lower leg) Description: Aching Frequency: Continuous Post Treatment Pain Post Treatment Pain Level: Better Post Treatment Pain Location: Knee - Right Post Treatment Symptoms: After session pt reported that her posterior lateral R knee pain was noticeably less. OBJECTIVE MEASURES WITH LEVEL OF FUNCTION: Knee Observations R Knee Palpation Tenderness: (much less tenderness at medial calf) LE AROM R LE AROM: supine after stretching R Knee Extension: -3 Degrees R Knee Flexion: 114 Degrees Special Tests - Hip and Spine Hip and Spine Special Tests: SLR Test SLR Test: Right Positive (R SLR reproduced her familiar pain at posterior lateral R knee) DVT Screening/Testing Screening/Testing: Homans Kathy's Sign: Right Negative, Left Negative (medial R calf is matrix drier tender but much less than it was 12/07/23 and still no redness, heat or swelling.) Gait Gait Observation: Pt arrives with FWW with normal gait pattern TREATMENT: Therapeutic Exercise: 1: [employer] StepOne seat #12 x6 minutes (Pt provided an update on her condition and plan of care reviewed.) 2: supine ankle pumps 2x20 3: supine quad sets with heel propped to facilitate quad activation and knee ext ROM 2x10 4: supine heel slides to facilitate flexion ROM 2x10 5: supine R SLR 2x10 6: supine gravity stretch for R knee extension x2 minutes with 3# weight 7: supine gravity stretch for R knee flexion without weight x3 minutes (therapist arm behind distal R thigh and in front of distal L thigh) 8: R heel slides with assistance of green strap 2x10 9: L sidelying R hip abd SLR 2x10 Skilled Intervention: Patient was educated in proper exercise technique and purpose for exercises. Skilled judgment was used in selection of appropriate interventions. Correct performance of therapeutic exercises was facilitated with verbal, visual, and tactile cuing. Patient education as noted. Gait Trainin: Gait training was done with FWW with verbal cues and demonstration. Pt was educated on proper transfer technique sit to stand and stand to sit. Proper hand placement was emphasized for both directions. Walker height raised one notch. Skilled Intervention: Facilitated proper gait cycle with the use of verbal and visual cues for correction of gait deviations identified in the objective section above. Skilled judgment used to assess selection, proper sizing, and proper use of assistive device. Billing Therapeutic Exercise Treatment Minutes: 40 Gait Training Treatment Minutes: 5 Skilled Treatment Time Minutes (timed and untimed codes): 45 Total Session Time (minutes): 45 Session Start Time : 1000 Session Stop Time : 104 Mathew Hays PT documented in this encounter [facility] 12-07-2023 Note HNO ID: [id number] Author: MATHEW HAYS PT Service: ? Author Type: Physical Therapist Type: Progress Notes Filed: 12/07/2023 23:19 Note Text: Episode Visit Count: 1 Therapist That Will Accept/Oversee The Plan Of Care: Mathew Hays PT Start of Care Date: 12/07/23 Onset Date: 12/06/13 Plan of Care Certification Date: 12/07/23 Next Certification Due Date: 02/01/24 Patient Identified by Name and Date of : Yes REHABILITATION AND SPORTS THERAPY PHYSICAL THERAPY EVALUATION PLAN OF CARE: Assessment: Sonny Biggs presents with diagnosis of s/p R TKA that interferes with walking, stair negotiation, rising from a chair, squatting. She presents with impairments in ADL's, balance, coordination, gait, independence in exercise, overall function, range of motion, soft tissue healing, strength, symptom management, and tissue tenderness. PROMIS? (Patient-Reported Outcomes Measurement Information System) scores were reviewed and identified as a rehabilitation concern. Prognosis for therapy is Excellent due to: current objective clinical presentation, good overall health status, positive past response to therapy, within-session changes, acuteness of condition, good support system/ coping skills. She will benefit from skilled therapy services to meet the goals established for this plan of care as noted below. Goals for Episode of Care: created on 12/07/23 through 02/01/24 Iron in home exercise program. Patient will decrease pain to 0/10 at rest and with functional activities to allow patient to improve ambulation and transfers. Patient will increase active ROM of R knee to WFL, symmetrical and pain-free to allow pt to to improve performance of ADLs and to improve gait mechanics / gait pattern . Patient will demonstrate increase in R LE strength to 5/5 during manual muscle testing in order to improve function for prior functional tasks. Perform rising, stairs, squatting and walking without pain. Normal gait. Reciprocal stair negotiation. Patient Goals: Increase activity level and resume all prior activities without limitations. Planned Interventions, Frequency, and Duration: Current Frequency: 2x/week Duration: 8 weeks Total Number of Visits Planned: 16 Planned Treatment Interventions: Therapeutic exercise (85708), Neuromuscular re-education (39431), Manual therapy (87656), Therapeutic activities (18664), Self-senior living management (50104), Gait Training ([id number]), Patient/Family/Caregiver Education, Body Mechanics Training, General Conditioning, Functional training PLAN FOR NEXT VISIT: Review, correct and progress HEP to tolerance. Begin comprehensive therex to address R knee/LE ROM and strengt. 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 Gait training. Patient demonstrates good understanding of plan of care and treatment. The above goals and plan of care were discussed and agreed upon by patient/family. SUBJECTIVE: Pt is here for post-op rehab following R TKA 3 weeks ago. She had L TKA 8 years ago. She reports intermittent pain in R knee that is aggravated at night. She reports one night in hospital as inpatient but she was discharged home the day after surgery. She received home care PT for 2 weeks and overall is very pleased with her progress. She reports using cane, rollator, FWW and standard walker. She has not been using assistive device at home because she is furniture walking. Patient Goals: Increase activity level and resume all prior activities without limitations. Functional Limitations: walking, stair negotiation, rising from a chair, squatting Prior Level of Function: Independent without limitations Relevant History Past Relevant Surgical Conditions: Total Knee Replacement-Left, Rotator Cuff Repair-Right (L TKA 8 years ago, R shoulder RTC repair and fracture with surgery 2 years ago) Employment: Retired Home Environment Patient Lives With: Self/Alone Assistance Available: PRN Home Type: Ranch Entry To Home: Stairs, With Rail Number Of Stairs Into Home: 3 Tub/Shower Type: walk in shower with shower chair, and hand held shower Laundry: main level Equipment Owned: Hand Held Shower, Shower Chair, Commode- Raised, Walker- Standard, Cane, Rollator, Walker- Wheeled (bicycle) Intake Information: Prescription present Previous Treatment: Surgery , Physical Therapy , Home Therapy Pain: Pain Pain Level: 4 (4/10 currently) Pain Location: Knee - Right Description: Aching, Shooting Frequency: Intermittent Post Treatment Pain Post Treatment Pain Level: Better Post Treatment Pain Location: Knee - Right Post Treatment Symptoms: After session and as she was leaving, pt reported that her R knee felt noticeably better. She attributes the improvements to movement and use. PROMIS Scales 12/06/2023 Higher is Better Phys Func - Score 24 (severe dysfunction) Phys Func - Percentile 0 Self-Eff (more content not included)... [facility] 12-07-2023 History of Presen t illness Narrative Images from the original note were not included. Episode Visit Count: 1 Therapist That Will Accept/Oversee The Plan Of Care: Mathew Hays PT Start of Care Date: 12/07/23 Onset Date: 12/06/13 Plan of Care Certification Date: 12/07/23 Next Certification Due Date: 02/01/24 Patient Identified by Name and Date of : Yes REHABILITATION AND SPORTS THERAPY PHYSICAL THERAPY EVALUATION PLAN OF CARE: Assessment: Sonny Biggs presents with diagnosis of s/p R TKA that interferes with walking, stair negotiation, rising from a chair, squatting. She presents with impairments in ADL's, balance, coordination, gait, independence in exercise, overall function, range of motion, soft tissue healing, strength, symptom management, and tissue tenderness. PROMIS (Patient-Reported Outcomes Measurement Information System) scores were reviewed and identified as a rehabilitation concern. Prognosis for therapy is Excellent due to: current objective clinical presentation, good overall health status, positive past response to therapy, within-session changes, acuteness of condition, good support system/ coping skills. She will benefit from skilled therapy services to meet the goals established for this plan of care as noted below. Goals for Episode of Care: created on 12/07/23 through 02/01/24 Iron in home exercise program. Patient will decrease pain to 0/10 at rest and with functional activities to allow patient to improve ambulation and transfers. Patient will increase active ROM of R knee to WFL, symmetrical and pain-free to allow pt to to improve performance of ADLs and to improve gait mechanics / gait pattern . Patient will demonstrate increase in R LE strength to 5/5 during manual muscle testing in order to improve function for prior functional tasks. Perform rising, stairs, squatting and walking without pain. Normal gait. Reciprocal stair negotiation. Patient Goals: Increase activity level and resume all prior activities without limitations. Planned Interventions, Frequency, and Duration: Current Frequency: 2x/week Duration: 8 weeks Total Number of Visits Planned: 16 Planned Treatment Interventions: Therapeutic exercise (10210), Neuromuscular re-education (87666), Manual therapy (21636), Therapeutic activities (33084), Self-senior living management (04816), Gait Training (78896), Patient/Family/Caregiver Education, Body Mechanics Training, General Conditioning, Functional training PLAN FOR NEXT VISIT: Review, correct and progress HEP to tolerance. Begin comprehensive therex to address R knee/LE ROM and strengt. MCC goal is to return to prior functional level without limitations. Gait training. Patient demonstrates good understanding of plan of care and treatment. The above goals and plan of care were discussed and agreed upon by patient/family. SUBJECTIVE: Pt is here for post-op rehab following R TKA 3 weeks ago. She had L TKA 8 years ago. She reports intermittent pain in R knee that is aggravated at night. She reports one night in hospital as inpatient but she was discharged home the day after surgery. She received home care PT for 2 weeks and overall is very pleased with her progress. She reports using cane, rollator, FWW and standard walker. She has not been using assistive device at home because she is furniture walking. Patient Goals: Increase activity level and resume all prior activities without limitations. Functional Limitations: walking, stair negotiation, rising from a chair, squatting Prior Level of Function: Independent without limitations Relevant History Past Relevant Surgical Conditions: Total Knee Replacement-Left, Rotator Cuff Repair-Right (L TKA 8 years ago, R shoulder RTC repair and fracture with surgery 2 years ago) Employment: Retired Home Environment Patient Lives With: Self/Alone Assistance Available: PRN Home Type: Ranch Entry To Home: Stairs, With Rail Number Of Stairs Into Home: 3 Tub/Shower Type: walk in shower with shower chair, and hand held shower Laundry: main level Equipment Owned: Hand Held Shower, Shower Chair, Commode- Raised, Walker- Standard, Cane, Rollator, Walker- Wheeled (bicycle) Intake Information: Prescription present Previous Treatment: Surgery , Physical Therapy , Home Therapy Pain: Pain Pain Level: 4 (10 currently) Pain Location: Knee - Right Description: Aching, Shooting Frequency: Intermittent Post Treatment Pain Post Treatment Pain Level: Better Post Treatment Pain Location: Knee - Right Post Treatment Symptoms: After session and as she was leaving, pt reported that her R knee felt noticeably better. She attributes the improvements to movement and use. PROMIS Scales 12/06/2023 Higher is Better Phys Func - Score 24 (severe dysfunction) Phys Func - Percentile 0 Self-Eff Symptom - Score 49 (Average) Self-Eff Symptom - Percentile 46 T-scores: mean of general population = 50. 5 points is clinically meaningfully difference Percentiles provide an indication of how the patient's score ranks in relation to the general population. Higher percentile rankings indicate better function/quality of life. 50th percentile is the average of the general population and indicates half of respondents had a worse score. OBJECTIVE MEASURES WITH LEVEL OF FUNCTION: Knee Observations R Knee Presents with: Incision, Swelling R Swelling: expected swelling is present R Incision: well healed surgical incision at anterior midline of R knee R Knee Palpation Tenderness: (medial calf) Knee Brace: None LE AROM R LE AROM: supine L LE AROM: supine R Knee Extension: -5 Degrees R Knee Flexion: 104 Degrees L Knee Extension: 4 Degrees L Knee Flexion: 122 Degrees LE Strength R LE Strength: MMT deferred but pt post-op status, reported functional difficulties and her plans to return to a high level of function indicate that she will benefit from increased strength of R knee and LE DVT Screening/Testing Screening/Testing: Homans Kathy's Sign: Left Negative, Right Negative (Pt reported considerable tenderness at medial right calf but no redness, heat or swelling of calf. This finding was reported to referring provider.) Gait Gait Observation: Pt ambulates with standard cane in L hand but cane is too tall and is not adjustable. An order was requested for a new cane. She has slightly asymmetrical step lengths with L shorter. Heel to toe pattern is sufficient. Stairs: Not tested but pt reports an inability to do correctly. Vitals BP: 135/82 Pulse: 79 Education: Education Learning Preferences: Demonstration, Explanation, Performance, Printed Materials Barriers: None Learning/educational needs: Safety, Gait Training, Plan of Care, Home exercise program, Procedure / Surgery Education Provided: Yes, see treatment interventions for education provided Education Provided To: Patient Education Mode/Type: Demonstration, Explanation/Discussion, Literature/Printed Materials, Performance Response to Education/Teach Back: States/Identifies, Return Demonstration, Requires Review/Additional Education TREATMENT: PT Treatment Interventions: Therapeutic Exercise, Gait Training Evaluation Therapeutic Exercise: 1: Pt was educated on the anatomy of her R knee, surgical procedure and all of her questions were answered and recommendations made. She was advised to use cane at all times and walker on uneven terrain. She was advised not to drive until approved by surgeon. 2: *supine ankle pumps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 Dose Route Frequency scopolamine - VERIFY patch OTHER q 8 H scopolamine - REMOVE PATCH OTHER ONCE NaCl 0.9% iv flush bag 20 mL INTRAVENOUS PRN lactated ringers iv infusion 75 mL/hr INTRAVENOUS CONTINUOUS oxyCODONE IR 5-10 mg tab(s) (ROXICODONE) 5-10 mg ORAL q 4 H PRN HYDROmorphone 0.2 mg injection (DILAUDID) 0.2 mg INTRAVENOUS q 3 H PRN acetaminophen 1,000 mg tab(s) (TYLENOL) 1,000 mg ORAL q 8 H keTORolac 15 mg injection (Toradol) 15 mg INTRAVENOUS q 6 H ondansetron orally disintegrating 4 mg tab(s) (ZOFRAN ODT) 4 mg ORAL q 6 H PRN Or ondansetron (PF) 4 mg injection (ZOFRAN) 4 mg INTRAVENOUS q 6 H PRN polyethylene glycol 3350 17 g packet 17 g ORAL DAILY PRN [START ON 11/18/2023] bisacodyl EC 10 mg tab(s) (DULCOLAX) 10 mg ORAL DAILY ascorbic acid (vitamin C) 500 mg tab(s) (VITAMIN C) 500 mg ORAL BID w MEALS docusate sodium 100 mg cap(s) (COLACE) 100 mg ORAL BID senna 17.2 mg tab(s) (SENOKOT) 17.2 mg ORAL AT BEDTIME aspirin, enteric coated 81 mg tab(s) 81 mg ORAL BID lisinopril 40 mg tab(s) (ZESTRIL) 40 mg ORAL DAILY albuterol 2.5 mg /3 mL (0.083 %) 2.5 mg (PROVENTIL) 2.5 mg INHALATION q 6 H PRN propranolol 10 mg tab(s) (INDERAL) 10 mg ORAL TID FLUoxetine 20 mg cap(s) (PROzac) 20 mg ORAL DAILY doxycycline hyclate 100 mg cap(s) (VIBRAMYCIN) 100 mg ORAL q 12 H 6a/6p PHYSICAL EXAM: Patient Vitals for the past 24 hrs: BP Temp Temp src Pulse Resp SpO2 Height Weight 11/17/23 0904 -- -- -- 62 -- -- -- -- 11/17/23 0821 136/72 -- -- (!) 54 -- 97 % -- -- 11/17/23 0813 129/64 -- -- (!) 58 -- 98 % -- -- 11/17/23 0811 139/96 -- -- (!) 55 -- 97 % -- -- 11/17/23 0349 144/74 -- Oral (!) 59 16 93 % -- -- 11/17/23 0053 152/82 -- -- -- -- -- -- -- 11/17/23 0022 163/79 -- Oral (!) 56 16 95 % -- -- 11/16/232052 155/90 36.3 ?C (97.3 ?F) Oral 61 16 97 % -- -- 11/16/232023 151/94 36.4 ?C (97.5 ?F) Oral 61 16 96 % -- -- 11/16/231958 -- -- -- -- -- -- 165.1 cm (5' 5) 100.6 kg (221 lb 12.5 oz) 11/16/23 1950 177/96 (!) 35.7 ?C (96.3 ?F) -- 66 -- 98 % -- -- 11/16/231933 -- 36.3 ?C (97.3 ?F) Temporal 67 10 96 % -- -- 11/16/231929 171/88 -- -- 67 10 95 % -- -- 11/16/23 1915 170/97 -- -- 73 18 96 % -- -- 11/16/23 1900 167/84 -- -- 70 8 95 % -- -- 11/16/23 1845 172/91 -- -- 73 9 94 % -- -- 11/16/23 1830 171/89 -- -- 73 8 92 % -- -- 11/16/23 1815 170/86 -- -- 77 9 94 % -- -- 11/16/23 1800 171/82 -- -- 73 8 92 % -- -- 11/16/23 1745 171/82 -- -- 73 7 93 % -- -- 11/16/23 1730 170/83 -- -- 75 7 94 % -- -- 11/16/23 1716 173/81 -- -- 76 7 94 % -- -- 11/16/23 1715 181/84 -- -- 76 7 94 % -- -- 11/16/23 1700 158/87 -- -- 78 8 93 % -- -- 11/16/23 1645 152/82 -- -- 79 7 94 % -- -- 11/16/23 1630 151/85 -- -- 81 9 98 % -- -- 11/16/23 1615 143/83 -- -- 82 8 97 % -- -- 11/16/23 1606 134/63 36.4 ?C (97.5 ?F) Temporal 87 8 98 % -- -- 11/16/23 1310 140/77 -- -- (!) 56 19 96 % -- -- 11/16/23 1305 174/75 -- -- (!) 56 14 96 % -- -- 11/16/23 1300 174/77 -- -- (!) 57 22 95 % -- -- 11/16/23 1255 185/78 -- -- (!) 59 22 96 % -- -- 11/16/23 1250 (!) 224/90 -- -- (!) 58 (!) 33 98 % -- -- 11/16/23 1221 147/80 36.1 ?C (97 ?F) Temporal 62 20 97 % -- -- Body mass index is 36.91 kg/m?. GENERAL: Alert, no distress, cooperative NECK: No jugulovenous distention LUNGS: Lungs clear to auscultation, CARDIAC: Normal S1 and S2; no rubs, murmurs, or gallops ABDOMEN: Abdomen soft, non-tender, BS normal, No masses or organomegaly EXTREMITIES: no edema, no calf tenderness CBC: Recent Labs 11/17/23 0711 WBC 13.97* RBC 3.99 HB 12.5 HCT 39.2 PLT 201 MCV 98.2 MCH 31.3 MPV 12.6 Coags: CMP: Recent Labs 11/17/23 0711 NA 137 K 4.9 CHLOR 102 CO2 25 BUN 16 CREAT 0.67 GLUC 152* CA 9.1 ANION 10 SIGNATURE: Sanjiv Galloway MD [facility] 11-17-2023 Miscellaneous Notes Date/Time: 11/17/2023 10:26 AM Spoke with Patient @ phone #: [phone] - Preferred # for contact: [phone] Have you received help from a home care company in the last 60 days? No Are you agreeable to [facility] services? Yes What address will we be seeing you at? [address] [place] [address] Do you have any upcoming appointments or things we need to schedule around? No Do you have a teachable CG or can you manage your care independently? Yes documented in this encounter [facility] 11-17-2023 Note HNO ID: [id number] Author: BRYSON WHITE PA-C Service: Orthopaedic Surgery Author Type: Physician Public Information Specialist Type: Progress Notes Filed: 11/17/2023 08:20 Note Text: POSTOP NOTE ORTHOPAEDIC SURGERY SERVICE DATE: 11/17/2023 SERVICE TIME: 8:18 AM IMPRESSION/PLAN: S/P Procedure(s) (LRB): ROBOTIC ASSISTED TOTAL KNEE ARTHROPLASTY (Right) on 11/16/2023 Physical Therapy evaluation WBAT RLE DVT prophylaxis: Intermittent pneumatic compression device (IPCD) and ASA 81 BID Pain control Dressing: prevena x 1 week then silverlon x 1 week Antibiotics: doxy 100 mg BID x 2 weeks Case Management for discharge planning Plan of care discussed with: Provider, RN, Patient. Patient Active Hospital Problem List: No active hospital problems. POST OPERATIVE COMPLICATIONS: Complicated by uneventful/none SUBJECTIVE: Patient states that they are comfortable Well Controlled knee pain. Denies incisional pain. OBJECTIVE: VITAL SIGNS: BP 139/96 Pulse (!) 55 Temp 36.3 ?C (97.3 ?F) (Oral) Resp 16 Ht 165.1 cm (5' 5) Wt 100.6 kg (221 lb 12.5 oz) SpO2 97% BMI 36.91 kg/m? INTAKE AND OUTPUT: Intake/Output Summary (Last 24 hours) at 11/17/2023 0818 Last data filed at 11/17/2023 0554 Gross per 24 hour Intake 2664 ml Output 800 ml Net 1864 ml LABS: Hemoglobin Date Value Ref Range Status 11/17/2023 12.5 11.5 - 15.5 g/dL Final 11/06/2023 12.7 11.5 - 15.5 g/dL Final Hematocrit Date Value Ref Range Status 11/17/2023 39.2 36.0 - 46.0 % Final 11/06/2023 40.2 36.0 - 46.0 % Final Platelet Count Date Value Ref Range Status 11/17/2023 201 150 - 400 k/uL Final 11/06/2023 233 150 - 400 k/uL Final WBC Date Value Ref Range Status 11/17/2023 13.97 (H) 3.70 - 11.00 k/uL Final 11/06/2023 8.27 3.70 - 11.00 k/uL Final Creatinine Date Value Ref Range Status 11/06/2023 0.81 0.58 - 0.96 mg/dL Final 08/15/2023 0.80 0.58 - 0.96 mg/dL Final Potassium Date Value Ref Range Status 11/06/2023 4.6 3.7 - 5.1 mmol/L Final 08/15/2023 5.1 3.7 - 5.1 mmol/L Final VTE Prophylaxis: Active VTE Risk Category Order: 11/16/232029 VTE RISK CATEGORY: SURGICAL HIGH RISK ([place], [place]) Active VTE Medication Orders: Anticoagulant AND Antiplatelet Medications (From admission, onward) Start Dose Route Frequency Last Action Ordered Stop 11/17/23 0900 aspirin, enteric coated 81 mg tab(s) (Surgical Risk Categories) 81 mg ORAL 2 TIMES DAILY Ordered 11/16/232022 -- Active VTE Prophylaxis Orders: 11/16/232029 PNEUMATIC COMPRESSION STOCKINGS ([place], [place]) 11/16/232029 ACTIVITY - MOBILIZE PATIENT ([place], [place]) PHYSICAL EXAMINATION: Right Lower Extremity: Dorsalis pedis pulses palpable. Posterior tibial pulses palpable. Dorsi flexion 5/5. Plantar flexion 5/5. Extensor hallucis extension: 5/5. Sensory intact to light touch L4-S1. Prevena wound vac functioning; dressing clean, dry, and intact. Surgical site no drainage. Problem Review and Assessment: Skin and Abdominal Wall: Patient monitored, no new events overnight Cardiovascular and Vascular: Patient monitored, no new events overnight Respiratory: Patient monitored, no new events overnight Endocrine and Metabolic: Patient monitored, no new events overnight Gastrointestinal: Patient monitored, no new events overnight Genitourinary and Nephrology: Patient monitored, no new events overnight Behavioral, Cerebrovascular and Nervous: Patient monitored, no new events overnight Infectious: Patient monitored, no new events overnight DATA: Diagnostic tests reviewed for today's visit: Most recent labs and imaging results. SIGNATURE: Bryson White PA-C PATIENT NAME: Sonny Biggs DATE: November 17, 2023 TIME: 8:18 AM The patient has undergone major orthopedic surgery and participating in therapy. Pain cannot be managed within an average of 30 MED per day. Patient requiring average of higher than 30 MED per day in order to control pain and allow patient to actively and safely participate in therapy and this is the lowest dose consistent with patient's medical condition. Non-narcotic medication options have been discussed. In addition, the patient has been advised of the benefits and risks of the opioid (including the potential for addiction). Patient demonstrated understanding of risks versus benefits. [facility] 11-16-2023 Note HNO ID: [id number] Author: AVANI MONTOYA SRNA Service: Anesthesiology Author Type: Student Type: Anesthesia Procedure Notes Filed: 11/16/2023 13:48 Note Text: ANESTHESIOLOGY PROCEDURE NOTE Airway General Information Procedure Start Time/Medication Administration: 11/16/2023 1:25 PM Procedure End Time: 11/16/2023 1:26 PM Patient location during procedure: OR Patient identity confirmed: arm band and patient sedated or unresponsive Staffing Anesthesiologist: Ezra Joaquin MD SRNA: Avani Montoya SRNA Performed by: SMITH Indications and Patient Condition Indications for airway management: anesthesia Preoxygenated: yes anesthesia circuit Patient position: sniffing Method: asleep Difficult Mask: No Final Airway Details Final airway type: supraglottic airway Number of attempts at approach: 1 Final Supraglottic Airway: i-gel Size 4 Seal Adequate: yes Airway trauma: none. Airway not difficult SIGNATURE: SMITH Bocanegra PATIENT NAME: Sonny Biggs DATE: November 16, 2023 TIME: 1:47 PM CSN: [id number] [facility] 11-16-2023 Note HNO ID: [id number] Author: EZRA JOAQUIN MD Service: Anesthesiology Author Type: Anesthesiologist Type: Anesthesia Procedure Notes Filed: 11/16/2023 13:09 Note Text: ANESTHESIOLOGY PROCEDURE NOTE Peripheral Nerve Block General Information Procedure Start Time/Medication Administration: 11/16/2023 1:02 PM Procedure End time: 11/16/2023 1:07 PM Patient location during procedure: induction room Timeout Performed Pre-procedure: timeout performed Consent Obtained: Yes Patient identity confirmed: arm band and patient Reason for block: post-op pain management/at surgeon's request Staffing Anesthesiologist: Ezra Joaquin MD Performed by: anesthesiologist Preparation Sterility Preparation: hand hygiene performed prior to procedure, sterile gloves, drapes, and procedure tray, surgical cap used, mask used, sterile drape used during line insertion, skin prep agent completely dried prior to procedure Site Prep: Chloraprep Pre-Procedure Neuro Exam Location: RLE Sensory: intact Motor: intact Procedure Details Patient Position: supine Monitoring: Pulse OX, EKG and NIBP Block Type Lower Extremity: distal femoral (adductor canal) Laterality: right Injection Technique: single-shot Ultrasound Guided: Yes Image in Chart: yes Local Infiltration: Yes Needle Needle Type: echogenic Needle Gauge: 22 G Needle Length: 100 mm Needle Localization: ultrasound Assessment Injection assessment: negative aspiration, no paresthesia on injection, incremental injection and local visualized surrounding nerve on ultrasound Post-Procedure Neuro Exam Expected Regional Anesthesia: Yes Medications Administered dexamethasone sodium phosphate injection (DECADRON) - peripheral nerve block 4 mg - 11/16/2023 1:02:00 PM ropivacaine (PF) 5 mg/mL (0.5 %) injection (NAROPIN) - peripheral nerve block 20 mL - 11/16/2023 1:02:00 PM SIGNATURE: Ezra Joaquin MD PATIENT NAME: Sonny Biggs DATE: November 16, 2023 TIME: 1:09 PM CSN: [id number] [facility] 11-11-2023 Miscellaneous Notes Spoke with patient and the following results were discussed: LDCT Lung Screen Results LungRADS category: 2 Incidentals: multiple healing right rib fractures Recommendations: Continue annual screening with LDCT in 12 months Patient verbalized understanding of the results and had no other questions or concerns at this time. Jovon Zee APRN.CNP November 11, 2023 4:42 PM documented in this encounter [facility] 11-11-2023 Instructions Jovon Zee APRN.CNP - 11/11/2023 11:20 AM EDT Lung nodule/s: all previously seen nodule/s have not changed in size or characteristic/resolved and there are no new nodules of concern. Please return in one year for the following 2 visits on the same day: Annual low-dose CT chest Lung cancer screening Provider visit. This recommendation is subject to change pending the final report from radiology. I will notify you of the final radiology report recommendations when available by [employer] message, letter, or phone call. We will also notify your referring provider/PCP of the results and recommendations. If you didn t schedule this before you left the office or need to reschedule, you can call in to schedule it anytime: [facility] [place] [phone] [facility] [phone] All other [facility] locations [phone] Feel free to reach out for any questions or concerns, Jovon Zee APRN.CNP Lung Cancer Screening [phone] documented in this encounter [facility] 11-11-2023 Note HNO ID: [id number] Author: SANGEETA GASPAR, CT Service: Radiology Author Type: Technologist Type: Progress Notes Filed: 11/11/2023 10:02 Note Text: Radiology Service Progress Note PATIENT NAME: Sonny Biggs DATE OF SERVICE: November 11, 2023 TIME: 10:02 AM PATIENT IDENTITY VERIFICATION COMPLETED USING TWO (2) IDENTIFIERS: Name and Date of confirmed by patient verbally and Name and Date of confirmed by identification band. FALL SCREENING: Has the patient had 2 falls in the last year or 1 fall with injury or currently using an Ambulatory Assistive Device (Walker, Cane, Wheelchair, Crutches, etc.)? No PATIENT GENDER DATA: Female. status: : No status: NO. PATIENT RELEVANT IMPLANT DATA REVIEWED: Not Applicable PATIENT PRESENTS WITH AN IMPLANTABLE OR ATTACHED FIELD TECH: No RADIOLOGY DEPARTMENT: CT; Exam(s) Completed: Lung Screening PERIPHERAL IV DATA: Not applicable SIGNED BY: Sangeeta Renee, CT November 11, 2023 10:02 AM [facility] 11-11-2023 History of Presen t illness Narrative Images from the original note were not included. LUNG SCREENING ANNUAL VISIT PRIMARY CARE PHYSICIAN: Napoleon Martini MD PULMONARY PROVIDER: none Results will be communicated via letter or electronic record if applicable. Visit Delivery: In Person Patient Visit Type: established Current or Ex-smoker? ex Exam Type: annual LDCT Number of Pack Years: 49 Current smoker (=0) or Number of Years since Quit: 13 The patient's smoking history is similar to prior year shared decision visit. The reason for the discrepancy is NA Chief Complaint: Established patient in lung cancer screening program here for annual follow-up. Impression / Recommendations Sonny Biggs presents for annual lung cancer screening annual exam and nodule evaluation. Plan: Indeterminate pulmonary nodules: Previously identified nodules appear stable and no new nodules of concern were seen on the exam. Low dose CT Scan to be repeated in one year. Plan subject to change pending final radiology report and recommendations. Nature of the lung nodule(s) and the options for further evaluation discussed in detail with patient. Sonny Biggs expressed understanding and is in agreement with plan. 2. Encounter for screening for malignant neoplasm of respiratory organs I have determined that the patient is eligible for continued low dose CT screening based on age, absence of signs or symptoms of lung cancer, smoking history and total pack years. The patient was counseled on the importance of adherence to annual LDCT lung cancer screening, impact of comorbidities and ability or willingness to undergo diagnosis and treatment. The patient understands and feels comfortable with it: Yes. 3. Nicotine Dependence The patient was counseled on the importance of maintaining cigarette smoking abstinence - The patient is committed to remaining abstinent from tobacco. I spent a total of 30 minutes on the date of the service which included preparing to see the patient, [id number] patient care, completing clinical documentation, performing a medically appropriate examination, counseling and educating the patient/family/caregiver, ordering medications, tests, or procedures, communicating with other HCPs (not separately reported), independently interpreting results (not separately reported), communicating results to the patient/family/caregiver, and care coordination (not separately reported). Jovon Zee APRN.[facility] November 11, 2023 8:23 AM History of Present Illness: Sonny Biggs is a 73 year old female who is presenting today for annual lung cancer screening LDCT and nodule surveillance/management. Patient has RLL lung nodule found on previous lung cancer screening LDCT. Last LDCT was performed on 10/28/2022 and was LUNG RADS Category 2. Previous potentially significant incidental findings on imaging: None. Patient is a former smoker with a 31 pack year history. Patient quit smoking 13 years ago at age 60. Patient will continue to be eligible for lung cancer screening until age 75. The patient does not have any symptoms or signs of lung cancer. Patient denies SOB with their daily activity. Night time a little SOB. Not been very active, needs surgery. No wheezing or dyspnea. Patient denies feeling of chest tightness/congestion in the chest. Patient does not have a new or concerning cough, and denies hemoptysis. Patient does not have a chronic daily cough. Allergy cough about a year ago. taking cough drops, feels dry. Not productive. Sinus drainage clear. Benadryl helps with the cough. Denies regular or recent fevers/chills. Patient does not have any significant unintentional weight loss. Patient denies having any respiratory infections or COVID-19 in the past few months. Does not use any maintenance inhaler for COPD. Modified Medical Research [place] Dyspnea Scale (MMRC) I only get breathless with strenous exercise 0 Last 12 Encounter Wt Readings: Date: Wt: 11/06/2023 94.8 kg (209 lb) 06/10/2023 93.1 kg (205 lb 3.2 oz) 05/13/2023 92.5 kg (204 lb) 01/01/2023 92.6 kg (204 lb 3.2 oz) 12/31/2022 93 kg (205 lb) 11/12/2022 94.1 kg (207 lb 6.4 oz) 10/28/2022 92.5 kg (204 lb) 10/13/2022 93.8 kg (206 lb 12.8 oz) 09/08/2022 91.9 kg (202 lb 9.6 oz) 06/05/2022 91.6 kg (202 lb) 01/20/2022 90.7 kg (200 lb) 12/26/2021 91.4 kg (201 lb 6.4 oz) Social History Tobacco Use: 1 packs/day, for 49 years. Quit 04/04/2010. Types: Cigarettes Past Medical History: PAST MEDICAL HISTORY Diagnosis Date Anxiety with depression Emphysema of lung (HCC) GERD (gastroesophageal reflux disease) History of DVT (deep vein thrombosis) Humerus fracture 12/08/2021 right Hyperlipidemia Hypertension Obesity (BMI 30-39.9) GODWIN (obstructive sleep apnea) Overactive bladder PAD (peripheral artery disease) ([facility]) 06/06/2023 abnormal toe brachial index Prediabetes 09/02/2023 Tear of right rotator cuff Family Hx: FAMILY HISTORY Problem Relation Age of Onset Accidental Mother 39 MVA Cancer Father other (throat cancer) Father other (bone cancer) Sister Diabetes Maternal Grandmother Anesthesia Problems No Family History Surgical Hx: PAST SURGICAL HISTORY Procedure Laterality Date ARTHRP KNE CONDYLE&PLATU MEDIAL&LAT COMPARTMENTS Left 2016 BREAST LUMPECTOMY HX Right x2, benign CATARACT EXTRACTION HX Bilateral CHOLECYSTECTOMY lap vinayak PAST SURGICAL HISTORY OF Bilateral multifocal lenses PAST SURGICAL HISTORY OF 2015 laminectomy and possible microdiscectomy-in [place] PAST SURGICAL HISTORY OF Right 12/18/2021 ORIF of uncomplicated open right humerus fracture ROTATOR CUFF REPAIR Right TUBAL LIGATION Allergies: ALLERGIES Allergen Reactions Augmentin [Amoxicil* GI Upset Vomiting Iodine Rash Review Of Systems: See HPI for ROS All of the remainder systems were reviewed and negative. PHYSICAL EXAMINATION: BP 123/77 Pulse 62 Wt 210 lb 8.6 oz (95.5kg) SpO2 97% General appearance: well appearing, in no acute distress, and alert Skin: skin color, texture, turgor normal, no rashes or lesions Nose/Sinuses: Negative Oropharynx: Lips, mucosa, and tongue normal, teeth and gums normal, oropharynx normal Neck: Supple, no adenopathy; thyroid symmetric, normal size Respiratory: lungs clear to auscultation no wheezing or rhonchi Cardiovascular: Negative. RRR without murmur, gallop, or rubs. No ectopy Musculoskeletal: Extremities normal. No deformities, edema, or skin discoloration. Neuro: Oriented X 3 Data Review I have visually reviewed imaging and testing below CT imaging done today was reviewed independently and compared to prior CT chest imaging by practitioner and awaiting radiology review. RLL nodule is stable and no new nodules of concern were seen. Imaging Last CT/CTA Chest/Lungs CT LUNG SCREEN WO IVCON Exam End: 10/28/2022 3:53 PM (Final result) Narrative: * * *Final Report* * * DATE OF EXAM: Oct 28 2022 3:53PM [facility] [id number] - CT LUNG SCREEN WO IVCON / PROCEDURE REASON: multiple diagnoses * * * * Physician Interpretation * * * * EXAMINATION: CHEST CT WITHOUT CONTRAST (LOW-DOSE CT LUNG CANCER SCREENING PROTOCOL) CLINICAL HISTORY: Lung cancer LDCT screening ? absence of signs or symptoms of lung cancer. Personal history of nicotine dependence. Subsequent (annual) Technique: Spiral CT acquisition of the chest from the thoracic inlet to the upper abdomen without contrast. MQ: [id number]_6 Patient characteristics: * Ofaf-eg-Zmfbn: 1950; Age at exam: 72 years * Gender: Female * Lung Disease: Asymptomatic (no signs or symptoms of lung disease) * Number of Pack Years: 49 * Current smoker (=0) or Number of Years since Quit: 12 * Ordering provider and NPI: SELENE LOUIS [id number] * Interpreting radiologist and NPI: Yoli [id number] Exam acquisition parameters: * Exam Date: 10/28/2022 3:53 PM * Site: [facility] * * CT System Special Officer Automat: [email or web address] * CT System Model: MobileRQ * Tube Current-Time (mA-sec): 40 * Peak Voltage (kV): 120V * Scan Time (sec): 4.70 * Scan Volume (z-length, cm): 32.40 * Pitch: .984 * Slice Thickness (mm): 1.25 * CT Dose-Length Product: 2.65 mGy*cm * CT Dose Index: 95.44mGy * CT Dose Reduction Method: Iterative recon and mAs-kVp adjusted using patient size-age COMPARISON: Prior lung screening CTs including most recent dated 09/18/2021 RESULT: Are nodules present? Yes, 1-5 nodules Nodule 1: This Perifissural nodule is located in the Right Lower Lobe on slice number 183 with an average diameter of 6.3 mm (8.9 mm x 3.6 mm). Stable Nodule 2: This Calcified nodule is located in the Right Lower Lobe on slice number 232 with an average diameter of 8.5 mm (11.3 mm x 5.7 mm). Nodule 3: This Calcified nodule is located in the Right Upper Lobe on slice number 153 with an average diameter of 4.2 mm (4.5 mm x 3.8 mm). Other findings: Mild bronchial wall thickening. Mild biapical pleural-parenchymal thickening/scarring, stable in appearance. Mild subsegmental atelectasis within the inferior lingula and left lower lobe. Calcifications within the right hilar lymph nodes consistent with prior granulomatous disease exposure. No enlarging thoracic lymph nodes. The thoracic aorta and central pulmonary arteries are normal in caliber. Mild left atrial enlargement. Mild degenerative disc and endplate changes present within the thoracic spine. Coarse calcifications within the left breast, unchanged. Low-attenuation focus at the hepatic dome (2:253) too small to adequately characterize but most likely a small hepatic cyst. Status post cholecystectomy. Scattered colonic diverticuli. No acute abnormality in the imaged upper abdomen. Emphysema: Trivial (<5%), Centrilobular, Upper lobe Coronary Artery Calcifications: Circumflex Mild; Left Anterior Descending Mild; Right Coronary Minimum Rim Turning Finisher (topogram) images: Mild scoliotic curvature of the thoracic spine, levoconvex. Screw-plate fixation of the proximal right humerus. Impression: IMPRESSION: LungRADS category: 2 LungRADS modifier: None LungRADS 0 reason: n/a Recommendations: Continue annual screening with LDCT in 12 months. Reference: [employer]. Lung CT Screening Reporting and Data System (Lung-RADS). Available at: http://www.acr.org/Quality-Safet y/Resources/LungRADS Reed Man: VANESA Transcribe Date/Time: Oct 29 2022 10:53A Dictated by : SHAY HOLT MD This examination was interpreted and the report reviewed and electronically signed by: SHAY HOLT MD on Oct 29 2022 11:16AM EST Last CT Chest - Impression Only No resulted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 Take 1 tablet by mouth daily at bedtime. For cholesterol. propranolol (INDERAL) 10 mg tablet Take 1 tablet by mouth three times a day. lisinopril (ZESTRIL) 40 mg tablet Take 1 tablet by mouth once daily. FLUoxetine (PROZAC) 20 mg capsule Take 1 capsule by mouth once daily. aspirin 81 mg chewable tablet Take 1 tablet by mouth once daily. fluticasone (FLONASE) 50 mcg/actuation nasal spray Use 2 Sprays in each nostril once daily. Rinse mouth after use. FLUoxetine (PROZAC) 20 mg capsule Take 1 capsule by mouth once daily. vit C/E/Zn/coppr/lutein/zeaxan (PRESERVISION AREDS-2 ORAL) Take by mouth once daily. selenium 200 mcg tablet Take 1 tablet by mouth once daily. calcium carbonate/vitamin D2 (CALCIUM + VITAMIN D ORAL) Take by mouth. cholecalciferol, vitamin D3, (VITAMIN D3 ORAL) Take by mouth. vit A/vit C/vit E/zinc/copper (OCUVITE PRESERVISION ORAL) Take by mouth twice daily. naproxen (NAPROSYN) 500 mg tablet Take 1 tablet by mouth twice daily as needed for pain. Take with food. DANIELA'S WORT ORAL Take by mouth. No current facility-administered medications for this visit. Medications and allergies reviewed by this provider. SOCIAL HISTORY Social History Tobacco Use Smoking status: Former Packs/day: 1.00 Years: 49.00 Additional pack years: 0.00 Total pack years: 49.00 Types: Cigarettes Start date: 08/03/1960 Quit date: 04/04/2010 Years since quittin.1 Smokeless tobacco: Never Tobacco comments: start age: 11 Vaping Use Vaping Use: Never used Substance Use Topics Alcohol use: Yes Drug use: Never REVIEW OF SYSTEMS All other reviewed and negative other than HPI. OBJECTIVE: BP 120/68 Pulse 71 Resp 16 Wt 93.1 kg (205 lb 3.2 oz) SpO2 96% BMI 34.15 kg/m . Vital signs reviewed by this provider. APPEARANCE Well appearing, alert, in no acute distress, well-hydrated, well nourished. Neck: No obvious deformity or swelling. FROM without pain. Negative Spurling LEFT SHOULDER/UPPER ARM: No obvious deformity, swelling, erythema or muscle wasting. FROM. Reports discomfort to humeral head and into bicep with adduction and internal rotation. Negative Empty can, Barrios and Neer's HANDS/WRISTS: No obvious deformity, erythema or swelling. FROM without difficulty or pain. Negative Phalen's and Tinel's BP Controlled (<130/80) Never done RSV Vaccine(1 - 1-dose 60+ series) Never done Advance Directive Discussion Never done Depression Assessment due on 08/03/2022 Covid-19 Vaccine(1) due on 10/14/2023 Pneumococcal Vaccine: 65+(1 - PCV) due on 10/14/2023 Influenza Vaccine(1) due on 01/31/2024 Lung Cancer Screening due on 10/29/2023 Annual PCP Team Chronic Disease Visit due on 05/13/2024 Colorectal Cancer Screening due on 06/16/2025 Diabetes Screening due on 05/13/2026 Lipid Screening due on 05/13/2028 DTaP,Tdap,Td Vaccine(2 - Td or Tdap) due on 01/21/2032 Bone Density Screening Completed Hepatitis C Screening Completed Shingrix Vaccine Completed Mammogram Screening Discontinued ASSESSMENT/PLAN: 1. Left upper arm pain - ICD9: 729.5, ICD10: M79.622 (primary diagnosis) - consider tendonitis vs bursitis - no red flag symptoms or exam findings - red flag symptoms discussed, verbalizes understanding - may continue with OTC oral pain reliever as directed on packaging. May also try heat or ice for 15 minutes at a time and OTC topical pain relievers as directed on packaging - declined PT referral - follow-up if symptoms fail to improve, to ER with red flag symptoms 2. Numbness and tingling in both hands - ICD9: 782.0, ICD10: R20.0, R20.2 - consider carpal tunnel - no red flag symptoms or exam findings - red flag symptoms discussed, verbalizes understanding - handout on stretches provided - declines EMG testing at this time - follow-up as needed Afia Lama APRN.TAPE MAKING MACHINE OPERATOR Prescription instructions reviewed with patient as applicable. Patient advised if symptoms do not improve or if symptoms worsen sooner, to contact their primary care physician. Potential red flag symptoms discussed with the patient. Reviewed appropriate action plan to take if red flag symptoms occur. Patient agreeable to treatment plan. I spent a total of 30 minutes on the date of the service which included preparing to see the patient, [id number] patient care, completing clinical documentation, obtaining and/or reviewing separately obtained history, performing a medically appropriate examination, and counseling and educating the patient/family/caregiver. documented in this encounter [facility] 05-15-2023 Miscellaneous Notes Pt notified of same, verbalizes understanding. Idris Portillo LPN Rx sent. Recheck labs in 3 months Reviewed results and recommendations with pt. Pt is agreeable to trial medication. Pt would like rx sent to [facility] then if tolerated will have additional refills go to [facility]. Idris Portillo LPN ----- Message from Napoleon Martiin MD sent at 05/14/2023 1:38 PM EDT ----- Normal labs aside from high cholesterol. Based on age and risk factors, patient is high risk for heart attack or stroke in the next 10 years. Recommend high intensity statin daily and recheck labs in 3 months. Most common side effect: muscle aches. If agreeable, will send rx to requested pharmacy. The 10-year ASCVD risk score (Yvan WINTERS, et al., 2019) is: 22.4% Values used to calculate the score: Age: 73 years Sex: Female Is Non- : No Diabetic: No Tobacco smoker: No Systolic Blood Pressure: 132 mmHg Is BP treated: Yes HDL Cholesterol: 70 mg/dL Total Cholesterol: 207 mg/dL documented in this encounter [facility] 05-13-2023 History of Presen t illness Narrative Chief Complaint Patient presents with: 6 Month Exam HPI Sonny Biggs is a 73 year old female who presents here today for Above Complaints. Patient notes that her 7 weeks ago. Has good support system at home. Not seeing counseling. Prozac working well for anxiety and depression. BP controlled on current regimen. Reported history of sleep apnea, but at OV in 2020 she stated she had been tested in [place] and was negative. Denies snoring or daytime somnolence. States she has screening done at home and was told she had PAD. No records available today. Admits to pain when she walks due to her knees without claudication. Past medical history, appointments, medications, allergies reviewed. Previous Medical History PAST MEDICAL HISTORY Diagnosis Date Humerus fracture 12/08/2021 right Hyperlipidemia Hypertension Obesity (BMI 30-39.9) GODWIN (obstructive sleep apnea) Overactive bladder Tear of right rotator cuff Previous Surgical History PAST SURGICAL HISTORY Procedure Laterality Date ARTHRP KNE CONDYLE&PLATU MEDIAL&LAT COMPARTMENTS Left BREAST LUMPECTOMY HX Right x2, benign CATARACT EXTRACTION HX Bilateral CHOLECYSTECTOMY lap vinayak PAST SURGICAL HISTORY OF Bilateral multifocal lenses PAST SURGICAL HISTORY OF 2014 laminectomy and possible microdiscectomy-in [place] PAST SURGICAL HISTORY OF Right 12/18/2021 ORIF of uncomplicated open right humerus fracture ROTATOR CUFF REPAIR Right TUBAL LIGATION Family History FAMILY HISTORY Problem Relation Age of Onset Accidental Mother 39 MVA Cancer Father other (throat cancer) Father other (bone cancer) Sister Diabetes Maternal Grandmother Patient Allergies ALLERGIES Allergen Reactions Augmentin [Amoxicil* GI Upset Vomiting Iodine Rash Current Medications Current Outpatient Medications on File Prior to Visit Medication Sig calcium carbonate/vitamin D2 (CALCIUM + VITAMIN D ORAL) Take by mouth. cholecalciferol, vitamin D3, (VITAMIN D3 ORAL) Take by mouth. FLUoxetine (PROZAC) 20 mg capsule Take 1 capsule by mouth once daily. FLUoxetine (PROZAC) 20 mg capsule Take 1 capsule by mouth once daily. fluticasone (FLONASE) 50 mcg/actuation nasal spray Use 2 Sprays in each nostril once daily. Rinse mouth after use. lisinopril (ZESTRIL, PRINIVIL) 40 mg tablet Take 1 tablet by mouth once daily. naproxen (NAPROSYN) 500 mg tablet Take 1 tablet by mouth twice daily as needed for pain. Take with food. propranolol (INDERAL) 10 mg tablet Take 1 tablet by mouth three times daily. selenium 200 mcg tablet Take 1 tablet by mouth once daily. DANIELA'S WORT ORAL Take by mouth. vit A/vit C/vit E/zinc/copper (OCUVITE PRESERVISION ORAL) Take by mouth twice daily. vit C/E/Zn/coppr/lutein/zeaxan (PRESERVISION AREDS-2 ORAL) Take by mouth once daily. No current facility-administered medications on file prior to visit. Social History Social History Tobacco Use Smoking status: Former Packs/day: 1.00 Years: 49.00 Additional pack years: 0.00 Total pack years: 49.00 Types: Cigarettes Start date: 08/03/1960 Quit date: 04/04/2010 Years since quittin.1 Smokeless tobacco: Never Tobacco comments: start age: 11 Vaping Use Vaping Use: Never used Substance Use Topics Alcohol use: Yes Drug use: Never Review of Symptoms REVIEW OF SYSTEMS GENERAL: No weight loss, malaise or fevers RESPIRATORY: Negative for cough, hemoptysis, wheezing, COPD, dyspnea or shortness of breath CARDIOVASCULAR: Negative for chest pain, leg swelling, hypertension, CHF or palpitations GI: No nausea, vomiting, or diarrhea SKIN: Negative for lesions, rash, and itching EXAM: BP 132/80 Pulse 64 Resp 16 Ht 165.1 cm (5' 5) Wt 92.5 kg (204 lb) BMI 33.95 kg/m General Appearance: Well appearing, alert, in no acute distress, well-hydrated, well nourished.. Skin: Skin color, texture, turgor normal, no suspicious rashes or lesions. Lungs: Lungs clear to auscultation. No wheezing, rhonchi, rales.. Heart: RRR without murmur, gallop, or rubs. No ectopy. Abdomen: Normal abdominal exam, Abdomen soft, non-tender. Bowel sounds normal. No masses, organomegaly. Extremities: No cyanosis. Spider veins noted around ankles. Good cap reflex. No edema. Warm extremities. Peripheral Pulses: 2+ DP bilaterally. Trace PT bilaterally. Health Maintenance List BP Controlled (<130/80) Never done Advance Directive Discussion Never done Depression Assessment due on 08/03/2022 Influenza Vaccine(1) Never done Covid-19 Vaccine(1) due on 10/14/2023 Pneumococcal Vaccine: 65+(1 - PCV) due on 10/14/2023 Lung Cancer Screening due on 10/29/2023 Annual PCP Team Chronic Disease Visit due on 05/13/2024 Diabetes Screening due on 06/05/2025 Colorectal Cancer Screening due on 06/16/2025 Lipid Screening due on 12/26/2026 DTaP,Tdap,Td Vaccine(2 - Td or Tdap) due on 01/21/2032 Bone Density Screening Completed Hepatitis C Screening Completed Shingrix Vaccine Completed Mammogram Screening Discontinued Data reviewed Component Latest Ref Rng & Units 12/26/2021 06/05/2022 06/16/2022 WBC 3.70 - 11.00 k/uL 9.80 RBC 3.90 - 5.20 m/uL 4.22 Hemoglobin 11.5 - 15.5 g/dL 13.1 Hematocrit 36.0 - 46.0 % 41.9 MCV 80.0 - 100.0 fL 99.3 MCH 26.0 - 34.0 pg 31.0 MCHC 30.5 - 36.0 g/dL 31.3 RDW-CV 11.5 - 15.0 % 13.7 Platelet Count 150 - 400 k/uL 238 MPV 9.0 - 12.7 fL 13.2 (H) Neut% % 45.2 Abs Neut (ANC) 1.45 - 7.50 k/uL 4.43 Lymph% % 38.1 Abs Lymph 1.00 - 4.00 k/uL 3.73 Alger% % 8.1 Abs Alger <0.87 k/uL 0.79 Eosin% % 7.2 Abs Eosin <0.46 k/uL 0.71 (H) Baso% % 0.9 Abs Baso <0.11 k/uL 0.09 Immature Gran % % 0.5 IMMATURE GRANS (ABS) <0.10 k/uL 0.05 NRBC /100 WBC 0.0 Absolute nRBC <0.01 k/uL <0.01 DTYPE Auto Protein, Total 6.3 - 8.0 g/dL 7.4 Albumin 3.9 - 4.9 g/dL 4.1 Calcium 8.5 - 10.2 mg/dL 10.2 Bilirubin, Total 0.2 - 1.3 mg/dL <0.2 (L) Alkaline Phosphatase 34 - 123 U/L 123 AST 13 - 35 U/L 18 ALT 7 - 38 U/L 14 Glucose 74 - 99 mg/dL 86 BUN 7 - 21 mg/dL 20 Creatinine 0.58 - 0.96 mg/dL 0.78 Sodium 136 - 144 mmol/L 140 Potassium 3.7 - 5.1 mmol/L 5.1 Chloride 97 - 105 mmol/L 106 (H) CO2 22 - 30 mmol/L 24 Anion Gap 9 - 18 mmol/L 10 eGFR >=60 mL/min/1.73m 80 Cholesterol, Total <200 mg/dL 172 Triglyceride <150 mg/dL 119 HDL Cholesterol >39 mg/dL 63 Non HDL Cholesterol <130 mg/dL 109 Fasting Time hrs 12 VLDL Cholesterol <30 mg/dL 24 TC:HDL Ratio <5.10 2.73 LDL Cholesterol <100 mg/dL 85 LDL:HDL Ratio <2.54 1.35 Stool DNA Negative Negative ASSESSMENT/PLAN: 1. PAD (peripheral artery disease) (HCC) - ICD9: 443.9, ICD10: I73.9 (primary diagnosis) Patient with abnormal screening testing done at home. Records not available today. Will check ALEXX due to weak PT pulse. Continue ASA. Will check lipid panel and discuss statin if eligible. - PVR ANK PRESS [facility] 2. Essential hypertension - ICD9: 401.9, ICD10: I10 - Controlled - Continue current medications - Recommend home blood pressure monitoring, to bring results to next visit - Encouraged sodium restriction, DASH or Mediterranean diet - Recommend regular aerobic exercise - PROPRANOLOL 10 MG TABLET - LISINOPRIL 40 MG TABLET - CBC + DIFF - COMP METABOLIC PANEL - LIPID PANEL BASIC 3. Anxiety with depression - ICD9: 300.4, ICD10: F41.8 Controlled on SSRI. Refusing counseling. - FLUOXETINE 20 MG CAPSULE 4. Hyperlipidemia, mixed - ICD9: 272.2, ICD10: E78.2 - Control undetermined, due for labs - Counseled on healthy diet and regular exercise - LIPID PANEL BASIC 5. GODWIN (obstructive sleep apnea) - ICD9: 327.23, ICD10: G47.33 Refusing repeat testing. Denies symptoms at this time. 6. Obesity (BMI 30-39.9) - ICD9: 278.00, ICD10: E66.9 Stable - Behavioral intervention Napoleon Martini MD documented in this encounter [facility] 02-18-2023 Miscellaneous Notes Patient has been identified by name and date of : Yes Last office visit in this department: 12/31/2022 Labs-06/05/22 NOV-05/15/23 RX INSTRUCTIONS: Patient aware RX will be sent to pharmacy. No need to notify patient. Patient phones requesting refills as follows: Requested Prescriptions Pending Prescriptions Disp Refills propranolol (INDERAL) 10 mg tablet 270 tablet 0 Sig: Take 1 tablet by mouth three times daily. Please review and advise. Mya Brown documented in this encounter [facility] 01-02-2023 Miscellaneous Notes Pt evaluated in [facility] Care. Chandler Alvarado LPN Agree with UC evaluation. Could be having reaction to the prednisone. Can take benadryl and OTC anthistamines for itching. Could try pepcid 1-2 times daily as well. Pt calls office with c/o rash. She states she was into the office to see PCP yesterday for poison sheela rash. She was given prednisone burst. She took 4 pills yesterday and again today as rx'd. She noticed increase in rash around her knees/legs this morning around 10:30am. She took 2 doses of Benadryl and rash continues to spread and is more itchy. Pt denies shortness of breath, no difficulty breathing. Pt did not sound breathless on phone and was able to talk in full sentences. Advised pt there were no openings this evening in dept. Advised pt to come in to [facility] [facility] for evaluation. Pt agreeable to this. She states she only has a mud analysis well logging operator at home for her until 5pm but would try to find someone to stay with him so that she can be seen. Also advised pt not to take any more prednisone until she is evaluated and told otherwise. Chandler Alvarado LPN documented in this encounter [facility] 01-01-2023 History of Presen t illness Narrative Images from the original note were not included. This note was created using NoteWriter. Subjective Sonny Biggs is a 72 year old female. HPI 72-year-old female presents for rash on arms and legs. Patient states that she started getting a poison sheela rash a few days ago. She was seen by her PCP yesterday and started on a prednisone taper. Patient states she has taken 2 doses-8 tabs of the prednisone and has now broken out in a new rash. She does not have any new poison lesions, but has hives on her arms and legs. States they are very pruritic. She has been taking Benadryl. She has not tried anything else for the rash. She denies any new lotions, detergents, body washes. She has not been putting any new creams on the poison rash. States the poison rash is improving, but she now has these hives and is concerned she is allergic to the prednisone. She has taken prednisone in the past with no difficulty. No difficulty breathing, sore throat, swollen throat or difficulty swallowing. PAST MEDICAL HISTORY Diagnosis Date Humerus fracture 12/08/2021 right Hyperlipidemia Hypertension Obesity (BMI 30-39.9) GODWIN (obstructive sleep apnea) Overactive bladder Tear of right rotator cuff PAST SURGICAL HISTORY Procedure Laterality Date ARTHRP KNE CONDYLE&PLATU MEDIAL&LAT COMPARTMENTS Left BREAST LUMPECTOMY HX Right x2, benign CATARACT EXTRACTION HX Bilateral CHOLECYSTECTOMY lap vinayak PAST SURGICAL HISTORY OF Bilateral multifocal lenses PAST SURGICAL HISTORY OF 2014 laminectomy and possible microdiscectomy-in [place] PAST SURGICAL HISTORY OF Right 12/18/2021 ORIF of uncomplicated open right humerus fracture ROTATOR CUFF REPAIR Right TUBAL LIGATION ALLERGIES Augmentin [Amoxicillin-Pot Clavulanate] and Iodine MEDICATIONS FLUoxetine (PROZAC) 20 mg capsule Take 1 capsule by mouth once daily. predniSONE (DELTASONE) 10 mg tablet Take 4 tabs daily x5 days, then 2 tabs daily for 5 days, then 1 tab daily for 5 days. fluticasone (FLONASE) 50 mcg/actuation nasal spray Use 2 Sprays in each nostril once daily. Rinse mouth after use. FLUoxetine (PROZAC) 20 mg capsule Take 1 capsule by mouth once daily. propranolol (INDERAL) 10 mg tablet Take 1 tablet by mouth three times daily. vit C/E/Zn/coppr/lutein/zeaxan (PRESERVISION AREDS-2 ORAL) Take by mouth once daily. lisinopril (ZESTRIL, PRINIVIL) 40 mg tablet Take 1 tablet by mouth once daily. selenium 200 mcg tablet Take 1 tablet by mouth once daily. calcium carbonate/vitamin D2 (CALCIUM + VITAMIN D ORAL) Take by mouth. cholecalciferol, vitamin D3, (VITAMIN D3 ORAL) Take by mouth. vit A/vit C/vit E/zinc/copper (OCUVITE PRESERVISION ORAL) Take by mouth twice daily. naproxen (NAPROSYN) 500 mg tablet Take 1 tablet by mouth twice daily as needed for pain. Take with food. DANIELA'S WORT ORAL Take by mouth. famotidine (PEPCID) 20 mg tablet Take 1 tablet by mouth twice daily for 7 days. cetirizine (ZYRTEC) 10 mg tablet Take 1 tablet by mouth once daily for 7 days. FAMILY HISTORY Problem Relation Age of Onset Accidental Mother 39 MVA Cancer Father other (throat cancer) Father other (bone cancer) Sister Diabetes Maternal Grandmother Social History Tobacco Use Smoking status: Former Packs/day: 1.00 Years: 49.00 Pack years: 49.00 Types: Cigarettes Start date: 08/03/1960 Quit date: 04/04/2010 Years since quittin.7 Smokeless tobacco: Never Tobacco comments: start age: 11 Vaping Use Vaping Use: Never used Substance Use Topics Alcohol use: Yes Drug use: Never Review of Systems Constitutional: Negative for chills and fever. HENT: Negative for congestion, ear pain and sore throat. Respiratory: Negative for cough and shortness of breath. Cardiovascular: Negative for chest pain. Gastrointestinal: Negative for diarrhea and vomiting. Skin: Positive for rash. Objective BP 142/82 Pulse 63 Temp 36.4 C (97.6 F) (Tympanic) Resp 18 Wt 92.6 kg (204 lb 3.2 oz) SpO2 96% BMI 35.05 kg/m Physical Exam Vitals and nursing note reviewed. Constitutional: General: She is not in acute distress. Appearance: Normal appearance. She is not toxic-appearing. HENT: Mouth/Throat: Mouth: Mucous membranes are moist. Pharynx: Uvula midline. No oropharyngeal exudate or posterior oropharyngeal erythema. Comments: No swelling. No rash. Eyes: Conjunctiva/sclera: Conjunctivae normal. Cardiovascular: Rate and Rhythm: Normal rate and regular rhythm. Pulmonary: Effort: Pulmonary effort is normal. Breath sounds: Normal breath sounds. Skin: Findings: Rash present. Rash is urticarial. Comments: Patient has contact dermatitis rash on her chest with some scabbing and vesicular lesions. She has urticarial rash on arms and legs. No vesicular or contact dermatitis lesions on the arms or legs noted. No drainage. Neurological: Mental Status: She is alert. Assessment and Plan ASSESSMENT/PLAN: 1. Rash - ICD9: 782.1, ICD10: R21 -Patient has contact dermatitis/poison sheela rash on the chest. -Urticarial rash on arms and legs. Patient concerned that this is an allergic reaction from the prednisone she started yesterday. No other new agents that would cause rash that she can recall. -Recommend she may stop prednisone. -Continue Benadryl. Rx for Zyrtec and Pepcid. Diagnosis and treatment plan were discussed and questions were answered to the patient's satisfaction. Pt acknowledged understanding of concepts and follow up plan. Specific signs and symptoms that would indicate the need for higher level of care were discussed in detail warranting prompt ER evaluation. SYLVIA Cardenas documented in this encounter [facility] 12-31-2022 History of Presen t illness Narrative Chief Complaint Patient presents with: Rash HPI Sonny Biggs is a 72 year old female who presents here today for Above Complaints.. Patient states she came into contact with poison sheela about a week ago when picking up limbs in her [place]. Has had itchy red rash with blistering on her face, arms, abdomen, buttock, ears, and legs. Treating with Technu scrub OTC, benadryl, hydrocortisone cream, Sheela Dry, rubbing alcohol without improvement. Denies fever/chills, pain, purulent drainage, sick contacts. Past medical history, appointments, medications, allergies reviewed. Previous Medical History PAST MEDICAL HISTORY Diagnosis Date Humerus fracture 12/08/2021 right Hyperlipidemia Hypertension Obesity (BMI 30-39.9) GODWIN (obstructive sleep apnea) Overactive bladder Tear of right rotator cuff Previous Surgical History PAST SURGICAL HISTORY Procedure Laterality Date ARTHRP KNE CONDYLE&PLATU MEDIAL&LAT COMPARTMENTS Left BREAST LUMPECTOMY HX Right x2, benign CATARACT EXTRACTION HX Bilateral CHOLECYSTECTOMY lap vinayak PAST SURGICAL HISTORY OF Bilateral multifocal lenses PAST SURGICAL HISTORY OF 2015 laminectomy and possible microdiscectomy-in [place] PAST SURGICAL HISTORY OF Right 12/18/2021 ORIF of uncomplicated open right humerus fracture ROTATOR CUFF REPAIR Right TUBAL LIGATION Family History FAMILY HISTORY Problem Relation Age of Onset Accidental Mother 39 MVA Cancer Father other (throat cancer) Father other (bone cancer) Sister Diabetes Maternal Grandmother Patient Allergies ALLERGIES Allergen Reactions Augmentin [Amoxicil* GI Upset Vomiting Iodine Rash Current Medications Current Outpatient Medications on File Prior to Visit Medication Sig fluticasone (FLONASE) 50 mcg/actuation nasal spray Use 2 Sprays in each nostril once daily. Rinse mouth after use. FLUoxetine (PROZAC) 20 mg capsule Take 1 capsule by mouth once daily. propranolol (INDERAL) 10 mg tablet Take 1 tablet by mouth three times daily. vit C/E/Zn/coppr/lutein/zeaxan (PRESERVISION AREDS-2 ORAL) Take by mouth once daily. lisinopril (ZESTRIL, PRINIVIL) 40 mg tablet Take 1 tablet by mouth once daily. selenium 200 mcg tablet Take 1 tablet by mouth once daily. calcium carbonate/vitamin D2 (CALCIUM + VITAMIN D ORAL) Take by mouth. cholecalciferol, vitamin D3, (VITAMIN D3 ORAL) Take by mouth. naproxen (NAPROSYN) 500 mg tablet Take 1 tablet by mouth twice daily as needed for pain. Take with food. FLUoxetine (PROZAC) 20 mg capsule Take 1 capsule by mouth once daily. vit A/vit C/vit E/zinc/copper (OCUVITE PRESERVISION ORAL) Take by mouth twice daily. (Patient not taking: No sig reported) DANIELA'S WORT ORAL Take by mouth. (Patient not taking: Reported on 12/31/2022) No current facility-administered medications on file prior to visit. Social History Social History Tobacco Use Smoking status: Former Packs/day: 1.00 Years: 49.00 Pack years: 49.00 Types: Cigarettes Start date: 08/03/1960 Quit date: 04/04/2010 Years since quittin.7 Smokeless tobacco: Never Tobacco comments: start age: 11 Vaping Use Vaping Use: Never used Substance Use Topics Alcohol use: Yes Drug use: Never Review of Symptoms REVIEW OF SYSTEMS See HPI EXAM: BP 104/66 (BP Site: Right Arm, BP Position: Sitting, BP Cuff Size: Large Adult) Pulse 76 Resp 20 Wt 93 kg (205 lb) BMI 35.19 kg/m General Appearance: Well appearing, alert, in no acute distress, well-hydrated, well nourished.. Skin: scattered poison sheela rash on face, arms, legs, abdomen, and buttocks without vesicles or pustules. No cellulitis. . Health Maintenance List ADVANCE DIRECTIVE DISCUSSION Never done DEPRESSION ASSESSMENT due on 08/03/2022 COVID-19 VACCINE(1) due on 10/14/2023 PNEUMOCOCCAL: 65+(1 - PCV) due on 10/14/2023 INFLUENZA(Season Ended) due on 04/03/2023 MAMMOGRAM due on 06/06/2023 LUNG CANCER SCREENING due on 10/29/2023 ANNUAL PCP TEAM CHRONIC DISEASE VISIT due on 11/13/2023 BP CONTROLLED (<130/80) due on 11/13/2023 DIABETES SCREEN due on 06/05/2025 COLORECTAL CANCER SCREENING due on 06/16/2025 LIPID SCREEN due on 12/26/2026 DTAP,TDAP,TD(2 - Td or Tdap) due on 01/21/2032 BONE DENSITY Completed HEPATITIS C SCREENING Completed SHINGRIX VACCINE Completed ASSESSMENT/PLAN: 1. Poison sheela dermatitis - ICD9: 692.6, ICD10: L23.7 (primary diagnosis) - Oral Steriod tx -Prednisone taper - discussed skin care of rash - follow up if symptoms persist or worsen. 2. Anxiety with depression - ICD9: 300.4, ICD10: F41.8 Requesting refill on Prozac today. - FLUOXETINE 20 MG CAPSULE Napoleon Martini MD documented in this encounter [facility] 11-24-2022 Miscellaneous Notes Patient has been identified by name and date of : Yes Requested Prescriptions Pending Prescriptions Disp Refills fluticasone (FLONASE) 50 mcg/actuation nasal spray 1 Each 1 Sig: Use 2 Sprays in each nostril once daily. Rinse mouth after use. RX INSTRUCTIONS: Patient aware RX will be sent to pharmacy. No need to notify patient. Flora Banuelos Pss documented in this encounter [facility] 04-12-2023 History of Presen t illness Narrative 11/12/2022 Patient presents with: Recheck: Depression/anxiety SUBJECTIVE: This is a 72 year old that is here today for Above Complaints. Started on Prozac at last appointment. Feels mood has improved. Feels much more happy. Sleeping better. Not attending counseling. Denies SI, HI or insomnia MITCH: 1 PHQ9: 1 PAST MEDICAL HISTORY Diagnosis Date Humerus fracture 12/08/2021 right Hyperlipidemia Hypertension Obesity (BMI 30-39.9) GODWIN (obstructive sleep apnea) Overactive bladder Tear of right rotator cuff ALLERGIES Augmentin [Amoxicillin-Pot Clavulanate] and Iodine MEDICATIONS Current Outpatient Medications Medication Sig FLUoxetine (PROZAC) 20 mg capsule Take 1 capsule by mouth once daily. propranolol (INDERAL) 10 mg tablet Take 1 tablet by mouth three times daily. vit C/E/Zn/coppr/lutein/zeaxan (PRESERVISION AREDS-2 ORAL) Take by mouth once daily. lisinopril (ZESTRIL, PRINIVIL) 40 mg tablet Take 1 tablet by mouth once daily. fluticasone (FLONASE) 50 mcg/actuation nasal spray Use 2 Sprays in each nostril once daily. Rinse mouth after use. selenium 200 mcg tablet Take 1 tablet by mouth once daily. calcium carbonate/vitamin D2 (CALCIUM + VITAMIN D ORAL) Take by mouth. cholecalciferol, vitamin D3, (VITAMIN D3 ORAL) Take by mouth. DANIELA'S WORT ORAL Take by mouth. vit A/vit C/vit E/zinc/copper (OCUVITE PRESERVISION ORAL) Take by mouth twice daily. (Patient not taking: Reported on 09/08/2022) naproxen (NAPROSYN) 500 mg tablet Take 1 tablet by mouth twice daily as needed for pain. Take with food. (Patient not taking: Reported on 10/28/2022) No current facility-administered medications for this visit. Medications and allergies reviewed by this provider. SOCIAL HISTORY Social History Tobacco Use Smoking status: Former Packs/day: 1.00 Years: 49.00 Pack years: 49.00 Types: Cigarettes Start date: 08/03/1960 Quit date: 04/04/2010 Years since quittin.6 Smokeless tobacco: Never Tobacco comments: start age: 11 Vaping Use Vaping Use: Never used Substance Use Topics Alcohol use: Yes Drug use: Never REVIEW OF SYSTEMS All other reviewed and negative other than HPI. OBJECTIVE: BP 106/64 Pulse 73 Resp 18 Wt 94.1 kg (207 lb 6.4 oz) SpO2 97% BMI 35.60 kg/m . Vital signs reviewed by this provider. APPEARANCE Well appearing, alert, in no acute distress, well-hydrated, well nourished. PSYCH: Posture and motor behavior: normal posture and motor behavior Dress, grooming, personal hygiene: normal dress and grooming Facial expression: good eye contact Speech: normal speech Mood: cheerful Coherency and relevance of thought: normal thought processes Memory: normal memory ADVANCE DIRECTIVE DISCUSSION Never done DEPRESSION ASSESSMENT due on 08/03/2022 COVID-19 VACCINE(1) due on 10/14/2023 PNEUMOCOCCAL: 65+(1 - PCV) due on 10/14/2023 INFLUENZA(Season Ended) due on 04/03/2023 MAMMOGRAM due on 06/06/2023 ANNUAL PCP TEAM CHRONIC DISEASE VISIT due on 10/14/2023 LUNG CANCER SCREENING due on 10/29/2023 BP CONTROLLED (<130/80) due on 10/29/2023 DIABETES SCREEN due on 06/05/2025 COLORECTAL CANCER SCREENING due on 06/16/2025 LIPID SCREEN due on 12/26/2026 DTAP,TDAP,TD(2 - Td or Tdap) due on 01/21/2032 BONE DENSITY Completed HEPATITIS C SCREENING Completed SHINGRIX VACCINE Completed ASSESSMENT/PLAN: 1. Anxiety with depression - ICD9: 300.4, ICD10: F41.8 - improved - FLUOXETINE 20 MG CAPSULE - FLUOXETINE 20 MG CAPSULE - counseling encouraged - continue medication, follow-up as needed Afia Podlogar, YARN MERCERIZER OPERATOR.TAPE MAKING MACHINE OPERATOR Prescription instructions reviewed with patient as applicable. Patient advised if symptoms do not improve or if symptoms worsen sooner, to contact their primary care physician. Potential red flag symptoms discussed with the patient. Reviewed appropriate action plan to take if red flag symptoms occur. Patient agreeable to treatment plan. I spent a total of 20 minutes on the date of the service which included preparing to see the patient, [id number] patient care, completing clinical documentation, obtaining and/or reviewing separately obtained history, performing a medically appropriate examination, counseling and educating the patient/family/caregiver, and ordering medications, tests, or procedures. documented in this encounter [facility] 10-28-2022 History of Presen t illness Narrative Radiology Service Progress Note PATIENT NAME: Sonny Biggs DATE OF SERVICE: October 28, 2022 TIME: 3:50 PM PATIENT IDENTITY VERIFICATION COMPLETED USING TWO (2) IDENTIFIERS: Name and Date of confirmed by patient verbally and Name and Date of confirmed by identification band. FALL SCREENING: Has the patient had 2 falls in the last year or 1 fall with injury or currently using an Ambulatory Assistive Device (Walker, Cane, Wheelchair, Crutches, etc.)? No PATIENT GENDER DATA: Female. status: : No status: NO. PATIENT RELEVANT IMPLANT DATA REVIEWED: Not Applicable RADIOLOGY DEPARTMENT: CT; Exam(s) Completed: lung screening PERIPHERAL IV DATA: Not applicable SIGNED BY: RT Buddy(Elizabeth) October 28, 2022 3:50 PM documented in this encounter [facility] 10-28-2022 Instructions Juani Fallon APRN.CNP - 10/28/2022 3:21 PM EDT Images from the original note were not included. CT Lung Screen Results The CT scan that you will have done today will show if you have any nodules (small spots) in your lungs that are suspicious for cancer. Around 90% of the patients who have this scan done are found to have at least one nodule. Most nodules are benign (not cancer) and of no harm to you at all. A specialist will make a scientific evaluation about whether or not a nodule is worrisome based on its size and shape. The radiologist who will read your scan will put it into one of four categories: LUNG-RADS Category Description Overall Probability of Malignancy Recommended Follow-Up 1 Negative No nodules and definitely benign (non-cancerous nodules) Essentially 0. 1 Year - Follow-up Low dose CT 2 Benign Appearance or Behavior Nodules with a very low likelihood of becoming cancer due to size or lack of growth Less than 1% 1 Year - Follow-up Low dose CT 3 Probably Benign (new 4mm to 6mm nodule) Probably benign finding, short term follow-up recommended 1 to 2% 6 Months - Follow-up Low dose CT 4 Suspicious (new nodule >6mm, or a nodule that has grown by 1.5mm) Findings for which additional diagnostic testing and/or biopsy is recommended Will be calculated based on nodule characteristics. Dependent on what is seen on the exam. At times, we may see something outside of the lungs on the scan that could be a health concern. These will be indicated on the radiology report with an S modifier. S Clinically Significant or Potentially Clinically Significant Findings (non lung cancer) Referral or additional imaging/labs depending on result. Approximately 10% of people receive this result. Lung Cancer Screening Scheduling: [place] [phone], [place] [phone]. And Other locations Billing Questions: or [email or web address] Specialist Providers: (Sarah Beth Lewis CNP; Juani Fallon CNP; Jeanie Perez CNP; Selene Louis CNP; Radha Mcclelland PA-C; Leeanna Ortega PA-C; Suki Rossi CNP, Marietta Zheng TAPE MAKING MACHINE OPERATOR, Sherly Berg TAPE MAKING MACHINE OPERATOR & Zeynep Perez PA-C): [phone] documented in this encounter [facility] 10-28-2022 History of Presen t illness Narrative Images from the original note were not included. LUNG SCREENING VISIT PRIMARY CARE PHYSICIAN: Napoleon Martini MD PULMONARY PROVIDER: None Results will be communicated via letter or electronic record if applicable. Visit Delivery: In Person Patient Visit Type: Established Ex-smoker Exam Type:annual LDCT Number of Pack Years:49 Number of Years since Quit: 12 The patient's smoking history is similar to prior year shared decision visit. Results will be communicated via letter or electronic record. REQUESTER: The referring provider advised the patient to have screening. HISTORY OF PRESENT ILLNESS: Sonny Biggs is a 72 year old former smoker who presents for lung screening. Respiratory symptoms include: Denies any B signs or symptoms SOB: Yes with climbing < 1 flight of stairs ongoing, limited due to b/l knee pain. Chest tightness: Yes, occasional. Reports she is under stress since her was diagnosed with bladder cancer. Coughing: No Hemoptysis: No Wheezing: No Fever/Chills: No Recent Respiratory Infection: No, last tested COVID 19 09/2022, denies hospitalization, reported she had mild flu like symptoms for 3 days. Admits resolution of symptoms. Unintentional weight loss: No Last 6 Encounter Wt Readings: Date: Wt: 10/28/2022 92.5 kg (204 lb) 10/13/2022 93.8 kg (206 lb 12.8 oz) 09/08/2022 91.9 kg (202 lb 9.6 oz) 06/05/2022 91.6 kg (202 lb) 01/20/2022 90.7 kg (200 lb) 12/26/2021 91.4 kg (201 lb 6.4 oz) ECOG PERFORMANCE STATUS: 1- Restricted in physically strenuous activity. Carries out light duty. Modified Medical Research [place] Dyspnea Scale (MMRC) I get short of breath when hurrying on level ground or walking up a slight hill 1 Lung Cancer Risk Factors: 1.Tobacco Use: Start Age 11, Quit Age 60 , Average packs per day 1, Pack Years 47. 2. Passive Smoke Exposure: Yes as a child and as an adult. 3. Personal hx of malignancy: No. 4. Significant exposures (1 year or more of exposure): None. 5. Race: White. 6. Education:Some college 7. BMI:Body mass index is 35.02 kg/m . 8. COPD: No 9. Pneumonia in the past 5 years: No 10. Is there a history of lung cancer in a first degree relative? No. 11. Is there a history of lung cancer in a non first degree relative? No 12. Is there a history of any other cancer in a first degree relative? Yes.father throat cancer, sister bone cancer PAST MEDICAL HISTORY Diagnosis Date Humerus fracture 12/08/2021 right Hyperlipidemia Hypertension Obesity (BMI 30-39.9) GODWIN (obstructive sleep apnea) Overactive bladder Tear of right rotator cuff PAST SURGICAL HISTORY Procedure Laterality Date ARTHRP KNE CONDYLE&PLATU MEDIAL&LAT COMPARTMENTS Left BREAST LUMPECTOMY HX Right x2, benign CATARACT EXTRACTION HX Bilateral CHOLECYSTECTOMY lap vinayak PAST SURGICAL HISTORY OF Bilateral multifocal lenses PAST SURGICAL HISTORY OF 2015 laminectomy and possible microdiscectomy-in [place] PAST SURGICAL HISTORY OF Right 12/18/2021 ORIF of uncomplicated open right humerus fracture ROTATOR CUFF REPAIR Right TUBAL LIGATION FAMILY HISTORY Problem Relation Age of Onset Accidental Mother 39 MVA Cancer Father other (throat cancer) Father other (bone cancer) Sister Diabetes Maternal Grandmother FLUoxetine (PROZAC) 20 mg capsule Take 1 capsule by mouth once daily. propranolol (INDERAL) 10 mg tablet Take 1 tablet by mouth three times daily. vit C/E/Zn/coppr/lutein/zeaxan (PRESERVISION AREDS-2 ORAL) Take by mouth once daily. lisinopril (ZESTRIL, PRINIVIL) 40 mg tablet Take 1 tablet by mouth once daily. fluticasone (FLONASE) 50 mcg/actuation nasal spray Use 2 Sprays in each nostril once daily. Rinse mouth after use. selenium 200 mcg tablet Take 1 tablet by mouth once daily. calcium carbonate/vitamin D2 (CALCIUM + VITAMIN D ORAL) Take by mouth. cholecalciferol, vitamin D3, (VITAMIN D3 ORAL) Take by mouth. DANIELA'S WORT ORAL Take by mouth. vit A/vit C/vit E/zinc/copper (OCUVITE PRESERVISION ORAL) Take by mouth twice daily. (Patient not taking: Reported on 09/08/2022) naproxen (NAPROSYN) 500 mg tablet Take 1 tablet by mouth twice daily as needed for pain. Take with food. (Patient not taking: Reported on 10/28/2022) ALLERGIES Allergen Reactions Augmentin [Amoxicil* GI Upset Vomiting Iodine Rash The medications and allergies were reviewed and reconciled for this patient and deemed current. Health Maintenance Immunization History Administered Date(s) Administered tetanus diphtheria pertussis (Tdap) vaccine, age 7+ yr (ADACEL, BOOSTRIX) 01/20/2022 zoster (RZV) vaccine, recombinant (SHINGRIX) 06/23/2022 10/13/2022 Colonoscopy: 08/15/2020 Mammogram: 06/09/2022 DATA REVIEW I have directly visualized the testing documented: Prior Imaging: Last CT/CTA Chest/Lungs CT LUNG SCREEN WO IVCON Exam End: 09/18/2021 11:31 AM (Final result) Narrative: * * *Final Report* * * DATE OF EXAM: Sep 18 2021 11:31AM [facility] [id number] - CT LUNG SCREEN WO IVCON / PROCEDURE REASON: Z12.2-Encounter for screening for lung cancer * * * * Physician Interpretation * * * * EXAMINATION: CHEST CT WITHOUT CONTRAST (LOW-DOSE CT LUNG CANCER SCREENING PROTOCOL) CLINICAL HISTORY: Lung cancer LDCT screening ? absence of signs or symptoms of lung cancer. Personal history of nicotine dependence. Subsequent (annual) Technique: Spiral CT acquisition of the chest from the thoracic inlet to the upper abdomen without contrast. MQ: [id number] Patient characteristics: * Jgjg-[id number]-Irllh: 1950; Age at exam: 71 years * Gender: Female * Lung Disease: Asymptomatic (no signs or symptoms of lung disease) * Number of Pack Years: 49 * Current smoker (=0) or Number of Years since Quit: 11 * Ordering provider and NPI: SARAH BETH LEWIS [id number] * Interpreting radiologist and NPI: Theodore [id number] Exam acquisition parameters: * Exam Date: 09/18/2021 11:31 AM * Site: [facility] * * CT System Special Officer Automat: [place] * CT System Model: Dual Source * Tube Current-Time (mA-sec): 40 * Peak Voltage (kV): 120V * Scan Time (sec): 5.93 * Scan Volume (z-length, cm): 29.80 * Pitch: 1.0 * Slice Thickness (mm): 1.5 * CT Dose-Length Product: 105.7 mGy*cm * CT Dose Index: 3.07mGy * CT Dose Reduction Method: mAs-kVp adjusted based on patient size-age COMPARISON: CT chest dated 09/13/2020 RESULT: Are nodules present? Yes, 1-5 nodules If No, go to IMPRESSION. If yes, proceed with characterization of the FIVE largest nodules. Nodule 1: This Solid nodule is located in the Right Lower Lobe on slice number 157 with an average diameter of 5.7 mm (7.5 mm x 3.9 mm). Stable Nodule 2: This Solid nodule is located in the Right Upper Lobe on slice number 130 with an average diameter of 4.5 mm (4.5 mm x 4.5 mm). Stable Nodule 3: This Solid nodule is located in the Left Lower Lobe on slice number 198 with an average diameter of 1.4 mm (1.9 mm x 0.9 mm). Nodule 4: This Calcified nodule is located in the Right Lower Lobe on slice number 210 with an average diameter of 8.9 mm (11.2 mm x 6.6 mm). If this is an ANNUAL LDCT for LCS, please ensure nodule number is the same as in the prior evaluation. Other lung nodule comments: None Other findings: The central airways are patent without evidence of endobronchial lesion. Mild diffuse bronchial wall thickening is seen. Biapical scarring is likely post inflammatory. No acute focal lung consolidation is seen. There is no pleural effusion or pneumothorax. Subcentimeter mediastinal and hilar lymph nodes are seen. No enlarged supraclavicular, axillary, mediastinal or hilar lymph nodes are visible. Calcified right hilar lymph nodes represent remote granulomatous disease. The aorta and main pulmonary artery are normal in course and caliber. The heart size is normal. There is no pericardial effusion. The thyroid gland is unremarkable. The esophagus is nondilated. Calcifications are seen in the left breast (image 118), unchanged. The gallbladder is surgically absent. Scattered diverticuli are seen in the partially imaged colon. Subcentimeter low-attenuation hepatic lesion (image 233) is too small to characterize, stable. Calcification in the left adrenal gland is unchanged. Emphysema: Trivial (<5%), Centrilobular, Upper lobe Coronary Artery Calcifications: Circumflex Mild; Left Anterior Descending Mild; Right Coronary None Rim Turning Finisher (topogram) images: No additional findings. Impression: IMPRESSION: LungRADS category: 2 LungRADS modifier: None LungRADS 0 reason: n/a Recommendations: Continue annual screening with LDCT in 12 months. Other actionable findings: Reference: [employer]. Lung CT Screening Reporting and Data System (Lung-RADS). Available at: http://www.acr.org/Quality-Safet y/Resources/LungRADS Reed Man: VANESA Transcribe Date/Time: Sep 18 2021 1:05P Dictated by : VICKY MILLER MD This examination was interpreted and the report reviewed and electronically signed by: VICKY MILLER MD on Sep 18 2021 3:17PM EST Last CT Chest - Impression Only No resulted procedures found. Last XR Chest - Impression Only XR CHEST 2V FRONTAL/LAT Exam End: 03/04/2021 1:00 PM (Final result) Impression: IMPRESSION: Stable chest. No acute cardiopulmonary process. Reed Man: VANESA Transcribe Date/Time: Mar 04 2021 3:29P ... Pulmonary Function Testing: No textual results found for the specified procedure(s). PHYSICAL EXAM: BP 127/63 (BP Site: Left Arm, BP Position: Sitting, BP Cuff Size: Large Adult) Pulse 60 Wt 92.5 kg (204 lb) SpO2 98% BMI 35.02 kg/m Deferred ASSESSMENT and RECOMMENDATIONS: 1. Screening for lung cancer: Encounter for screening for malignant neoplasm of lung - ICD9: V76.0, ICD10: Z12.2 (primary diagnosis) Six year risk for lung cancer: 3.4% Source: [employer] [email or web address] I have determined that the patient is eligible for a low dose CT based on age, absence of signs or symptoms of lung cancer, and total pack years: Yes. The patient and I engaged in shared decision making, including the use of one or more decision aids, to include benefits, harms, follow-up diagnostic testing, over-diagnosis, false positive rate, and total radiation exposure. The patient understands and feels comfortable with it: Yes. The patient was counseled on the importance of adherence to annual LDCT lung cancer screening, impact of comorbidities and ability or willingness to undergo diagnosis and treatment. The patient understands and feels comfortable with it:Yes. 2. Former cigarette smoker - ICD9: V15.82, ICD10: Z87.891 Nicotine dependence: The patient was counseled on the importance of maintaining cigarette smoking abstinence - The patient is committed to remaining abstinent from tobacco. 3. Lung nodules - ICD9: 793.19, ICD10: R91.8 RLL 5.7 mm, RUL , LLL < 5 mm nodules noted on last CT 09/2021, will continue to reassess on annual ldct. I spent a total of 30 minutes on the date of the service which included preparing to see the patient, [id number] patient care, completing clinical documentation, obtaining and/or reviewing separately obtained history, counseling and educating the patient/family/caregiver, ordering medications, tests, or procedures, communicating with other HCPs (not separately reported), and communicating results to the patient/family/caregiver. Juani Fallon APRN.DELON NPI #: October 28, 2022 3:08 PM documented in this encounter [facility] 10-13-2022 History of Presen t illness Narrative Medicare Yearly Visit [facility] date 01/21/2013 Patient here today for her medicare wellness exam. Has been in good health without hospitalizations or ER visits. Does have new complaint today of increased stress with brother passing away recently and recently diagnosed with stage IV cancer and is going into hospice. Has been feeling more anxious and depressed off and on for the last 3 years, but has been worse for the last 6 months. Not seeing counseling now. Would like to try medication to help with symptoms. 10/13/2022 1358 Last Filed Value MITCH-7 - over the last 2 weeks... Feeling nervous, anxious, or on edge Nearly Everyday Nearly Everyday Not being able to stop or control worrying Nearly Everyday Nearly Everyday Worrying too much about different things Nearly Everyday Nearly Everyday Trouble relaxing Nearly Everyday Nearly Everyday Being so restless that it is hard to sit still Nearly Everyday Nearly Everyday Becoming easily annoyed or irritable Nearly Everyday Nearly Everyday Feeling afraid, as if something awful might happen Nearly Everyday Nearly Everyday How difficult to do work, care for home, get along with people -- -- MITCH-2 Total Score 6 6 MITCH-7 Total Score 21 21 MITCH-7 Score 21 21 10/13/2022 1400 Last Filed Value PHQ-9 Little interest or pleasure in doing things Not at all Not at allLittle interest or pleasure in doing things. Not at all. Last Filed Value Feeling down, depressed, or hopeless Nearly every day Nearly every dayFeeling down, depressed, or hopeless. Nearly every day. Last Filed Value Trouble falling or staying asleep, or sleeping too much Nearly every day Nearly every day Feeling tired or having little energy Nearly every day Nearly every day Poor appetite or overeating Several days Several days Feeling bad about yourself - or that you are a failure or have let yourself or your family down Not at all Not at all Trouble concentrating on things, such as reading the newspaper or watching television Nearly every day Nearly every day Moving or speaking so slowly that other people could have noticed. Or the opposite - being so fidgety or restless that you have been moving around a lot more than usual Nearly every day Nearly every day Thoughts that you would be better off , or of hurting yourself in some way Not at all Not at all If you checked off any problems, how difficult have these problems made it for you to do your work, take care of things at home, or get along with other people? -- -- PHQ-9 score 16 16 PHQ-9 Score 16 16 PHQ-2 score 3 3 PHQ-2 Score 3 3 Patient did have a fall on Mother's day last year and is following up with Dr. Kenny for ORIF right humerus fracture. Not using cane or walker for ambulation. States that she has a bad knee and does not feel steady on her feet. Refusing cane or walker rx today despite discussing risks of falls. BP well controlled on current regimen. Requesting Shingrix vaccine. Refusing other vaccinations today. PAST MEDICAL HISTORY Diagnosis Date Humerus fracture 12/08/2021 right Hyperlipidemia Hypertension Obesity (BMI 30-39.9) GODWIN (obstructive sleep apnea) Overactive bladder Tear of right rotator cuff PAST SURGICAL HISTORY Procedure Laterality Date ARTHRP KNE CONDYLE&PLATU MEDIAL&LAT COMPARTMENTS Left BREAST LUMPECTOMY HX Right x2, benign CATARACT EXTRACTION HX Bilateral CHOLECYSTECTOMY lap vinayak PAST SURGICAL HISTORY OF Bilateral multifocal lenses PAST SURGICAL HISTORY OF 2014 laminectomy and possible microdiscectomy-in [place] PAST SURGICAL HISTORY OF Right 12/18/2021 ORIF of uncomplicated open right humerus fracture ROTATOR CUFF REPAIR Right TUBAL LIGATION ALLERGIES: Augmentin [Amoxicillin-Pot Clavulanate] and Iodine Medications reviewed: Yes FAMILY HISTORY Problem Relation Age of Onset Accidental Mother 39 MVA Cancer Father other (throat cancer) Father other (bone cancer) Sister Diabetes Maternal Grandmother SOCIAL HISTORY: Social History Tobacco Use Smoking status: Former Packs/day: 1.00 Years: 49.00 Pack years: 49.00 Types: Cigarettes Start date: 08/03/1960 Quit date: 04/04/2010 Years since quittin.5 Smokeless tobacco: Never Tobacco comments: start age: 11 Vaping Use Vaping Use: Never used Substance Use Topics Alcohol use: Yes Drug use: Never Sonny gets minimal exercise. She watches her diet for sodium, low fat and low cholesterol -I eat what I want when I want. List of current specialists seen: Pain management-Dr. De Paz [facility] Planning discussed including patients advanced directive wishes: Yes I am willing to follow Sonny's advanced directives. FULL CODE. PHQ-2 / Depression screen She in the past two weeks denies, admits to having felt down, depressed, or hopeless. Functional Ability/Safety Screen 1. Was the patient's timed Up and Go test unsteady or longer than 30 seconds? No 2. Does the patient need help with the phone, transportation, shopping,preparing meals, housework, laundry, medications or managing money? No 3. Does your home have rugs in the hallway-yes, lack of grab bars in the bathroom-yes, lack of handrails on the stairs or have poor lighting? No Hearing Evaluation: hard of hearing PHYSICAL EXAM BP 122/70 Pulse 67 Resp 16 Ht 162.6 cm (5' 4) Wt 93.8 kg (206 lb 12.8 oz) SpO2 98% BMI 35.50 kg/m Alert and oriented X 3: YES Mini Co/5 Body mass index is 35.5 kg/m . Visual acuity: OD: 20/25 OS: 20/ 25 OU: 20/40 with corrected vision. General Appearance: Well appearing, alert, in no acute distress, well-hydrated, well nourished.. PSYCH: Posture and motor behavior: normal posture and motor behavior Dress, grooming, personal hygiene: normal dress and grooming Facial expression: crying Speech: mumbles Mood: sad Coherency and relevance of thought: normal thought processes Memory: normal memory Component Latest Ref Rng & Units 06/05/2022 WBC 3.70 - 11.00 k/uL 9.80 RBC 3.90 - 5.20 m/uL 4.22 Hemoglobin 11.5 - 15.5 g/dL 13.1 Hematocrit 36.0 - 46.0 % 41.9 MCV 80.0 - 100.0 fL 99.3 MCH 26.0 - 34.0 pg 31.0 MCHC 30.5 - 36.0 g/dL 31.3 RDW-CV 11.5 - 15.0 % 13.7 Platelet Count 150 - 400 k/uL 238 MPV 9.0 - 12.7 fL 13.2 (H) Neut% % 45.2 Abs Neut (ANC) 1.45 - 7.50 k/uL 4.43 Lymph% % 38.1 Abs Lymph 1.00 - 4.00 k/uL 3.73 Alger% % 8.1 Abs Alger <0.87 k/uL 0.79 Eosin% % 7.2 Abs Eosin <0.46 k/uL 0.71 (H) Baso% % 0.9 Abs Baso <0.11 k/uL 0.09 Immature Gran % % 0.5 IMMATURE GRANS (ABS) <0.10 k/uL 0.05 NRBC /100 WBC 0.0 Absolute nRBC <0.01 k/uL <0.01 DTYPE Auto Protein, Total 6.3 - 8.0 g/dL 7.4 Albumin 3.9 - 4.9 g/dL 4.1 Calcium 8.5 - 10.2 mg/dL 10.2 Bilirubin, Total 0.2 - 1.3 mg/dL <0.2 (L) Alkaline Phosphatase 34 - 123 U/L 123 AST 13 - 35 U/L 18 ALT 7 - 38 U/L 14 Glucose 74 - 99 mg/dL 86 BUN 7 - 21 mg/dL 20 Creatinine 0.58 - 0.96 mg/dL 0.78 Sodium 136 - 144 mmol/L 140 Potassium 3.7 - 5.1 mmol/L 5.1 Chloride 97 - 105 mmol/L 106 (H) CO2 22 - 30 mmol/L 24 Anion Gap 9 - 18 mmol/L 10 eGFR >=60 mL/min/1.73m 80 Component Latest Ref Rng & Units 12/26/2021 Cholesterol, Total <200 mg/dL 172 Triglyceride <150 mg/dL 119 HDL Cholesterol >39 mg/dL 63 Non HDL Cholesterol <130 mg/dL 109 Fasting Time hrs 12 VLDL Cholesterol <30 mg/dL 24 TC:HDL Ratio <5.10 2.73 LDL Cholesterol <100 mg/dL 85 LDL:HDL Ratio <2.54 1.35 ASSESSMENT/PLAN: 1. Medicare annual wellness visit, subsequent - ICD9: V70.0, ICD10: Z00.00 (primary diagnosis) 72 year old female The following prevention plan was discussed during the office visit and provided to the patient: - Counseled on healthy diet and regular exercise - Discussed need for and benefit of weight loss. BMI 35.50 kg/(m^2) - Fall avoidance - Vaccines recommended COVID-19, Pneumococcal, and Influenza, Shingrix. - Depression screening - ZOSTER VACCINE, RECOMBINANT (SHINGRIX) 2. Bilateral hearing loss, unspecified hearing loss type - ICD9: 389.9, ICD10: H91.93 Referral for hearing test and possibly hearing aids. - HEARING TEST/AUDIOGRAM 3. Anxiety with depression - ICD9: 300.4, ICD10: F41.8 New diagnosis today related to increased stressors and recent in the family. Will start SSRI and recheck in 1 month. Patient refusing counseling. Red flags for re-assessment reviewed with patient in detail. - FLUOXETINE 20 MG CAPSULE Napoleon Martini MD documented in this encounter [facility] 09-23-2022 History of Presen t illness Narrative POPULATION HEALTH NAVIGATION OUTREACH Action/ Spoke to Xochitl. Scheduled medicare wellness exam and 2nd shingles vaccine ANNUAL MEDICARE WELLNESS EXAM Patient Identified by Name and : YES, via phone Outreach Outcome/Action Spoke to patient / parent / legal guardian: Patient scheduled Did you use a PCP flex slot to schedule this appointment? N/A Reason for Outreach Care Gap or Scheduling/Wellness visits Payer: Payor: [employer] A[employer] MEDICARE / Plan: [employer] A[employer] MEDICARE PPO / Product Type: PPO / Care Gap Reviewed:: Annual Wellness visit Reminder: Reminder note to check Health Maintenance for items below Health Maintenance items due: COVID-19 VACCINE(1) Never done PNEUMOCOCCAL: 65+(1 - PCV) Never done ADVANCE DIRECTIVE DISCUSSION Never done DEPRESSION ASSESSMENT due on 08/03/2022 SHINGRIX VACCINE(2 of 2) due on 08/18/2022 LUNG CANCER SCREENING due on 09/18/2022 Navigation Signature: Luann Chavez MA September 23, 2022 10:34 AM documented in this encounter [facility] 09-09-2022 Miscellaneous Notes Patient notified or results and recommendations below. Angelica Baez LPN Please call patient and let her know she is positive for COVID-19. Continue care as discussed in office yesterday. Afia Lama APRN.DELON documented in this encounter [facility] 09-08-2022 History of Presen t illness Narrative 09/08/2022 Patient presents with: Blood Pressure Nasal Congestion: Since 09/05/2022; coughing with some blood, headache SUBJECTIVE: This is a 72 year old that is here today for Above Complaints. Reports for a couple of days BP 160's/90-105. Started taking because she was getting some headaches. Developed cold symptoms about three days ago. No sick contacts. Taking aleve for symptoms. Did not get COVID-19 booster or influenza. Symptoms include: cough ( sometimes with streaks of blood) body aches, chills, nasal congestion, rhinorrhea, sinus pain, loss of smell, nausea, and SOB. Denies visual changes, slurred speech, facial drooping, confusion, extremity numbness, tingling, weakness, loss of taste, dyspnea, wheezing, chest pain, vomiting or diarrhea PAST MEDICAL HISTORY Diagnosis Date Humerus fracture 12/08/2021 right Hyperlipidemia Hypertension Obesity (BMI 30-39.9) GODWIN (obstructive sleep apnea) Overactive bladder Tear of right rotator cuff ALLERGIES Augmentin [Amoxicillin-Pot Clavulanate] and Iodine MEDICATIONS Current Outpatient Medications Medication Sig vit C/E/Zn/coppr/lutein/zeaxan (PRESERVISION AREDS-2 ORAL) Take by mouth once daily. lisinopril (ZESTRIL, PRINIVIL) 40 mg tablet Take 1 tablet by mouth once daily. propranolol (INDERAL) 10 mg tablet Take 1 tablet by mouth three times daily. fluticasone (FLONASE) 50 mcg/actuation nasal spray Use 2 Sprays in each nostril once daily. Rinse mouth after use. selenium 200 mcg tablet Take 1 tablet by mouth once daily. calcium carbonate/vitamin D2 (CALCIUM + VITAMIN D ORAL) Take by mouth. cholecalciferol, vitamin D3, (VITAMIN D3 ORAL) Take by mouth. naproxen (NAPROSYN) 500 mg tablet Take 1 tablet by mouth twice daily as needed for pain. Take with food. DANIELA'S WORT ORAL Take by mouth. vit A/vit C/vit E/zinc/copper (OCUVITE PRESERVISION ORAL) Take by mouth twice daily. (Patient not taking: Reported on 09/08/2022) No current facility-administered medications for this visit. Medications and allergies reviewed by this provider. SOCIAL HISTORY Social History Tobacco Use Smoking status: Former Packs/day: 1.00 Years: 49.00 Pack years: 49.00 Types: Cigarettes Start date: 08/03/1960 Quit date: 04/04/2010 Years since quittin.4 Smokeless tobacco: Never Tobacco comments: start age: 11 Vaping Use Vaping Use: Never used Substance Use Topics Alcohol use: Yes Drug use: Never REVIEW OF SYSTEMS All other reviewed and negative other than HPI. OBJECTIVE: BP 118/74 Pulse 69 Temp 36.9 C (98.4 F) Resp 18 Wt 91.9 kg (202 lb 9.6 oz) SpO2 95% BMI 34.78 kg/m . Vital signs reviewed by this provider. APPEARANCE Well appearing, alert, in no acute distress, well-hydrated, well nourished. EYES PERRLA, conjunctiva and sclera normal. EARS External ears normal, canals clear THROAT mild erythema NECK Supple, no adenopathy; thyroid symmetric, normal size, no bruits HEART RRR with normal S1 and S2, no murmurs, no gallops, no JVD appreciated LUNG clear to auscultation. No wheezes, rhonchi or rales SKIN Skin color, texture, turgor normal, no suspicious rashes or lesions to exposed skin COVID-19 VACCINE(1) Never done PNEUMOCOCCAL: 65+(1 - PCV) Never done ADVANCE DIRECTIVE DISCUSSION Never done DEPRESSION ASSESSMENT due on 08/03/2022 SHINGRIX VACCINE(2 of 2) due on 08/18/2022 INFLUENZA(1) due on 01/30/2023 LUNG CANCER SCREENING due on 09/18/2022 MAMMOGRAM due on 06/06/2023 ANNUAL PCP TEAM CHRONIC DISEASE VISIT due on 09/08/2023 BP CONTROLLED (<130/80) due on 09/08/2023 DIABETES SCREEN due on 06/05/2025 COLORECTAL CANCER SCREENING due on 06/16/2025 LIPID SCREEN due on 12/26/2026 DTAP,TDAP,TD(2 - Td or Tdap) due on 01/21/2032 BONE DENSITY Completed HEPATITIS C SCREENING Completed ASSESSMENT/PLAN: 1. Symptoms of upper respiratory infection (URI) - ICD9: 786.09, ICD10: R09.89 (primary diagnosis) - no red flag symptoms or exam findings - red flag symptoms discussed, verbalizes understanding - discussed staring paxlovid if positive. Discussed possible side effects, benefits and EUA status declines - discussed current CDC guidelines for home isolation, verbalizes understanding - discussed OTC medications for symptom control - follow-up if symptoms fail to improve, to ER with red flag symptoms - COVID WITH FLUA+B, ROUTINE - 2019 CORONAVIRUS 2. Primary hypertension - ICD9: 401.9, ICD10: I10 - good control - Continue current medication(s) - Encouraged dietary sodium restriction/DASH diet - Recommended regular aerobic exercise. - Recommend home blood pressure monitoring, to bring results in on next visit - Discussed need and benefit for weight loss. - Recheck in 6 months, sooner should new symptoms or problems arise. - Goal of BP <140/90 - Recommended no refined sugar, low refined starch, healthy oil intake (olive oil), healthy protein (fish) along the lines of the Mediterranean diet. - if home readings continue to be elevated schedule office appointment and bring home BP cuff to validate Afia Lama APRN.TAPE MAKING MACHINE OPERATOR Prescription instructions reviewed with patient as applicable. Patient advised if symptoms do not improve or if symptoms worsen sooner, to contact their primary care physician. Potential red flag symptoms discussed with the patient. Reviewed appropriate action plan to take if red flag symptoms occur. Patient agreeable to treatment plan. I spent a total of 30 minutes on the date of the service which included preparing to see the patient, [id number] patient care, completing clinical documentation, obtaining and/or reviewing separately obtained history, performing a medically appropriate examination, counseling and educating the patient/family/caregiver, and ordering medications, tests, or procedures. documented in this encounter [facility] 06-10-2022 Miscellaneous Notes Pleas let patient know that her mammogram is normal and that she should continue annual screenings. documented in this encounter [facility] 06-06-2022 Miscellaneous Notes June 09, 2022 PID: [id number] Sonny Jolly Julianchandrakant [address] [place] [address] Dear Lisa Dutch, We are pleased to inform you that the results of your recent breast imaging exam on 06/06/2022 are normal. Early detection of cancer is very important. We also understand recommendations regarding breast cancer screening are controversial. Please discuss with your primary care provider which strategy is best for you and whether a mammogram is right for you. Your imaging studies and report will be kept on file at [facility] as part of your permanent medical record and are available for your continuing care. Thank you for allowing us to help in meeting your health care needs. Sincerely, Dr. Zuleta Interpreting Radiologist [facility] (Normal over 40) documented in this encounter [facility] 06-06-2022 History of Presen t illness Narrative Radiology Service Progress Note PATIENT NAME: Sonny Biggs DATE OF SERVICE: June 06, 2022 TIME: 9:33 AM PATIENT IDENTITY VERIFICATION COMPLETED USING TWO (2) IDENTIFIERS: Name and Date of confirmed by patient verbally. FALL SCREENING: Has the patient had 2 falls in the last year or 1 fall with injury or currently using an Ambulatory Assistive Device (Walker, Cane, Wheelchair, Crutches, etc.)? No PATIENT GENDER DATA: Female. status: : No status: NO. PATIENT RELEVANT IMPLANT DATA REVIEWED: Not Applicable RADIOLOGY DEPARTMENT: Mammography PERIPHERAL IV DATA: Not applicable SIGNED BY: RT Elias(R) June 06, 2022 9:33 AM documented in this encounter [facility] 06-06-2022 Miscellaneous Notes Patient notified and verbalized understanding Laurel Pereira Cma Please let patient know that her labs are within normal range. documented in this encounter [facility] 06-05-2022 Instructions Cathy Griffith APRN.CNP - 06/05/2022 2:25 PM EDT Continue BP and Lipid medications Get labs done Schedule mammogram Complete Cologard documented in this encounter [facility] 06-05-2022 History of Presen t illness Narrative 06/05/2022 Patient presents with: Recheck SUBJECTIVE: This is a 72 year old that is here today for Chronic Medical Conditions.. Patient is here for routine follow up. Reports needing mammogram and cologard screening ordered. Patient reports occasional anxiety due to her husbands declining physical and mental state. Patient states that she is not alwasy PAST MEDICAL HISTORY Diagnosis Date Humerus fracture 12/08/2021 right Hyperlipidemia Hypertension Obesity (BMI 30-39.9) GODWIN (obstructive sleep apnea) Overactive bladder Tear of right rotator cuff ALLERGIES Augmentin [Amoxicillin-Pot Clavulanate] and Iodine MEDICATIONS Current Outpatient Medications Medication Sig propranolol (INDERAL) 10 mg tablet Take 1 tablet by mouth three times daily. fluticasone (FLONASE) 50 mcg/actuation nasal spray Use 2 Sprays in each nostril once daily. Rinse mouth after use. traMADol (ULTRAM) 50 mg tablet Take 50 mg by mouth once daily. doxycycline (VIBRA-TABS) 100 mg tablet (Patient not taking: Reported on 02/11/2022 ) selenium 200 mcg tablet Take 1 tablet by mouth once daily. oxyCODONE IR (ROXICODONE) 10 mg tab Take 1-2 tablets by mouth every 6 hours. (Patient not taking: Reported on 02/11/2022) calcium carbonate/vitamin D2 (CALCIUM + VITAMIN D ORAL) Take by mouth. cholecalciferol, vitamin D3, (VITAMIN D3 ORAL) Take by mouth. MAGNESIUM ORAL Take by mouth. (Patient not taking: Reported on 12/26/2021 ) lisinopril (ZESTRIL, PRINIVIL) 40 mg tablet Take 1 tablet by mouth once daily. vit A/vit C/vit E/zinc/copper (OCUVITE PRESERVISION ORAL) Take by mouth twice daily. naproxen (NAPROSYN) 500 mg tablet Take 1 tablet by mouth twice daily as needed for pain. Take with food. atorvastatin (LIPITOR) 20 mg tablet Take 1 tablet by mouth once daily. DANIELA'S WORT ORAL Take by mouth. No current facility-administered medications for this visit. Medications and allergies reviewed by this provider. SOCIAL HISTORY Social History Tobacco Use Smoking status: Former Packs/day: 1.00 Years: 49.00 Pack years: 49.00 Types: Cigarettes Start date: 08/03/1960 Quit date: 04/04/2010 Years since quittin.1 Smokeless tobacco: Never Tobacco comments: start age: 11 Vaping Use Vaping Use: Never used Substance Use Topics Alcohol use: Yes Drug use: Never REVIEW OF SYSTEMS GENERAL: No weight loss, malaise or fevers HEENT: Negative for frequent or significant headaches, No changes in hearing or vision, no nose bleeds or other nasal problems NECK: Negative for lumps, goiter, pain and significant neck swelling RESPIRATORY: Negative for cough, hemoptysis, wheezing, COPD, dyspnea or shortness of breath CARDIOVASCULAR: Negative for chest pain, leg swelling, hypertension. Reports occasional palpitations especially if she misses dose of propanolol. GI: No nausea, vomiting, or diarrhea : No history of dysuria, frequency or incontinence MUSCULOSKELETAL: joint pain or swelling and back pain SKIN: Negative for lesions, rash, and itching NEURO: No history of headaches, syncope, paralysis, seizures or tremors All other reviewed and negative other than HPI. PSYCH: Reports anxiety, denies depression. OBJECTIVE: BP 134/76 Pulse 76 Resp 14 Wt 91.6 kg (202 lb) BMI 34.67 kg/m . Vital signs reviewed by this provider. APPEARANCE Well appearing, alert, in no acute distress, well-hydrated, well nourished. EYES PERRLA, conjunctiva and sclera normal. EARS External ears normal, canals clear NOSE/SINUS Nares normal. Septum midline. Mucosa normal. No drainage or sinus tenderness. THROAT normal, no erythema NECK Supple, no adenopathy; thyroid symmetric, normal size, no bruits HEART RRR with normal S1 and S2, no murmurs, no gallops, no JVD appreciated LUNG clear to auscultation BREAST FEMALE Symmetrical, normal consistency without masses., No dimpling or skin changes, Normal nipples without discharge, and no axillary lymphadenopathy ABDOMEN bowel sounds normoactive, no bruits, soft, non-tender, non-distended, without organomegaly or palpable masses, no tenderness to palpation BACK: slight dec extension, slight dec. flexion EXTREMITIES Extremities normal, No deformities, No skin discoloration, No edema, and Normal pulses bilaterally. NEURO Awake, alert and oriented x 3, Reflexes symmetrical, Normal gait, and No involuntary motions. SKIN Skin color, texture, turgor normal, no suspicious rashes or lesions ASSESSMENT/PLAN: 1. Encounter for screening mammogram for breast cancer - ICD9: V76.12, ICD10: Z12.31 (primary diagnosis) - Set up for mammogram, yearly mammogram recommended - Encouraged monthly BSE - Follow up for annual exam in one year. - RENE SCREENING 2. Encounter for screening for malignant neoplasm of colon - ICD9: V76.51, ICD10: Z12.11 - COLOGUARD 3. Essential hypertension - ICD9: 401.9, ICD10: I10 - good control - Continue current medication(s) - Recommended regular aerobic exercise. - Recommend home blood pressure monitoring, to bring results in on next visit - Goal of BP <130/80 - LISINOPRIL 40 MG TABLET - CBC + DIFF - COMP METABOLIC PANEL 4. Hyperlipidemia, mixed - ICD9: 272.2, ICD10: E78.2 - good control - Continue current medication. - Encouraged following a low fat, low cholesterol diet. Cathy Griffith APRN.DELON documented in this encounter [facility] 06-04-2022 Miscellaneous Notes Patient is due for routine follow-up. Please assist in scheduling. Afia Lama APRN.DELON Maci from [facility] calling to request a refill for mail order. This was confirmed with pt, pt wants to use [facility]. RENU: 01/20/22 NOV: None scheduled Last Refill: 04/25/22 #270 1 refill Mariana Grant LPN documented in this encounter [facility] 04-24-2022 Miscellaneous Notes Patient needs rx switched to [facility]. Patient has been identified by name and date of : Yes Requested Prescriptions Pending Prescriptions Disp Refills propranolol (INDERAL) 10 mg tablet 270 tablet 1 Sig: Take 1 tablet by mouth three times daily. RX INSTRUCTIONS: Patient aware RX will be sent to pharmacy. No need to notify patient. Shay Lee documented in this encounter [facility] 02-11-2022 Instructions Luan Lincoln - 02/11/2022 8:49 AM EDT Your ulceration is now healed Continue with moisturizing lotion daily If you have any issues, give us a call documented in this encounter [facility] 02-11-2022 History of Presen t illness Narrative FOLLOW UP PODIATRIC OFFICE VISIT Chief Complaint: This 72 year old who presents for follow up:right foot ulceration. Patient presents to clinic for follow-up right foot ulceration Patient states the wound is doing excellent. She has no pain. She does not have any drainage. She is no longer applying any band aide to the foot. PAIN EVALUATION No data found in the last 1 encounters. No results found for: HBA1C PCP: Napoleon Martini MD PAST MEDICAL HISTORY Diagnosis Date Humerus fracture 12/08/2021 right Hyperlipidemia Hypertension Obesity (BMI 30-39.9) GODWIN (obstructive sleep apnea) Overactive bladder Tear of right rotator cuff Current Outpatient Medications Medication Sig traMADol (ULTRAM) 50 mg tablet Take 50 mg by mouth once daily. propranolol (INDERAL) 10 mg tablet Take 1 tablet by mouth three times daily. selenium 200 mcg tablet Take 1 tablet by mouth once daily. fluticasone (FLONASE) 50 mcg/actuation nasal spray Use 2 Sprays in each nostril once daily. Rinse mouth after use. calcium carbonate/vitamin D2 (CALCIUM + VITAMIN D ORAL) Take by mouth. cholecalciferol, vitamin D3, (VITAMIN D3 ORAL) Take by mouth. lisinopril (ZESTRIL, PRINIVIL) 40 mg tablet Take 1 tablet by mouth once daily. vit A/vit C/vit E/zinc/copper (OCUVITE PRESERVISION ORAL) Take by mouth twice daily. naproxen (NAPROSYN) 500 mg tablet Take 1 tablet by mouth twice daily as needed for pain. Take with food. atorvastatin (LIPITOR) 20 mg tablet Take 1 tablet by mouth once daily. DANIELA'S WORT ORAL Take by mouth. doxycycline (VIBRA-TABS) 100 mg tablet (Patient not taking: Reported on 02/11/2022 ) oxyCODONE IR (ROXICODONE) 10 mg tab Take 1-2 tablets by mouth every 6 hours. (Patient not taking: Reported on 02/11/2022) MAGNESIUM ORAL Take by mouth. (Patient not taking: Reported on 12/26/2021 ) Current Facility-Administered Medications Medication Dose Route Frequency perflutren lipid microspheres 1.3 mL in NaCl (PF) 0.9% 10 mL injection (DEFINITY) INTRAVENOUS DIRECTED PRN sodium chloride 0.9 % (flush) 10 mL (BD POSIFLUSH) 10 mL INTRAVENOUS DIRECTED PRN ALLERGIES Allergen Reactions Augmentin [Amoxicil* GI Upset Vomiting Iodine Rash PAST SURGICAL HISTORY Procedure Laterality Date ARTHRP KNE CONDYLE&PLATU MEDIAL&LAT COMPARTMENTS Left BREAST LUMPECTOMY HX Right x2, benign CATARACT EXTRACTION HX Bilateral CHOLECYSTECTOMY lap vinayak PAST SURGICAL HISTORY OF Bilateral multifocal lenses PAST SURGICAL HISTORY OF 2014 laminectomy and possible microdiscectomy-in [place] PAST SURGICAL HISTORY OF Right 12/18/2021 ORIF of uncomplicated open right humerus fracture ROTATOR CUFF REPAIR Right TUBAL LIGATION Physical Exam: OBJECTIVE: Constitutional: Pt is a well developed 72 year old female who is alert, oriented, cooperative and in no apparent distress. Eyes: Following during examination. No redness or drainage. Respiratory: RR normal and nonlabored. Even breathing. No evidence of distress. Psychology: Patient is engaged during conversation. Normal affect and mood. Does not appear depressed or anxious. NVSI unchanged from previous visit. Dermatological: Right foot has dry eschar to central arch. This was carefully debrided and the ulceration is now completely healed without infection. Musculoskeletal/Orthopaedic: Patient has no pain to palpation of b/l feet ASSESSMENT: (L97.056) Ulcer of toe of right foot, limited to breakdown of skin (HCC) (primary encounter diagnosis) PLAN: Ulceration of right foot is now healed. Today, a small eschar was debrided with tissue nippers. In order to perform a complete physical exam, limited shaving of eschar area was performed. This incidental service is integral to the evaluation and management visit in order to appropriately manage and treat the patient (for their complaint or for this visit). The ulceraiton is now healed. No signs of infection. She no longer requires any wound care. She did mention as she was leaving occasional pain to midfoot of left lower extremity. Suspect arthritis. Offered xrays. She elected to monitor. Luan Lincoln DPM AMB ROOMING INTAKE FLOWSHEET DATA Risk Screening Do you have concerns about personal safety or safety in the home?: No Patient presents with: Right Foot - Follow Up, Ulcer Patient states ulcer is healed and has scabbed over. documented in this encounter [facility] 02-06-2022 Miscellaneous Notes Patient has been identified by name and date of : Yes Patient phones for refill(s): Pending Prescriptions Disp Refills PROPRANOLOL 10 MG TABLET 210 tablet Sig: Take 1 tablet by mouth three times daily. TU: No Date of last office visit in primary care: 01/20/2022, has appt 02/26/2022 Last 2 Encounter Wt Readings: Date: Wt: 01/20/2022 90.7 kg (200 lb) 12/26/2021 91.4 kg (201 lb 6.4 oz) Previous labs/tests for medication: Blood Pressure: BUN (mg/dL) Date Value 01/31/2021 22 Sodium (mmol/L) Date Value 01/31/2021 140 Last 1 Encounter BP Readings: Date: BP: 01/20/2022 140/72 Please advise. Thank you. Evette Davis LPN Patient said she is having difficulty getting her mail away rx having problems for seferal months now, asking for new rx. documented in this encounter [facility] 01-29-2022 Instructions Luan Lincoln - 01/29/2022 8:15 AM EDT Your ulceration is healing as evident by reduction in size of overall wound. Continue with aquacel and offloading Offloading of ulceration is manrique to help with healling. Apply aquacel to wound daily. Use surgical shoe with offloading insert or sandal with donut hole pad to offload documented in this encounter [facility] 01-29-2022 History of Presen t illness Narrative FOLLOW UP PODIATRIC OFFICE VISIT Chief Complaint: This 72 year old who presents for follow up:ulceraiton of right foot Patient presents to clinic for follow-up ulceration Patient is using aquacel to the wound. Patient feels the wound is improving. She has finished the antibiotic Patient was using the surgical shoe but stopped today because she feels the surgical shoe is throwing out her back. PAIN EVALUATION 01/29/2022 0801 Pain Level: 2 Pain Location: Foot-Right Description: Burning Duration Amount of Time: 10 Duration Units: Days Frequency: Continuous Intervention/Comfort measure: Other: See comment Comments: bandage No results found for: HBA1C PCP: Napoleon Martini MD PAST MEDICAL HISTORY Diagnosis Date Humerus fracture 12/08/2021 right Hyperlipidemia Hypertension Obesity (BMI 30-39.9) GODWIN (obstructive sleep apnea) Overactive bladder Tear of right rotator cuff Current Outpatient Medications Medication Sig doxycycline (VIBRA-TABS) 100 mg tablet mupirocin (BACTROBAN) 2 % ointment Apply to affected area three times daily for 10 days. selenium 200 mcg tablet Take 1 tablet by mouth once daily. oxyCODONE IR (ROXICODONE) 10 mg tab Take 1-2 tablets by mouth every 6 hours. fluticasone (FLONASE) 50 mcg/actuation nasal spray Use 2 Sprays in each nostril once daily. Rinse mouth after use. calcium carbonate/vitamin D2 (CALCIUM + VITAMIN D ORAL) Take by mouth. cholecalciferol, vitamin D3, (VITAMIN D3 ORAL) Take by mouth. MAGNESIUM ORAL Take by mouth. (Patient not taking: Reported on 12/26/2021 ) propranolol (INDERAL) 10 mg tablet Take 1 tablet by mouth three times daily. lisinopril (ZESTRIL, PRINIVIL) 40 mg tablet Take 1 tablet by mouth once daily. vit A/vit C/vit E/zinc/copper (OCUVITE PRESERVISION ORAL) Take by mouth twice daily. naproxen (NAPROSYN) 500 mg tablet Take 1 tablet by mouth twice daily as needed for pain. Take with food. atorvastatin (LIPITOR) 20 mg tablet Take 1 tablet by mouth once daily. (Patient not taking: Reported on 06/04/2021 ) DANIELA'S WORT ORAL Take by mouth. Current Facility-Administered Medications Medication Dose Route Frequency perflutren lipid microspheres 1.3 mL in NaCl (PF) 0.9% 10 mL injection (DEFINITY) INTRAVENOUS DIRECTED PRN sodium chloride 0.9 % (flush) 10 mL (BD POSIFLUSH) 10 mL INTRAVENOUS DIRECTED PRN ALLERGIES Allergen Reactions Augmentin [Amoxicil* GI Upset Vomiting Iodine Rash PAST SURGICAL HISTORY Procedure Laterality Date ARTHRP KNE CONDYLE&PLATU MEDIAL&LAT COMPARTMENTS Left BREAST LUMPECTOMY HX Right x2, benign CATARACT EXTRACTION HX Bilateral CHOLECYSTECTOMY lap vinayak PAST SURGICAL HISTORY OF Bilateral multifocal lenses PAST SURGICAL HISTORY OF 2015 laminectomy and possible microdiscectomy-in [place] PAST SURGICAL HISTORY OF Right 12/18/2021 ORIF of uncomplicated open right humerus fracture ROTATOR CUFF REPAIR Right TUBAL LIGATION Physical Exam: OBJECTIVE: Constitutional: Pt is a well developed 72 year old female who is alert, oriented, cooperative and in no apparent distress. Eyes: Following during examination. No redness or drainage. Respiratory: RR normal and nonlabored. Even breathing. No evidence of distress. Psychology: Patient is engaged during conversation. Normal affect and mood. Does not appear depressed or anxious. NVSI unchanged from previous visit. Dermatological: Ulceration of right foot. Wound meausres 5 mm x 4 mm x 1 mm. There is mild periwound hyperkertosis. No signs of infection Culture from right foot shows no growth. Musculoskeletal/Orthopaedic: Patient has no pain to palpation of right foot ASSESSMENT: (L97.511) Ulcer of toe of right foot, limited to breakdown of skin (HCC) PLAN: Your ulceration is healing as evident by reduction in size of overall wound. Continue with aquacel and offloading Offloading of ulceration is manrique to help with healling. Apply aquacel to wound daily. Use surgical shoe with offloading insert or sandal with donut hole pad to offload Wound was sharply debrided thru dermis today with 15 blade. Total debridement was 4 mm x 5 mm x 1 mm. F/u in 2 weeks Luan Lincoln DPM Patient presents with: Right Foot - Follow Up, Ulcer AMB ROOMING INTAKE FLOWSHEET DATA Pain Pain Level: 2 Pain Location: Foot-Right Description: Burning Duration Amount of Time: 10 Duration Units: Days Frequency: Continuous Intervention/Comfort measure: Other: See comment Comments: bandage documented in this encounter [facility] 01-23-2022 Miscellaneous Notes Spoke with pt gave information provided. Pt voices understanding. ----- Message from Napoleon Martini MD sent at 01/23/2022 8:10 AM EDT ----- Wound culture negative infection. Follow up with recommendations per Dr. Lincoln. documented in this encounter [facility] 01-21-2022 History of Presen t illness Narrative Aquacel applied to ulcer of R plantar foot. Per Dr. Lincoln, Sonny was provided with a post op shoe and peg assisted offloading insert, size M, and instructed/educated in its application, wear, and care. All questions were answered, and patient was able to demonstrate competence with the necessary skills to utilize the above equipment. Latisha Demarco RN Consultation requested by Dr. Martini for an opinion regarding ulceration of right foot. My final recommendations will be communicated back to the requesting physician by way of shared Medical record or letter to requesting physician via US mail. Initial Podiatric Office Visit: Chief Complaint: This 72 year old female who presents with chief complaint:right foot wound HPI Patient presents to clinic for evaluation of right foot. Patient has wound to the plantar aspect of irght foot that has been present for about one week. She states the wound was the result of stepping on something. She has been treating with soaking in epsom salts and was prescribed doxycycline. She is also applying topical antibiotic to the right foot. Patient had wound culture performed by her PCP yesterday and had ultrasound to r/o foreign body. PAIN EVALUATION 01/21/2022 1053 Pain Level: 3 Description: Pressure Ulcer/Injury Duration Amount of Time: 6 Duration Units: Days Frequency: Continuous Comments: soaking in epson salt and applying antibiotic cream with mild relief No results found for: HBA1C PCP: Napoleon Martini MD PAST MEDICAL HISTORY Diagnosis Date Humerus fracture 12/08/2021 right Hyperlipidemia Hypertension Obesity (BMI 30-39.9) GODWIN (obstructive sleep apnea) Overactive bladder Tear of right rotator cuff Current Outpatient Medications Medication Sig doxycycline (VIBRA-TABS) 100 mg tablet mupirocin (BACTROBAN) 2 % ointment Apply to affected area three times daily for 10 days. selenium 200 mcg tablet Take 1 tablet by mouth once daily. oxyCODONE IR (ROXICODONE) 10 mg tab Take 1-2 tablets by mouth every 6 hours. fluticasone (FLONASE) 50 mcg/actuation nasal spray Use 2 Sprays in each nostril once daily. Rinse mouth after use. calcium carbonate/vitamin D2 (CALCIUM + VITAMIN D ORAL) Take by mouth. cholecalciferol, vitamin D3, (VITAMIN D3 ORAL) Take by mouth. propranolol (INDERAL) 10 mg tablet Take 1 tablet by mouth three times daily. lisinopril (ZESTRIL, PRINIVIL) 40 mg tablet Take 1 tablet by mouth once daily. vit A/vit C/vit E/zinc/copper (OCUVITE PRESERVISION ORAL) Take by mouth twice daily. naproxen (NAPROSYN) 500 mg tablet Take 1 tablet by mouth twice daily as needed for pain. Take with food. DANIELA'S WORT ORAL Take by mouth. MAGNESIUM ORAL Take by mouth. (Patient not taking: Reported on 12/26/2021 ) atorvastatin (LIPITOR) 20 mg tablet Take 1 tablet by mouth once daily. (Patient not taking: Reported on 06/04/2021 ) Current Facility-Administered Medications Medication Dose Route Frequency perflutren lipid microspheres 1.3 mL in NaCl (PF) 0.9% 10 mL injection (DEFINITY) INTRAVENOUS DIRECTED PRN sodium chloride 0.9 % (flush) 10 mL (BD POSIFLUSH) 10 mL INTRAVENOUS DIRECTED PRN ALLERGIES Allergen Reactions Augmentin [Amoxicil* GI Upset Vomiting Iodine Rash PAST SURGICAL HISTORY Procedure Laterality Date ARTHRP KNE CONDYLE&PLATU MEDIAL&LAT COMPARTMENTS Left BREAST LUMPECTOMY HX Right x2, benign CATARACT EXTRACTION HX Bilateral CHOLECYSTECTOMY lap vinayak PAST SURGICAL HISTORY OF Bilateral multifocal lenses PAST SURGICAL HISTORY OF 2015 laminectomy and possible microdiscectomy-in [place] PAST SURGICAL HISTORY OF Right 12/18/2021 ORIF of uncomplicated open right humerus fracture ROTATOR CUFF REPAIR Right TUBAL LIGATION FAMILY HISTORY Problem Relation Age of Onset Accidental Mother 39 MVA Cancer Father other (throat cancer) Father other (bone cancer) Sister Diabetes Maternal Grandmother Social History Tobacco Use Smoking status: Former Smoker Packs/day: 1.00 Years: 49.00 Pack years: 49.00 Types: Cigarettes Start date: 08/03/1960 Quit date: 04/04/2010 Years since quittin.8 Smokeless tobacco: Never Used Tobacco comment: start age: 11 Vaping Use Vaping Use: Never used Substance Use Topics Alcohol use: Yes Drug use: Never REVIEW OF SYSTEMS GENERAL: Negative for Malaise, significant weight loss, fever RESPIRATORY: Negative for cough, wheezing and shortness of breath CARDIOVASCULAR: Negative for chest pain, leg swelling and palpitations GI: Negative for abdominal discomfort, blood in stools or black stools and change in bowel habits : Negative for dysuria, frequency and incontinence MUSCULOSKELETAL: Negative for joint pain or swelling, back pain, and muscle pain. SKIN: Negative for lesions, rash, and itching. HEMATOLOGY/LYMPHOLOGY Negative for prolonged bleeding, bruising easily, and swollen nodes. ENDOCRINE: Negative for cold or heat intolerance, polyuria, polydipsia and goiter. NEURO: negative Physical Exam: Constitutional: Pt is a well developed 72 year old female who is alert, oriented and cooperative Eyes: Following during examination. No redness or drainage. Respiratory: RR normal and nonlabored. Even breathing. No evidence of distress or shortness of breath. Psychology: Patient is engaged during conversation. Normal affect and mood. Does not appear depressed or anxious during encounter. Vascular: Dorsalis pedis and posterior tibial pulses palpable as b/l Capillary Fill time < 5 seconds to digits 1-5 b/l Skin temperature warm to warm proximal to distal b/l Hair growth present to digits Neurological: intact light touch/epicritic sensation intact protective sensation no significant neurological deficits Dermatological: Plantar aspect of right foot has macerated wound with underlying serous drainage with periwound erythema. The wound measures 1.0 cm x 9 mm. No exposed tendon or bone. Musculoskeletal/Orthopaedic: Patient has pain to palpation of right foot at site of ulceration Foot type is neutral structurally AJ ROM is full with knee extended and flexed 1st MPJ is full when loaded and no pain or crepitus are noted with ROM. MTJ, STJ are full and free of pain and crepitus. +5/5 muscle strength dorsiflexion, plantarflexion, inversion, eversion b/l Ultrasound with no underlying abscess or foreign body ASSESSMENT: (L97.511) Ulcer of toe of right foot, limited to breakdown of skin (HCC) (S91.301A) Wound of right foot PLAN: 1. History and physical examination performed. 2. Discussed traumatic ulceration of right foot. Today, we discussed the appearance of the wound. It has drainage and periwound erythema and nonviable base. Today, the ulceration was debrided of nonviable tissue with tissue nippers thru dermis. Total debridement was 9 mm x 1.0 cm. Will treat the wound with aquacel and offloading insert (surgical shoe and insert). 3. Staying off her foot is critical in healing of ulceration 4. Agree with continued use of antibiotic. Since some drainage was expressed today, a subsequent wound culture was obtained 5. F/u in 1-2 week Luan Lincoln DPM Podiatry [address] [facility] [address] Dept: [phone] Dept Patient presents with: Right Foot - New, Infection, Swelling, Pain AMB ROOMING INTAKE FLOWSHEET DATA Pain Pain Level: 3 Description: Pressure Ulcer/Injury Duration Amount of Time: 6 Duration Units: Days Frequency: Continuous Comments: soaking in epson salt and applying antibiotic cream with mild relief documented in this encounter [facility] 01-21-2022 Miscellaneous Notes Pt has already had the US of her RT Foot done on 01/20 and declined the MSK US. Visit Type: ANY MSK Visit Length: 45, 50 OR 60 MINUTES Order Name/Protocol: US FOREIGN BODY RT; EVAL RT PLANTAR FOOT FOR POSSIBLE RETAINED FB Preferred Provider: N/A Comment: Please do not link the US FOOT RT to the appointment. An order correction was routed and is forthcoming. Location: ANY FACILITY Slot held: N/A documented in this encounter [facility] 01-21-2022 Instructions Luan Lincoln - 01/21/2022 11:33 AM EDT Apply aquacel to right foot daily Cleanse wound with saline Try to keep wound clean and dry, out of shower, lakes or pools Wear surgical shoe with offloading pad documented in this encounter [facility] 01-20-2022 History of Presen t illness Narrative Radiology Service Progress Note PATIENT NAME: Sonny Biggs DATE OF SERVICE: January 20, 2022 TIME: 2:54 PM PATIENT IDENTITY VERIFICATION COMPLETED USING TWO (2) IDENTIFIERS: Name and Date of confirmed by patient verbally. FALL SCREENING: Has the patient had 2 falls in the last year or 1 fall with injury or currently using an Ambulatory Assistive Device (Walker, Cane, Wheelchair, Crutches, etc.)? No PATIENT GENDER DATA: Female. status: : No status: N/A PATIENT RELEVANT IMPLANT DATA REVIEWED: Not Applicable RADIOLOGY DEPARTMENT: Ultrasound PERIPHERAL IV DATA: Not applicable SIGNED BY: Maria Guadalupe Mays RDMS RVT January 20, 2022 2:54 PM documented in this encounter [facility] 01-20-2022 History of Presen t illness Narrative . documented in this encounter [facility] 01-20-2022 History of Presen t illness Narrative Chief Complaint Patient presents with: Derm Problem: Arch in right foot x5 days; [facility] placed on ATB HPI Sonny Biggs is a 71 year old female who presents here today for Above Complaints.. Patient states that Thurs/Fri she was walking barefoot and felt something jab her in the foot. Next day developed pain and blister so went to [facility] and they were unsure what caused her pain so they started her on doxycyline x 7 days and recommended follow up with our office. Taking as prescribed with vomiting if she doesn't eat before medication. Still has blister with stable redness. Has not noticed much drainage. Soaking 2-3 times per day with epsom salts. Last tetanus shot more than 10 years ago. Past medical history, appointments, medications, allergies reviewed. Previous Medical History PAST MEDICAL HISTORY Diagnosis Date Humerus fracture 12/08/2021 right Hyperlipidemia Hypertension Obesity (BMI 30-39.9) GODWIN (obstructive sleep apnea) Overactive bladder Tear of right rotator cuff Previous Surgical History PAST SURGICAL HISTORY Procedure Laterality Date ARTHRP KNE CONDYLE&PLATU MEDIAL&LAT COMPARTMENTS Left BREAST LUMPECTOMY HX Right x2, benign CATARACT EXTRACTION HX Bilateral CHOLECYSTECTOMY lap vinayak PAST SURGICAL HISTORY OF Bilateral multifocal lenses PAST SURGICAL HISTORY OF 2014 laminectomy and possible microdiscectomy-in [place] PAST SURGICAL HISTORY OF Right 12/18/2021 ORIF of uncomplicated open right humerus fracture ROTATOR CUFF REPAIR Right TUBAL LIGATION Family History FAMILY HISTORY Problem Relation Age of Onset Accidental Mother 39 MVA Cancer Father other (throat cancer) Father other (bone cancer) Sister Diabetes Maternal Grandmother Patient Allergies ALLERGIES Allergen Reactions Augmentin [Amoxicil* GI Upset Vomiting Iodine Rash Current Medications Current Outpatient Medications on File Prior to Visit Medication Sig doxycycline (VIBRA-TABS) 100 mg tablet selenium 200 mcg tablet Take 1 tablet by mouth once daily. oxyCODONE IR (ROXICODONE) 10 mg tab Take 1-2 tablets by mouth every 6 hours. fluticasone (FLONASE) 50 mcg/actuation nasal spray Use 2 Sprays in each nostril once daily. Rinse mouth after use. calcium carbonate/vitamin D2 (CALCIUM + VITAMIN D ORAL) Take by mouth. cholecalciferol, vitamin D3, (VITAMIN D3 ORAL) Take by mouth. propranolol (INDERAL) 10 mg tablet Take 1 tablet by mouth three times daily. lisinopril (ZESTRIL, PRINIVIL) 40 mg tablet Take 1 tablet by mouth once daily. vit A/vit C/vit E/zinc/copper (OCUVITE PRESERVISION ORAL) Take by mouth twice daily. naproxen (NAPROSYN) 500 mg tablet Take 1 tablet by mouth twice daily as needed for pain. Take with food. DANIELA'S WORT ORAL Take by mouth. MAGNESIUM ORAL Take by mouth. (Patient not taking: Reported on 12/26/2021 ) atorvastatin (LIPITOR) 20 mg tablet Take 1 tablet by mouth once daily. (Patient not taking: Reported on 06/04/2021 ) Current Facility-Administered Medications on File Prior to Visit Medication perflutren lipid microspheres 1.3 mL in NaCl (PF) 0.9% 10 mL injection (DEFINITY) sodium chloride 0.9 % (flush) 10 mL (BD POSIFLUSH) Social History Social History Tobacco Use Smoking status: Former Smoker Packs/day: 1.00 Years: 49.00 Pack years: 49.00 Types: Cigarettes Start date: 08/03/1960 Quit date: 04/04/2010 Years since quittin.8 Smokeless tobacco: Never Used Tobacco comment: start age: 11 Vaping Use Vaping Use: Never used Substance Use Topics Alcohol use: Yes Drug use: Never Review of Symptoms REVIEW OF SYSTEMS GENERAL: No weight loss, malaise or fevers GI: See HPI SKIN: Negative for lesions, rash, and itching EXAM: BP 140/72 Pulse 79 Temp 36.6 C (97.9 F) Wt 90.7 kg (200 lb) SpO2 98% BMI 34.33 kg/m General Appearance: Well appearing, alert, in no acute distress, well-hydrated, well nourished.. Skin: 1 cm blister on right plantar midfoot with <0.5 cm diameter of erythema surrounding wound. Serosanguinous drainage expressed. TTP. No warmth to touch or fluctuance. Health Maintenance List COVID-19 VACCINE(1) Never done DTAP,TDAP,TD(1 - Tdap) Never done SHINGRIX VACCINE(1 of 2) Never done PNEUMOCOCCAL: 65+(1 - PCV) Never done ADVANCE DIRECTIVE DISCUSSION Never done COLORECTAL CANCER SCREENING due on 08/09/2021 INFLUENZA(Season Ended) due on 04/03/2022 DEPRESSION SCREENING due on 06/04/2022 MAMMOGRAM due on 06/11/2022 LUNG CANCER SCREENING due on 09/18/2022 ANNUAL PCP TEAM CHRONIC DISEASE VISIT due on 12/26/2022 BP CONTROLLED (<130/80) due on 12/26/2022 DIABETES SCREEN due on 02/01/2024 LIPID SCREEN due on 12/26/2026 BONE DENSITY Completed HEPATITIS C SCREENING Completed ASSESSMENT/PLAN: 1. Wound of right foot - ICD9: 892.0, ICD10: S91.301A (primary diagnosis) Obtain US to evaluate for foreign body. Continue doxycycline and add on bactroban ointment BID to TID. F/u with podiatry for excision of foreign body if present and monitoring. Discussed wound care. Red flags for re-assessment reviewed with patient in detail. - WOUND CULTURE AND GRAM STAIN - CONSULT TO PODIATRY - US FOOT RT - US EXTREMITY MASS/FLUID COLLECTION RT - TDAP VACCINE AGE 7+ IM 2. Foreign body in right foot, initial encounter - ICD9: 917.6, ICD10: S90.851A - US EXTREMITY MASS/FLUID COLLECTION RT - TDAP VACCINE AGE 7+ IM 3. Need for vaccination - ICD9: V05.9, ICD10: Z23 - TDAP VACCINE AGE 7+ IM Napoleon Martini MD documented in this encounter [facility] 12-26-2021 History of Presen t illness Narrative Chief Complaint Patient presents with: Hospital Follow Up: surgery follow up right arm/shoulder HPI Sonny Biggs is a 71 year old female who presents here today for Above Complaints. Patient states that she was walking down by her mailbox on 12/08 and right knee gave out on her and landed on her right shoulder fracturing her humerus. Also hit her head and had bruising around her right eye. Neighbor came to her aid and called EMS. Diagnosed with comminuted oblique fracture of the porximal humeral piaphysis with 1/2 shaft width displacement and medial aspect angulation on xray of shoulder/humerus. Head CT negative for skull fracture or hemorrhage. Placed in sling and discharged home with referral to Dr. Kenny who recommended ORIF. S/p ORIF of uncomplicated open right humerus fracture on 12/18. Noted she received interscalene block postop an dhad some increased dyspnea. 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 Placed in observation overnight for monitoring and dyspnea improved after nerve block wore off. Discharged home on POD #1. Patient has been wearing sling as directed. Bruising on her right arm has been healing well. Has follow up appointment with Dr. Kenny scheduled, but cannot recall what date. Taking oxycodone every 12 hours PRN and extra strength tylenol OTC which work well to control her pain. States that she is not scheduled to see PT or OT yet. Has not had any recurrent falls. Not using cane or walker for balance. Past medical history, appointments, medications, allergies reviewed. Previous Medical History PAST MEDICAL HISTORY Diagnosis Date Hyperlipidemia Hypertension Obesity (BMI 30-39.9) GODWIN (obstructive sleep apnea) Overactive bladder Previous Surgical History PAST SURGICAL HISTORY Procedure Laterality Date ARTHRP KNE CONDYLE&PLATU MEDIAL&LAT COMPARTMENTS Left BREAST LUMPECTOMY HX Right x2, benign CATARACT EXTRACTION HX Bilateral CHOLECYSTECTOMY lap vinayak PAST SURGICAL HISTORY OF Bilateral multifocal lenses PAST SURGICAL HISTORY OF 2014 laminectomy and possible microdiscectomy-in [place] ROTATOR CUFF REPAIR Right TUBAL LIGATION Family History FAMILY HISTORY Problem Relation Age of Onset Accidental Mother 39 MVA Cancer Father other (throat cancer) Father other (bone cancer) Sister Diabetes Maternal Grandmother Patient Allergies ALLERGIES Allergen Reactions Augmentin [Amoxicil* GI Upset Vomiting Iodine Rash Current Medications Current Outpatient Medications on File Prior to Visit Medication Sig selenium 200 mcg tablet Take 1 tablet by mouth once daily. oxyCODONE IR (ROXICODONE) 10 mg tab Take 1-2 tablets by mouth every 6 hours. calcium carbonate/vitamin D2 (CALCIUM + VITAMIN D ORAL) Take by mouth. cholecalciferol, vitamin D3, (VITAMIN D3 ORAL) Take by mouth. propranolol (INDERAL) 10 mg tablet Take 1 tablet by mouth three times daily. lisinopril (ZESTRIL, PRINIVIL) 40 mg tablet Take 1 tablet by mouth once daily. fluticasone (FLONASE) 50 mcg/actuation nasal spray Use 2 Sprays in each nostril once daily. Rinse mouth after use. vit A/vit C/vit E/zinc/copper (OCUVITE PRESERVISION ORAL) Take by mouth twice daily. naproxen (NAPROSYN) 500 mg tablet Take 1 tablet by mouth twice daily as needed for pain. Take with food. DANIELA'S WORT ORAL Take by mouth. MAGNESIUM ORAL Take by mouth. (Patient not taking: Reported on 12/26/2021 ) predniSONE (DELTASONE) 20 mg tablet Take 1 tablet by mouth once daily. (Patient not taking: Reported on 09/18/2021 ) atorvastatin (LIPITOR) 20 mg tablet Take 1 tablet by mouth once daily. (Patient not taking: Reported on 06/04/2021 ) Multivitamin capsule Take 1 capsule by mouth once daily. (Patient not taking: Reported on 09/18/2021 ) Current Facility-Administered Medications on File Prior to Visit Medication perflutren lipid microspheres 1.3 mL in NaCl (PF) 0.9% 10 mL injection (DEFINITY) sodium chloride 0.9 % (flush) 10 mL (BD POSIFLUSH) Social History Social History Tobacco Use Smoking status: Former Smoker Packs/day: 1.00 Years: 49.00 Pack years: 49.00 Types: Cigarettes Start date: 08/03/1960 Quit date: 04/04/2010 Years since quittin.7 Smokeless tobacco: Never Used Tobacco comment: start age: 11 Vaping Use Vaping Use: Never used Substance Use Topics Alcohol use: Yes Drug use: Never Review of Symptoms REVIEW OF SYSTEMS GENERAL: No weight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 unspecified hyperlipidemia type History of DVT (deep vein thrombosis) Personal history of venous thrombosis and embolism Coronary artery calcification seen on CT scan Pulmonary emphysema, unspecified emphysema type (HCC) Palpitations Anxiety with depression Gastroesophageal reflux disease, unspecified whether esophagitis present Overactive bladder Hypertonicity of bladder Obesity (BMI 30-39.9) Obesity, unspecified documented [facility]* Diagnosis Chronic pain of both shoulders Pain in joint, shoulder region Preoperative examination- Primary Preoperative examination, unspecified Primary hypertension Unspecified essential hypertension GODWIN (obstructive sleep apnea) Obstructive sleep apnea (adult) (pediatric) Hyperlipidemia, unspecified hyperlipidemia type History of DVT (deep vein thrombosis) Personal history of venous thrombosis and embolism Coronary artery calcification seen on CT scan Pulmonary emphysema, unspecified emphysema type (HCC) Palpitations Anxiety with depression Gastroesophageal reflux disease, unspecified whether esophagitis present Overactive bladder Hypertonicity of bladder Obesity (BMI 30-39.9) Obesity, unspecified documented [facility]* Diagnosis Preoperative examination- Primary Preoperative examination, unspecified Primary hypertension Unspecified essential hypertension GODWIN (obstructive sleep apnea) Obstructive sleep apnea (adult) (pediatric) Hyperlipidemia, unspecified hyperlipidemia type History of DVT (deep vein thrombosis) Personal history of venous thrombosis and embolism Coronary artery calcification seen on CT scan Pulmonary emphysema, unspecified emphysema type (HCC) Palpitations Anxiety with depression Gastroesophageal reflux disease, unspecified whether esophagitis present Overactive bladder Hypertonicity of bladder Obesity (BMI 30-39.9) Obesity, unspecified Anxiety with depression Essential hypertension Unspecified essential hypertension documented [facility]* Diagnosis Preoperative examination- Primary Preoperative examination, unspecified Primary hypertension Unspecified essential hypertension GODWIN (obstructive sleep apnea) Obstructive sleep apnea (adult) (pediatric) Hyperlipidemia, unspecified hyperlipidemia type History of DVT (deep vein thrombosis) Personal history of venous thrombosis and embolism Coronary artery calcification seen on CT scan Pulmonary emphysema, unspecified emphysema type (HCC) Palpitations Anxiety with depression Gastroesophageal reflux disease, unspecified whether esophagitis present Overactive bladder Hypertonicity of bladder Obesity (BMI 30-39.9) Obesity, unspecified Primary osteoarthritis of right knee Primary localized osteoarthrosis, lower leg Chronic pain of right knee documented [facility]* Diagnosis Preoperative examination- Primary Preoperative examination, unspecified Primary hypertension Unspecified essential hypertension GODWIN (obstructive sleep apnea) Obstructive sleep apnea (adult) (pediatric) Hyperlipidemia, unspecified hyperlipidemia type History of DVT (deep vein thrombosis) Personal history of venous thrombosis and embolism Coronary artery calcification seen on CT scan Pulmonary emphysema, unspecified emphysema type (HCC) Palpitations Anxiety with depression Gastroesophageal reflux disease, unspecified whether esophagitis present Overactive bladder Hypertonicity of bladder Obesity (BMI 30-39.9) Obesity, unspecified Lung nodule- Primary Solitary pulmonary nodule Encounter for screening for lung cancer Former cigarette smoker Personal history of tobacco use, presenting hazards to health Cough variant asthma (HCC) Cough variant asthma documented [facility]* Diagnosis Preoperative examination- Primary Preoperative examination, unspecified Primary hypertension Unspecified essential hypertension GODWIN (obstructive sleep apnea) Obstructive sleep apnea (adult) (pediatric) Hyperlipidemia, unspecified hyperlipidemia type History of DVT (deep vein thrombosis) Personal history of venous thrombosis and embolism Coronary artery calcification seen on CT scan Pulmonary emphysema, unspecified emphysema type (HCC) Palpitations Anxiety with depression Gastroesophageal reflux disease, unspecified whether esophagitis present Overactive bladder Hypertonicity of bladder Obesity (BMI 30-39.9) Obesity, unspecified Former cigarette smoker Personal history of tobacco use, presenting hazards to health documented [facility] Diagnosis Preoperative examination- Primary Preoperative examination, unspecified Primary hypertension Unspecified essential hypertension GODWIN (obstructive sleep apnea) Obstructive sleep apnea (adult) (pediatric) Hyperlipidemia, unspecified hyperlipidemia type History of DVT (deep vein thrombosis) Personal history of venous thrombosis and embolism Coronary artery calcification seen on CT scan Pulmonary emphysema, unspecified emphysema type (HCC) Palpitations Anxiety with depression Gastroesophageal reflux disease, unspecified whether esophagitis present Overactive bladder Hypertonicity of bladder Obesity (BMI 30-39.9) Obesity, unspecified Essential hypertension Unspecified essential hypertension documented in this encounter [facility] Plan of care note* Visit Details Visit Type -PT SOC Discipline -Physical Therapy Problems Problem Description Start Date Status Goals Interve ntions Medication Education Disciplines: Skilled Services 11/18/2023 Active 1 goal linked to scheduled/document ed intervention 1 goal intervention scheduled/document ed in this visit Mental Health Disciplines: Skilled Services 11/18/2023 Active 1 goal linked to scheduled/document ed intervention 1 goal intervention scheduled/document ed in this visit Sepsis Disciplines: Skilled Services 11/18/2023 Active 1 goal linked to scheduled/document ed intervention 1 goal intervention scheduled/document ed in this visit Physician Specific Parameters Disciplines: Skilled Services 11/18/2023 Active 1 goal linked to scheduled/document ed intervention 1 goal intervention scheduled/document ed in this visit Risk for Falls Disciplines: Skilled Services 11/18/2023 Active 1 goal linked to scheduled/document ed intervention 1 goal intervention scheduled/document ed in this visit Pain Disciplines: Skilled Services 11/18/2023 Active 1 goal linked to scheduled/document ed intervention 1 goal intervention scheduled/document ed in this visit High Risk Medications Disciplines: Skilled Services 11/18/2023 Resolved on 11/18/2023 1 goal linked to scheduled/document ed intervention 3 goal interventions scheduled/document ed in this visit Discharge Disciplines: Skilled Services 11/18/2023 Active 1 goal linked to scheduled/document ed intervention 1 goal intervention scheduled/document ed in this visit Advance Directives Disciplines: Skilled Services 11/18/2023 Resolved on 11/18/2023 1 goal linked to scheduled/document ed intervention 1 goal intervention scheduled/document ed in this visit PT Impaired muscle performance and/or ROM Disciplines: PT 11/18/2023 Active 1 goal linked to scheduled/document ed intervention 1 goal intervention scheduled/document ed in this visit PT Impaired mobility Disciplines: PT 11/18/2023 Active 2 goals linked to scheduled/document ed interventions 2 goal interventions scheduled/document ed in this visit PT Impaired gait Disciplines: PT 11/18/2023 Active 1 goal linked to scheduled/document ed intervention 1 goal intervention scheduled/document ed in this visit PT Orthopedic Condition Disciplines: PT 11/18/2023 Active 1 goal linked to scheduled/document ed intervention 3 goal interventions scheduled/document ed in this visit PT Learning Assessment Disciplines: PT 11/18/2023 Active 1 goal linked to scheduled/document ed intervention 1 goal intervention scheduled/document ed in this visit Goals Goal Associated Problem Outcome Goal Met? Visit Notes Patient/caregiver will demonstrate ability to obtain, store, identify and administer ordered medications, keep accurate medication list in home, and adhere to medication schedule Description: Patient/caregiver will demonstrate ability to obtain, store, identify and administer ordered medications, keep accurate medication list in home, and adhere to medication schedule by 01/16/24. Medication Education No Improved management of mental health condition(s) Description: Patient/caregiver will teach back mental health symptom identification and management techniques by 01/16/24. Mental Health No Patient/caregiver will be able to identify and report symptoms of sepsis Description: Patient/caregiver will be able to identify signs/symptoms of sepsis infection and will verbalize actions to take if suspected by 01/16/24. Sepsis No Patient to maintain parameters within physician-specified ranges throughout certification period Physician Specific Parameters No Manage Risk for falls Description: Patient/caregiver will verbalize knowledge of individualized fall prevention strategies by 01/16/24. Risk for Falls No Manage Pain Description: Patient/caregiver will verbalize knowledge and understanding of appropriate techniques to control pain, including pain medication and non-pharmacological techniques. Patient will verbalize or demonstrate an acceptable level of pain as evidenced by a pain score of 3/10 and improvement in ability to perform activities of daily living to be achieved by 01/16/24. Pain No Patient/caregiver will teach back high risk medication side effect and precaution education Description: STG Patient/caregiver will verbalize understanding of high risk medication side effects and precautions to be achieved by 11/18/23 LTG Patient/caregiver will continue to verbalize understanding of high risk medication side effects and precautions throughout certification period. High Risk Medications Completed Yes Manage discharge planning Description: Patient/caregiver will verbalize understanding of ongoing discharge plan provided related to disease management, arrangements for outpatient and/or community services, obtaining medications, supplies, and DME, as needed throughout certification period. Discharge No Patient/caregiver will make healthcare providers aware of and any changes to Advance Directives throughout certification period Advance Directives Completed Yes Improved Muscle Performance and/or ROM Description: LTG: Patient will demonstrate improved muscle performance to meet functional goals as evidenced by ability to tolerate 8 min or greater standing activity, to be achieved by 12/05/23. LTG: Patient and/or caregiver will verbalize/demonstrate independence with home exercise program, to improve functional mobility, to be achieved by 12/05/23. LTG: Patient will demonstrate improved right knee active range of motion to 0-90 degrees, to meet functional goals, to be achieved by 12/05/23. PT Impaired muscle performance and/or ROM No Improved Transfers Description: LTG: Patient will demonstrate safe transfers to/from bed, chair and toilet independently, to be achieved by 12/05/23. LTG: Patient will demonstrate safe transfers to/from shower/tub and car with contact guard assistance, to be achieved by 12/05/23. PT Impaired mobility No Improved Bed Mobility Description: LTG: Patient will demonstrate improved bed mobility, ability to position self and supine <> sit independently to be achieved by 12/05/23. PT Impaired mobility No Improved Gait Description: LTG: Patient will demonstrate improved gait ability as evidenced by ambulation 150 feet with front wheeled walker and progressing to cane as appropriate independently with AD, to return to safe household ambulation, in order to access rooms, leave home, to be achieved by 12/05/23. PT Impaired gait No Manage Orthopedic Condition Description: Improve patient and/or caregiver understanding of post surgical and/or non-surgical orthopedic intervention management as evidenced by patient and/or caregiver able to verbalize, demonstrate, and teach back instruction, to be achieved by 12/05/23. PT Orthopedic Condition No Demonstrate understanding of education Description: STG: Patient will receive instruction on pain/edema mgmt, fall prevention/home safety, s/s of infection and when to call the MD, DVT prophylaxis, precautions and restrictions as applicable, and home exercises upon PT eval, to be achieved by 11/18/23 LTG: Patient and/or caregiver will understand educational instruction to be achieved by 12/05/23. PT Learning Assessment No Interventions Intervention Associated Problem/Goal Status Variance Visit Notes Medication Education Description: Evaluate/instruct patient/caregiver on obtaining, storing, identifying and administering ordered medications as well as keeping accurate medication list in the home and adhereing to medication schedule Problem:Medication Education Goal:Patient/caregive r will demonstrate ability to obtain, store, identify and administer ordered medications, keep accurate medication list in home, and adhere to medication schedule Completed Patient instructed on importance of keeping accurate medication list in home, need to take up-to-date medication list to all medical provider appointments and adhering to medication schedule. Instruct on coping strategies Problem:Mental Health Goal:Improved management of mental health condition(s) Completed Instructed to report concerns to PCP Risk of Sepsis Description: Patient is at risk for sepsis. Monitor closely for s/s of sepsis. Problem:Sepsis Goal:Patient/caregive r will be able to identify and report symptoms of sepsis Completed SPO2 Description: Notify Dr. Eason if pulse ox is <92% at rest. Problem:Physician Specific Parameters Goal:Patient to maintain parameters within physician-specified ranges throughout certification period Completed Instruct on individual fall risk factors and strategies to prevent falls and injuries caused by falls. Problem:Risk for Falls Goal:Manage Risk for falls Completed PT: Patient instructed on Eliminating Environmental Hazards: Keep pathways clear, Move furniture from pathways and Keep rooms and walkways well lit Managing Impaired Functional Mobility: Use assistive device(s): front wheeled walker and Caregiver to provide assist with: Ambulation, Steps, Transfers and ADL/IADLs Managing Pain Instruct on pain and instruct on strategies to control pain Problem:Pain Goal:Manage Pain Completed patient instructed on techniques to control pain including Pharmacological measures and Non-Pharmacological measures; rest, positioning/elevation, mobility/therapeutic exercise, use of DME/assistive devices and use of thermal modalities, apply ice to affected area for the following prescribed frequency: per protocol as much as tolerated. Opioids- educated on high risk medication Problem:High Risk Medications Goal:Patient/caregive r will teach back high risk medication side effect and precaution education Completed patient educated on taking medication(s) as prescribed by provider. Do not stop medication or alter doses without speaking with your provider. Discuss medication effectiveness or side effect concerns with your provider and home care team. Only take opioids as prescribed, do not share your medications, and take proper precautions in storing and properly disposing of opioids once no longer needed. Possible side effects of opioid medication including sedation, decreased rate of breathing, and constipation. Report over sedation to prescribing provider and practice deep breathing techniques every hour while awake. Prevent constipation by increasing water and fiber intake, increasing activity as tolerated, and use stool softener(s) as prescribed. Antiplatelet- educated on high risk medication Problem:High Risk Medications Goal:Patient/caregive r will teach back high risk medication side effect and precaution education Completed patient educated on taking medication(s) as prescribed by provider. Do not stop medication or alter doses without speaking with your provider. Discuss medication effectiveness or side effect concerns with your provider and home care team. Discuss all medications you are taking, even cgfh-[id number]-[id number] medicines, with your provider and pharmacist since many drugs can interact with antiplatelet medications. If you forget to take a dose, DO NOT take a double dose. Take the missed dose as soon as possible on the same day. DO NOT take a double dose the next day to make up for the missed dose. Watch for signs of abnormal or excessive bleeding and bruising (refer to Bleeding Precautions education). Call your health care provider right away if you suspect something is wrong. Antibiotic- educated on high risk medication Problem:High Risk Medications Goal:Patient/caregive r will teach back high risk medication side effect and precaution education Completed patient educated on taking medication(s) as prescribed by provider. Do not stop medication or alter doses without speaking with your provider. Discuss medication effectiveness or side effect concerns with your provider and home care team. Take the full dispensed amount even if you start feeling better, as bacteria can become resistant to antibiotic treatment if you do not finish your prescription. Common side effects are upset stomach and diarrhea. Take your antibiotics with food unless otherwise indicated to help with indigestion. Taking an ozck-cbt-ohujcse probiotic or eating yogurt with live and active cultures three times a day can help prevent antibiotic-associated diarrhea. Call your provider immediately if you develop rashes or hives as this could be a delayed allergic reaction. Seek emergency treatment if you develop severe allergic reaction symptoms such as mouth or tongue swelling. Instruct on ongoing discharge plan Problem:Discharge Goal:Manage discharge planning Completed Ongoing Discharge plan: Discharge plan discussed with patient including frequency and duration for home PT and plan for transition to: outpatient therapy. Determine patient's Advance Directive Status Description: Patient does have advance directives. Patient's Advance Directives determined to be available in EMR Healthcare DPOA and Living Will. Problem:Advance Directives Goal:Patient/caregive r will make healthcare providers aware of and any changes to Advance Directives throughout certification period Completed Discussed Advance Directives with Patient and/or Caregiver. Referred patient to Home Care handbook for further information on Healthcare DPOA & Living Will. Physical Therapy Therapeutic Exercises Problem:PT Impaired muscle performance and/or ROM Goal:Improved Muscle Performance and/or ROM Completed Patient and caregiver instructed on strengthening and range of motion exercises including BLE ankle pumps, quad set, glut set x10; RLE SAQ, hip abd, heelslides x10 ea with verbal, tactile, visual and written cues for safety and technique. patient and caregiver instructed to perform home exercise program three times a day which included all above ex's as tolerated. Ankle pumps hourly, walking every 1-2 hours with walker and assistance. Handouts updated. Physical Therapy Transfer Training Problem:PT Impaired mobility Goal:Improved Transfers Completed Transfer training and instruction to patient on safe transfers to and from bed, chair, BSC with minimal assist and verbal, tactile and visual cues for hand, foot, walker placement; forward weight shifting; centering and eccentric control to sit; avoid pulling on walker. Physical Therapy Bed Mobility Training Problem:PT Impaired mobility Goal:Improved Bed Mobility Completed Bed mobility training and instruction to patient, including supine<>sit and repositioning self with minimal assist and verbal, tactile and visual cues for use of UE's to scoot into bed, avoiding strain to LE Physical Therapy Gait Training Problem:PT Impaired gait Goal:Improved Gait Completed Gait training and instruction to patient on safe ambulation with front wheeled walker for 60 feet with contact guard assist, with verbal, tactile and visual cues for corrections of gait deviations including walker placement, step sequencing, general safety around doorways, thresholds, and furniture. Instruct on orthopedic precautions and weight bearing restrictions Description: Orthopedic precautions including right total knee: no knee flexed over pillow at rest. Weight bearing restrictions include: WBAT of involved extremity. Problem:PT Orthopedic Condition Goal:Manage Orthopedic Condition Completed patient instructed on orthopedic precautions and weight bearing restrictions. Instruct on management of edema Problem:PT Orthopedic Condition Goal:Manage Orthopedic Condition Completed Instruct patient on management of edema including elevation of RLE above the level of the heart and ice. Instruct on self-management of post surgical and/or non-surgical orthopedic intervention Problem:PT Orthopedic Condition Goal:Manage Orthopedic Condition Completed patient instructed on managagement of orthopedic condition, staying well hydrated, signs and symptoms of infection, follow provider guidance for showering and instructed on when to call provider. Instruct and educate on knowledge deficits Problem:PT Learning Assessment Goal:Demonstrate understanding of education Completed patient verbalize and/or demonstrate understanding of physical therapy education including weight bearing precautions, surgical precautions, fall prevention strategies, home safety, integumentary and incision/wound care management, functional activity and home exercise program. Education methods include: verbal cues, tactile cues, written instructions, visual cues and teach back. Further reinforcement of education required to improve knowledge and compliance with all above [facility] Visit Details Visit Type -PT ROUTINE Discipline -Physical Therapy Problems Problem Description Start Date Status Goals Interve ntions Sepsis Disciplines: Skilled Services 11/18/2023 Active 1 goal linked to scheduled/document ed intervention 1 goal intervention scheduled/document ed in this visit Physician Specific Parameters Disciplines: Skilled Services 11/18/2023 Active 1 goal linked to scheduled/document ed intervention 1 goal intervention scheduled/document ed in this visit Risk for Falls Disciplines: Skilled Services 11/18/2023 Active 1 goal linked to scheduled/document ed intervention 1 goal intervention scheduled/document ed in this visit Pain Disciplines: Skilled Services 11/18/2023 Active 1 goal linked to scheduled/document ed intervention 1 goal intervention scheduled/document ed in this visit PT Impaired muscle performance and/or ROM Disciplines: PT 11/18/2023 Active 1 goal linked to scheduled/document ed intervention 1 goal intervention scheduled/document ed in this visit PT Impaired mobility Disciplines: PT 11/18/2023 Active 2 goals linked to scheduled/document ed interventions 2 goal interventions scheduled/document ed in this visit PT Impaired gait Disciplines: PT 11/18/2023 Active 1 goal linked to scheduled/document ed intervention 1 goal intervention scheduled/document ed in this visit PT Orthopedic Condition Disciplines: PT 11/18/2023 Active 1 goal linked to scheduled/document ed intervention 3 goal interventions scheduled/document ed in this visit PT Learning Assessment Disciplines: PT 11/18/2023 Active 1 goal linked to scheduled/document ed intervention 1 goal intervention scheduled/document ed in this visit Goals Goal Associated Problem Outcome Goal Met? Visit Notes Patient/caregiver will be able to identify and report symptoms of sepsis Description: Patient/caregiver will be able to identify signs/symptoms of sepsis infection and will verbalize actions to take if suspected by 01/16/24. Sepsis No Patient to maintain parameters within physician-specified ranges throughout certification period Physician Specific Parameters No Manage Risk for falls Description: Patient/caregiver will verbalize knowledge of individualized fall prevention strategies by 01/16/24. Risk for Falls No Manage Pain Description: Patient/caregiver will verbalize knowledge and understanding of appropriate techniques to control pain, including pain medication and non-pharmacological techniques. Patient will verbalize or demonstrate an acceptable level of pain as evidenced by a pain score of 3/10 and improvement in ability to perform activities of daily living to be achieved by 01/16/24. Pain No Improved Muscle Performance and/or ROM Description: LTG: Patient will demonstrate improved muscle performance to meet functional goals as evidenced by ability to tolerate 8 min or greater standing activity, to be achieved by 12/05/23. LTG: Patient and/or caregiver will verbalize/demonstrate independence with home exercise program, to improve functional mobility, to be achieved by 12/05/23. LTG: Patient will demonstrate improved right knee active range of motion to 0-90 degrees, to meet functional goals, to be achieved by 12/05/23. PT Impaired muscle performance and/or ROM No Improved Transfers Description: LTG: Patient will demonstrate safe transfers to/from bed, chair and toilet independently, to be achieved by 12/05/23. LTG: Patient will demonstrate safe transfers to/from shower/tub and car with contact guard assistance, to be achieved by 12/05/23. PT Impaired mobility No Improved Bed Mobility Description: LTG: Patient will demonstrate improved bed mobility, ability to position self and supine <> sit independently to be achieved by 12/05/23. PT Impaired mobility No Improved Gait Description: LTG: Patient will demonstrate improved gait ability as evidenced by ambulation 150 feet with front wheeled walker and progressing to cane as appropriate independently with AD, to return to safe household ambulation, in order to access rooms, leave home, to be achieved by 12/05/23. PT Impaired gait No Manage Orthopedic Condition Description: Improve patient and/or caregiver understanding of post surgical and/or non-surgical orthopedic intervention management as evidenced by patient and/or caregiver able to verbalize, demonstrate, and teach back instruction, to be achieved by 12/05/23. PT Orthopedic Condition No Demonstrate understanding of education Description: STG: Patient will receive instruction on pain/edema mgmt, fall prevention/home safety, s/s of infection and when to call the MD, DVT prophylaxis, precautions and restrictions as applicable, and home exercises upon PT eval, to be achieved by 11/18/23 LTG: Patient and/or caregiver will understand educational instruction to be achieved by 12/05/23. PT Learning Assessment No Interventions Intervention Associated Problem/Goal Status Variance Visit Notes Risk of Sepsis Description: Patient is at risk for sepsis. Monitor closely for s/s of sepsis. Problem:Sepsis Goal:Patient/caregive r will be able to identify and report symptoms of sepsis Completed SPO2 Description: Notify Dr. Eason if pulse ox is <92% at rest. Problem:Physician Specific Parameters Goal:Patient to maintain parameters within physician-specified ranges throughout certification period Completed Instruct on individual fall risk factors and strategies to prevent falls and injuries caused by falls. Problem:Risk for Falls Goal:Manage Risk for falls Completed PT: Patient instructed on Eliminating Environmental Hazards: Keep pathways clear, Remove unsafe rugs and Move furniture from pathways Managing Impaired Functional Mobility: Use assistive device(s): front wheeled walker Managing Pain Instruct on pain and instruct on strategies to control pain Problem:Pain Goal:Manage Pain Completed patient and caregiver instructed on techniques to control pain including Pharmacological measures and Non-Pharmacological measures; rest, positioning/elevation and use of thermal modalities, apply ice to affected area . Physical Therapy Therapeutic Exercises Problem:PT Impaired muscle performance and/or ROM Goal:Improved Muscle Performance and/or ROM Completed patient and caregiver instructed on strengthening and range of motion exercises including Supine : GS,QS,, HIPADD, HIP ABD, HEEL SLIDES, SAQ, X 10 supine passive knee ext x 4 min seated knee flexion to 75* with verbal cues for technque. patient instructed to perform home exercise program twice a day which included hourly ambulation . Physical Therapy Transfer Training Problem:PT Impaired mobility Goal:Improved Transfers Completed Transfer training and instruction to patient on safe transfers to and from bed and chair with supervision and verbal cues for technique . Physical Therapy Bed Mobility Training Problem:PT Impaired mobility Goal:Improved Bed Mobility Completed Bed mobility training and instruction to patient, including supine<>sit and repositioning self with supervision and verbal cues for technique . Physical Therapy Gait Training Problem:PT Impaired gait Goal:Improved Gait Completed Gait training and instruction to patient on safe ambulation with front wheeled walker for 40'x 2 feet with supervision, with verbal cues for corrections of gait deviations including developing a recip pattern . Instruct on orthopedic precautions and weight bearing restrictions Description: Orthopedic precautions including right total knee: no knee flexed over pillow at rest. Weight bearing restrictions include: WBAT of involved extremity. Problem:PT Orthopedic Condition Goal:Manage Orthopedic Condition Completed patient instructed on orthopedic precautions. Instruct on management of edema Problem:PT Orthopedic Condition Goal:Manage Orthopedic Condition Completed Instruct patient on management of edema including elevation of RLE above the level of the heart and ice. Instruct on self-management of post surgical and/or non-surgical orthopedic intervention Problem:PT Orthopedic Condition Goal:Manage Orthopedic Condition Completed patient instructed on managagement of orthopedic condition, staying well hydrated, eating foods with high protein, signs and symptoms of infection, signs and symptoms of DVT/PE and follow provider guidance for showering . Instruct and educate on knowledge deficits Problem:PT Learning Assessment Goal:Demonstrate understanding of education Completed patient verbalize and/or demonstrate understanding of physical therapy education including orthopedic condition management, surgical precautions, pain management, fall prevention strategies, home safety, functional activity and home exercise program. Education methods include: verbal cues. Further education required to improve knowledge and compliance with fall prevention strategies, home safety, functional activity and home exercise program. documented in this encounter [facility] Plan of care note* Visit Details Visit Type -REPRODUCTION SPECIALIST ROUTINE Discipline -Physical Therapy Problems Problem Description Start Date Status Goals Interve ntions Medication Education Disciplines: Skilled Services 11/18/2023 Active 1 goal linked to scheduled/document ed intervention 1 goal intervention scheduled/document ed in this visit Sepsis Disciplines: Skilled Services 11/18/2023 Active 1 goal linked to scheduled/document ed intervention 1 goal intervention scheduled/document ed in this visit Physician Specific Parameters Disciplines: Skilled Services 11/18/2023 Active 1 goal linked to scheduled/document ed intervention 1 goal intervention scheduled/document ed in this visit Risk for Falls Disciplines: Skilled Services 11/18/2023 Active 1 goal linked to scheduled/document ed intervention 1 goal intervention scheduled/document ed in this visit Pain Disciplines: Skilled Services 11/18/2023 Active 1 goal linked to scheduled/document ed intervention 1 goal intervention scheduled/document ed in this visit Discharge Disciplines: Skilled Services 11/18/2023 Active 1 goal linked to scheduled/document ed intervention 1 goal intervention scheduled/document ed in this visit PT Impaired muscle performance and/or ROM Disciplines: PT 11/18/2023 Active 1 goal linked to scheduled/document ed intervention 1 goal intervention scheduled/document ed in this visit PT Impaired gait Disciplines: PT 11/18/2023 Active 1 goal linked to scheduled/document ed intervention 1 goal intervention scheduled/document ed in this visit PT Orthopedic Condition Disciplines: PT 11/18/2023 Active 1 goal linked to scheduled/document ed intervention 3 goal interventions scheduled/document ed in this visit PT Learning Assessment Disciplines: PT 11/18/2023 Active 1 goal linked to scheduled/document ed intervention 1 goal intervention scheduled/document ed in this visit Goals Goal Associated Problem Outcome Goal Met? Visit Notes Patient/caregiver will demonstrate ability to obtain, store, identify and administer ordered medications, keep accurate medication list in home, and adhere to medication schedule Description: Patient/caregiver will demonstrate ability to obtain, store, identify and administer ordered medications, keep accurate medication list in home, and adhere to medication schedule by 01/16/24. Medication Education No Patient/caregiver will be able to identify and report symptoms of sepsis Description: Patient/caregiver will be able to identify signs/symptoms of sepsis infection and will verbalize actions to take if suspected by 01/16/24. Sepsis No Patient to maintain parameters within physician-specified ranges throughout certification period Physician Specific Parameters No Manage Risk for falls Description: Patient/caregiver will verbalize knowledge of individualized fall prevention strategies by 01/16/24. Risk for Falls No Manage Pain Description: Patient/caregiver will verbalize knowledge and understanding of appropriate techniques to control pain, including pain medication and non-pharmacological techniques. Patient will verbalize or demonstrate an acceptable level of pain as evidenced by a pain score of 3/10 and improvement in ability to perform activities of daily living to be achieved by 01/16/24. Pain No Manage discharge planning Description: Patient/caregiver will verbalize understanding of ongoing discharge plan provided related to disease management, arrangements for outpatient and/or community services, obtaining medications, supplies, and DME, as needed throughout certification period. Discharge No Improved Muscle Performance and/or ROM Description: LTG: Patient will demonstrate improved muscle performance to meet functional goals as evidenced by ability to tolerate 8 min or greater standing activity, to be achieved by 12/05/23. LTG: Patient and/or caregiver will verbalize/demonstrate independence with home exercise program, to improve functional mobility, to be achieved by 12/05/23. LTG: Patient will demonstrate improved right knee active range of motion to 0-90 degrees, to meet functional goals, to be achieved by 12/05/23. PT Impaired muscle performance and/or ROM No Improved Gait Description: LTG: Patient will demonstrate improved gait ability as evidenced by ambulation 150 feet with front wheeled walker and progressing to cane as appropriate independently with AD, to return to safe household ambulation, in order to access rooms, leave home, to be achieved by 12/05/23. PT Impaired gait No Manage Orthopedic Condition Description: Improve patient and/or caregiver understanding of post surgical and/or non-surgical orthopedic intervention management as evidenced by patient and/or caregiver able to verbalize, demonstrate, and teach back instruction, to be achieved by 12/05/23. PT Orthopedic Condition No Demonstrate understanding of education Description: STG: Patient will receive instruction on pain/edema mgmt, fall prevention/home safety, s/s of infection and when to call the MD, DVT prophylaxis, precautions and restrictions as applicable, and home exercises upon PT eval, to be achieved by 11/18/23 LTG: Patient and/or caregiver will understand educational instruction to be achieved by 12/05/23. PT Learning Assessment No Interventions Intervention Associated Problem/Goal Status Variance Visit Notes Medication Education Description: Evaluate/instruct patient/caregiver on obtaining, storing, identifying and administering ordered medications as well as keeping accurate medication list in the home and adhereing to medication schedule Problem:Medication Education Goal:Patient/caregive r will demonstrate ability to obtain, store, identify and administer ordered medications, keep accurate medication list in home, and adhere to medication schedule Completed Patient instructed on importance of keeping accurate medication list in home. Risk of Sepsis Description: Patient is at risk for sepsis. Monitor closely for s/s of sepsis. Problem:Sepsis Goal:Patient/caregive r will be able to identify and report symptoms of sepsis Completed SPO2 Description: Notify Dr. Eason if pulse ox is <92% at rest. Problem:Physician Specific Parameters Goal:Patient to maintain parameters within physician-specified ranges throughout certification period Completed Instruct on individual fall risk factors and strategies to prevent falls and injuries caused by falls. Problem:Risk for Falls Goal:Manage Risk for falls Completed PT: Patient instructed on Managing Impaired Functional Mobility: Use assistive device(s): front wheeled walker Instruct on pain and instruct on strategies to control pain Problem:Pain Goal:Manage Pain Completed patient instructed on techniques to control pain including Pharmacological measures and Non-Pharmacological measures; positioning/elevation and use of thermal modalities, apply ice to affected area for the following prescribed frequency: prn. Instruct on ongoing discharge plan Problem:Discharge Goal:Manage discharge planning Completed Ongoing Discharge plan: Discharge plan discussed with patient including frequency and duration for home PT and plan for transition to: outpatient therapy. Physical Therapy Therapeutic Exercises Problem:PT Impaired muscle performance and/or ROM Goal:Improved Muscle Performance and/or ROM Completed patient instructed on strengthening and range of motion exercises including ankle pumps, quad and glut sets, hip abd and add, saq and heel slides x's 10 each, supine ext hang x's 5min with verbal, tactile and visual cues for correct form. patient instructed to perform home exercise program twice a day which included above ex. Physical Therapy Gait Training Problem:PT Impaired gait Goal:Improved Gait Completed Gait training and instruction to patient on safe ambulation with front wheeled walker for 2x's 40 feet with supervision, with verbal cues for corrections of gait deviations including increased step length. Instruct on orthopedic precautions and weight bearing restrictions Description: Orthopedic precautions including right total knee: no knee flexed over pillow at rest. Weight bearing restrictions include: WBAT of involved extremity. Problem:PT Orthopedic Condition Goal:Manage Orthopedic Condition Completed patient instructed on orthopedic precautions. Instruct on management of edema Problem:PT Orthopedic Condition Goal:Manage Orthopedic Condition Completed Instruct patient on management of edema including elevation of RLE above the level of the heart and ice. Instruct on self-management of post surgical and/or non-surgical orthopedic intervention Problem:PT Orthopedic Condition Goal:Manage Orthopedic Condition Completed patient instructed on signs and symptoms of infection, signs and symptoms of DVT/PE, follow provider guidance for showering , instructed on when to call provider and instructed on when to call 911. Instruct and educate on knowledge deficits Problem:PT Learning Assessment Goal:Demonstrate understanding of education Completed patient verbalize and/or demonstrate understanding of physical therapy education including pain management and home exercise program. Education methods include: verbal cues, tactile cues, written instructions and visual cues. Further education required to improve knowledge and compliance with home exercise program. [facility] Visit Details Visit Type -REPRODUCTION SPECIALIST ROUTINE Discipline -Physical Therapy Problems Problem Description Start Date Status Goals Interve ntions Medication Education Disciplines: Skilled Services 11/18/2023 Active 1 goal linked to scheduled/document ed intervention 1 goal intervention scheduled/document ed in this visit Mental Health Disciplines: Skilled Services 11/18/2023 Active 1 goal linked to scheduled/document ed intervention 1 goal intervention scheduled/document ed in this visit Sepsis Disciplines: Skilled Services 11/18/2023 Active 1 goal linked to scheduled/document ed intervention 1 goal intervention scheduled/document ed in this visit Physician Specific Parameters Disciplines: Skilled Services 11/18/2023 Active 1 goal linked to scheduled/document ed intervention 1 goal intervention scheduled/document ed in this visit Risk for Falls Disciplines: Skilled Services 11/18/2023 Active 1 goal linked to scheduled/document ed intervention 1 goal intervention scheduled/document ed in this visit Pain Disciplines: Skilled Services 11/18/2023 Active 1 goal linked to scheduled/document ed intervention 1 goal intervention scheduled/document ed in this visit Discharge Disciplines: Skilled Services 11/18/2023 Active 1 goal linked to scheduled/document ed intervention 1 goal intervention scheduled/document ed in this visit PT Impaired muscle performance and/or ROM Disciplines: PT 11/18/2023 Active 1 goal linked to scheduled/document ed intervention 1 goal intervention scheduled/document ed in this visit PT Impaired gait Disciplines: PT 11/18/2023 Active 2 goals linked to scheduled/document ed interventions 2 goal interventions scheduled/document ed in this visit PT Orthopedic Condition Disciplines: PT 11/18/2023 Active 1 goal linked to scheduled/document ed intervention 4 goal interventions scheduled/document ed in this visit PT Learning Assessment Disciplines: PT 11/18/2023 Active 1 goal linked to scheduled/document ed intervention 1 goal intervention scheduled/document ed in this visit Goals Goal Associated Problem Outcome Goal Met? Visit Notes Patient/caregiver will demonstrate ability to obtain, store, identify and administer ordered medications, keep accurate medication list in home, and adhere to medication schedule Description: Patient/caregiver will demonstrate ability to obtain, store, identify and administer ordered medications, keep accurate medication list in home, and adhere to medication schedule by 01/16/24. Medication Education No Improved management of mental health condition(s) Description: Patient/caregiver will teach back mental health symptom identification and management techniques by 01/16/24. Mental Health No Patient/caregiver will be able to identify and report symptoms of sepsis Description: Patient/caregiver will be able to identify signs/symptoms of sepsis infection and will verbalize actions to take if suspected by 01/16/24. Sepsis No Patient to maintain parameters within physician-specified ranges throughout certification period Physician Specific Parameters No Manage Risk for falls Description: Patient/caregiver will verbalize knowledge of individualized fall prevention strategies by 01/16/24. Risk for Falls No Manage Pain Description: Patient/caregiver will verbalize knowledge and understanding of appropriate techniques to control pain, including pain medication and non-pharmacological techniques. Patient will verbalize or demonstrate an acceptable level of pain as evidenced by a pain score of 3/10 and improvement in ability to perform activities of daily living to be achieved by 01/16/24. Pain No Manage discharge planning Description: Patient/caregiver will verbalize understanding of ongoing discharge plan provided related to disease management, arrangements for outpatient and/or community services, obtaining medications, supplies, and DME, as needed throughout certification period. Discharge No Improved Muscle Performance and/or ROM Description: LTG: Patient will demonstrate improved muscle performance to meet functional goals as evidenced by ability to tolerate 8 min or greater standing activity, to be achieved by 12/05/23. LTG: Patient and/or caregiver will verbalize/demonstrate independence with home exercise program, to improve functional mobility, to be achieved by 12/05/23. LTG: Patient will demonstrate improved right knee active range of motion to 0-90 degrees, to meet functional goals, to be achieved by 12/05/23. PT Impaired muscle performance and/or ROM No Improved Stair Climbing Description: LTG: Patient will demonstrate improved stair negotiation as evidenced by ascend/descend 14 steps with railing and with cane with supervision, to safely access all areas of the home (basement) and exit home, to be achieved by 12/05/23. PT Impaired gait No Improved Gait Description: LTG: Patient will demonstrate improved gait ability as evidenced by ambulation 150 feet with front wheeled walker and progressing to cane as appropriate independently with AD, to return to safe household ambulation, in order to access rooms, leave home, to be achieved by 12/05/23. PT Impaired gait No Manage Orthopedic Condition Description: Improve patient and/or caregiver understanding of post surgical and/or non-surgical orthopedic intervention management as evidenced by patient and/or caregiver able to verbalize, demonstrate, and teach back instruction, to be achieved by 12/05/23. PT Orthopedic Condition No Demonstrate understanding of education Description: STG: Patient will receive instruction on pain/edema mgmt, fall prevention/home safety, s/s of infection and when to call the MD, DVT prophylaxis, precautions and restrictions as applicable, and home exercises upon PT eval, to be achieved by 11/18/23 LTG: Patient and/or caregiver will understand educational instruction to be achieved by 12/05/23. PT Learning Assessment No Interventions Intervention Associated Problem/Goal Status Variance Visit Notes Medication Education Description: Evaluate/instruct patient/caregiver on obtaining, storing, identifying and administering ordered medications as well as keeping accurate medication list in the home and adhereing to medication schedule Problem:Medication Education Goal:Patient/caregive r will demonstrate ability to obtain, store, identify and administer ordered medications, keep accurate medication list in home, and adhere to medication schedule Completed Patient instructed on importance of keeping accurate medication list in home. Instruct on coping strategies Problem:Mental Health Goal:Improved management of mental health condition(s) Completed Spending time with family/friends Risk of Sepsis Description: Patient is at risk for sepsis. Monitor closely for s/s of sepsis. Problem:Sepsis Goal:Patient/caregive r will be able to identify and report symptoms of sepsis Completed SPO2 Description: Notify Dr. Eason if pulse ox is <92% at rest. Problem:Physician Specific Parameters Goal:Patient to maintain parameters within physician-specified ranges throughout certification period Completed Instruct on individual fall risk factors and strategies to prevent falls and injuries caused by falls. Problem:Risk for Falls Goal:Manage Risk for falls Completed PT: Patient instructed on Managing Impaired Functional Mobility: Use assistive device(s): front wheeled walker and single point cane and Caregiver to provide assist with: Steps Instruct on pain and instruct on strategies to control pain Problem:Pain Goal:Manage Pain Completed patient and caregiver instructed on techniques to control pain including Pharmacological measures and Non-Pharmacological measures; positioning/elevation and use of thermal modalities, apply ice to affected area for the following prescribed frequency: prn. Instruct on ongoing discharge plan Problem:Discharge Goal:Manage discharge planning Completed Ongoing Discharge plan: Discharge plan discussed with patient including frequency and duration for home PT and plan for transition to: outpatient therapy. Physical Therapy Therapeutic Exercises Problem:PT Impaired muscle performance and/or ROM Goal:Improved Muscle Performance and/or ROM Completed patient and caregiver instructed on strengthening and range of motion exercises including ankle pumps, quad and glut sets, hip abd and add, saq and heel slides x's 10 each. slr x's5, seated heel slides x's 10, supine ext hang x's 5min with verbal cues for correct hold times. patient instructed to perform home exercise program twice a day which included above ex. Physical Therapy Stair Training Problem:PT Impaired gait Goal:Improved Stair Climbing Completed Stair training and instruction to patient and caregiver on safe stair climbing, ascend/descend 3 steps, with railing and with cane with stand by assist and verbal cues for correct step pattern and cane placement. Physical Therapy Gait Training Problem:PT Impaired gait Goal:Improved Gait Completed Gait training and instruction to patient and caregiver on safe ambulation with front wheeled walker and single point cane for 50, 75 feet with supervision and stand by assist, with verbal and visual cues for corrections of gait deviations including correct cane use. Instruct on orthopedic precautions and weight bearing restrictions Description: Orthopedic precautions including right total knee: no knee flexed over pillow at rest. Weight bearing restrictions include: WBAT of involved extremity. Problem:PT Orthopedic Condition Goal:Manage Orthopedic Condition Completed patient instructed on orthopedic precautions. Instruct on management of edema Problem:PT Orthopedic Condition Goal:Manage Orthopedic Condition Completed Instruct patient and caregiver on management of edema including elevation of RLE above the level of the heart and ice. Physical therapy to perform surgical incision/wound management Description: Removal of wound vac on 11/23/23. Replace with aquacel dressing for additional 7 days, then remove on 11/30/23 If no drainage is present, leave open to air; if drainage is present, cover with clean dressing and contact provider. Problem:PT Orthopedic Condition Goal:Manage Orthopedic Condition Completed Intervention completed this date. Removed wound vac and applied silver gel dressing Instruct on self-management of post surgical and/or non-surgical orthopedic intervention Problem:PT Orthopedic Condition Goal:Manage Orthopedic Condition Completed patient and caregiver instructed on staying well hydrated, eating foods with high protein, signs and symptoms of infection, signs and symptoms of DVT/PE, follow provider guidance for showering , instructed on when to call provider and instructed on when to call 911. Instruct and educate on knowledge deficits Problem:PT Learning Assessment Goal:Demonstrate understanding of education Completed patient verbalize and/or demonstrate understanding of physical therapy education including pain management, integumentary and incision/wound care management and home exercise program. Education methods include: verbal cues. Further education required to improve knowledge and compliance with home exercise program. [facility]* Visit Details Visit Type -REPRODUCTION SPECIALIST ROUTINE Discipline -Physical Therapy Problems Problem Description Start Date Status Goals Interve ntions Medication Education Disciplines: Skilled Services 11/18/2023 Active 1 goal linked to scheduled/documen ehsan intervention 1 goal intervention scheduled/document ed in this visit Sepsis Disciplines: Skilled Services 11/18/2023 Active 1 goal linked to scheduled/documen ehsan intervention 1 goal intervention scheduled/document ed in this visit Physician Specific Parameters Disciplines: Skilled Services 11/18/2023 Active 1 goal linked to scheduled/documen ehsan intervention 1 goal intervention scheduled/document ed in this visit Risk for Falls Disciplines: Skilled Services 11/18/2023 Active 1 goal linked to scheduled/documen ehsan intervention 1 goal intervention scheduled/document ed in this visit Pain Disciplines: Skilled Services 11/18/2023 Active 1 goal linked to scheduled/documen ehsan intervention 1 goal intervention scheduled/document ed in this visit Discharge Disciplines: Skilled Services 11/18/2023 Active 1 goal linked to scheduled/documen ehsan intervention 1 goal intervention scheduled/document ed in this visit PT Impaired muscle performance and/or ROM Disciplines: PT 11/18/2023 Active 1 goal linked to scheduled/documen ehsan intervention 1 goal intervention scheduled/document ed in this visit PT Impaired gait Disciplines: PT 11/18/2023 Active 1 goal linked to scheduled/documen ehsan intervention 1 goal intervention scheduled/document ed in this visit PT Orthopedic Condition Disciplines: PT 11/18/2023 Active 1 goal linked to scheduled/documen ehsan intervention 3 goal interventions scheduled/document ed in this visit PT Learning Assessment Disciplines: PT 11/18/2023 Active 1 goal linked to scheduled/documen ehsan intervention 1 goal intervention scheduled/document ed in this visit PT Cardiovascular Disease Disciplines: PT 11/18/2023 Active 1 goal linked to scheduled/documen ehsan intervention 1 goal intervention scheduled/document ed in this visit Goals Goal Associated Problem Outcome Goal Met? Visit Notes Patient/caregiver will demonstrate ability to obtain, store, identify and administer ordered medications, keep accurate medication list in home, and adhere to medication schedule Description: Patient/caregiver will demonstrate ability to obtain, store, identify and administer ordered medications, keep accurate medication list in home, and adhere to medication schedule by 01/16/24. Medication Education No Patient/caregiver will be able to identify and report symptoms of sepsis Description: Patient/caregiver will be able to identify signs/symptoms of sepsis infection and will verbalize actions to take if suspected by 01/16/24. Sepsis No Patient to maintain parameters within physician-specified ranges throughout certification period Physician Specific Parameters No Manage Risk for falls Description: Patient/caregiver will verbalize knowledge of individualized fall prevention strategies by 01/16/24. Risk for Falls No Manage Pain Description: Patient/caregiver will verbalize knowledge and understanding of appropriate techniques to control pain, including pain medication and non-pharmacological techniques. Patient will verbalize or demonstrate an acceptable level of pain as evidenced by a pain score of 3/10 and improvement in ability to perform activities of daily living to be achieved by 01/16/24. Pain No Manage discharge planning Description: Patient/caregiver will verbalize understanding of ongoing discharge plan provided related to disease management, arrangements for outpatient and/or community services, obtaining medications, supplies, and DME, as needed throughout certification period. Discharge No Improved Muscle Performance and/or ROM Description: LTG: Patient will demonstrate improved muscle performance to meet functional goals as evidenced by ability to tolerate 8 min or greater standing activity, to be achieved by 12/05/23. LTG: Patient and/or caregiver will verbalize/demonstrate independence with home exercise program, to improve functional mobility, to be achieved by 12/05/23. LTG: Patient will demonstrate improved right knee active range of motion to 0-90 degrees, to meet functional goals, to be achieved by 12/05/23. PT Impaired muscle performance and/or ROM No Improved Gait Description: LTG: Patient will demonstrate improved gait ability as evidenced by ambulation 150 feet with front wheeled walker and progressing to cane as appropriate independently with AD, to return to safe household ambulation, in order to access rooms, leave home, to be achieved by 12/05/23. PT Impaired gait No Manage Orthopedic Condition Description: Improve patient and/or caregiver understanding of post surgical and/or non-surgical orthopedic intervention management as evidenced by patient and/or caregiver able to verbalize, demonstrate, and teach back instruction, to be achieved by 12/05/23. PT Orthopedic Condition No Demonstrate understanding of education Description: STG: Patient will receive instruction on pain/edema mgmt, fall prevention/home safety, s/s of infection and when to call the MD, DVT prophylaxis, precautions and restrictions as applicable, and home exercises upon PT eval, to be achieved by 11/18/23 LTG: Patient and/or caregiver will understand educational instruction to be achieved by 12/05/23. PT Learning Assessment No Manage Secondary Cardiovascular disease Description: Improve patient and/or caregiver understanding of secondary cardiovascular disease management as evidenced by patient and/or caregiver able to verbalize, demonstrate, and teach back instruction, to be achieved by 12/05/23. PT Cardiovascular Disease No Interventions Intervention Associated Problem/Goal Status Variance Visit Notes Medication Education Description: Evaluate/instruct patient/caregiver on obtaining, storing, identifying and administering ordered medications as well as keeping accurate medication list in the home and adhereing to medication schedule Problem:Medication Education Goal:Patient/caregive r will demonstrate ability to obtain, store, identify and administer ordered medications, keep accurate medication list in home, and adhere to medication schedule Completed Patient instructed on importance of keeping accurate medication list in home. Risk of Sepsis Description: Patient is at risk for sepsis. Monitor closely for s/s of sepsis. Problem:Sepsis Goal:Patient/caregive r will be able to identify and report symptoms of sepsis Completed SPO2 Description: Notify Dr. Eason if pulse ox is <92% at rest. Problem:Physician Specific Parameters Goal:Patient to maintain parameters within physician-specified ranges throughout certification period Completed Instruct on individual fall risk factors and strategies to prevent falls and injuries caused by falls. Problem:Risk for Falls Goal:Manage Risk for falls Completed PT: Patient instructed on Eliminating Environmental Hazards: Keep pathways clear Instruct on pain and instruct on strategies to control pain Problem:Pain Goal:Manage Pain Completed patient instructed on techniques to control pain including Pharmacological measures and Non-Pharmacological measures; positioning/elevation and use of thermal modalities, apply ice to affected area for the following prescribed frequency: prn. Instruct on ongoing discharge plan Problem:Discharge Goal:Manage discharge planning Completed Ongoing Discharge plan: Discharge plan discussed with patient including frequency and duration for home PT and plan for transition to: outpatient therapy. Physical Therapy Therapeutic Exercises Problem:PT Impaired muscle performance and/or ROM Goal:Improved Muscle Performance and/or ROM Completed patient instructed on strengthening and range of motion exercises including ankle pumps, quad and glut sets, hip abd and add, saq, slr and heel slides x's 10 each. supine ext hang x'5min. standing heel rasies and hams curls x's 10 each with verbal, visual and written cues for correct form and hold times. patient instructed to perform home exercise program twice a day which included above ex. Physical Therapy Gait Training Problem:PT Impaired gait Goal:Improved Gait Completed Gait training and instruction to patient on safe ambulation with front wheeled walker and single point cane for 2x's 50 and x's30 feet with supervision and stand by assist, with verbal cues for corrections of gait deviations including correct cane sequencing . Instruct on orthopedic precautions and weight bearing restrictions Description: Orthopedic precautions including right total knee: no knee flexed over pillow at rest. Weight bearing restrictions include: WBAT of involved extremity. Problem:PT Orthopedic Condition Goal:Manage Orthopedic Condition Completed patient instructed on orthopedic precautions. Instruct on management of edema Problem:PT Orthopedic Condition Goal:Manage Orthopedic Condition Completed Instruct patient on management of edema including elevation of RLE above the level of the heart and ice. Instruct on self-management of post surgical and/or non-surgical orthopedic intervention Problem:PT Orthopedic Condition Goal:Manage Orthopedic Condition Completed patient instructed on signs and symptoms of infection, signs and symptoms of DVT/PE, instructed on when to call provider and instructed on when to call 911. Instruct and educate on knowledge deficits Problem:PT Learning Assessment Goal:Demonstrate understanding of education Completed patient verbalize and/or demonstrate understanding of physical therapy education including home exercise program. Education methods include: verbal cues and visual cues. Further education required to improve knowledge and compliance with home exercise program. Instruct on signs, symptoms, and management of secondary cardiovascular disease Problem:PT Cardiovascular Disease Goal:Manage Secondary Cardiovascular disease Completed Instructed patient on instructed on when to call provider. [facility] Visit Details Visit Type -PT AGENCY DC W V ISIT Discipline -Physical Therapy Problems Problem Description Start Date Status Goals Interve ntions Medication Education Disciplines: Skilled Services 11/18/2023 Resolved on 11/30/2023 1 goal linked to scheduled/documen ehsan intervention Mental Health Disciplines: Skilled Services 11/18/2023 Resolved on 11/30/2023 1 goal linked to scheduled/documen ehasn intervention Sepsis Disciplines: Skilled Services 11/18/2023 Resolved on 11/30/2023 1 goal linked to scheduled/documen ehsan intervention 1 goal intervention scheduled/documen ehsan in this visit Physician Specific Parameters Disciplines: Skilled Services 11/18/2023 Resolved on 11/30/2023 1 goal linked to scheduled/documen ehsan intervention 1 goal intervention scheduled/documen ehsan in this visit Risk for Falls Disciplines: Skilled Services 11/18/2023 Resolved on 11/30/2023 1 goal linked to scheduled/documen ehsan intervention 1 goal intervention scheduled/documen ehsan in this visit Pain Disciplines: Skilled Services 11/18/2023 Resolved on 11/30/2023 1 goal linked to scheduled/documen ehsan intervention 1 goal intervention scheduled/documen ehsan in this visit Discharge Disciplines: Skilled Services 11/18/2023 Resolved on 11/30/2023 1 goal linked to scheduled/documen ehsan intervention PT Impaired muscle performance and/or ROM Disciplines: PT 11/18/2023 Resolved on 11/30/2023 1 goal linked to scheduled/documen ehsan intervention 1 goal intervention scheduled/documen ehsan in this visit PT Impaired mobility Disciplines: PT 11/18/2023 Resolved on 11/30/2023 2 goals linked to scheduled/documen ehsan interventions 2 goal interventions scheduled/documen ehsan in this visit PT Impaired gait Disciplines: PT 11/18/2023 Resolved on 11/30/2023 2 goals linked to scheduled/documen ehsan interventions 2 goal interventions scheduled/documen ehsan in this visit PT Orthopedic Condition Disciplines: PT 11/18/2023 Resolved on 11/30/2023 1 goal linked to scheduled/documen ehsan intervention 4 goal interventions scheduled/documen ehsan in this visit PT Learning Assessment Disciplines: PT 11/18/2023 Resolved on 11/30/2023 1 goal linked to scheduled/documen ehsan intervention 1 goal intervention scheduled/documen ehsan in this visit PT Cardiovascular Disease Disciplines: PT 11/18/2023 Resolved on 11/30/2023 1 goal linked to scheduled/documen ehsan intervention 1 goal intervention scheduled/documen ehsan in this visit Goals Goal Associated Problem Outcome Goal Met? Visit Notes Patient/caregiver will demonstrate ability to obtain, store, identify and administer ordered medications, keep accurate medication list in home, and adhere to medication schedule Description: Patient/caregiver will demonstrate ability to obtain, store, identify and administer ordered medications, keep accurate medication list in home, and adhere to medication schedule by 01/16/24. Medication Education Completed Yes Improved management of mental health condition(s) Description: Patient/caregiver will teach back mental health symptom identification and management techniques by 01/16/24. Mental Health Completed Yes Patient/caregiver will be able to identify and report symptoms of sepsis Description: Patient/caregiver will be able to identify signs/symptoms of sepsis infection and will verbalize actions to take if suspected by 01/16/24. Sepsis Completed Yes Patient to maintain parameters within physician-specified ranges throughout certification period Physician Specific Parameters Completed Yes Manage Risk for falls Description: Patient/caregiver will verbalize knowledge of individualized fall prevention strategies by 01/16/24. Risk for Falls Completed Yes Manage Pain Description: Patient/caregiver will verbalize knowledge and understanding of appropriate techniques to control pain, including pain medication and non-pharmacological techniques. Patient will verbalize or demonstrate an acceptable level of pain as evidenced by a pain score of 3/10 and improvement in ability to perform activities of daily living to be achieved by 01/16/24. Pain Completed Yes Manage discharge planning Description: Patient/caregiver will verbalize understanding of ongoing discharge plan provided related to disease management, arrangements for outpatient and/or community services, obtaining medications, supplies, and DME, as needed throughout certification period. Discharge Completed Yes Improved Muscle Performance and/or ROM Description: LTG: Patient will demonstrate improved muscle performance to meet functional goals as evidenced by ability to tolerate 8 min or greater standing activity, to be achieved by 12/05/23. LTG: Patient and/or caregiver will verbalize/demonstrate independence with home exercise program, to improve functional mobility, to be achieved by 12/05/23. LTG: Patient will demonstrate improved right knee active range of motion to 0-90 degrees, to meet functional goals, to be achieved by 12/05/23. PT Impaired muscle performance and/or ROM Completed Yes Improved Transfers Description: LTG: Patient will demonstrate safe transfers to/from bed, chair and toilet independently, to be achieved by 12/05/23. LTG: Patient will demonstrate safe transfers to/from shower/tub and car with contact guard assistance, to be achieved by 12/05/23. PT Impaired mobility Completed Yes Improved Bed Mobility Description: LTG: Patient will demonstrate improved bed mobility, ability to position self and supine <> sit independently to be achieved by 12/05/23. PT Impaired mobility Completed Yes Improved Stair Climbing Description: LTG: Patient will demonstrate improved stair negotiation as evidenced by ascend/descend 14 steps with railing and with cane with supervision, to safely access all areas of the home (basement) and exit home, to be achieved by 12/05/23. PT Impaired gait Completed Yes Improved Gait Description: LTG: Patient will demonstrate improved gait ability as evidenced by ambulation 150 feet with front wheeled walker and progressing to cane as appropriate independently with AD, to return to safe household ambulation, in order to access rooms, leave home, to be achieved by 12/05/23. PT Impaired gait Completed Yes Manage Orthopedic Condition Description: Improve patient and/or caregiver understanding of post surgical and/or non-surgical orthopedic intervention management as evidenced by patient and/or caregiver able to verbalize, demonstrate, and teach back instruction, to be achieved by 12/05/23. PT Orthopedic Condition Completed Yes Demonstrate understanding of education Description: STG: Patient will receive instruction on pain/edema mgmt, fall prevention/home safety, s/s of infection and when to call the MD, DVT prophylaxis, precautions and restrictions as applicable, and home exercises upon PT eval, to be achieved by 11/18/23 LTG: Patient and/or caregiver will understand educational instruction to be achieved by 12/05/23. PT Learning Assessment Completed Yes Manage Secondary Cardiovascular disease Description: Improve patient and/or caregiver understanding of secondary cardiovascular disease management as evidenced by patient and/or caregiver able to verbalize, demonstrate, and teach back instruction, to be achieved by 12/05/23. PT Cardiovascular Disease Completed Yes Interventions Intervention Associated Problem/Goal Status Variance Visit Notes Risk of Sepsis Description: Patient is at risk for sepsis. Monitor closely for s/s of sepsis. Problem:Sepsis Goal:Patient/caregive r will be able to identify and report symptoms of sepsis Completed SPO2 Description: Notify Dr. Eason if pulse ox is <92% at rest. Problem:Physician Specific Parameters Goal:Patient to maintain parameters within physician-specified ranges throughout certification period Completed Instruct on individual fall risk factors and strategies to prevent falls and injuries caused by falls. Problem:Risk for Falls Goal:Manage Risk for falls Completed PT: Patient instructed on Eliminating Environmental Hazards: Keep pathways clear, Remove unsafe rugs, Move furniture from pathways, Keep rooms and walkways well lit, Install hand rails/grab bars and Wear supportive shoes or non-skid socks Managing Impaired Functional Mobility: Use assistive device(s): single point cane Managing Pain Instruct on pain and instruct on strategies to control pain Problem:Pain Goal:Manage Pain Completed patient instructed on techniques to control pain including Pharmacological measures and Non-Pharmacological measures; rest, positioning/elevation and use of thermal modalities, apply ice to affected area . Physical Therapy Therapeutic Exercises Problem:PT Impaired muscle performance and/or ROM Goal:Improved Muscle Performance and/or ROM Completed patient instructed on strengthening and range of motion exercises including ankle pumps, quad and glut sets, hip add, saq and heel slides x's 10 each. standing hip abd, hams curls and heel rasies x's 10, stat bike 1/2 revolutions x's 5min. seated heel slides x's 10 with verbal, visual and written cues for correct form and modifications. patient instructed to perform home exercise program twice a day which included stat bike. AROM- [id number]* Physical Therapy Transfer Training Problem:PT Impaired mobility Goal:Improved Transfers Completed ISAI transfers with safe/proper technique Physical Therapy Bed Mobility Training Problem:PT Impaired mobility Goal:Improved Bed Mobility Completed ISAI bed mobility Physical Therapy Stair Training Problem:PT Impaired gait Goal:Improved Stair Climbing Completed up and down 1 flight with rail + cane with step together sequence Physical Therapy Gait Training Problem:PT Impaired gait Goal:Improved Gait Completed Indep amb with no ad indoors and st cane outdoors with steady recip pattern x 100 Instruct on orthopedic precautions and weight bearing restrictions Description: Orthopedic precautions including right total knee: no knee flexed over pillow at rest. Weight bearing restrictions include: WBAT of involved extremity. Problem:PT Orthopedic Condition Goal:Manage Orthopedic Condition Completed patient instructed on orthopedic precautions. Instruct on management of edema Problem:PT Orthopedic Condition Goal:Manage Orthopedic Condition Completed Instruct patient on management of edema including elevation of RLE above the level of the heart and ice. Physical therapy to perform surgical incision/wound management Description: Removal of wound vac on 11/23/23. Replace with aquacel dressing for additional 7 days, then remove on 11/30/23 If no drainage is present, leave open to air; if drainage is present, cover with clean dressing and contact provider. Problem:PT Orthopedic Condition Goal:Manage Orthopedic Condition Completed Intervention completed this date. Dressing removed- incision clean/dry and well approximated with pts permimssion a photo was uploaded for MD to review Instruct on self-management of post surgical and/or non-surgical orthopedic intervention Problem:PT Orthopedic Condition Goal:Manage Orthopedic Condition Completed patient instructed on managagement of orthopedic condition, staying well hydrated, eating foods with high protein, signs and symptoms of infection, signs and symptoms of DVT/PE and instructed on when to call provider. Instruct and educate on knowledge deficits Problem:PT Learning Assessment Goal:Demonstrate understanding of education Completed patient verbalize and/or demonstrate understanding of physical therapy education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 COVID-19 Rule-Out 09/08/2022 09/08/2022 Infection Onset Date Last Indicated Resolved Time COVID-19 Confirmed 09/08/2022 09/08/2022 Problem Noted Date Diagnosed Date 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 09/11/2023 Problem Noted Date Diagnosed Date 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 09/11/2023 Problem Noted Date Diagnosed Date 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 09/11/2023 Problem Noted Date Diagnosed Date 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 09/11/2023 Problem Noted Date Diagnosed Date 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 09/11/2023 Active Problems Noted Date Diagnosed Date 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 09/11/2023 Active Problems Noted Date Diagnosed Date 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 09/11/2023 Active Problems Noted Date Diagnosed Date 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 09/11/2023 Active Problems Noted Date Diagnosed Date 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 09/11/2023 Active Problems Noted Date Diagnosed Date 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 09/11/2023 Active Problems Noted Date Diagnosed Date 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 09/11/2023 Active Problems Noted Date Diagnosed Date 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 09/11/2023 Active Problems Noted Date Diagnosed Date 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 09/11/2023 Active Problems Noted Date Diagnosed Date 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 09/11/2023 Active Problems Noted Date Diagnosed Date 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 09/11/2023 Summary Purpose Additional Source Comments Goals (unrecognized section and content) Goals may be documented in a n alternate sectionGoals may be documented in an alternate sectionGoals may be documented in an alternate sectionGoals may be documented in an alternate sectionGoals may be documented in an alternate sectionGoals may be documented in an alternate section Source Comments (unrecognize d section and content) In the event this informatio n is protected by the Federal Confidentiality of Alcohol and Drug Abuse Patient Records regulations: The Federal rules restrict any use of the information to criminally investigate or prosecute any alcohol or drug abuse patient.[facility] the event this information is protected by the Federal Confidentiality of Alcohol and Drug Abuse Patient Records regulations: The Federal rules restrict any use of the information to criminally investigate or prosecute any alcohol or drug abuse patient.[facility] the event this information is protected by the Federal Confidentiality of Alcohol and Drug Abuse Patient Records regulations: The Federal rules restrict any use of the information to criminally investigate or prosecute any alcohol or drug abuse patient.[facility] Center[facility] the event this information is protected by the Federal Confidentiality of Alcohol and Drug Abuse Patient Records regulations: The Federal rules restrict any use of the information to criminally investigate or prosecute any alcohol or drug abuse patient.[facility] Center[facility] the event this information is protected by the Federal Confidentiality of Alcohol and Drug Abuse Patient Records regulations: The Federal rules restrict any use of the information to criminally investigate or prosecute any alcohol or drug abuse patient.[facility] Center[facility] the event this information is protected by the Federal Confidentiality of Alcohol and Drug Abuse Patient Records regulations: The Federal rules restrict any use of the information to criminally investigate or prosecute any alcohol or drug abuse patient.[facility] Center[facility] the event this information is protected by the Federal Confidentiality of Alcohol and Drug Abuse Patient Records regulations: The Federal rules restrict any use of the information to criminally investigate or prosecute any alcohol or drug abuse patient.[facility] Center[facility] the event this information is protected by the Federal Confidentiality of Alcohol and Drug Abuse Patient Records regulations: The Federal rules restrict any use of the information to criminally investigate or prosecute any alcohol or drug abuse patient.[facility] Center[facility] the event this information is protected by the Federal Confidentiality of Alcohol and Drug Abuse Patient Records regulations: The Federal rules restrict any use of the information to criminally investigate or prosecute any alcohol or drug abuse patient.[facility] Center[facility] the event this information is protected by the Federal Confidentiality of Alcohol and Drug Abuse Patient Records regulations: The Federal rules restrict any use of the information to criminally investigate or prosecute any alcohol or drug abuse patient.[facility] CenterIn the event this information is protected by the Federal Confidentiality of Alcohol and Drug Abuse Patient Records regulations: The Federal rules restrict any use of the information to criminally investigate or prosecute any alcohol or drug abuse patient.[facility] Center[facility] the event this information is protected by the Federal Confidentiality of Alcohol and Drug Abuse Patient Records regulations: The Federal rules restrict any use of the information to criminally investigate or prosecute any alcohol or drug abuse patient.[facility] CenterIn the event this information is protected by the Federal Confidentiality of Alcohol and Drug Abuse Patient Records regulations: The Federal rules restrict any use of the information to criminally investigate or prosecute any alcohol or drug abuse patient.[facility] Center[facility] the event this information is protected by the Federal Confidentiality of Alcohol and Drug Abuse Patient Records regulations: The Federal rules restrict any use of the information to criminally investigate or prosecute any alcohol or drug abuse patient.[facility] Center[facility] the event this information is protected by the Federal Confidentiality of Alcohol and Drug Abuse Patient Records regulations: The Federal rules restrict any use of the information to criminally investigate or prosecute any alcohol or drug abuse patient.[facility] CenterIn the event this information is protected by the Federal Confidentiality of Alcohol and Drug Abuse Patient Records regulations: The Federal rules restrict any use of the information to criminally investigate or prosecute any alcohol or drug abuse patient.[facility] [facility], Cancer CenterIn the event this information is protected by the Federal Confidentiality of Alcohol and Drug Abuse Patient Records regulations: The Federal rules restrict any use of the information to criminally investigate or prosecute any alcohol or drug abuse patient.[facility] CenterIn the event this information is protected by the Federal Confidentiality of Alcohol and Drug Abuse Patient Records regulations: The Federal rules restrict any use of the information to criminally investigate or prosecute any alcohol or drug abuse patient.[facility] CenterIn the event this information is protected by the Federal Confidentiality of Alcohol and Drug Abuse Patient Records regulations: The Federal rules restrict any use of the information to criminally investigate or prosecute any alcohol or drug abuse patient.[facility] CenterIn the event this information is protected by the Federal Confidentiality of Alcohol and Drug Abuse Patient Records regulations: The Federal rules restrict any use of the information to criminally investigate or prosecute any alcohol or drug abuse patient.[facility] CenterIn the event this information is protected by the Federal Confidentiality of Alcohol and Drug Abuse Patient Records regulations: The Federal rules restrict any use of the information to criminally investigate or prosecute any alcohol or drug abuse patient.[facility] CenterIn the event this information is protected by the Federal Confidentiality of Alcohol and Drug Abuse Patient Records regulations: The Federal rules restrict any use of the information to criminally investigate or prosecute any alcohol or drug abuse patient.[facility] CenterIn the event this information is protected by the Federal Confidentiality of Alcohol and Drug Abuse Patient Records regulations: The Federal rules restrict any use of the information to criminally investigate or prosecute any alcohol or drug abuse patient.[facility] CenterIn the event this information is protected by the Federal Confidentiality of Alcohol and Drug Abuse Patient Records regulations: The Federal rules restrict any use of the information to criminally investigate or prosecute any alcohol or drug abuse patient.[facility] CenterIn the event this information is protected by the Federal Confidentiality of Alcohol and Drug Abuse Patient Records regulations: The Federal rules restrict any use of the information to criminally investigate or prosecute any alcohol or drug abuse patient.[facility] CenterIn the event this information is protected by the Federal Confidentiality of Alcohol and Drug Abuse Patient Records regulations: The Federal rules restrict any use of the information to criminally investigate or prosecute any alcohol or drug abuse patient.[facility] CenterIn the event this information is protected by the Federal Confidentiality of Alcohol and Drug Abuse Patient Records regulations: The Federal rules restrict any use of the information to criminally investigate or prosecute any alcohol or drug abuse patient.[facility] CenterIn the event this information is protected by the Federal Confidentiality of Alcohol and Drug Abuse Patient Records regulations: The Federal rules restrict any use of the information to criminally investigate or prosecute any alcohol or drug abuse patient.[facility] CenterIn the event this information is protected by the Federal Confidentiality of Alcohol and Drug Abuse Patient Records regulations: The Federal rules restrict any use of the information to criminally investigate or prosecute any alcohol or drug abuse patient.[facility] CenterIn the event this information is protected by the Federal Confidentiality of Alcohol and Drug Abuse Patient Records regulations: The Federal rules restrict any use of the information to criminally investigate or prosecute any alcohol or drug abuse patient.[facility] CenterIn the event this information is protected by the Federal Confidentiality of Alcohol and Drug Abuse Patient Records regulations: The Federal rules restrict any use of the information to criminally investigate or prosecute any alcohol or drug abuse patient.[facility] CenterIn the event this information is protected by the Federal Confidentiality of Alcohol and Drug Abuse Patient Records regulations: The Federal rules restrict any use of the information to criminally investigate or prosecute any alcohol or drug abuse patient.[facility] CenterIn the event this information is protected by the Federal Confidentiality of Alcohol and Drug Abuse Patient Records regulations: The Federal rules restrict any use of the information to criminally investigate or prosecute any alcohol or drug abuse patient.[facility] CenterIn the event this information is protected by the Federal Confidentiality of Alcohol and Drug Abuse Patient Records regulations: The Federal rules restrict any use of the information to criminally investigate or prosecute any alcohol or drug abuse patient.[facility] CenterIn the event this information is protected by the Federal Confidentiality of Alcohol and Drug Abuse Patient Records regulations: The Federal rules restrict any use of the information to criminally investigate or prosecute any alcohol or drug abuse patient.[facility] CenterIn the event this information is protected by the Federal Confidentiality of Alcohol and Drug Abuse Patient Records regulations: The Federal rules restrict any use of the information to criminally investigate or prosecute any alcohol or drug abuse patient.[facility] CenterIn the event this information is protected by the Federal Confidentiality of Alcohol and Drug Abuse Patient Records regulations: The Federal rules restrict any use of the information to criminally investigate or prosecute any alcohol or drug abuse patient.[facility]In the event this information is protected by the Federal Confidentiality of Alcohol and Drug Abuse Patient Records regulations: The Federal rules restrict any use of the information to criminally investigate or prosecute any alcohol or drug abuse patient.[facility] CenterIn the event this information is protected by the Federal Confidentiality of Alcohol and Drug Abuse Patient Records regulations: The Federal rules restrict any use of the information to criminally investigate or prosecute any alcohol or drug abuse patient.[facility] CenterIn the event this information is protected by the Federal Confidentiality of Alcohol and Drug Abuse Patient Records regulations: The Federal rules restrict any use of the information to criminally investigate or prosecute any alcohol or drug abuse patient.[facility] CenterIn the event this information is protected by the Federal Confidentiality of Alcohol and Drug Abuse Patient Records regulations: The Federal rules restrict any use of the information to criminally investigate or prosecute any alcohol or drug abuse patient.[facility] CenterIn the event this information is protected by the Federal Confidentiality of Alcohol and Drug Abuse Patient Records regulations: The Federal rules restrict any use of the information to criminally investigate or prosecute any alcohol or drug abuse patient.[facility] CenterIn the event this information is protected by the Federal Confidentiality of Alcohol and Drug Abuse Patient Records regulations: The Federal rules restrict any use of the information to criminally investigate or prosecute any alcohol or drug abuse patient.[facility] CenterIn the event this information is protected by the Federal Confidentiality of Alcohol and Drug Abuse Patient Records regulations: The Federal rules restrict any use of the information to criminally investigate or prosecute any alcohol or drug abuse patient.[facility] CenterIn the event this information is protected by the Federal Confidentiality of Alcohol and Drug Abuse Patient Records regulations: The Federal rules restrict any use of the information to criminally investigate or prosecute any alcohol or drug abuse patient.[facility] CenterIn the event this information is protected by the Federal Confidentiality of Alcohol and Drug Abuse Patient Records regulations: The Federal rules restrict any use of the information to criminally investigate or prosecute any alcohol or drug abuse patient.[facility] CenterIn the event this information is protected by the Federal Confidentiality of Alcohol and Drug Abuse Patient Records regulations: The Federal rules restrict any use of the information to criminally investigate or prosecute any alcohol or drug abuse patient.[facility] CenterIn the event this information is protected by the Federal Confidentiality of Alcohol and Drug Abuse Patient Records regulations: The Federal rules restrict any use of the information to criminally investigate or prosecute any alcohol or drug abuse patient.[facility] CenterIn the event this information is protected by the Federal Confidentiality of Alcohol and Drug Abuse Patient Records regulations: The Federal rules restrict any use of the information to criminally investigate or prosecute any alcohol or drug abuse patient.[facility] CenterIn the event this information is protected by the Federal Confidentiality of Alcohol and Drug Abuse Patient Records regulations: The Federal rules restrict any use of the information to criminally investigate or prosecute any alcohol or drug abuse patient.[facility] CenterIn the event this information is protected by the Federal Confidentiality of Alcohol and Drug Abuse Patient Records regulations: The Federal rules restrict any use of the information to criminally investigate or prosecute any alcohol or drug abuse patient.[facility] CenterIn the event this information is protected by the Federal Confidentiality of Alcohol and Drug Abuse Patient Records regulations: The Federal rules restrict any use of the information to criminally investigate or prosecute any alcohol or drug abuse patient.[facility] CenterIn the event this information is protected by the Federal Confidentiality of Alcohol and Drug Abuse Patient Records regulations: The Federal rules restrict any use of the information to criminally investigate or prosecute any alcohol or drug abuse patient.[facility] CenterIn the event this information is protected by the Federal Confidentiality of Alcohol and Drug Abuse Patient Records regulations: The Federal rules restrict any use of the information to criminally investigate or prosecute any alcohol or drug abuse patient.[facility] CenterIn the event this information is protected by the Federal Confidentiality of Alcohol and Drug Abuse Patient Records regulations: The Federal rules restrict any use of the information to criminally investigate or prosecute any alcohol or drug abuse patient.[facility] CenterIn the event this information is protected by the Federal Confidentiality of Alcohol and Drug Abuse Patient Records regulations: The Federal rules restrict any use of the information to criminally investigate or prosecute any alcohol or drug abuse patient.[facility] CenterIn the event this information is protected by the Federal Confidentiality of Alcohol and Drug Abuse Patient Records regulations: The Federal rules restrict any use of the information to criminally investigate or prosecute any alcohol or drug abuse patient.[facility] CenterIn the event this information is protected by the Federal Confidentiality of Alcohol and Drug Abuse Patient Records regulations: The Federal rules restrict any use of the information to criminally investigate or prosecute any alcohol or drug abuse patient.[facility] CenterIn the event this information is protected by the Federal Confidentiality of Alcohol and Drug Abuse Patient Records regulations: The Federal rules restrict any use of the information to criminally investigate or prosecute any alcohol or drug abuse patient.[facility] CenterIn the event this information is protected by the Federal Confidentiality of Alcohol and Drug Abuse Patient Records regulations: The Federal rules restrict any use of the information to criminally investigate or prosecute any alcohol or drug abuse patient.[facility] CenterIn the event this information is protected by the Federal Confidentiality of Alcohol and Drug Abuse Patient Records regulations: The Federal rules restrict any use of the information to criminally investigate or prosecute any alcohol or drug abuse patient.[facility] CenterIn the event this information is protected by the Federal Confidentiality of Alcohol and Drug Abuse Patient Records regulations: The Federal rules restrict any use of the information to criminally investigate or prosecute any alcohol or drug abuse patient.[facility] CenterIn the event this information is protected by the Federal Confidentiality of Alcohol and Drug Abuse Patient Records regulations: The Federal rules restrict any use of the information to criminally investigate or prosecute any alcohol or drug abuse patient.[facility] CenterIn the event this information is protected by the Federal Confidentiality of Alcohol and Drug Abuse Patient Records regulations: The Federal rules restrict any use of the information to criminally investigate or prosecute any alcohol or drug abuse patient.[facility] CenterIn the event this information is protected by the Federal Confidentiality of Alcohol and Drug Abuse Patient Records regulations: The Federal rules restrict any use of the information to criminally investigate or prosecute any alcohol or drug abuse patient.[facility] CenterIn the event this information is protected by the Federal Confidentiality of Alcohol and Drug Abuse Patient Records regulations: The Federal rules restrict any use of the information to criminally investigate or prosecute any alcohol or drug abuse patient.[facility] CenterIn the event this information is protected by the Federal Confidentiality of Alcohol and Drug Abuse Patient Records regulations: The Federal rules restrict any use of the information to criminally investigate or prosecute any alcohol or drug abuse patient.[facility] CenterIn the event this information is protected by the Federal Confidentiality of Alcohol and Drug Abuse Patient Records regulations: The Federal rules restrict any use of the information to criminally investigate or prosecute any alcohol or drug abuse patient.[facility] CenterIn the event this information is protected by the Federal Confidentiality of Alcohol and Drug Abuse Patient Records regulations: The Federal rules restrict any use of the information to criminally investigate or prosecute any alcohol or drug abuse patient.[facility] CenterIn the event this information is protected by the Federal Confidentiality of Alcohol and Drug Abuse Patient Records regulations: The Federal rules restrict any use of the information to criminally investigate or prosecute any alcohol or drug abuse patient.[facility] CenterIn the event this information is protected by the Federal Confidentiality of Alcohol and Drug Abuse Patient Records regulations: The Federal rules restrict any use of the information to criminally investigate or prosecute any alcohol or drug abuse patient.[facility] CenterIn the event this information is protected by the Federal Confidentiality of Alcohol and Drug Abuse Patient Records regulations: The Federal rules restrict any use of the information to criminally investigate or prosecute any alcohol or drug abuse patient.[facility] CenterIn the event this information is protected by the Federal Confidentiality of Alcohol and Drug Abuse Patient Records regulations: The Federal rules restrict any use of the information to criminally investigate or prosecute any alcohol or drug abuse patient.[facility] CenterIn the event this information is protected by the Federal Confidentiality of Alcohol and Drug Abuse Patient Records regulations: The Federal rules restrict any use of the information to criminally investigate or prosecute any alcohol or drug abuse patient.[facility] CenterIn the event this information is protected by the Federal Confidentiality of Alcohol and Drug Abuse Patient Records regulations: The Federal rules restrict any use of the information to criminally investigate or prosecute any alcohol or drug abuse patient.[facility] CenterIn the event this information is protected by the Federal Confidentiality of Alcohol and Drug Abuse Patient Records regulations: The Federal rules restrict any use of the information to criminally investigate or prosecute any alcohol or drug abuse patient.[facility] CenterIn the event this information is protected by the Federal Confidentiality of Alcohol and Drug Abuse Patient Records regulations: The Federal rules restrict any use of the information to criminally investigate or prosecute any alcohol or drug abuse patient.[facility] CenterIn the event this information is protected by the Federal Confidentiality of Alcohol and Drug Abuse Patient Records regulations: The Federal rules restrict any use of the information to criminally investigate or prosecute any alcohol or drug abuse patient.[facility] CenterIn the event this information is protected by the Federal Confidentiality of Alcohol and Drug Abuse Patient Records regulations: The Federal rules restrict any use of the information to criminally investigate or prosecute any alcohol or drug abuse patient.[facility] CenterIn the event this information is protected by the Federal Confidentiality of Alcohol and Drug Abuse Patient Records regulations: The Federal rules restrict any use of the information to criminally investigate or prosecute any alcohol or drug abuse patient.[facility] CenterIn the event this information is protected by the Federal Confidentiality of Alcohol and Drug Abuse Patient Records regulations: The Federal rules restrict any use of the information to criminally investigate or prosecute any alcohol or drug abuse patient.[facility] CenterIn the event this information is protected by the Federal Confidentiality of Alcohol and Drug Abuse Patient Records regulations: The Federal rules restrict any use of the information to criminally investigate or prosecute any alcohol or drug abuse patient.[facility] Reason for Visit (unrecogniz ed section and content) Reason Comments PT Progress Note Specialty Diagnoses / Procedures Referred By Contac t Referred To Contact [facility] Diagnoses Primary osteoarthritis of right knee Procedures CONSULT TO PHYSICAL THERAPY PHYSICAL THERAPY EVALUATION HIGH COMPLEX 45 MINS Jagdish Cesar APRN.TAPE MAKING MACHINE OPERATOR [address] [address] [facility] [address] [address] Referral ID Status Reason Start Date Expiration Date Visits Requested Visits Authorized [id number] Authorized Auto-Generat ed Referral 08/03/2023 08/02/2024 99 99 Reason Comments Physical Therapy Reason Comments Follow Up ct scan Specialty Diagnoses / Procedures Referred By Contac t Referred To Contact CT IMAGING Diagnoses Former cigarette smoker Procedures CT LUNG SCREEN WO IVCON COMPUTED TOMOGRAPHY THORAX LW DOSE LNG CA SCR Ananya- Jovon Zee, GUILLAUME.TAPE MAKING MACHINE OPERATOR [address] [place] [address] [facility] [place] [address] Referral ID Status Reason Start Date Expiration Date V isits Requested Visits Authorized [id number] Closed Auto-Generate d Referral 08/03/2023 08/02/2024 1 1 Reason Comments Hospital Follow Up surgery follow up ri ght arm/shoulder Reason Comments Derm Problem Arch in right foot x 5 days; now clinic placed on ATB Reason Comments Radiology US Specialty Diagnoses / Procedures Referred By Marcia t Referred To Contact [facility] Diagnoses Wound of right foot Foreign body in right foot, initial encounter Procedures US EXTREMITY MASS/FLUID COLLECTION RT Napoleon Martini MD [address] [place] [address] [facility] Referral ID Status Reason Start Date Expiration Date V isits Requested Visits Authorized [id number] Closed Auto-Generate d Referral 01/20/2022 02/19/2023 1 1 Reason Comments Appointment Reason Comments New Infection Swelling Pain Specialty Diagnoses / Procedures Referred By Marcia t Referred To Contact Podiatry Diagnoses Wound of right foot Procedures CONSULT TO PODIATRY OFFICE/OUTPATIENT NEW HIGH MDM 60-74 MINUTES Napoleon Martini MD [address] [place] [address] Referral ID Status Reason Start Date Expiration Date V isits Requested Visits Authorized [id number] Closed PCP Requested Referral 01/20/2022 01/20/2023 1 1 Reason Comments Results Reason Comments Follow Up Ulcer Reason Onset Date Comments Refill Request 02/06/2022 Refill Request 02/28/2022 Reason Onset Date Comments Refill Request 04/24/2022 Reason Onset Date Comments Refill Request 06/04/2022 Reason Comments Recheck Reason Comments Blood Pressure Nasal Congestion Since 09/05/2022; coug maria guadalupe with some blood, headache Reason Onset Date Comments Population Health Navigation Outreach 09/23/2022 [facility] PCSA Reason Comments Medicare Wellness Exam Reason Comments Counseling Reason Comments Recheck Depression/anxiety Reason Comments Refill Request Reason Comments Rash Reason Comments Rash Rash on arms and leg s x 1 day Reason Comments Patient Update POSSIBLE ALLERGIC RE ACTION Reason Onset Date Comments Refill Request 02/18/2023 Reason Comments 6 Month Exam Reason Comments Recheck Evaluation of hand n umbness and shoulder pain Reason Onset Date Comments Population Health Navigation Outreach 06/26/2023 [facility] GAP Reason Comments Appointment R/S CT Scan Reason Comments Medication Request Specialty Diagnoses / Procedures Referred By Contac t Referred To Contact CT IMAGING Diagnoses Chronic pain of right knee Procedures CT KNEE WO IVCON RIGHT CT LOWER EXTREMITY W/O CONTRAST MATERIAL Inna Eason MD [address] [address] [place] [address] Referral ID Status Reason Start Date Expiration Date V isits Requested Visits Authorized [id number] Closed Auto-Generate d Referral 09/01/2023 09/30/2024 1 1 Reason Comments Pre-Op Teaching Reason Comments Home Care PT confirmation Reason Comments Home Care Confirmation Call Specialty Diagnoses / Procedures Referred By Contac t Referred To Contact [facility] Home Care [address] [place] [id number] Referral ID Status Reason Start Date Expiration Date Visits Re quested Visits Authorized [id number] 1 Reason Comments Home Care PT SOC, med clarific ations requested Reason Comments Medication Problem Reason Comments Home Care Wound vac removal Reason Comments Home Care OP PT orders Reason Comments Post Op Knee Replacement Reason Comments PT Eval Reason Onset Date Comments Refill Request 06/07/2024 Reason Comments Consult Reason Comments Established Patient LCS Specialty Diagnoses / Procedures Referred By Contac t Referred To Contact CT IMAGING Diagnoses Former cigarette smoker Procedures CT LUNG SCREEN WO IVCON COMPUTED TOMOGRAPHY THORAX LW DOSE LNG CA SCR Ananya- Jovon Zee, YARN MERCERIZER OPERATOR.TAPE MAKING MACHINE OPERATOR [address] [place] [address] Phone: tel: fax: [facility] Referral ID Status Reason Start Date Expiration Date V isits Requested Visits Authorized [id number] Closed Auto-Generate d Referral 11/02/2024 08/02/2025 [address] Specialty Diagnoses / Procedures Referred By Marcia t Referred To Contact CT IMAGING Diagnoses Former cigarette smoker Procedures CT LUNG SCREEN WO IVCON COMPUTED TOMOGRAPHY THORAX LW DOSE LNG CA Jovon Ornelas APRN.TAPE MAKING MACHINE OPERATOR [address] [place] [address] Phone: tel: fax: [facility] Referral ID Status Reason Start Date Expiration Date V isits Requested Visits Authorized [id number] Closed Auto-Generate d Referral 11/02/2024 08/02/2025 2 2 Reason Onset Date Comments Refill Request 12/07/2024 Care Teams (unrecognized sec tion and content) Hearing Aid Specialist Relationship Specialty Start Date End Date Napoleon Martini MD [facility] [place] [address] PCP - General Family Practice 04/04/20 Hearing Aid Specialist Relationship Specialty Start Date End Date Napoleon Martini MD [facility] [place] [address] PCP - General Family Practice 04/04/20 Hearing Aid Specialist Relationship Specialty Start Date End Date Napoleon Martini MD [facility] [place] [address] PCP - General Family Practice 04/04/20 Hearing Aid Specialist Relationship Specialty Start Date End Date Napoleon Martini MD [facility] [place] [address] PCP - General Family Practice 04/04/20 Hearing Aid Specialist Relationship Specialty Start Date End Date Napoleon Martini MD [facility] [place] [address] PCP - General Family Practice 04/04/20 Hearing Aid Specialist Relationship Specialty Start Date End Date Napoleon Martini MD [facility] [place] [address] PCP - General Family Practice 04/04/20 Hearing Aid Specialist Relationship Specialty Start Date End Date Napoleon Martini MD [address] [facility] [address] [place] [address] PCP - General Family Practice 04/04/20 Hearing Aid Specialist Relationship Specialty Start Date End Date Napoleon Martini MD [address] [facility] [address] [place] [address] PCP - General Family Practice 04/04/20 Hearing Aid Specialist Relationship Specialty Start Date End Date Napoleon Martini MD [address] [facility] [place] [address] PCP - General Family Practice 04/04/20 Hearing Aid Specialist Relationship Specialty Start Date End Date Napoleon Martini MD [address] [facility] [place] [address] PCP - General Family Medicine 04/04/20 Hearing Aid Specialist Relationship Specialty Start Date End Date Napoleon Martini MD [address] [facility] [place] [address] PCP - General Family Medicine 04/04/20 Hearing Aid Specialist Relationship Specialty Start Date End Date Napoleon Martini MD [address] [facility] [place] [place] [address] PCP - General Family Medicine 04/04/20 Hearing Aid Specialist Relationship Specialty Start Date End Date Napoleon Martini MD [address] [facility] [place] [address] PCP - General Family Medicine 04/04/20 Hearing Aid Specialist Relationship Specialty Start Date End Date Napoleon Martini MD [address] [facility] [place] [address] PCP - General Family Medicine 04/04/20 Hearing Aid Specialist Relationship Specialty Start Date End Date Napoleon Martini MD [address] [facility] [place] [address] PCP - General Family Medicine 04/04/20 Hearing Aid Specialist Relationship Specialty Start Date End Date Napoleon Martini MD [address] [facility] [place] [address] PCP - General Family Medicine 04/04/20 Hearing Aid Specialist Relationship Specialty Start Date End Date Napoleon Martini MD [address] [facility] [place] [address] PCP - General Family Medicine 04/04/20 Hearing Aid Specialist Relationship Specialty Start Date End Date Napoleon Martini MD [address] [facility] [place] [address] PCP - General Family Medicine 04/04/20 Hearing Aid Specialist Relationship Specialty Start Date End Date Napoleon Martini MD [facility] [place] [address] PCP - General Family Medicine 04/04/20 Hearing Aid Specialist Relationship Specialty Start Date End Date Napoleon Martini MD [address] [facility] [place] [address] PCP - General Family Medicine 04/04/20 Hearing Aid Specialist Relationship Specialty Start Date End Date Napoleon Martini MD [address] [facility] [place] [address] PCP - General Family Medicine 04/04/20 Hearing Aid Specialist Relationship Specialty Start Date End Date Napoleon Martini MD [address] [facility] [place] [address] PCP - General Family Medicine 04/04/20 Hearing Aid Specialist Relationship Specialty Start Date End Date Napoleon Martini MD [address] [facility] [place] [address] PCP - General Family Medicine 04/04/20 Hearing Aid Specialist Relationship Specialty Start Date End Date Napoleon Martini MD [address] [facility] [place] [address] PCP - General Family Medicine 04/04/20 Hearing Aid Specialist Relationship Specialty Start Date End Date Napoleon Martini MD [address] [facility] [place] [address] PCP - General Family Medicine 04/04/20 Hearing Aid Specialist Relationship Specialty Start Date End Date Napoleon Martini MD [address] [facility] [place] [address] PCP - General Family Medicine 04/04/20 Hearing Aid Specialist Relationship Specialty Start Date End Date Napoleon Martini MD [address] [facility] [place] [address] PCP - General Family Medicine 04/04/20 Hearing Aid Specialist Relationship Specialty Start Date End Date Napoleon Martini MD [address] [facility] [place] [address] PCP - General Family Medicine 04/04/20 Hearing Aid Specialist Relationship Specialty Start Date End Date Napoleon Martini MD [address] [facility] [place] [address] PCP - General Family Medicine 04/04/20 Hearing Aid Specialist Relationship Specialty Start Date End Date Napoleon Martini MD [address] [facility] [place] [address] PCP - General Family Medicine 04/04/20 Hearing Aid Specialist Relationship Specialty Start Date End Date Napoleon Martini MD [address] [facility] [place] [address] PCP - General Family Medicine 04/04/20 Hearing Aid Specialist Relationship Specialty Start Date End Date Napoleon Martini MD [address] [place] [address] PCP - General Family Medicine 04/04/20 Team Status: Active Member Role Status Dates Dr. Brian Martini MD Primary Care Provider Acti ve Team Status: Inactive Member Role Status Dates Dr. Brian Martini MD Primary Care Provider Acti ve Dr. Binh Norman MD Emergency Provider Active Team Status: Inactive Member Role Status Dates Dr. Brian Martini MD Primary Care Provider Acti ve Dr. Artem Lees DO Emergency Provider Active Hearing Aid Specialist Relationship Specialty Start Date End Date Napoleon Martini MD [address] [place] [address] PCP - General Family Medicine 04/04/20 Gilberto Kirkpatrick, [facility] [address] [place] [address] Specialty Hospital Manager Orthopedics 09/14/23 12/21/23 Hearing Aid Specialist Relationship Specialty Start Date End Date Napoleon Martini MD [address] [place] [address] PCP - General Family Medicine 04/04/20 Gilberto Kirkpatrick, [facility] [address] [place] [address] Specialty Hospital Manager Orthopedics 09/14/23 12/21/23 Hearing Aid Specialist Relationship Specialty Start Date End Date Napoleon Martini MD [address] [place] [address] PCP - General Family Medicine 04/04/20 Gilberto Kirkpatrick, [facility] [address] [place] [address] Specialty Hospital Manager Orthopedics 09/14/23 12/21/23 Hearing Aid Specialist Relationship Specialty Start Date End Date Napoleon Martini MD [address] [place] [address] PCP - General Family Medicine 04/04/20 Sissen, Gilberto, [facility] [address] [place] [address] Specialty Hospital Manager Orthopedics 09/14/23 12/21/23 Hearing Aid Specialist Relationship Specialty Start Date End Date Napoleon Martini MD [address] [place] [address] PCP - General Family Medicine 04/04/20 Sissen, Gilberto, [facility] [address] [place] [address] Specialty Hospital Manager Orthopedics 09/14/23 12/21/23 Hearing Aid Specialist Relationship Specialty Start Date End Date Napoleon Martini MD [address] [place] [address] PCP - General Family Medicine 04/04/20 Sissen, Gilberto, [facility] [address] [place] [address] Specialty Hospital Manager Orthopedics 09/14/23 12/21/23 Hearing Aid Specialist Relationship Specialty Start Date End Date Napoleon Martini MD [address] [place] [address] PCP - General Family Medicine 04/04/20 Sissen, Gilberto, [facility] [address] [place] [address] Specialty Hospital Manager Orthopedics 09/14/23 12/21/23 Hearing Aid Specialist Relationship Specialty Start Date End Date Napoleon Martini MD [address] [place] [address] PCP - General Family Medicine 04/04/20 Sissen, Gilberto, [facility] [address] [place] [address] Specialty Hospital Manager Orthopedics 09/14/23 12/21/23 Hearing Aid Specialist Relationship Specialty Start Date End Date Napoleon Martini MD [address] [place] [address] PCP - General Family Medicine 04/04/20 SisRaghavendra mccraryin, [facility] [address] [place] [address] Specialty Hospital Manager Orthopedics 09/14/23 12/21/23 Hearing Aid Specialist Relationship Specialty Start Date End Date Napoleon Martini MD [address] [place] [address] PCP - General Family Medicine 04/04/20 Gilberto Kirkpatrick, [facility] [address] [place] [address] Specialty Hospital Manager Orthopedics 09/14/23 12/21/23 Hearing Aid Specialist Relationship Specialty Start Date End Date Napoleon Martini MD [address] [place] [address] PCP - General Family Medicine 04/04/20 Gilberto Kirkpatrick, [facility] [address] [place] [address] Specialty Hospital Manager Orthopedics 09/14/23 12/21/23 Melissa De Santiago, PT [address] [place] [address] Forest Fire Officer Post Acute Care 11/17/23 Hearing Aid Specialist Relationship Specialty Start Date End Date Napoleon Martini MD [address] [place] [address] PCP - General Family Medicine 04/04/20 Raghavendra Kirkpatrickin, [facility] [address] [place] [address] Specialty Hospital Manager Orthopedics 09/14/23 12/21/23 Melissa De Santiago, PT [address] [place] [address] Forest Fire Officer Post Acute Care 11/17/23 Hearing Aid Specialist Relationship Specialty Start Date End Date Napoleon Martini MD [address] [place] [address] PCP - General Family Medicine 04/04/20 Gilberto Kirkpatrick, [facility] [address] [place] [address] Specialty Hospital Manager Orthopedics 09/14/23 12/21/23 Melissa De Santiago, PT [address] [place] [address] Forest Fire Officer Post Acute Care 11/17/23 Hearing Aid Specialist Relationship Specialty Start Date End Date Napoleon Martini MD [address] [place] [address] PCP - General Family Medicine 04/04/20 Gilberto Kirkpatrick, [facility] [address] [place] [address] Specialty Hospital Manager Orthopedics 09/14/23 12/21/23 Melissa De Santiago, PT [address] [place] [address] Forest Fire Officer Post Acute Care 11/17/23 Hearing Aid Specialist Relationship Specialty Start Date End Date Napoleon Martini MD [address] [place] [address] PCP - General Family Medicine 04/04/20 Gilberto Kirkpatrick, [facility] [address] [place] [address] Specialty Hospital Manager Orthopedics 09/14/23 12/21/23 Melissa De Santiago, PT [address] [place] [address] Forest Fire Officer Post Acute Care 11/17/23 Hearing Aid Specialist Relationship Specialty Start Date End Date Napoleon Martini MD [address] [place] [address] PCP - General Family Medicine 04/04/20 Gilberto Kirkpatrick, [facility] [address] [place] [address] Specialty Hospital Manager Orthopedics 09/14/23 12/21/23 Melissa De Santiago, PT [address] [place] [address] Forest Fire Officer Post Acute Care 11/17/23 Hearing Aid Specialist Relationship Specialty Start Date End Date Napoleon Martini MD [address] [place] [address] PCP - General Family Medicine 04/04/20 Gilberto Kirkpatrick, [facility] [address] [place] [address] Specialty Hospital Manager Orthopedics 09/14/23 12/21/23 Melissa De Santiago, PT [address] [place] [address] Forest Fire Officer Post Acute Care 11/17/23 Hearing Aid Specialist Relationship Specialty Start Date End Date Napoleon Martini MD [address] [place] [address] PCP - General Family Medicine 04/04/20 Gilberto Kirkpatrick, [facility] [address] [place] [address] Specialty Hospital Manager Orthopedics 09/14/23 12/21/23 Melissa De Santiago, PT [address] [place] [address] Forest Fire Officer Post Acute Care 11/17/23 Hearing Aid Specialist Relationship Specialty Start Date End Date Napoleon Martini MD [address] [place] [address] PCP - General Family Medicine 04/04/20 Raghavendra Kirkpatrickin, [facility] [address] [place] [address] Specialty Hospital Manager Orthopedics 09/14/23 12/21/23 Melissa De Santiago, PT [address] [place] [address] Forest Fire Officer Post Acute Care 11/17/23 Hearing Aid Specialist Relationship Specialty Start Date End Date Napoleon Martini MD [address] [place] [address] PCP - General Family Medicine 04/04/20 Gilberto Kirkpatrick, [facility] [address] [place] [address] Specialty Hospital Manager Orthopedics 09/14/23 12/21/23 Melissa De Santiago, PT [address] [place] [address] Forest Fire Officer Post Acute Care 11/17/23 Hearing Aid Specialist Relationship Specialty Start Date End Date Napoleon Martini MD [address] [place] [address] PCP - General Family Medicine 04/04/20 Gilberto Kirkpatrick, [facility] [address] [place] [address] Specialty Hospital Manager Orthopedics 09/14/23 12/21/23 Melissa De Santiago, PT [address] [place] [address] Forest Fire Officer Post Acute Care 11/17/23 Hearing Aid Specialist Relationship Specialty Start Date End Date Napoleon Martini MD [address] [place] [address] PCP - General Family Medicine 04/04/20 Gilberto Kirkpatrick, [facility] [address] [place] [address] Specialty Hospital Manager Orthopedics 09/14/23 12/21/23 Melissa De Santiago, PT [address] [place] [address] Forest Fire Officer Post Acute Care 11/17/23 Hearing Aid Specialist Relationship Specialty Start Date End Date Napoleon Martini MD [address] [place] [address] PCP - General Family Medicine 04/04/20 Raghavendra Kirkpatrickin, [facility] [address] [place] [address] Specialty Hospital Manager Orthopedics 09/14/23 12/21/23 Hearing Aid Specialist Relationship Specialty Start Date End Date Napoleon Martini MD [address] [place] [address] PCP - General Family Medicine 04/04/20 Gilberto Kirkpatrick, [facility] [address] [place] [address] Specialty Hospital Manager Orthopedics 09/14/23 12/21/23 Hearing Aid Specialist Relationship Specialty Start Date End Date Napoleon Martini MD [address] [place] [address] PCP - General Family Medicine 04/04/20 Gilberto Kirkpatrick, [facility] [address] [place] [address] Specialty Hospital Manager Orthopedics 09/14/23 12/21/23 Hearing Aid Specialist Relationship Specialty Start Date End Date Napoleon Martini MD [address] [place] [address] PCP - General Family Medicine 04/04/20 Hearing Aid Specialist Relationship Specialty Start Date End Date Napoleon Martini MD [address] [place] [address] PCP - General Family Medicine 04/04/20 Hearing Aid Specialist Relationship Specialty Start Date End Date Napoleon Martini MD [address] [place] [address] PCP - General Family Medicine 04/04/20 Hearing Aid Specialist Relationship Specialty Start Date End Date Napoleon Martini MD [address] [place] [address] PCP - General Family Medicine 04/04/20 Hearing Aid Specialist Relationship Specialty Start Date End Date Napoleon Martini MD [address] [place] [address] PCP - General Family Medicine 04/04/20 Hearing Aid Specialist Relationship Specialty Start Date End Date Napoleon Martini MD [address] [place] [address] PCP - General Family Medicine 04/04/20 Hearing Aid Specialist Relationship Specialty Start Date End Date Napoleon Martini MD [address] [place] [address] PCP - General Family Medicine 04/04/20 Hearing Aid Specialist Relationship Specialty Start Date End Date Napoleon Martini MD [address] [place] [address] PCP - General Family Medicine 04/04/20 Gilberto Kirkpatrick, [facility] [address] [place] [address] Specialty Hospital Manager Orthopedics 09/14/23 12/21/23 Melissa De Santiago, PT [address] [place] [address] Forest Fire Officer Post Acute Care 11/17/23 12/02/23 Hearing Aid Specialist Relationship Specialty Start Date End Date Napoleon Martini MD [address] [place] [address] PCP - General Family Medicine 04/04/20 Gilberto Kirkpatrick, [facility] [address] [place] [address] Specialty Hospital Manager Orthopedics 09/14/23 12/21/23 Melissa De Santiago, PT [address] [place] [address] Forest Fire Officer Post Acute Care 11/17/23 Hearing Aid Specialist Relationship Specialty Start Date End Date Napoleon Martini MD [address] [facility] [place] [address] PCP - General Family Medicine 04/04/20 Hearing Aid Specialist Relationship Specialty Start Date End Date Napoleon Martini MD [address] [facility] [place] [address] PCP - General Family Medicine 04/04/20 Hearing Aid Specialist Relationship Specialty Start Date End Date Napoleon Martini MD [address] [facility] [place] [address] PCP - General Family Medicine 04/04/20 Hearing Aid Specialist Relationship Specialty Start Date End Date Napoleon Martini MD [address] [facility] [place] [address] PCP - General Family Medicine 04/04/20 [facility] [address] [place] [address] Specialty Hospital Manager Orthopedics 09/14/23 12/21/23 Hearing Aid Specialist Relationship Specialty Start Date End Date Napoleon Martini MD [address] [facility] [place] [address] PCP - General Family Medicine 04/04/20 Afia Lama APRN.TAPE MAKING MACHINE OPERATOR [address] [facility] [place] [address] Garment Sorter Family Medicine 07/09/24 Cathy Griffith APRN.TAPE MAKING MACHINE OPERATOR [address] [facility] [place] [address] Garment Sorter Family Medicine 10/24/24 Hearing Aid Specialist Relationship Specialty Start Date End Date Napoleon Martini MD [address] [place] [address] PCP - General Family Medicine 04/04/20 PodlogarAfia APRN.TAPE MAKING MACHINE OPERATOR [address] [place], [place] [address] [facility] 07/09/24 Cathy Griffith APRN.TAPE MAKING MACHINE OPERATOR [address] [place], [place] [address] [facility] 10/24/24 Hearing Aid Specialist Relationship Specialty Start Date End Date Napoleon Martini MD [address] [place], [place] [address] PCP - General Family Medicine 04/04/20 PodlogarAfia APRN.TAPE MAKING MACHINE OPERATOR [address] [place] [address] [facility] 07/09/24 Cathy Griffith APRN.TAPE MAKING MACHINE OPERATOR [address] [place], [place] [address] [facility] 10/24/24 INFORMATION SOURCE (unrecogn ized section and content) DATE CREATED AUTHOR 12/05/2023 [facility] DATE CREATED AUTHOR AUTHOR'S ORGANIZ ATION 05/28/2024 [facility] DATE CREATED AUTHOR AUTHOR'S ORGANIZ ATION 11/17/2024 [facility] FOR RECORDS PERTAINING TO PATIENTS WHO ARE OR HAVE BEEN ENROLLED IN A CHEMICAL DEPENDENCY/SUBSTANCEABUSE PROGRAM, SOME INFORMATION MAY BE OMITTED. This clinical summary was aggregated from multiple sources. Caution should be exercised in using it in the provision of clinical care. This summary normalizes information from multiple sources, and as a consequence, information in this document may materially change the coding, format and clinical context of patient data. In addition, data may be omitted in some cases. CLINICAL DECISIONS SHOULD BE BASED ON THE PRIMARY CLINICAL RECORDS. [facility]. provides no warranty or guarantee of the accuracy or completeness of information in this document.
--- NOTE | 2025-01-07 12:30 | EX.ED.VIS.EY ---
HPI History of Present Illness Chief Complaint: Eye Problem Narrative Narrative: Patient is a 74-year-old female with a past medical history of neuropathy, hypertension, glaucoma, neuropathy who presented to the emergency department from her primary care office with a chief complaint of changes in vision out of her left eye. Patient states that about 6 weeks ago she did have a fall and hit her face but she states that she did not notice any difficulty seeing out of her left eye at that point in time. Patient states that she does not recall when all this started as she states that when both of her eyes are open she has no changes in vision. States that if she closes her right eye looks out of her left eye she has some difficulty seeing she states that she is able to read partial words but she cannot specifically verbalizes what she is seeing. She states that she does not notice 1 specific portion of her eye that is black when compared to the other. Patient denies any blood thinning medications. Patient states that she saw her eye doctor last fall. [facility] Medical History DVT (deep venous thrombosis) Wears glasses Bruising COVID Bladder disease Back pain Injury of head and neck Heartburn Former smoker Leg cramps History of pain when walking History of edema History of echocardiogram History of stress test Cardiology follow-up encounter History of irregular heartbeat Benign neoplasm of right breast Neuropathy Hypertension Chronic headaches Glaucoma Arthritis Home Medications ?Medication ?Instructions ?Recorded ?Last Taken ?Type Daniela's wort 300 mg tablet 300 mg PO DAILY 07/12/21 12/12/21 History aspirin 81 mg tablet,delayed 81 mg PO QHS 07/12/21 12/12/21 History release lecithin 1,200 mg capsule 1,200 mg PO DAILY 07/12/21 12/09/21 History lisinopril 40 mg tablet 40 mg PO DAILY 07/12/21 12/18/21 06:00 History oneachqysiah-spoeqnfd-ahsmor tablet 1 tab PO DAILY 07/12/21 Unknown History propranolol 10 mg tablet 10 mg PO TID 07/12/21 12/18/21 06:00 History selenium 200 mcg tablet 200 mcg PO QHS 07/12/21 12/12/21 History vit C 250 mg-E 90 mg-zinc 40 1 tab PO QAM AND QPM 07/12/21 Unknown History mg-copper 1 uv-eavtzv-watapu chew tablet (PreserVision AREDS-2) ondansetron 4 mg disintegrating 4 mg PO Q8H PRN PRN Nausea #14 tabs 08/02/21 Unknown Rx tablet oxycodone-acetaminophen 5 mg-325 1 tab PO Q6H PRN pain 3 days #12 12/08/21 Unknown Rx mg tablet (Percocet) tabs Vitamin D3 DAILY 12/18/21 12/12/21 History lidocaine 5 % topical patch 1 patch topical DAILY PRN pain #30 09/14/23 Unknown Rx (Lidoderm) ea oxycodone-acetaminophen 5 mg-325 1 tab PO Q6H PRN pain 3 days #12 09/14/23 Unknown Rx mg tablet (Percocet) tabs Allergy/AdvReac Type Severity Reaction Status Date / Time iodine Allergy Intermediate rash Verified 01/07/25 11:01 amoxicillin (From Augmentin) AdvReac Vomiting Verified 01/07/25 11:01 clavulanic acid (From AdvReac Vomiting Verified 01/07/25 11:01 Augmentin) Family History Father Angina at rest Hx of blood clots Cancer Myocardial infarction Sister Cancer Brother Thyroid disorder Severe allergy Surgical History History of lumbar discectomy History of phacoemulsification of cataract of both eyes with intraocular lens implantation History of cholecystectomy History of total left knee replacement H/O repair of right rotator cuff Social History Smoking Status: Former smoker alcohol intake: never substance use type: does not use what type of physical activity do you participate in: walking ROS ROS ED ROS Narrative Constitutional: Denies fevers, chills, headache, lightness, dizziness Eyes: Complains of left eye vision changes as noted above denies double vision Cardiovascular: Denies chest pain Respiratory: Denies coughing Abdomen: Denies abdominal pain nausea vomit diarrhea : Denies urinary symptoms Neurological: Denies numbness, weakness, tingling Musculoskeletal: Denies back pain Skin: Denies any rashes or lesions EXAM Physical Exam Narrative Exam Narrative: General: Patient was lying in bed rest comfortably did not appear to be acute distress Head: Atraumatic, normocephalic Eyes: PERRL bilaterally, EOMI bilaterally, no conjunctival injection noted, no red eye noted on the left side. When the patient closes her right eye and attempts to read words out of her left eye she is able to read partial of the word that was on the sharps container but noted that other portions of the word were blurry for her Neck: Soft, supple, trachea midline Cardiovascular: Regular rate and rhythm no murmurs gallops rubs noted Respiratory: Clear to auscultation bilaterally Abdomen: Soft, nondistended, tender to palpation Extremities: +5/5 strength noted in the bilateral upper and lower extremity, radial pulse +2/4 in the bilateral extremities, no pedal edema on exam Neurological: Patient follow commands knew that she was at [facility] year is 2024. NIH is 0 GCS 15 Skin: Warm, dry contact no rashes or lesions noted Const Vital Signs: 01/07/25 10:53 01/07/25 11:48 Temperature 97.2 F L Temperature Source Temporal Pulse Rate 97 Respiratory Rate 15 Blood Pressure 169/78 H Blood Pressure Mean 108 Pulse Ox 56 Oxygen Delivery Method Room Air Room Air MDM MDM MDM Narrative Medical decision making narrative: Patient is a 74-year-old female who presents to the emergency department chief complaint of change in vision out of her left eye. On the differential diagnosis includes but not limited to retinal detachment, vitreous hemorrhage, acute angle-closure glaucoma although feel this less likely as she does not have any pain or red eyes noted on exam clinically, central retinal artery occlusion, central retinal venous occlusion. Once workup is obtained reviewed she will be reevaluated. Patient is not tenecteplase candidate as her last known well is unknown nor is she an LVO candidate. Bedside ultrasound was performed of her eye and showed no vitreous hemorrhage no retinal detachment the ocular nerve appears to be normal diameter. Patient's vision of the left eye was 20/40, right eye was 20/25 and both eyes were 20/25. Patient CBC reviewed showed no evidence leukocytosis white blood count normal at 6.8, he was 13.9, plate count was noted be 217. Patient INR normal at 0.9, PT of 12.7. Patient sodium is 137, potassium normal 4.7, creatinine was 0.84. Patient's troponin was 8, EKG showed sinus bradycardia with a rate of [address] head and brain without contrast showed no acute intracranial abnormality she has chronic microvascular ischemia and involutional changes noted. Patient CTA head and neck was reviewed showed scattered atherosclerotic calcifications without evidence of acute occlusion thrombosis or dissection. 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 Patient's repeat blood pressure daily she was advised that she needs to keep down her blood pressure and follow-up with your primary care physician on this. She remains asymptomatic. I reached out to [facility] And spoke with cerebrovascular surgeon Dr. Isaacs who reviewed the images and called me back. She states that she would like the patient to have a detailed eye exam first thing of the week and then on Thursday her office will call her for a virtual visit. She states that after this they will have her come up to her office and they will do further testing and discussion on how they are going to fix the aneurysm. I called the patient's ophthalmology group [facility] and spoke with Dr. Llanos who states that she needs to show up to the office on Thursday at 8 AM first thing in the morning and they will do a detailed eye exam. Patient was notified of this plan as well as family member at bedside they are agreeable this plan all question concerns answered she was discharged home in stable condition. Lab Data Labs: Laboratory Results - last 24 hr 01/07/25 11:39 WBC 6.8 RBC 4.30 Hgb 13.9 Hct 42.3 MCV 98.4 MCH 32.3 H MCHC 32.9 RDW Std Deviation 46.2 H RDW Coeff of Antonio 12.9 Plt Count 217 MPV 13.1 H Immature Gran % (Auto) 0.300 Neut % (Auto) 46.4 L Lymph % (Auto) 38.0 [place] % (Auto) 10.1 H Eos % (Auto) 4.5 Baso % (Auto) 0.7 Absolute Neuts (auto) 3.2 Absolute Lymphs (auto) 2.60 Nucleated RBC % 0 PT 12.7 INR 0.9 APTT 24.7 Radiography Diagnostic Testing: Clinical Impression(s) from Imaging Studies Brain CT 01/07/25 11:29 IMPRESSION: No acute intracranial abnormality; no acute infarct, intracranial hemorrhage or extra-axial collection. Chronic microvascular ischemia and involutional changes. [facility] Triage Chief Complaint: Eye Problem ED Provider: Colby Jerez Dx/Rx/DC Orders Clinical Impression: Aneurysm of basilar artery, Change in vision Prescriptions: No Action propranolol 10 mg tablet 10 mg PO TID lisinopril 40 mg tablet 40 mg PO DAILY Daniela's wort 300 mg tablet 300 mg PO DAILY selenium 200 mcg tablet 200 mcg PO QHS PreserVision AREDS-2 250-90-40-1 mg tablet,chewable 1 tab PO QAM AND QPM lecithin 1,200 mg capsule 1,200 mg PO DAILY Rx Instructions: give with meal/snack aspirin 81 mg tablet,delayed release (DR/EC) 81 mg PO QHS tuxshdzgotmk-qbegkpjs-nhnrip Tablet 1 tab PO DAILY ondansetron 4 mg tablet,disintegrating 4 mg PO Q8H PRN PRN (Reason: Nausea) Qty: 14 0RF oxycodone-acetaminophen [Percocet] 5-325 mg tablet 1 tab PO Q6H PRN (Reason: pain) 3 Days Qty: 12 0RF Vitamin D3 DAILY oxycodone-acetaminophen [Percocet] 5-325 mg tablet 1 tab PO Q6H PRN (Reason: pain) 3 Days Qty: 12 0RF lidocaine [Lidoderm] 5 % adhesive patch,medicated 1 patch topical DAILY PRN (Reason: pain) Qty: 30 0RF Rx Instructions: leave on most painful area for up to 12 hrs Primary Care Provider: Brian Martini Referrals: Brian Martini MD [Primary Care Provider] - Activity Restrictions/Additional Instructions: Follow-up with the [facility] show up first thing at 8 AM Thursday morning for a eye exam. You will be following up with Dr. Alexsandra Isaacs at [facility] Her number is [phone] if you do not hear from them first thing Thursday morning you need to call their office as they will do a virtual visit with you and then you will be evaluated in their office to discuss how they are going to fix the aneurysm that was found on your CTA of your head. In the meantime you should return with worsening symptoms or any concerns. Follow-up with your primary care physician on your blood pressure. Check your blood pressure 2-3 times randomly throughout the day write this down with the blood pressure was and take this to your primary care physician further review as you need good blood pressure control with the aneurysm Print Language: Latvian Disposition Disposition: Home, Self Care
[2025-01-07 12:39] LABS: Anion Gap 10 (5-15); BUN 22 mg/dL (4-19); BUN/Creat Ratio 26.5 RATIO (10-20); Calcium,Total 9.4 mg/dL (7.6-11.0); Carbon Dioxide 23.1 mmol/L (21.0-32.0); Chloride 104 mmol/L (98-108); Creatinine, Serum 0.84 mg/dL (0.70-1.20); EST Glomerular Filtration Rate 72 (>60); Estimated Creatinine Clearance 63.89 ml/min (50-250); Glucose 112 mg/dL (70-99); Potassium 4.7 mmol/L (3.3-5.1); Sodium Level 137 mmol/L (133-145); Troponin T High Sensitivity 8 ng/L (<=14)
[2025-01-07 13:00] VITALS: BP 188/94; PULSE 61; RESP 16; O2SAT 98
--- NOTE | 2025-01-07 13:30 | PCA ---
CALLED [facility] @[phone] to transfer her faxed info and pushed images.
[2025-01-07 14:44] LABS: Troponin T High Sens 2 HR 6 ng/L (<=14)
[2025-01-07 15:01] VITALS: BP 160/80; PULSE 61; RESP 15; TEMP 36.2; O2SAT 99
== END 2025-01-07 15:02 | disposition home or self-care (01) ==
PROVIDERS: Emergency Provider Emergency Medicine; PCP Family Medicine; Visit Provider Emergency Medicine
DX: I72.5 Aneurysm of other precerebral arteries (principal); H53.9 Unspecified visual disturbance; Z87.891 Personal history of nicotine dependence; Z86.718 Personal history of other venous thrombosis and embolism
CPT/HCPCS: 70450; 70496; 70498; 80048; 84484; 85025; 85610; 85730; 93005; 96360; 99283; Q9967; A4216